=== PATIENT | female | born 1970 | race Caucasian/White ===

== ENCOUNTER 2017-04-07 | Emergency (ER) | payer MEDICAID, OTHER ==
[~2017-04-07] VITALS: Ht 162.6 cm; Wt 99.8 kg
[~2017-04-07] MED LIST: ATOR80TA PO; CIPR500T5 PO; CLON0.3T4 PO; COLC0.6T67 PO; COLE3.75 PO; DULO30CA2 PO; FERR-58 PO; FLUC200T8 PO; HYDR-3026 PO; HYDR-3204 PO; HYDR-4077 PO; HYDR1TAB PO; HYDR25PO MC; KETO30CR TP; LORA-545 PO; LOSA100T3 PO; MEDR10TA PO; OMEP20TA5 PO; PRAM2.7P2 SQ; SUMA100T PO
--- NOTE | 2017-04-07 01:00 | NUR ---
46 YO FEMALE BB SELF. PATIENT IS A/O X 3, C/O NOSE BLEED AND CHEST PAIN. PATIENT DESCRIBES PAIN PRESSURE LIKE, NON RADIATING. PATIENT AMBULATED TO ER BED, SKIN WARM AND DRY, RESP EVEN AND UNLABORED. PATIENT GOWNED,PLACED ON PARK WARDEN. AWAITING ORDERS FROM PROVIDER, WILL CONTINUE TO MONITOR
[2017-04-07] MEDS ORDERED: METOPROLOL TARTRATE INJ 5 MG/5 ML AMPUL IVP ONE (01:30)
[2017-04-07] MEDS ORDERED: METOPROLOL TARTRATE INJ 5 MG/5 ML AMPUL ONE (01:36)
--- NOTE | 2017-04-07 01:46 | NUR ---
MEDICATED PT QAS ORDERED
[2017-04-07 01:48] LABS: BASOPHILS # (AUTO) 0.1 /CMM (0.0-0.2); BASOPHILS % (AUTO) 0.6 % (0.0-2.0); EOSINOPHILS # (AUTO) 0.3 /CMM (0.0-0.7); HEMATOCRIT 35 % (33-45); HEMOGLOBIN 11.2 g/dL (11.5-14.8); LYMPHOCYTES # (AUTO) 2.2 /CMM (0.8-4.8); LYMPHOCYTES % (AUTO) 16.9 % (20.0-44.0); MEAN CORPUSCULAR HEMOGLOBIN 27 PG (26.0-33.0); MEAN CORPUSCULAR HGB CONC 32 g/dl (31.0-36.0); MEAN CORPUSCULAR VOLUME 84 fL (82-100); MONOCYTES # (AUTO) 0.9 /CMM (0.1-1.30); MONOCYTES % (AUTO) 6.9 % (2.0-12.0); NEUTROPHILS # (AUTO) 9.8 /CMM (1.8-8.9); NEUTROPHILS % (AUTO) 73.6 % (43.0-81.0); PLATELET COUNT (AUTO) 415 /CMM (150-450); RDW COEFFICIENT OF VARIATION 15.1 (11.5-15.0); RED BLOOD CELL COUNT(AUTO) 4.13 MIL/uL (4.0-5.2); WHITE BLOOD COUNT (AUTO) 13.3 K/uL (4.3-11.0)
[2017-04-07 02:02] LABS: CALCIUM, SERUM 8.9 mg/dL (8.5-10.1); INR 0.91 (0.87-1.13); POTASSIUM 3.8 mmol/L (3.5-5.1)
--- NOTE | 2017-04-07 02:04 | NUR ---
patient is resting in er bed, no distress noted, patient is on cardiac care unit nurse. will continue to monitor
[2017-04-07 02:06] LABS: TROPONIN I 0.218 ng/mL (0.00-0.056)
[2017-04-07] MEDS ORDERED: hydrALAZINE HCL IV 20 MG VIAL ONE ×2 (02:22→02:48)
[2017-04-07] MEDS ORDERED: hydrALAZINE HCL IV 20 MG VIAL IV ONE ×2 (02:30→03:00)
[2017-04-07] MEDS ORDERED: ENOXAPARIN SODIUM 80 MG/0.8 ML DISP.SYRIN SQ ONE (02:30)
[2017-04-07] MEDS ORDERED: ENOXAPARIN SODIUM 40 MG/0.4 ML DISP.SYRIN SQ ONE (02:48)
[2017-04-07] MEDS ORDERED: LABE100T PO (02:49)
[2017-04-07] MEDS ORDERED: ISOS60TA4 PO (02:49)
[2017-04-07] MEDS ORDERED: NITR0.4T48 SL (02:49)
[2017-04-07] MEDS ORDERED: ASPI-1169 PO (02:49)
[2017-04-07] MEDS ORDERED: INSU100C10 SQ (02:49)
[2017-04-07] MEDS ORDERED: FENO145T20 PO (02:49)
[2017-04-07] MEDS ORDERED: MONT10TA22 PO (02:49)
[2017-04-07] MEDS ORDERED: CYAN25008 SL (02:49)
[2017-04-07] MEDS ORDERED: CHOL20004 PO (02:49)
[2017-04-07] MEDS ORDERED: AMLO5TAB2 PO (02:49)
[2017-04-07] MEDS ORDERED: LOSA1TAB42 PO (02:49)
[2017-04-07] MEDS ORDERED: METO-358 PO (02:49)
[2017-04-07] MEDS ORDERED: PRAS10TA5 PO (02:49)
[2017-04-07] MEDS ORDERED: SPIR25TA4 PO (02:49)
[2017-04-07] MEDS ORDERED: INSU200I4 SQ (02:49)
[2017-04-07] MEDS ORDERED: ESOM40CA PO (02:49)
[2017-04-07] MEDS ORDERED: BISA-79 PO (02:49)
[2017-04-07] MEDS ORDERED: GLIM4TAB2 PO (02:49)
[2017-04-07 03:42] VITALS: BP 139/50
--- NOTE | 2017-04-07 03:45 | NUR ---
patient BP has gone down, VITAL SIGNS UPDATED. MD Wiggins notified
[2017-04-07] MEDS ORDERED: NITROGLYCERIN PACKET 1 GM PACKET TD ONE (04:30)
--- NOTE | 2017-04-07 04:42 | NUR ---
Patient does not wish to proceed with medical care recommended by Dr. Wiggins. Patient given information related to possible complications, up to and including , which could occur as a result of leaving the hospital at this time. Patient verbalizes understanding of risks involved due to leaving against medical advice. Patient refused to sign AMA form.
--- NOTE | 2017-04-07 04:48 | NUR ---
CALLED DR. WESTFALL AND INFORMED HIM PT DECIDED TO LEAVE HOSPITAL
== END 2017-04-07 04:51 | disposition left against medical advice (07) ==
LOC: ER 00:03
DX: I21.4 Non-ST elevation (NSTEMI) myocardial infarction (principal); I10 Essential (primary) hypertension; E11.9 Type 2 diabetes mellitus without complications; E66.9 Obesity, unspecified; E78.00 Pure hypercholesterolemia, unspecified; I25.2 Old myocardial infarction; Z88.0 Allergy status to penicillin; Z79.82 Long term (current) use of aspirin; Z79.4 Long term (current) use of insulin
CPT/HCPCS: 36415; 71045; 80048; 84484; 85025; 85730; 87081; 93005; 96372; 96374; 96375; 99285; A4606; J0360 ×2; J1650; J3490; Z7610

== ENCOUNTER 2018-01-10 17:18 | Emergency (ER) | payer MEDICAID ==
[~2018-01-10] VITALS: Ht 162.6 cm; Wt 104.3 kg
[~2018-01-10 17:18] MED LIST changes: +AMLO5TAB7 PO; +ASPI-1169 PO; -ATOR80TA PO; +BISA-79 PO; +CHOL20004 PO; -CIPR500T5 PO; -CLON0.3T4 PO; -COLE3.75 PO; +CYAN25008 SL; -DULO30CA2 PO; +ESOM40CA PO; +FENO145T35 PO; -FERR-58 PO; +FERR325T27 PO; -FLUC200T8 PO; +GLIM4TAB2 PO; -HYDR-3026 PO; -HYDR-3204 PO; -HYDR1TAB PO; -HYDR25PO MC; +INSU100C10 SQ; +INSU200I4 SQ; +ISOS60TA4 PO; -KETO30CR TP; +LABE100T5 PO; -LORA-545 PO; -LOSA100T3 PO; +LOSA1TAB42 PO; -MEDR10TA PO; +METO-358 PO; +MONT10TA22 PO; +NITR0.4T48 SL; -OMEP20TA5 PO; -PRAM2.7P2 SQ; +PRAS10TA5 PO; +SPIR25TA6 PO; -SUMA100T PO
--- NOTE | 2018-01-10 17:30 | NUR ---
BIB C/O LEFT LEG PAIN AND BLEEDING FROM PREVIOUS SURGERY 11/07 SHARP PAIN. RECENT HEART SURGERY 12/30/[address] [facility]. , ATTACHED TO MONITOR , VSS AFEBRILE , WILL CONTINUE TO MONITOR
[2018-01-10] MEDS ORDERED: HYDROCODONE/APAP 5/325MG 1 EACH TABLET ONE (17:53)
[2018-01-10] MEDS ORDERED: HYDROCODONE/APAP 5/325MG 1 EACH TABLET PO ONE (18:00)
--- NOTE | 2018-01-10 18:17 | NUR ---
Patient discharged to home in stable condition. Written and verbal after care instructions given. Patient verbalizes understanding of instruction.
[2018-01-10 18:19] VITALS: BP 142/65
== END 2018-01-10 18:20 | disposition home or self-care (01) ==
LOC: ER 17:21
DX: S80.12XD Contusion of left lower leg, subsequent encounter (principal); I10 Essential (primary) hypertension; E11.9 Type 2 diabetes mellitus without complications; I25.2 Old myocardial infarction; E78.00 Pure hypercholesterolemia, unspecified; Z95.1 Presence of aortocoronary bypass graft; Z98.890 Other specified postprocedural states; Z88.0 Allergy status to penicillin; Z79.82 Long term (current) use of aspirin; Z79.4 Long term (current) use of insulin; X58.XXXD Exposure to other specified factors, subsequent encounter
CPT/HCPCS: A4606; A6402; Z7610

== ENCOUNTER 2018-07-09 00:49 | Inpatient (IN) | payer MEDICAID ==
[~2018-07-09] VITALS: Ht 162.6 cm; Wt 106.1 kg
[~2018-07-09 00:49] MED LIST changes: -AMLO5TAB7 PO; +AMLO5TAB9 PO
--- NOTE | 2018-07-09 00:57 | NUR ---
PT BIBSELF COMPLAINING OF L FLANK PAIN, WITH CHEST PAIN. PT AXO4. PT ANXIOUS, RESPIRATIONS EVEN AND UNLABORED. PT PUT ON THE LOAN COORDINATOR AND PULSE OX.
--- NOTE | 2018-07-09 00:58 | NUR ---
PT HYPERTENSIVE ON THE MONITOR. ER AWARE.
[2018-07-09] MEDS ORDERED: NITROGLYCERIN 0.4 MG/TAB BOTTLE ONE (01:00)
[2018-07-09] MEDS ORDERED: NITROGLYCERIN 0.4 MG/TAB BOTTLE SL ONE (01:00)
[2018-07-09] MEDS ORDERED: ASPIRIN 325 MG TABLET ONE (01:00)
[2018-07-09] MEDS ORDERED: ASPIRIN 325 MG TABLET PO ONE (01:00)
--- NOTE | 2018-07-09 01:00 | NUR ---
EKG AT BEDSIDE.
--- NOTE | 2018-07-09 01:15 | NUR ---
PT SIGNED WAIVER.
[2018-07-09] MEDS ORDERED: ALBUTEROL FS 2.5 MG/0.5 ML VIAL.NEB ONE (01:20)
--- NOTE | 2018-07-09 01:21 | NUR ---
RT AT BEDSIDE FOR BREATHING TREATMENT.
[2018-07-09 01:30] LABS: BASOPHILS # (AUTO) 0.1 /CMM (0.0-0.2); BASOPHILS % (AUTO) 0.8 % (0.0-2.0); EOSINOPHILS % (AUTO) 4.4 % (0.0-6.0); HEMATOCRIT 33 % (33-45); LYMPHOCYTES % (AUTO) 19.4 % (20.0-44.0); MEAN CORPUSCULAR HGB CONC 33 g/dl (31.0-36.0); MEAN CORPUSCULAR VOLUME 91 fL (82-100); MONOCYTES # (AUTO) 0.7 /CMM (0.1-1.30); MONOCYTES % (AUTO) 6.9 % (2.0-12.0); NEUTROPHILS % (AUTO) 68.5 % (43.0-81.0); PLATELET COUNT (AUTO) 471 /CMM (150-450); RED BLOOD CELL COUNT(AUTO) 3.65 MIL/uL (4.0-5.2); WHITE BLOOD COUNT (AUTO) 10.3 K/uL (4.3-11.0)
[2018-07-09] MEDS ORDERED: MORPHINE SULFATE INJ 2 MG/ML DISP.SYRIN IV ONE (01:30)
[2018-07-09] MEDS ORDERED: ALBUTEROL FS 2.5 MG/0.5 ML VIAL.NEB NEB ONE (01:30)
[2018-07-09] MEDS ORDERED: ONDANSETRON HCL/PF 4 MG/2 ML VIAL IV ONE (01:30)
[2018-07-09] MEDS ORDERED: ONDANSETRON HCL/PF 4 MG/2 ML VIAL ONE (01:43)
[2018-07-09] MEDS ORDERED: MORPHINE SULFATE INJ 4 MG/ML DISP.SYRIN ONE (01:43)
[2018-07-09 01:57] LABS: CALCIUM, SERUM 8.7 mg/dL (8.5-10.1); POTASSIUM 4.3 mmol/L (3.5-5.1)
--- NOTE | 2018-07-09 01:57 | NUR ---
CALLED FOR TELE BED
--- NOTE | 2018-07-09 02:10 | NUR ---
PT TAKEN TO CT.
--- NOTE | 2018-07-09 02:18 | NUR ---
PT RETURNED FROM CT.
--- NOTE | 2018-07-09 02:36 | NUR ---
PT RESTING IN BED, AL NOTED. PT STATES SHE FEELS, "A LITTLE BIT BETTER"
--- NOTE | 2018-07-09 02:37 | NUR ---
WILL CONTINUE TO MONITOR.
--- NOTE | 2018-07-09 03:15 | NUR ---
PT RESTING IN BED, COMFORTABLY. NAD, NOTED WILL CONTINUE TO MONITOR.
[2018-07-09] MEDS ORDERED: ESCI20TA PO (03:35)
[2018-07-09] MEDS ORDERED: CLOP75TA15 PO (03:35)
[2018-07-09] MEDS ORDERED: DOCU250C88 PO (03:35)
[2018-07-09] MEDS ORDERED: GABA-532 PO (03:35)
[2018-07-09] MEDS ORDERED: PANT40TA4 PO (03:35)
[2018-07-09] MEDS ORDERED: INSU100V36 SQ (03:35)
[2018-07-09] MEDS ORDERED: ROSU40TA PO (03:35)
[2018-07-09] MEDS ORDERED: NEBI20TA2 PO (03:35)
[2018-07-09] MEDS ORDERED: LORA1TAB PO (03:35)
[2018-07-09] MEDS ORDERED: LINA5TAB PO (03:35)
--- NOTE | 2018-07-09 03:55 | NUR ---
PT HYPERTENSIVE ON THE MONITOR. ER MD AWARE. VERBAL ORDER OF 10MG HYDRALAZINE IVP. WILL CARRY OUT ORDERS.
[2018-07-09] MEDS ORDERED: hydrALAZINE HCL IV 20 MG VIAL ONE ×2 (04:05→04:35)
[2018-07-09] MEDS ORDERED: hydrALAZINE HCL IV 20 MG VIAL IV ONE ×2 (05:00)
--- NOTE | 2018-07-09 05:55 | NUR ---
REPORT GIVEN TO DAVID WILSON FOR FELICIA.
--- NOTE | 2018-07-09 06:28 | NUR ---
PT HYPERTENSIVE ON THE MONITOR. ER MD AWARE. WILL CARRY OUT ORDERS.
[2018-07-09] MEDS ORDERED: CLONIDINE HCL 0.1 MG TABLET ONE (06:38)
[2018-07-09] MEDS ORDERED: CLONIDINE HCL 0.1 MG TABLET PO PRN (07:00)
--- NOTE | 2018-07-09 07:40 | NUR ---
MS RN RECEIVED A NEW ADMISSION, 48 YEAR OLD FEMALE, CAME IN W/ CC OF CHEST PAIN,HIGH B/P, NOT IN DISTRESS, AWAKE,ALERT,ORIENTED X4, WILL MONITOR PATIENT'S CONDITION,ALL NEEDS ATTENDED.
[2018-07-09 08:00] VITALS: BP 182/90
[2018-07-09] MEDS ORDERED: INSULIN LISPRO/ASPART 100 UNIT/ML CARTRIDGE SQ SCH (08:30)
[2018-07-09] MEDS ORDERED: CLOPIDOGREL BISULFATE 75 MG TABLET PO SCH (09:00)
[2018-07-09] MEDS ORDERED: AMOX/CLAVULANATE 875 MG TABLET PO SCH (09:00)
[2018-07-09] MEDS ORDERED: INSULIN REGULAR, HUMAN 100 UNIT/ML 3 ML VIAL SQ PRN (09:00)
[2018-07-09] MEDS ORDERED: DEXTROSE 50%-WATER 50 ML DISP.SYRIN IV PRN (09:00)
[2018-07-09] MEDS ORDERED: *INSULIN REGULAR(HUMULIN R)HUM 100 UNIT/ML VIAL SQ PRN (09:00)
--- NOTE | 2018-07-09 09:10 | NUR ---
MS RN WAS SEEN BY DR.SHAO Jones/ ORDERS MADE AND CARRIED OUT.
[2018-07-09] MEDS ORDERED: ACETAMINOPHEN 325 MG TABLET PO PRN (10:00)
[2018-07-09] MEDS: HYDROCODONE/APAP 5/325MG 1 EACH TABLET PO PRN ×2 (10:07→18:12)
[2018-07-09] MEDS: GABAPENTIN 100 MG CAPSULE PO SCH ×3 (10:13→18:12)
[2018-07-09] MEDS: PANTOPRAZOLE 40 MG TABLET.DR PO SCH (10:13)
[2018-07-09] MEDS: FERROUS SULFATE (325 MG) 325 MG/TAB TABLET PO SCH ×2 (10:13→18:12)
[2018-07-09] MEDS: MONTELUKAST SODIUM (10MG) 10 MG TABLET PO SCH (10:13)
[2018-07-09] MEDS: FENOFIBRATE NANOCRYS (145 MG) 145 MG TABLET PO SCH (10:14)
[2018-07-09] MEDS: LINAGLIPTIN 5 MG TABLET PO SCH (10:14)
[2018-07-09] MEDS: ASPIRIN 81 MG TAB.CHEW PO SCH (10:14)
[2018-07-09] MEDS: BISACODYL (5 MG) 5 MG TABLET.DR PO SCH ×2 (10:14→18:12)
[2018-07-09] MEDS: SPIRONOLACTONE 25 MG TABLET PO SCH (10:15)
[2018-07-09] MEDS: AMLODIPINE BESYLATE 10 MG TABLET PO SCH (10:15)
[2018-07-09] MEDS: GLIMEPIRIDE 4 MG TABLET PO SCH ×2 (10:16→18:12)
[2018-07-09] MEDS: hydrALAZINE HCL 50 MG TABLET PO SCH ×2 (10:16→18:13)
[2018-07-09] MEDS: BLOOD SUGAR DIAGNOSTIC 1 EACH STRIP VI SCH ×3 (12:00→22:21)
--- NOTE | 2018-07-09 12:30 | NUR ---
MS RN REFUSED BS AND LUNCH AT THIS TIME.
[2018-07-09] MEDS: IV 1/2NS 1000 ML 1,000 ML IV PRN (14:04)
[2018-07-09 16:00] VITALS: BP 126/69
--- NOTE | 2018-07-09 17:05 | NUR ---
Patient lives at home locally with spouse. She is ambulatory and independent with adl's. Patient and is requesting transfer to [facility] where she has a scheduled urology procedure to be done this Friday by Dr. Tylor Mcneill [phone]. Spoke with Camelia haven mckeon mgr at [facility] [phone], she will contact the transfer team for coordination. Addendum: 07/09/18 at 2042 by CHIKI CORDOVA RN Amended: Links added.
--- NOTE | 2018-07-09 18:10 | NUR ---
Spoke with Ravi SMITH at [facility], patient is not cleared for transfer per , patient will need stress test tomorrow and will decide if patient is cleared for the urology procedure. [facility] field case manager will coordinate transfer if cleared by Dr. Laboy and cardiology. and patient is aware and agreed with current plan of care. Addendum: 07/09/18 at 2049 by CHIKI CORDOVA RN Amended: Links added.
[2018-07-09] MEDS: COLCHICINE 0.6 MG TABLET PO SCH (18:13)
[2018-07-09] MEDS: AZITHROMYCIN 250 MG TABLET PO SCH (18:15)
--- NOTE | 2018-07-09 19:40 | NUR ---
RN OPENING NOTES RECEIVED REPORT FROM DAYSHIFT RN GAIL. FOUND Pt ASLEEP IN BED, EASILY AWAKENED. NO S/S OF ACUTE DISTRESS OR SOB NOTED. Pt IS A/OX4, VERBAL, ABLE TO MAKE NEEDS KNOWN. NO C/O PAIN AT THIS TIME. IV ACCESS ON RWRIST #22G, IVF 1/2 NS @100ML/HR. Pt IS SCHEDULED TO HAVE STRESS TEST TOMORROW IN AM; CONSENT SIGNED, PLACED IN CHART. SAFETY MEASURES IN PLACE. BED LOW, LOCKED, HOB ELEVATED, SIDE RAILS UP, CALL LIGHT AND BEDSIDE TABLE WITHIN REACH. WILL CONTINUE TO MONITOR Pt's CONDITION AND SAFETY THROUGHOUT THE NIGHT.
[2018-07-09 20:00] VITALS: BP 140/62
--- NOTE | 2018-07-09 20:00 | NUR ---
RN NOTES SPOKE WITH CM ON THE PHONE. SAID Pt WILL NOT BE TRANSFERRED TONIGHT, INSTEAD SHE WILL BE TRANSFERRED TO [facility] TOMORROW AFTER THE STRESS TEST IS DONE AND Pt IS MEDICALLY CLEARED TO BE TRANSFERRED.
[2018-07-09] MEDS ORDERED: ATORVASTATIN 10 MG TABLET PO SCH (22:00)
--- NOTE | 2018-07-09 22:30 | NUR ---
KATIE NOTES HS ACCUCHECK BG 140. Pt WILL BE NPO STARTING MN TONIGHT. DID NOT ADMINISTER INSULIN COVERAGE. Addendum: 07/09/18 at 2234 by MICHAEL WALKER RN SPOKE WITH TUNNEL ELASTIC OPERATOR CHAINSTITCH OK TO GIVE INSULIN TONIGHT. WILL ADMINISTER 2UN OF INSULIN PER SLIDING SCALE.
[2018-07-10] VITALS: BP 129/70
[2018-07-10] MEDS: IV 1/2NS 1000 ML 1,000 ML IV PRN (02:30)
[2018-07-10 04:57] VITALS: BP 125/68
[2018-07-10] MEDS: BLOOD SUGAR DIAGNOSTIC 1 EACH STRIP VI SCH ×2 (06:30→12:12)
--- NOTE | 2018-07-10 06:33 | NUR ---
RN NOTES AC ACCUCHECK BG 115. NO INSULIN COVERAGE NEEDED AT THIS TIME.
--- NOTE | 2018-07-10 06:39 | NUR ---
RN CLOSING NOTES NO SIGNIFICANT CHANGES IN Pt's CONDITION. Pt REMAINS STABLE AT THIS TIME. NO S/S OF ACUTE DISTRESS OR SOB NOTED DURING THE NIGHT. ALL NEEDS MET AND ATTENDED TO. Pt IS CURRENTLY RESTING IN BED WITH EVEN AND UNLABORED RESPIRATIONS. TELE READING SR 70s. SAFETY MEASURES IN PLACE. WILL ENDORSE TO DAYSHIFT RN FOR Pt's FELICIA. Pt HAS BEEN NPO SINCE MIDNIGHT TONIGHT. Addendum: 07/10/18 at 0641 by MICHAEL WALKER RN STRESS TEST TODAY
--- NOTE | 2018-07-10 07:30 | NUR ---
PEER EDUCATOR NOTES PATIENT RECEIVED RESTING INSIDE ROOM. AWAKE, ALERT AND ORIENTED X 3, VERBALLY RESPONSIVE AND RESPONDS TO VERBAL AND TACTILE STIMULI. NO ACUTE DISTRESS AT THIS TIME. NO CHANGES IN LOC NOTED AT THIS TIME. PATIENT CALM AND RELAXED. ON NPO STATUS. AWAITING FOR STRESS TEST. PATIENT AWARE AND VERBALIZED UNDERSTANDING. WILL CONTINUE TO MONITOR. BED LOCKED AND IN LOW POSITION. BILATERAL UPPER SIDE RAILS UP AND LOCKED. CALL LIGHT WITHIN EASY REACH
[2018-07-10 07:44] LABS: BASOPHILS # (AUTO) 0.1 /CMM (0.0-0.2); BASOPHILS % (AUTO) 0.7 % (0.0-2.0); EOSINOPHILS % (AUTO) 4.7 % (0.0-6.0); HEMATOCRIT 32 % (33-45); HEMOGLOBIN 10.7 g/dL (11.5-14.8); LYMPHOCYTES # (AUTO) 1.5 /CMM (0.8-4.8); LYMPHOCYTES % (AUTO) 17.5 % (20.0-44.0); MEAN CORPUSCULAR HGB CONC 34 g/dl (31.0-36.0); MEAN CORPUSCULAR VOLUME 89 fL (82-100); MONOCYTES # (AUTO) 0.8 /CMM (0.1-1.30); MONOCYTES % (AUTO) 8.7 % (2.0-12.0); NEUTROPHILS % (AUTO) 68.4 % (43.0-81.0); PLATELET COUNT (AUTO) 366 /CMM (150-450); RED BLOOD CELL COUNT(AUTO) 3.58 MIL/uL (4.0-5.2); WHITE BLOOD COUNT (AUTO) 8.8 K/uL (4.3-11.0)
[2018-07-10 08:00] VITALS: BP 149/67
[2018-07-10] MEDS ORDERED: REGADENOSON 0.4 MG/5 ML DISP.SYRIN IVP ONE (08:00)
[2018-07-10] MEDS ORDERED: AZIT250T PO (08:03)
[2018-07-10 09:35] LABS: CALCIUM, SERUM 8.9 mg/dL (8.5-10.1); CREATININE 1.8 mg/dL (0.6-1.3); POTASSIUM 5.2 mmol/L (3.5-5.1)
[2018-07-10] MEDS: FENOFIBRATE NANOCRYS (145 MG) 145 MG TABLET PO SCH (09:49)
[2018-07-10] MEDS: GABAPENTIN 100 MG CAPSULE PO SCH ×2 (09:49→13:20)
[2018-07-10] MEDS: HYDROCODONE/APAP 5/325MG 1 EACH TABLET PO PRN ×2 (09:49→14:28)
[2018-07-10] MEDS: GLIMEPIRIDE 4 MG TABLET PO SCH (09:49)
[2018-07-10] MEDS: ASPIRIN 81 MG TAB.CHEW PO SCH (09:49)
[2018-07-10] MEDS: SPIRONOLACTONE 25 MG TABLET PO SCH (09:49)
[2018-07-10 09:50] VITALS: BP 149/67
[2018-07-10] MEDS: MONTELUKAST SODIUM (10MG) 10 MG TABLET PO SCH (09:50)
[2018-07-10] MEDS: BISACODYL (5 MG) 5 MG TABLET.DR PO SCH (09:50)
[2018-07-10] MEDS: LINAGLIPTIN 5 MG TABLET PO SCH (09:50)
[2018-07-10] MEDS: hydrALAZINE HCL 50 MG TABLET PO SCH (09:50)
[2018-07-10] MEDS: FERROUS SULFATE (325 MG) 325 MG/TAB TABLET PO SCH (09:50)
[2018-07-10] MEDS: AMLODIPINE BESYLATE 10 MG TABLET PO SCH (09:50)
[2018-07-10] MEDS: PANTOPRAZOLE 40 MG TABLET.DR PO SCH (09:50)
[2018-07-10] MEDS: COLCHICINE 0.6 MG TABLET PO SCH (09:51)
[2018-07-10] MEDS: AZITHROMYCIN 250 MG TABLET PO SCH (13:20)
--- NOTE | 2018-07-10 14:00 | NUR ---
MS RN NOTES RECEIVED CALL FROM CASE MANAGEMENT. REPORTING THAT PATIENT WILL BE TRANSFERRED TO [facility] FOR CARDIAC CATHETERIZATION. SPOKE WITH DR. WESTFALL OVER THE PHONE STATED THAT HE IS AWARE. PATIENT AND BISI AT BEDSIDE MADE AWARE AND VERBALIZED UNDERSTANDING.
--- NOTE | 2018-07-10 14:10 | NUR ---
MS RN NOTES PATIENT AND BISI ON THE PHONE WITH DR. WESTFALL
--- NOTE | 2018-07-10 15:50 | NUR ---
MS RN NOTES PATIENT LEFT HOSPITAL AGAINST MEDICAL ADVICE. VERBALIZED SHE DOES NOT WANT TO WAIT FOR TRANSPORTATION TO BE ARRANGED. ALSO VERBALIZED THAT SHE AND THE WANT TO GO TO [facility] THE PATIENT HAD PRIOR HOSPITALIZATION THERE AND THAT THEY HAVE THE PATIENT'S RECORDS. RISKS AND BENEFITS EXPLAINED BUT TO NO AVAIL. PATIENT STATED THAT SHE WANTS TO LEAVE IMMEDIATELY. DR. WESTFALL MADE AWARE AND GAVE OK. PATIENT SIGNED AMA FORM. ALL BELONGINGS COMPLETE, NO REPORT OF MISSING INVENTORY. IV REMOVED WITH MINIMAL BLEEDING NOTED, PRESSURE DRESSING PLACED ON SITE. ID BAND REMOVED. PATIENT LEFT UNIT AMBULATORY, ACCOMPANIED BY NURSING STAFF. PATIENT LEFT AMBULATORY. NO CHANGES IN LOC NOTED. DENIES ANY PAIN OR DISCOMFORT. NO ACUTE DISTRESS. NO NEW SKIN BREAKDOWN NOTED. LEFT HOSPITAL PREMISES VIA PRIVATE CAR WITH BISI.
== END 2018-07-10 15:45 | disposition left against medical advice (07) | DRG 145 ==
LOC: ER 00:49 → TELE 06:19 → MED 08:23 → TELE 08:41 → MED 07-10 08:26
PROVIDERS: ADMIT Internal Medicine; ATTEND Internal Medicine
DX: J20.9 Acute bronchitis, unspecified (principal); E11.22 Type 2 diabetes mellitus with diabetic chronic kidney disease; N17.9 Acute kidney failure, unspecified; I25.110 Atherosclerotic heart disease of native coronary artery with unstable angina pectoris; N18.3 Chronic kidney disease, stage 3 (moderate); K80.10 Calculus of gallbladder with chronic cholecystitis without obstruction; Z68.41 Body mass index [BMI] 40.0-44.9, adult; I12.9 Hypertensive chronic kidney disease with stage 1 through stage 4 chronic kidney disease, or unspecified chronic kidney disease; Z95.1 Presence of aortocoronary bypass graft; E66.9 Obesity, unspecified; Z88.0 Allergy status to penicillin; E78.5 Hyperlipidemia, unspecified
CPT/HCPCS: 36415; 71045-TC; 76705-TC; 76770-TC; 80048-TC; 82962-TC; 83880; 84484-TC; 84702-TC; 85025-TC; 85730-TC; 87081-TC; 93307-TC; A9502; G0378; J0360; J1815; J2270; J2405; J2785; J3490

== ENCOUNTER 2018-07-20 17:14 | Emergency (ER) | payer MEDICAID ==
[~2018-07-20] VITALS: Ht 157.5 cm; Wt 102.1 kg
[~2018-07-20 17:14] MED LIST changes: -AMLO5TAB9 PO; +AZIT250T PO; -CHOL20004 PO; +CLOP75TA15 PO; -CYAN25008 SL; +DOCU250C88 PO; +ESCI20TA PO; -ESOM40CA PO; +GABA-532 PO; +INSU100V36 SQ; -ISOS60TA4 PO; -LABE100T5 PO; +LINA5TAB PO; +LORA1TAB PO; -METO-358 PO; +NEBI20TA2 PO; -NITR0.4T48 SL; +PANT40TA4 PO; -PRAS10TA5 PO; +ROSU40TA PO
--- NOTE | 2018-07-20 17:26 | NUR ---
PT BIBFAMILY FOR LT SIDE BACK PAIN S/P SX ON FRIDAY; PT AAOX4, PT AMBULATORY, NAD NOTED, VSS, PENDING MD HUANG
[2018-07-20] MEDS ORDERED: KETOROLAC TROMETHAMINE 15 MG/ML VIAL ONE (17:49)
[2018-07-20] MEDS ORDERED: MORPHINE SULFATE INJ 4 MG/ML DISP.SYRIN ONE (17:49)
[2018-07-20 17:51] LABS: BILIRUBIN,URINE Negative (NEGATIVE); BLOOD, URINE Negative Ery/uL (NEGATIVE); COLOR,URINE Yellow (YELLOW); KETONES,URINE Negative (NEGATIVE); LEUKOCYTE ESTERASE ,URINE Negative (NEGATIVE); NITRITE, URINE Negative (NEGATIVE); PH,URINE 5.5 (5.0-8.0); PROTEIN,URINE 30 mg/dl (NEGATIVE); UGLUCOSE 100 MG/DL mg/dL (NEGATIVE); UROBILINOGEN,URINE 0.2 EU/dL (0.2)
[2018-07-20 17:52] LABS: BASOPHILS # (AUTO) 0.1 /CMM (0.0-0.2); BASOPHILS % (AUTO) 0.7 % (0.0-2.0); EOSINOPHILS % (AUTO) 11.6 % (0.0-6.0); HEMATOCRIT 35 % (33-45); HEMOGLOBIN 11.4 g/dL (11.5-14.8); LYMPHOCYTES # (AUTO) 1.5 /CMM (0.8-4.8); LYMPHOCYTES % (AUTO) 12.1 % (20.0-44.0); MEAN CORPUSCULAR HGB CONC 33 g/dl (31.0-36.0); MEAN CORPUSCULAR VOLUME 91 fL (82-100); MONOCYTES # (AUTO) 0.8 /CMM (0.1-1.30); MONOCYTES % (AUTO) 6.8 % (2.0-12.0); NEUTROPHILS # (AUTO) 8.5 /CMM (1.8-8.9); NEUTROPHILS % (AUTO) 68.8 % (43.0-81.0); PLATELET COUNT (AUTO) 504 /CMM (150-450); RED BLOOD CELL COUNT(AUTO) 3.82 MIL/uL (4.0-5.2); WHITE BLOOD COUNT (AUTO) 12.4 K/uL (4.3-11.0)
[2018-07-20] MEDS ORDERED: ONDANSETRON HCL/PF 4 MG/2 ML VIAL ONE (17:57)
[2018-07-20 17:59] LABS: CALCIUM, SERUM 9.1 mg/dL (8.5-10.1); CREATININE 1.6 mg/dL (0.6-1.3); POTASSIUM 4.1 mmol/L (3.5-5.1)
[2018-07-20] MEDS ORDERED: KETOROLAC TROMETHAMINE INJ 30 MG/ML VIAL IV ONE (18:00)
[2018-07-20] MEDS ORDERED: MORPHINE SULFATE INJ 2 MG/ML DISP.SYRIN IV ONE (18:00)
[2018-07-20] MEDS ORDERED: ONDANSETRON HCL/PF 4 MG/2 ML VIAL IVP ONE (18:00)
[2018-07-20 18:02] LABS: APPEARANCE,URINE HAZY (CLEAR)
[2018-07-20 18:03] LABS: BACTERIA,URINE OCCASIONAL /HPF (None Seen); RBC,URINE 0-2 /HPF (0-2)
[2018-07-20 18:04] LABS: YEAST,URINE Few /HPF (None Seen)
[2018-07-20 18:05] LABS: ALBUMIN 3.6 g/dL (3.4-5.0); BILIRUBIN,DIRECT 0.1 mg/dL (0.0-0.2); BILIRUBIN,TOTAL 0.2 mg/dL (0.2-1.0); SQUAMOUS EPITHELIAL CELL,UR Moderate /HPF (None Seen); TOTAL PROTEIN, SERUM 7.9 g/dL (6.4-8.2)
[2018-07-20 19:30] VITALS: BP 188/100
--- NOTE | 2018-07-20 19:31 | NUR ---
Patient discharged to home in stable condition. Written and verbal after care instructions given. Patient verbalizes understanding of instruction. IV removed. Catheter intact and site benign. Pressure and 4x4 applied to site. No bleeding noted.
== END 2018-07-20 20:19 | disposition home or self-care (01) ==
LOC: ER 17:19
DX: N39.0 Urinary tract infection, site not specified (principal); I10 Essential (primary) hypertension; J45.909 Unspecified asthma, uncomplicated; E11.9 Type 2 diabetes mellitus without complications; I25.10 Atherosclerotic heart disease of native coronary artery without angina pectoris; Z90.710 Acquired absence of both cervix and uterus; Z95.1 Presence of aortocoronary bypass graft; Z98.890 Other specified postprocedural states; Z88.0 Allergy status to penicillin; Z95.5 Presence of coronary angioplasty implant and graft; Z79.4 Long term (current) use of insulin; Z79.82 Long term (current) use of aspirin
CPT/HCPCS: 36415; 71045; 74176; 80048; 80076; 81001; 83690; 84484; 84703; 85025; 93005; 96374; 96375; 99284; G0480; J1885; J2270; J2405; 81000-TC

== ENCOUNTER 2019-04-19 19:59 | Emergency (ER) | payer MEDICAID ==
[~2019-04-19] VITALS: Ht 160 cm; Wt 102.1 kg
[~2019-04-19 19:59] MED LIST changes: +FENO145T21 PO; -FENO145T35 PO; -GLIM4TAB2 PO; +GLIM4TAB37 PO
--- NOTE | 2019-04-19 20:34 | NUR ---
PT CAME INTO THE ED C/O R NOSTRIL NOSEBLEED X1MO, WORSE TODAY, +BLOOD THINNERS. PT CONNECTED TO THE MONITOR AND POX. MINIMAL BLEEDING NOTED.
--- NOTE | 2019-04-19 20:38 | NUR ---
DR ISRAEL AT BEDSIDE
[2019-04-19] MEDS ORDERED: METOPROLOL TARTRATE 50 MG TABLET ONE (20:46)
[2019-04-19] MEDS ORDERED: METOPROLOL TARTRATE 50 MG TABLET PO ONE (21:00)
--- NOTE | 2019-04-19 21:02 | NUR ---
Patient discharged to home per MD order. Written and verbal after care instructions given. Patient verbalizes understanding of instruction. MD aware of patient's blood pressure. Medication given Lopressor 50mg.
[2019-04-19 21:04] VITALS: BP 186/108
[2019-04-28] MEDS ORDERED: LEVO750T21 PO (10:39)
== END 2019-04-19 21:04 ==
LOC: ER 20:00
DX: R04.0 Epistaxis (principal); I10 Essential (primary) hypertension; J45.909 Unspecified asthma, uncomplicated; E11.9 Type 2 diabetes mellitus without complications; I25.10 Atherosclerotic heart disease of native coronary artery without angina pectoris; Z95.1 Presence of aortocoronary bypass graft; Z90.710 Acquired absence of both cervix and uterus; Z95.5 Presence of coronary angioplasty implant and graft; Z98.890 Other specified postprocedural states; Z88.0 Allergy status to penicillin; Z79.82 Long term (current) use of aspirin; Z79.4 Long term (current) use of insulin; Z79.899 Other long term (current) drug therapy

== ENCOUNTER 2019-04-20 15:37 | Emergency (ER) | payer MEDICAID ==
[~2019-04-20] VITALS: Ht 160 cm; Wt 102.1 kg
--- NOTE | 2019-04-20 16:00 | NUR ---
PATIENT CAMEIN TO THE ER C/O CAME BACK FOR REMOVAL OF NASAL PACKING INSERTED LAST NIGHT FOR EPISTAXIS BLOOD PRESSURE ELEVATED IN TRIAGE. ON ROOM AIR, BREATHING EVENLY AND UNLABORED. KEPT COMFORTABLE, WILL CONTINUE TO MONITOR ACCORDINGLY.
[2019-04-20] MEDS ORDERED: HYDROCODONE/APAP 10/325MG 1 EA TABLET PO ONE (17:30)
[2019-04-20] MEDS ORDERED: PHENYLEPHRINE 1% NASAL SPRAY 15 ML BOTTLE NS PRN (17:30)
[2019-04-20] MEDS ORDERED: ONDANSETRON 4 MG TAB.RAPDIS SL ONE (17:30)
[2019-04-20] MEDS ORDERED: HYDROCODONE/APAP 10/325MG 1 EA TABLET ONE (17:34)
[2019-04-20] MEDS ORDERED: ONDANSETRON 4 MG TAB.RAPDIS ONE (17:34)
[2019-04-20] MEDS ORDERED: PHENYLEPHRINE 0.5% NASAL SPRAY 15 ML BOTTLE NS ONE (17:45)
[2019-04-20 18:38] VITALS: BP 183/85
--- NOTE | 2019-04-20 18:39 | NUR ---
Patient discharged to home in stable condition. Written and verbal after care instructions given. Patient verbalizes understanding of instruction.
[2019-04-28] MEDS ORDERED: LEVO750T21 PO (10:39)
== END 2019-04-20 18:38 | disposition home or self-care (01) ==
LOC: ER 15:38
DX: R04.0 Epistaxis (principal); R51 Headache; R11.0 Nausea; I10 Essential (primary) hypertension; I25.10 Atherosclerotic heart disease of native coronary artery without angina pectoris; J45.909 Unspecified asthma, uncomplicated; E11.9 Type 2 diabetes mellitus without complications; E78.5 Hyperlipidemia, unspecified; D64.9 Anemia, unspecified; Z95.818 Presence of other cardiac implants and grafts; Z90.710 Acquired absence of both cervix and uterus; Z98.890 Other specified postprocedural states; Z88.0 Allergy status to penicillin; Z79.899 Other long term (current) drug therapy; Z79.4 Long term (current) use of insulin; Z79.82 Long term (current) use of aspirin
CPT/HCPCS: 99283; Q0162

== ENCOUNTER 2019-04-26 23:40 | Inpatient (IN) | payer MEDICAID ==
[~2019-04-26] VITALS: Ht 160 cm; Wt 119.3 kg
[2019-04-27] VITALS: BP 157/64
--- NOTE | 2019-04-27 00:10 | NUR ---
PT BIB RA WITH A C/O SOB. PT IS ALSO C/O LT SIDED SHARP CHEST PAIN. PT WAS TRIAGED AND WENT TO ER 2. PT WAS PLACED ON THE MONITOR AND CONTINUOUS PULSE OX. PT ARRIVED WITH A BREATHING TX IN PROCESS. APPROX 3 MINS LEFT ON THE BREATHING TX.
--- NOTE | 2019-04-27 00:15 | NUR ---
PT IS SATURATING AT 98% ON RA.
[2019-04-27] MEDS ORDERED: methylPREDNISolone SOD SUCC 125 MG/2ML VIAL IV ONE (00:30)
[2019-04-27] MEDS ORDERED: ALBUTEROL FS 2.5 MG/3 ML VIAL.NEB NEB ONE (00:30)
[2019-04-27] MEDS ORDERED: NITROGLYCERIN PACKET 1 GM PACKET TD ONE (00:30)
[2019-04-27] MEDS ORDERED: ASPIRIN 81 MG TAB.CHEW PO ONE (00:30)
[2019-04-27] MEDS ORDERED: diphenhydrAMINE HCL 50 MG/ML VIAL IV ONE (00:30)
[2019-04-27] MEDS ORDERED: IPRATROPIUM NEB FS 0.5 MG/2.5 ML AMPUL.NEB NEB ONE (00:30)
[2019-04-27] MEDS ORDERED: MORPHINE SULFATE INJ 2 MG/ML DISP.SYRIN IV ONE (00:30)
[2019-04-27] MEDS ORDERED: ONDANSETRON HCL/PF - ER 4 MG/2 ML VIAL IV ONE (00:30)
[2019-04-27] MEDS ORDERED: NITROGLYCERIN 0.4 MG/TAB BOTTLE SL ONE (00:30)
[2019-04-27] MEDS ORDERED: ONDANSETRON HCL/PF 4 MG/2 ML VIAL ONE (00:31)
[2019-04-27] MEDS ORDERED: diphenhydrAMINE HCL 50 MG/ML VIAL ONE (00:31)
[2019-04-27] MEDS ORDERED: MORPHINE SULFATE INJ 4 MG/ML DISP.SYRIN ONE (00:32)
[2019-04-27] MEDS ORDERED: NITROGLYCERIN PACKET 1 GM PACKET ONE (00:32)
[2019-04-27] MEDS ORDERED: ASPIRIN 81 MG TAB.CHEW ONE (00:32)
[2019-04-27] MEDS ORDERED: NITROGLYCERIN 0.4 MG/TAB BOTTLE ONE (00:32)
[2019-04-27] MEDS ORDERED: MORPHINE SULFATE INJ 2 MG/ML DISP.SYRIN ONE (00:32)
[2019-04-27] MEDS ORDERED: methylPREDNISolone SOD SUCC 125 MG/2ML VIAL ONE (00:33)
[2019-04-27] MEDS ORDERED: ALBUTEROL FS 2.5 MG/3 ML VIAL.NEB ONE (00:33)
[2019-04-27] MEDS ORDERED: IPRATROPIUM NEB FS 0.5 MG/2.5 ML AMPUL.NEB ONE (00:33)
--- NOTE | 2019-04-27 00:35 | NUR ---
BREATHING TX STARTED
[2019-04-27 00:49] LABS: BASOPHILS # (AUTO) 0.1 /CMM (0.0-0.2); BASOPHILS % (AUTO) 1.2 % (0.0-2.0); EOSINOPHILS % (AUTO) 2.2 % (0.0-6.0); HEMATOCRIT 31 % (33-45); HEMOGLOBIN 9.9 g/dL (11.5-14.8); MEAN CORPUSCULAR HGB CONC 32 g/dl (31.0-36.0); MEAN CORPUSCULAR VOLUME 91 fL (82-100); MONOCYTES # (AUTO) 0.9 /CMM (0.1-1.30); MONOCYTES % (AUTO) 7.3 % (2.0-12.0); NEUTROPHILS # (AUTO) 8.5 /CMM (1.8-8.9); NEUTROPHILS % (AUTO) 72.3 % (43.0-81.0); PLATELET COUNT (AUTO) 448 /CMM (150-450); RED BLOOD CELL COUNT(AUTO) 3.39 MIL/uL (4.0-5.2); WHITE BLOOD COUNT (AUTO) 11.7 K/uL (4.3-11.0)
--- NOTE | 2019-04-27 00:50 | NUR ---
BREATHING TX FINISHED.
[2019-04-27 00:59] LABS: CALCIUM, SERUM 8.9 mg/dL (8.5-10.1); CREATININE 2.1 mg/dL (0.6-1.3); POTASSIUM 3.9 mmol/L (3.5-5.1)
--- NOTE | 2019-04-27 01:00 | NUR ---
PT DOES NOT KNOW HER HOME MEDS.
[2019-04-27 01:06] LABS: D-DIMER 0.81 mg/L(FEU (0.17-0.50)
[2019-04-27 01:16] LABS: ALBUMIN 3.3 g/dL (3.4-5.0); BILIRUBIN,TOTAL 0.1 mg/dL (0.2-1.0); TOTAL PROTEIN, SERUM 7.4 g/dL (6.4-8.2)
--- NOTE | 2019-04-27 01:28 | NUR ---
PT'S O2 SAT IS 91% ON RA. PT WAS PLACED ON 2L O2 VIA NC. PT IS SATURATING AT 94%
--- NOTE | 2019-04-27 01:30 | NUR ---
PT APPEARS TO BE SLEEPING SOUNDLY WITH NO S/S OF PAIN OR DISTRESS.
--- NOTE | 2019-04-27 01:35 | NUR ---
PT'S O2 SAT DECREASED TO 88%. PT'S O2 WAS INCREASED TO 3.5L VIA NC AND IS NOW 99%.
--- NOTE | 2019-04-27 01:36 | NUR ---
SPOKED TO [facility] [facility], WILL CALL BACK FOR INFO.
[2019-04-27] MEDS ORDERED: ENOXAPARIN SODIUM 100 MG/ML DISP.SYRIN SQ ONE ×2 (01:48→02:00)
--- NOTE | 2019-04-27 01:56 | NUR ---
PAGED FOR PT ADMISSION.
[2019-04-27] MEDS ORDERED: POTASSIUM CHLORIDE 20 MEQ TAB.PRT.SR PO ONE ×2 (02:00→02:22)
[2019-04-27] MEDS ORDERED: FUROSEMIDE 40 MG/4 ML VIAL IV ONE (02:00)
[2019-04-27] MEDS ORDERED: FUROSEMIDE 40 MG/4 ML VIAL ONE (02:22)
--- NOTE | 2019-04-27 02:26 | NUR ---
PER MD, PT REC'D K-DUR 2O MEQ PO BECAUSE THE PT WAS REC'ING LASIX 40 MG IVP.
--- NOTE | 2019-04-27 02:32 | NUR ---
ORDERS REC'D FROM DR WESTFALL.
--- NOTE | 2019-04-27 02:52 | NUR ---
PT IS GOING TO [facility]
--- NOTE | 2019-04-27 03:00 | NUR ---
CALLED [facility] TO GIVE REPORT. RN TO CALL BACK.
--- NOTE | 2019-04-27 03:18 | NUR ---
REPORT GIVEN TO KATIE BROTHERS
[2019-04-27 04:00] VITALS: BP 145/85
[2019-04-27] MEDS ORDERED: HYDROCODONE/APAP 5/325MG 1 EACH TABLET PO PRN (05:00)
[2019-04-27] MEDS ORDERED: DEXTROSE 50%-WATER 50 ML DISP.SYRIN IV PRN (05:00)
[2019-04-27] MEDS ORDERED: *INSULIN REGULAR(HUMULIN R)HUM 100 UNIT/ML VIAL SQ PRN (05:00)
[2019-04-27] MEDS ORDERED: ACETAMINOPHEN 325 MG TABLET PO PRN (05:00)
[2019-04-27 07:27] LABS: BASOPHILS # (AUTO) 0.1 /CMM (0.0-0.2); BASOPHILS % (AUTO) 0.7 % (0.0-2.0); EOSINOPHILS % (AUTO) 0.1 % (0.0-6.0); HEMATOCRIT 31 % (33-45); LYMPHOCYTES # (AUTO) 0.7 /CMM (0.8-4.8); LYMPHOCYTES % (AUTO) 5.3 % (20.0-44.0); MEAN CORPUSCULAR HGB CONC 32 g/dl (31.0-36.0); MEAN CORPUSCULAR VOLUME 90 fL (82-100); MONOCYTES # (AUTO) 0.3 /CMM (0.1-1.30); MONOCYTES % (AUTO) 2.3 % (2.0-12.0); NEUTROPHILS # (AUTO) 12.7 /CMM (1.8-8.9); NEUTROPHILS % (AUTO) 91.6 % (43.0-81.0); PLATELET COUNT (AUTO) 429 /CMM (150-450); RED BLOOD CELL COUNT(AUTO) 3.48 MIL/uL (4.0-5.2); WHITE BLOOD COUNT (AUTO) 13.9 K/uL (4.3-11.0)
[2019-04-27] MEDS ORDERED: BLOOD SUGAR DIAGNOSTIC 1 EACH STRIP IN SCH (07:30)
[2019-04-27 07:35] LABS: CALCIUM, SERUM 8.6 mg/dL (8.5-10.1); CREATININE 2.2 mg/dL (0.6-1.3); POTASSIUM 4.6 mmol/L (3.5-5.1)
[2019-04-27 07:43] LABS: THYROID STIMULATING HORMONE 1.974 uIU/mL (0.358-3.74)
[2019-04-27 08:00] VITALS: BP 155/81
--- NOTE | 2019-04-27 08:00 | NUR ---
[facility] RN NOTE PATIENT IN BED SLEEPING BUT EASILY AROUSABLE, ON 6 L NC NO SOB AT THIS TIME, ON TELE MONITOR, HR 89 , LT HAND HL INTACT AND FLUSHED WELL , BED IN LOWEST AND LOCKED POSITION. PLAN OF CARE DISCUSSED WITH PATIENT, WILL CONT TO MONITOR
[2019-04-27] MEDS: PANTOPRAZOLE 40 MG TABLET.DR PO SCH (08:54)
[2019-04-27] MEDS: BLOOD SUGAR DIAGNOSTIC 1 EACH STRIP VI SCH ×4 (08:56→21:45)
[2019-04-27] MEDS ORDERED: SPIRONOLACTONE 25 MG TABLET PO SCH (09:00)
[2019-04-27] MEDS: INSULIN REGULAR, HUMAN 100 UNIT/ML 3 ML VIAL SQ PRN ×3 (09:00→17:46)
[2019-04-27] MEDS ORDERED: CARVEDILOL 6.25 MG TABLET PO SCH (09:00)
[2019-04-27] MEDS ORDERED: ENOXAPARIN SODIUM 30 MG/0.3 ML DISP.SYRIN SQ SCH (09:00)
[2019-04-27] MEDS ORDERED: FUROSEMIDE 40 MG/4 ML VIAL IV SCH (09:00)
[2019-04-27] MEDS: GLIMEPIRIDE 4 MG TABLET PO SCH ×2 (09:00→16:09)
[2019-04-27] MEDS: FUROSEMIDE 40 MG/4 ML VIAL IV SCH (09:01)
--- NOTE | 2019-04-27 09:08 | NUR ---
[facility] RN NOTE DR WESTFALL AT BEDSIDE AND AWARE OF CHEST XRAY RESULTS AND PATIENT CONDITION. WILL F/U
[2019-04-27] MEDS: CEFTRIAXONE 1 G in IV D5W 50 ML IV SCH (10:04)
[2019-04-27] MEDS: HEPARIN SODIUM, PORCINE 5000 UNITS/1 ML VIAL SQ SCH ×2 (10:25→20:15)
[2019-04-27] MEDS: FENOFIBRATE NANOCRYS (145 MG) 145 MG TABLET PO SCH (10:26)
[2019-04-27] MEDS: MONTELUKAST SODIUM (10MG) 10 MG TABLET PO SCH (10:26)
[2019-04-27] MEDS: COLCHICINE 0.6 MG TABLET PO SCH ×2 (10:26→16:09)
[2019-04-27] MEDS: AMLODIPINE BESYLATE 5 MG TABLET PO SCH (10:27)
[2019-04-27] MEDS: ASPIRIN 81 MG TAB.CHEW PO SCH (10:27)
[2019-04-27] MEDS: GABAPENTIN 100 MG CAPSULE PO SCH ×3 (10:28→16:09)
[2019-04-27] MEDS: CLOPIDOGREL BISULFATE 75 MG TABLET PO SCH (10:28)
[2019-04-27] MEDS: LINAGLIPTIN 5 MG TABLET PO SCH (10:28)
[2019-04-27] MEDS: FERROUS SULFATE (325 MG) 325 MG/TAB TABLET PO SCH ×2 (10:28→16:09)
[2019-04-27] MEDS: CARVEDILOL 6.25 MG TABLET PO SCH ×2 (10:29→20:18)
[2019-04-27] MEDS: AZITHROMYCIN 500 MG in IV D5W 250 ML IV SCH (11:13)
[2019-04-27 12:00] VITALS: BP 143/77
--- NOTE | 2019-04-27 12:00 | NUR ---
NEON PUMPER NOTE RESTING COMFORTABLY IN BED , ALL NEEDS ATTENDED ,ABLE TO GO TO BR .URINATED WELL KEEP CLEAN DRY , CALL LIGHT WITHIN REACH
[2019-04-27 16:00] VITALS: BP 159/71
--- NOTE | 2019-04-27 16:27 | NUR ---
CARE PROFESSIONALS NOTE PER DR MALOU DAWN TO GIVE PNA VACCINE UPON DISCHARGE WILL F\U
--- NOTE | 2019-04-27 18:25 | NUR ---
SPLASH LINE OPERATOR NOTE PT AWAKE AT THIS TIME ABLE TO EAT 100% OF DINNER, ON O2 NC 6 LITERS. NOT IN DISTRESS AT THIS TIME. SAFETY MEASURES OBSERVED. ABLE TO AMBULATE BY SELF. CALL LIGHT WITHIN REACH. WILL CONTINUE TO MONITOR.
--- NOTE | 2019-04-27 19:20 | NUR ---
RN OPENING NOTES: PATIENT IN BED, AWAKE, AND VERBALLY RESPONSIVE. NO SOB. ON O2 AT 6LPM VIA NC, TOLERATING WELL, O2 SAT 100%. NO C/O PAIN AT THIS TIME. SAFETY PRECAUTIONS IMPLEMENTED. BED LOCKED, ALARM ON, AND IN LOWEST POSITION. (L) HAND G20 INTACT, PATENT, AND FLUSHING WELL. CALL LIGHT PLACED WITHIN REACH. WILL CONT. TO MONITOR.
[2019-04-27 20:00] VITALS: BP 167/77
--- NOTE | 2019-04-27 20:00 | NUR ---
RN NOTE: PATIENT C/O NONRADIATING 5/[address] WESTFALL AND RECOMMENDED IF NITRO OR MORPHINE CAN BE GIVEN. PER MD, JUST GIVE NORCO. WILL CONT. TO MONITOR.
[2019-04-27] MEDS ORDERED: ATORVASTATIN 40 MG TABLET PO SCH (22:00)
[2019-04-27] MEDS ORDERED: INSULIN GLARGINE, 100 UNIT/ML CARTRIDGE SQ SCH (22:00)
[2019-04-28] VITALS: BP 157/54
[2019-04-28 04:00] VITALS: BP 160/74
[2019-04-28 06:18] LABS: BASOPHILS # (AUTO) 0.1 /CMM (0.0-0.2); BASOPHILS % (AUTO) 0.9 % (0.0-2.0); EOSINOPHILS % (AUTO) 2.9 % (0.0-6.0); HEMATOCRIT 31 % (33-45); HEMOGLOBIN 9.8 g/dL (11.5-14.8); LYMPHOCYTES # (AUTO) 1.8 /CMM (0.8-4.8); MEAN CORPUSCULAR HGB CONC 32 g/dl (31.0-36.0); MEAN CORPUSCULAR VOLUME 90 fL (82-100); MONOCYTES # (AUTO) 0.9 /CMM (0.1-1.30); MONOCYTES % (AUTO) 7.8 % (2.0-12.0); NEUTROPHILS # (AUTO) 8.2 /CMM (1.8-8.9); NEUTROPHILS % (AUTO) 72.4 % (43.0-81.0); PLATELET COUNT (AUTO) 455 /CMM (150-450); RED BLOOD CELL COUNT(AUTO) 3.37 MIL/uL (4.0-5.2); WHITE BLOOD COUNT (AUTO) 11.3 K/uL (4.3-11.0)
[2019-04-28 07:09] LABS: CALCIUM, SERUM 9.1 mg/dL (8.5-10.1); CREATININE 2.3 mg/dL (0.6-1.3); POTASSIUM 3.7 mmol/L (3.5-5.1)
--- NOTE | 2019-04-28 07:20 | NUR ---
RN CLOSING NOTES: PATIENT IN BED, AWAKE, AND VERBALLY RESPONSIVE. NO SOB. NO C/O CHEST PAIN AT THIS TIME. SAFETY PRECAUTIONS IMPLEMENTED. BED LOCKED, ALARM ON, AND IN LOWEST POSITION. (L) HAND G20 INTACT, PATENT, AND FLUSHING WELL. CALL LIGHT PLACED WITHIN REACH. ENDORSED TO AM SHIFT NURSE FOR CONTINUITY OF CARE.
[2019-04-28] MEDS: BLOOD SUGAR DIAGNOSTIC 1 EACH STRIP VI SCH ×2 (07:39→11:48)
--- NOTE | 2019-04-28 07:45 | NUR ---
RN OPENING NOTE PATIENT IN BED SLEEPING BUT EASILY AROUSABLE, ON 6 L NC NO SOB AT THIS TIME, NO COMPLAINT OF PAIN , LT HAND HL INTACT AND FLUSHED WELL , BED IN LOWEST AND LOCKED POSITION. PLAN OF CARE DISCUSSED WITH PATIENT, WILL CONT TO MONITOR
[2019-04-28 08:00] VITALS: BP_SYST 171; BP_SYST 175; BP_DIAS 70; BP_DIAS 75
[2019-04-28] MEDS: PANTOPRAZOLE 40 MG TABLET.DR PO SCH (08:43)
[2019-04-28] MEDS: CEFTRIAXONE 1 G in IV D5W 50 ML IV SCH (08:45)
[2019-04-28] MEDS: INSULIN REGULAR, HUMAN 100 UNIT/ML 3 ML VIAL SQ PRN ×2 (08:45→11:54)
[2019-04-28] MEDS: HEPARIN SODIUM, PORCINE 5000 UNITS/1 ML VIAL SQ SCH (08:46)
[2019-04-28] MEDS: FUROSEMIDE 40 MG/4 ML VIAL IV SCH (08:47)
[2019-04-28] MEDS: ASPIRIN 81 MG TAB.CHEW PO SCH (08:56)
[2019-04-28] MEDS: CARVEDILOL 6.25 MG TABLET PO SCH (08:56)
[2019-04-28] MEDS: CLOPIDOGREL BISULFATE 75 MG TABLET PO SCH (08:56)
[2019-04-28] MEDS: GLIMEPIRIDE 4 MG TABLET PO SCH (08:57)
[2019-04-28] MEDS: MONTELUKAST SODIUM (10MG) 10 MG TABLET PO SCH (08:57)
[2019-04-28] MEDS: GABAPENTIN 100 MG CAPSULE PO SCH ×2 (08:57→12:37)
[2019-04-28] MEDS: LINAGLIPTIN 5 MG TABLET PO SCH (08:57)
[2019-04-28] MEDS: FERROUS SULFATE (325 MG) 325 MG/TAB TABLET PO SCH (08:58)
[2019-04-28] MEDS: FENOFIBRATE NANOCRYS (145 MG) 145 MG TABLET PO SCH (08:58)
[2019-04-28] MEDS: COLCHICINE 0.6 MG TABLET PO SCH (08:58)
[2019-04-28] MEDS: AMLODIPINE BESYLATE 5 MG TABLET PO SCH (09:00)
[2019-04-28] MEDS ORDERED: AMLODIPINE BESYLATE 5 MG TABLET PO SCH ×2 (10:00→17:00)
[2019-04-28] MEDS: AZITHROMYCIN 500 MG in IV D5W 250 ML IV SCH (10:20)
--- NOTE | 2019-04-28 10:30 | NUR ---
MANUAL QA TESTER NOTES DR. WESTFALL ORDER TO TRIAL PT ON ROOM AIR, TURN OFF THE O2 AND MONITOR PT, PT TOLERATED ROOM AIR WITH O2SAT 98%
[2019-04-28] MEDS ORDERED: LEVO750T21 PO (10:39)
[2019-04-28] MEDS ORDERED: LEVOFLOXACIN (500MG) 500 MG TABLET PO ONE (11:30)
[2019-04-28] MEDS ORDERED: LOSARTAN/HCTZ 50-12.5MG/ 1 EA TABLET PO ONE (13:00)
--- NOTE | 2019-04-28 13:00 | NUR ---
PITTING MACHINE OPERATOR DISCHARGE NOTE MS RHOADES WAS DISCHARGE TO THE FACILITY BY DR. EWSTFALL, PT IS ON STABLE CONDITION DISCHARGE TEACHING VIA EXIT PLAN DONE, HOME MEDICATION INSTRUCTED, INSTRUCTED ALSO ABOUT THE [facility] HOME MEDS THAT THE MD PRESCRIBE AND PT VERBALIZED UNDERSTANDING, V/S CHECKED WNL NO SIGN AND SYMPTOMS OF SOB, IV CATHETER REMOVED NO BLEEDING NOTED, ALL BELONGINGS WAS GIVEN PT WALK TO THE ENTRANCE ACCOMPANIED BY PRIMARY NURSE IS WAITING
[2019-04-28] MEDS ORDERED: LOSARTAN POTASSIUM 50 MG TABLET PO ONE (13:30)
[2019-04-28] MEDS ORDERED: HYDROCHLOROTHIAZIDE 25 MG TABLET PO ONE (13:30)
[2019-04-28 13:32] VITALS: BP 178/76
[2019-04-28] MEDS ORDERED: INSULIN GLARGINE, 100 UNIT/ML CARTRIDGE SQ SCH (22:00)
[2019-04-29] MEDS ORDERED: HYDROCHLOROTHIAZIDE 25 MG TABLET PO SCH (09:00)
== END 2019-04-28 15:00 | disposition home or self-care (01) | DRG 139 ==
LOC: ER 23:43 → TELE1 04-27 03:00 → TELE-TD 04-27 05:47 → TELE1 04-27 13:22
PROVIDERS: ADMIT Internal Medicine; ATTEND Internal Medicine
DX: J15.9 Unspecified bacterial pneumonia (principal); E11.22 Type 2 diabetes mellitus with diabetic chronic kidney disease; I13.10 Hypertensive heart and chronic kidney disease without heart failure, with stage 1 through stage 4 chronic kidney disease, or unspecified chronic kidney disease; E78.5 Hyperlipidemia, unspecified; E66.9 Obesity, unspecified; D64.9 Anemia, unspecified; N18.3 Chronic kidney disease, stage 3 (moderate); I25.10 Atherosclerotic heart disease of native coronary artery without angina pectoris; J45.909 Unspecified asthma, uncomplicated; Z95.1 Presence of aortocoronary bypass graft; Z79.4 Long term (current) use of insulin; Z79.82 Long term (current) use of aspirin; R07.81 Pleurodynia
CPT/HCPCS: 36415; 71045-TC; 80048-TC; 80061-TC; 80076-TC; 82962-TC; 83880; 84443-TC; 84484-TC; 84703-TC; 85025-TC; 85378-TC; 85730-TC; 87040-TC; 87081-TC; 93307-TC; G0378; J0456; J0696; J1200; J1644; J1650; J1815; J1940; J2270; J2405; J2930; J7050; J7060

== ENCOUNTER 2019-12-23 22:39 | Inpatient (IN) | payer MEDICAID ==
[~2019-12-23] VITALS: Ht 160 cm; Wt 117.6 kg
[~2019-12-23 22:39] MED LIST changes: -AZIT250T PO; -BISA-79 PO; +DOCU250C21 PO; -DOCU250C88 PO; +LEVO750T21 PO; -PANT40TA4 PO; +PANT40TA49 PO
--- NOTE | 2019-12-23 22:46 | NUR ---
PATIENT CAME TO ER BIB RA TO BED 8 FROM HOME C/O SOB. PATIENT STATES THAT SHE WAS RECENTLY TESTED POSITIVE 5 DAYS AGO FOR THE CORONAVIRUS. PATIENT ARRIVED WITH 15L ON NON-REBREATHER. ON ROOM AIR, PATIENT IS 94-95% OXYGEN SATURATION. PATIENT IS AAOX4. BREATHING EVENLY AND UNLABORED ON ROOM AIR. CLEAR LUNG SOUNDS AUSCULTATED BILATERAL LOWER AND UPPER LOBES. CONNECTED TO THE CASH POSTING CLERK.
[2019-12-23] MEDS ORDERED: AZITHROMYCIN 500 MG VIAL ONE (22:48)
[2019-12-23] MEDS ORDERED: CEFTRIAXONE 1GM BAG (ER ONLY) 50 ML IV ONE (22:48)
--- NOTE | 2019-12-23 22:55 | NUR ---
EKG, BLOOD, BLOOD CULTURES, MRSA SWAB, COVID SWAB COLLECTED AND SENT TO THE LAB WITH VP RHEUMATOLOGY.
[2019-12-23] MEDS ORDERED: AZITHROMYCIN 500 MG in IV D5W 250 ML IV ONE (23:00)
[2019-12-23] MEDS ORDERED: CEFTRIAXONE 1GM BAG (ER ONLY) 1 GM/50 ML PIGGYBACK IV ONE (23:00)
--- NOTE | 2019-12-23 23:05 | NUR ---
PATIENT DOES NOT WISH TO WEAR MASK WHILE IN ISOLATED ROOM. NASAL CANNULA, NON-REBREATHER OFFERED, DOES NOT WANT TO USE OXYGEN. PATIENT IS ALERT AND ORIENTED x4. MD IS AWARE.
--- NOTE | 2019-12-23 23:15 | NUR ---
XRAY AT BEDSIDE
[2019-12-23] MEDS ORDERED: ACETAMINOPHEN ES 500 MG TABLET ONE (23:16)
[2019-12-23 23:19] LABS: BASOPHILS # (AUTO) 0.1 /CMM (0.0-0.2); BASOPHILS % (AUTO) 0.9 % (0.0-2.0); EOSINOPHILS % (AUTO) 0.1 % (0.0-6.0); HEMATOCRIT 32 % (33-45); HEMOGLOBIN 10.4 g/dL (11.5-14.8); LYMPHOCYTES # (AUTO) 0.4 /CMM (0.8-4.8); LYMPHOCYTES % (AUTO) 3.7 % (20.0-44.0); MEAN CORPUSCULAR HGB CONC 32 g/dl (31.0-36.0); MEAN CORPUSCULAR VOLUME 87 fL (82-100); MONOCYTES # (AUTO) 0.7 /CMM (0.1-1.30); NEUTROPHILS # (AUTO) 10.5 /CMM (1.8-8.9); NEUTROPHILS % (AUTO) 89.3 % (43.0-81.0); PLATELET COUNT (AUTO) 410 /CMM (150-450); WHITE BLOOD COUNT (AUTO) 11.8 K/uL (4.3-11.0)
[2019-12-23 23:27] LABS: CALCIUM, SERUM 9.3 mg/dL (8.5-10.1); CREATININE 3.2 mg/dL (0.6-1.3)
--- NOTE | 2019-12-23 23:29 | NUR ---
PATIENT IS UNABLE TO URINATE.
[2019-12-23] MEDS ORDERED: ACETAMINOPHEN 325 MG TABLET PO ONE (23:30)
[2019-12-23 23:40] LABS: ALBUMIN 4.1 g/dL (3.4-5.0); BILIRUBIN,DIRECT 0.2 mg/dL (0.0-0.2); BILIRUBIN,TOTAL 0.4 mg/dL (0.2-1.0); TOTAL PROTEIN, SERUM 9.2 g/dL (6.4-8.2)
[2019-12-23] MEDS ORDERED: KETOROLAC TROMETHAMINE INJ 30 MG/ML VIAL ONE (23:50)
--- NOTE | 2019-12-23 23:50 | NUR ---
PATIENT IS STILL UNABLE TO URINATE. BED REYNOSO AND URINARY CATHETER OFFERED. PATIENT REFUSED. MD IS NOTIFIED.
[2019-12-24] VITALS (7 sets, daily range): BP systolic 154–198; BP diastolic 74–101
[2019-12-24] MEDS ORDERED: KETOROLAC TROMETHAMINE INJ 30 MG/ML VIAL IV ONE
--- NOTE | 2019-12-24 00:13 | NUR ---
SPOKE WITH THERAPEUTIC MASSAGE TECHNICIAN RAHUL AND GAVE CLINICAL INFORMATION. WILL CALL BACK FOR MD TO
--- NOTE | 2019-12-24 00:27 | NUR ---
SPOKE WITH ROVING TECHNICIAN RAHUL, GAVE AUTH FOR PT TO STAY AT [facility]. AUTH #[id number]
--- NOTE | 2019-12-24 00:49 | NUR ---
DR. JARAMILLO SPEAKING WITH DR. WESTFALL REGARDING ADMISSION
--- NOTE | 2019-12-24 01:36 | NUR ---
BED 201
[2019-12-24] MEDS ORDERED: CIPR500T5 PO (01:57)
[2019-12-24] MEDS ORDERED: NIFE-34 PO (01:57)
[2019-12-24] MEDS ORDERED: GABA600T12 PO (01:57)
[2019-12-24] MEDS ORDERED: SUMA100T16 PO (01:57)
[2019-12-24] MEDS ORDERED: GLIM4TAB37 PO (01:57)
[2019-12-24] MEDS ORDERED: OMEG1CAP55 PO (01:57)
[2019-12-24] MEDS ORDERED: FERR325T23 PO (01:57)
[2019-12-24] MEDS ORDERED: CLOP75TA15 PO (01:57)
[2019-12-24] MEDS ORDERED: HYDR100T27 PO (01:57)
[2019-12-24] MEDS ORDERED: NEBI20TA2 PO (01:57)
[2019-12-24] MEDS ORDERED: CLON0.3T TD (01:57)
[2019-12-24] MEDS ORDERED: NITR0.4T48 SL (01:57)
[2019-12-24] MEDS ORDERED: FURO-144 PO (01:57)
[2019-12-24] MEDS ORDERED: MONT10TA22 PO (01:57)
--- NOTE | 2019-12-24 02:03 | NUR ---
REPORT GIVEN TO DILMA WILSON FOR FELICIA.
--- NOTE | 2019-12-24 02:11 | NUR ---
BROUGHT TO ASSIGNED ROOM FOR FELICIA.
[2019-12-24] MEDS ORDERED: ZOLPIDEM TARTRATE 5 MG TABLET PO PRN (02:30)
[2019-12-24] MEDS ORDERED: ACETAMINOPHEN 325 MG TABLET PO PRN (02:30)
--- NOTE | 2019-12-24 02:30 | NUR ---
ADMISSION NOTES: RECEIVED REPORT FROM CHRISTIANO WILSON. PT BROUGHT TO THE UNIT VIA GURNEY. PT ADMITTED FOR COVID POSITIVE, SOB X3DAYS, PRODUCTIVE COUGH X 3DAYS, ABDL PAIN X2DAYS, NO BM X 2DAYS, LOSS OF APPETITE WITH N/V. PT BEING ADMITTED FOR COVID 19, PNA, UNDER MED SURG ADMIT PER DR WESTFALL. PT A/O X4 KINYARWANDA SPEAKING. PT REFUSED OXYGEN, 97% ON RA. PT REFUSED MASK, OXYGEN, EDUCATION PROVIDED TO PT AT THIS TIME. PT IV ACCESS PATENT AND FLUSHING WELL, ON HL. SKIN ASSESSMENT PERFORMED NO SKIN ISSUE NOTED. [facility] ORIENTED PT TO UNIT POLICY AND HOURLY ROUNDING. USE OF CALL LIGHT SYSTEM. DISCUSSED PLAN OF CARE TO PT. AGREE AND UNDERSTAND. VS TAKEN AND RECORDED. SAFETY PRECAUTIONS FOR FALL INITIATED, CALL LIGHT IN REACH, WILL CONTINUE MONITORING PT.
[2019-12-24] MEDS ORDERED: ONDANSETRON HCL/PF 4 MG/2 ML VIAL IV PRN (03:00)
[2019-12-24] MEDS ORDERED: HYDROCODONE/APAP 5/325MG TABLET PO PRN (03:00)
[2019-12-24] MEDS ORDERED: BISACODYL (5 MG) 5 MG TABLET.DR PO ONE (03:00)
--- NOTE | 2019-12-24 03:10 | NUR ---
RN NOTES: CONTACTED DR WESTFALL [phone]. RELAYED PT C/O ABDL PAIN 01/07, ALSO RELAYED BP 182/74, INFORMED MD PT LAST BM WAS 2DAYS AGO, AND ABDL PAIN STARTED 2DAYS AGO, UNABLE TO EAT DUE TO LOSS OF APPETITE, NO IMAGING DONE IN ER. PER MD TELEPHONE ORDER RECEIVED TO DO THE FOLLOWING: CT ABDOMEN AND PELVIS WITHOUT CONTRAST, PROTONIX 40 MG TAB PO DAILY FIRST DOSE NOW, DULCOLAX 10 MG POP X 1 DOSE NOW, DILAUDID 1MG IVP Q3HRS PRN FOR SEVER PAIN 8-10, NORCO 5/325 MG TAB PO Q4HRS PRN FOR MODERATE PAIN 4-7/10, ZOFRAN 4MG IVP Q4HRS PRN FOR N/V, PROCARDIA 60 MG XL DAILY TO GIVE FIRST DOSE NOW. ALL ORDERS READ BACK VERIFIED AND CARRIED OUT.
[2019-12-24] MEDS ORDERED: ACETAMINOPHEN ES 500 MG TABLET PO PRN (03:30)
[2019-12-24] MEDS: NIFEdipine XL (30MG) 30 MG TAB PO SCH ×2 (03:34→09:30)
[2019-12-24] MEDS: PANTOPRAZOLE 40 MG TABLET.DR PO SCH (03:34)
--- NOTE | 2019-12-24 03:40 | NUR ---
RN NOTES/CT SCAN CONSENT: EXPLAINED TO PT REGARDING CT SCAN OF ABDOMEN AND PELVIS, ORDER ROUTINE BY MD TO EVALUATE ABDL PAIN, EXPLAINED ABOUT RISK AND BENEFITS, PT AGREE FOR PROCEDURE, CONSENT SECURED AND SIGNED BY PT HERSELF.
--- NOTE | 2019-12-24 03:41 | NUR ---
RN NOTES/PRN ZOFRAN, DILAUDID: PT REQUESTED TO RECEIVE ZOFRAN PRIOR TO TAKING PILLS/PO MEDICATION, PRN ZOFRAN 4MG IVP ADMINISTERED TO PT AT THIS TIME, HEPARIN SQ ADMINISTERED, PROTONIX, DULCOLAX AND NIFEDIPINE PO ADMINISTERED TO PT AFTER 15MINUTES. PRN DILAUDID 1MG IVP ADMINISTERED TO PT AT THIS TIME FOR C/O OF ABDOMINAL PAIN 01/07. WILL CONTINUE TO MONITOR AND REASSESS PT.
[2019-12-24] MEDS: HEPARIN SODIUM, PORCINE 5000 UNITS/1 ML VIAL SQ SCH ×3 (03:45→20:55)
[2019-12-24] MEDS: HYDROMORPHONE 1 MG/1 ML DISP.SYRIN IV PRN ×3 (03:46→20:54)
--- NOTE | 2019-12-24 03:59 | NUR ---
RN NOTES: PER MD, CT ABDOMEN PELVIS WO CONTRAST, PLACED PT ON NPO FOR NOW IN PREPARATION FOR CT SCAN. PT AGREE AND UNDERSTAND.
[2019-12-24] MEDS: INSULIN REGULAR, HUMAN 100 UNIT/ML 3 ML VIAL SQ PRN ×2 (06:55→11:50)
[2019-12-24] MEDS: BLOOD SUGAR DIAGNOSTIC 1 EACH STRIP IN SCH ×4 (06:55→21:05)
--- NOTE | 2019-12-24 06:56 | NUR ---
rn notes/accu check 216: pt's blood sugar result is 216, pt currently on npo for ct scan of abdomen pelvis today, doesnt know specific time, pt unable to eat, per pt she would rather wait until procedure is done and will have her breakfast,
--- NOTE | 2019-12-24 06:59 | NUR ---
rn notes/accu check 216: pt's blood sugar result is 216, pt currently on npo for ct scan of abdomen pelvis today, doesnt know specific time, pt unable to eat, per pt she would rather wait until procedure is done and will have her meal tray and be radha to eat before receiving any insulin. education provided to pt. pt a/o x4.
--- NOTE | 2019-12-24 07:03 | NUR ---
END OF SHIFT REPORT: PT REMAINS ON RA, RESPIRATIONS EVEN AND UNLABORED. IV ACCESS REMAINS PATENT ANS FLUSHING WELL, ON HL.NO S/S OF IV INFILTRATION NOTED. PRN DILAUDID ADMINISTERED FOR C/O ABDL PAIN. PT ON NPO, FOR CT ABDOMEN AND PELVIS WITHOUT CONTRAST, CONSENT SECURED, ATTACHED TO CHART. VS REMAINS STABLE, NEEDS ATTENDED. SAFETY PRECAUTIONS FOR FALL REMAINs ENGAGED, CALL LIGHT IN REACH, WILL ENDORSE TO DAY RN FOR CONTINUITY OF CARE.
[2019-12-24 07:23] LABS: BASOPHILS # (AUTO) 0.1 /CMM (0.0-0.2); BASOPHILS % (AUTO) 0.8 % (0.0-2.0); HEMATOCRIT 32 % (33-45); LYMPHOCYTES # (AUTO) 0.4 /CMM (0.8-4.8); LYMPHOCYTES % (AUTO) 4.8 % (20.0-44.0); MEAN CORPUSCULAR HGB CONC 32 g/dl (31.0-36.0); MEAN CORPUSCULAR VOLUME 90 fL (82-100); MONOCYTES # (AUTO) 0.6 /CMM (0.1-1.30); MONOCYTES % (AUTO) 6.8 % (2.0-12.0); NEUTROPHILS # (AUTO) 7.1 /CMM (1.8-8.9); NEUTROPHILS % (AUTO) 87.6 % (43.0-81.0); PLATELET COUNT (AUTO) 384 /CMM (150-450); RED BLOOD CELL COUNT(AUTO) 3.52 MIL/uL (4.0-5.2); WHITE BLOOD COUNT (AUTO) 8.1 K/uL (4.3-11.0)
--- NOTE | 2019-12-24 07:30 | NUR ---
RN NOTES RECEIVED PATIENT IN BED RESTING COMFORTABLY IN MODERATE HIGH BACK REST. ON RA, TOLERATING WELL, NO SIGNS OF DISTRESS NOTED AT THIS TIMES. IV ACCESS ON RIGHT AC #18, REMAINS PATENT AND INTACT, SAFETY MEASURES IN PLACE, BED IN LOWEST LOCKED POSITION WITH SIDE RAILS UP X2. CALL LIGHT IN REACH, WILL CONTINUE TO MONITOR.
[2019-12-24 07:46] LABS: ALBUMIN 3.7 g/dL (3.4-5.0); BILIRUBIN,TOTAL 0.3 mg/dL (0.2-1.0); CALCIUM, SERUM 8.7 mg/dL (8.5-10.1); CREATININE 3.6 mg/dL (0.6-1.3); POTASSIUM 4.4 mmol/L (3.5-5.1); TOTAL PROTEIN, SERUM 8.7 g/dL (6.4-8.2)
[2019-12-24 08:06] LABS: THYROID STIMULATING HORMONE 1.897 uIU/mL (0.358-3.74)
[2019-12-24 08:37] LABS: C-REACTIVE PROTEIN 8.5 mg/dL (0.0-0.9)
[2019-12-24] MEDS ORDERED: NIFEDIPINE 60 MG PO PRN (09:30)
[2019-12-24] MEDS ORDERED: FUROSEMIDE 40 MG TABLET PO PRN (09:30)
[2019-12-24] MEDS: DEXAMETHASONE SOD PHOSPHATE 10 MG/ML VIAL IV SCH (09:31)
--- NOTE | 2019-12-24 09:55 | NUR ---
PT TRANSFERRED BY WHEEL CHAIR OUT OF UNIT AT THIS TIME FOR CT ABD/PELVIS. WILL CONTINUE WITH PLAN OF CARE
--- NOTE | 2019-12-24 10:10 | NUR ---
PT TRANSFERRED BY WHEEL CHAIR TO ROOM AT THIS TIME FROM CT ABD/PELVIS. PT DESTINY, WELLNESS ASSISTANT PT REFUSED TO GO THROUGH WITH CT ABD/PELVIS. PER PT, SHE DOES NOT WANT TO DO CT ABD/PELVIS. PT STATES "I FEEL LIKE FAINTING WHEN I GO IN". PT EDUCATION PROVIDED. PT VERBALIZE UNDERSTANDING BUT STILL REFUSED. WILL FOLLOW UP WITH DOCTOR AND CONTINUE TO MONITOR
--- NOTE | 2019-12-24 10:10 | NUR ---
DR WESTFALL MADE AWARE OF PT'S REFUSAL TO CT ABD.PELVIS. NO NEW ORDERS AT THIS TIME. WILL CONTINUE TO MONITOR
[2019-12-24] MEDS ORDERED: ASPI-1169 PO (10:33)
[2019-12-24] MEDS ORDERED: COLC0.6C3 PO (10:33)
[2019-12-24] MEDS ORDERED: OMEG1CAP PO (10:33)
[2019-12-24] MEDS ORDERED: TRAZ-252 PO (10:33)
[2019-12-24] MEDS ORDERED: SERT25TA PO (10:33)
[2019-12-24] MEDS ORDERED: LOSA100T31 PO (10:33)
[2019-12-24] MEDS ORDERED: PANT40TA2 PO (10:33)
[2019-12-24] MEDS ORDERED: ATOR10TA PO (10:33)
[2019-12-24] MEDS ORDERED: CLONIDINE HCL 0.3 MG/24H PTWK 1 EA PATCH TD SCH (11:00)
[2019-12-24] MEDS: LEVOFLOXACIN (250MG) 250 MG TABLET PO SCH (11:46)
[2019-12-24] MEDS: METOPROLOL TARTRATE 50 MG TABLET PO SCH ×2 (11:46→20:56)
[2019-12-24] MEDS ORDERED: CEFTRIAXONE 1GM BAG (ER ONLY) 1 GM/50 ML PIGGYBACK IV ONE (13:00)
[2019-12-24] MEDS: GABAPENTIN 300 MG CAPSULE PO SCH ×2 (13:21→16:40)
[2019-12-24] MEDS: hydrALAZINE HCL 50 MG TABLET PO SCH ×2 (13:21→16:41)
--- NOTE | 2019-12-24 13:55 | NUR ---
PT C/O OF TIGHTNESS AND RADIATING LEFT ABD PAIN OF 10/10. VS WNL. PER PT REQUEST DILAUDID 1MG IV Q3HR PRN ADMINISTERED AT THIS TIME PER ORDER. WILL REASSESS AND CONTINUE TO MONITOR
[2019-12-24] MEDS: ACETAMINOPHEN 325 MG TABLET PO PRN ×2 (16:39→20:55)
[2019-12-24] MEDS: GLIMEPIRIDE 4 MG TABLET PO SCH (16:40)
--- NOTE | 2019-12-24 16:40 | NUR ---
PT NOTED WITH TEMP OF 100.0 AT THIS TIME. COOLING MEASURES IN PLACE, SHEETS TAKEN OFF, ROOM KEPT COOL, ICE PACK ON UNDER ARMPIT. DR WESTFALL MADE AWARE. RECEIVED ORDERS FROM DR WESTFALL FOR TYLENOL 650MG PO Q4HR PRN FOR FEVER. ORDERS CARRIED OUT AND ADMINISTERED AT THIS TIME. WILL CONTINUE TO MONITOR
[2019-12-24] MEDS: FERROUS SULFATE (325 MG) 325 MG/TAB TABLET PO SCH (16:41)
--- NOTE | 2019-12-24 19:10 | NUR ---
RN CLOSING NOTES PT RESTING IN BED AT THIS TIME. PT REMAINED STABLE THROUGHOUT SHIFT. ALL CARE, NEEDS, MEDICATIONS AND TREATMENT ADMINISTERED ANTICIPATED PER ORDER. SAFETY PRECAUTION IN PLACE AND MAINTAINED AT ALL TIMES. BED IN LOWEST LOCKED POSITION, HOB ELEVATED, RAILS UP X 2, CALL LIGHT WITHIN REACH. WILL ENDORSE TO PAID SEARCH MARKETING ANALYST NURSE
--- NOTE | 2019-12-24 20:21 | NUR ---
MS2 DURING INITIAL SHIFT ROUNDING, PATIENT WAS IN ROOM ON BED AWAKE, ALERT, ORIENTED, WAS ON THE PHONE TALKING TO SOMEBODY, NO C/O PAIN, NO DISTRESS NOTED, CALL LIGHT IN REACH. WILL MONITOR.
[2019-12-24] MEDS ORDERED: AZITHROMYCIN 500 MG in IV D5W 250 ML IV SCH (22:00)
[2019-12-25] MEDS: HYDROMORPHONE 1 MG/1 ML DISP.SYRIN IV PRN ×3 (00:36→21:40)
--- NOTE | 2019-12-25 00:36 | NUR ---
MS RN NOTE: Patient complains of abdominal pain. Patient describes pain as aching and rates pain 9 on a 0-10 numerical scale. Administered PRN Dilaudid per MD order. Will continue to monitor.
[2019-12-25] MEDS: ACETAMINOPHEN 325 MG TABLET PO PRN ×2 (05:09→20:53)
--- NOTE | 2019-12-25 05:19 | NUR ---
MS2/RN ECUX=221.0, TYLENOL 650 MG PO WAS GIVEN ORDERED, COOLING MEASURES STARTED. WILL CONTINUE TO MONITOR.
[2019-12-25] MEDS: DEXTROSE 50%-WATER 50 ML DISP.SYRIN IV PRN (06:39)
--- NOTE | 2019-12-25 06:43 | NUR ---
MS2/RN ACCU CHECK = 48, RECHECKED= 46, PER PATIENT SHE WAS DIZZY, D50 50 MLS IV WAS GIVEN ORDERED. WILL RECHECK IN 30 MINUTES.
--- NOTE | 2019-12-25 06:47 | NUR ---
MS2/RN TEMP = 100.1, CONTINUE WITH THE COOLING MEASURES.
[2019-12-25] MEDS: BLOOD SUGAR DIAGNOSTIC 1 EACH STRIP IN SCH ×4 (06:50→21:02)
--- NOTE | 2019-12-25 06:51 | NUR ---
MS2/RN PATIENT IS AWAKE, COMFORTABLE, NO DISTRESS NOTED, CALL LIGHT IN REACH, ALL NEEDS ATTENDED AT THIS TIME, WILL CONTINUE TO MONITOR.
--- NOTE | 2019-12-25 07:30 | NUR ---
RN NOTES RECEIVED PATIENT IN BED RESTING COMFORTABLY IN MODERATE HIGH BACK REST. A/O X4. RA, TOLERATING WELL. IV ACCESS ON RAC #18, PATENT AND INTACT. SAFETY PRECAUTION IN PLACE. BED IN LOWEST LOCKED POSITION, SIDE RAILS UP X 2, CALL LIGHT WITHIN REACH. WILL CONTINUE TO MONITOR.
[2019-12-25] MEDS: CLOPIDOGREL BISULFATE 75 MG TABLET PO SCH (08:27)
[2019-12-25] MEDS: MONTELUKAST SODIUM (10MG) 10 MG TABLET PO SCH (08:28)
[2019-12-25] MEDS: PANTOPRAZOLE 40 MG TABLET.DR PO SCH (08:28)
[2019-12-25] MEDS: FERROUS SULFATE (325 MG) 325 MG/TAB TABLET PO SCH ×2 (08:28→16:31)
[2019-12-25] MEDS: hydrALAZINE HCL 50 MG TABLET PO SCH ×3 (08:29→16:32)
[2019-12-25] MEDS: DEXAMETHASONE SOD PHOSPHATE 10 MG/ML VIAL IV SCH (08:30)
[2019-12-25] MEDS: NIFEdipine XL (30MG) 30 MG TAB PO SCH (08:30)
[2019-12-25] MEDS: METOPROLOL TARTRATE 50 MG TABLET PO SCH ×2 (08:30→20:44)
[2019-12-25] MEDS: GABAPENTIN 300 MG CAPSULE PO SCH ×3 (08:30→16:31)
[2019-12-25] MEDS: GLIMEPIRIDE 4 MG TABLET PO SCH (08:31)
[2019-12-25] MEDS: LEVOFLOXACIN (250MG) 250 MG TABLET PO SCH (08:32)
[2019-12-25] MEDS: HEPARIN SODIUM, PORCINE 5000 UNITS/1 ML VIAL SQ SCH ×2 (08:32→20:45)
[2019-12-25] MEDS ORDERED: NIFEdipine XL (30MG) 30 MG TAB PO SCH (09:00)
[2019-12-25] MEDS ORDERED: NIFEdipine XL (30MG) 30 MG TAB PO ONE (10:00)
[2019-12-25 11:55] LABS: C-REACTIVE PROTEIN 12.3 mg/dL (0.0-0.9)
--- NOTE | 2019-12-25 13:45 | NUR ---
RN NOTES INFORMED DR. WESTFALL REGARDING PATIENT CRITICAL RESULTS, PROCALCITONIN 12.70, ORDER ZITHROMAX 500 MG IV Q8H, ORDER MADE AND CARRIED OUT. WILL CONTINUE TO MONITOR.
--- NOTE | 2019-12-25 18:09 | NUR ---
RN NOTES PT REFUSED INSULIN DOSE FOR 17:30 BS OF 141, PATIENT HAD EPISODE OF HYPOGLYCEMIA IN AM, WILL CONTINUE TO MONITOR.
--- NOTE | 2019-12-25 18:49 | NUR ---
RN NOTES PATIENT IN BED RESTING COMFORTABLY IN MODERATE HIGH BACK REST. A/O X4. RA, TOLERATING WELL. IV ACCESS ON RAC #18, PATENT AND INTACT. SAFETY PRECAUTION IN PLACE. BED IN LOWEST LOCKED POSITION, SIDE RAILS UP X 2, CALL LIGHT WITHIN REACH. WILL ENDORSE TO POLISHER AND SANDER NURSE FOR FELICIA.
--- NOTE | 2019-12-25 19:23 | NUR ---
MS RN OPENING NOTES RECEIVED PATIENT RESTING IN BED COMFORTABLY; A/OX4; BREATHING EVEN AND UNLABORED; TOLERATING ROOM AIR WELL; PATIENT AMBULATORY WITH STEADY GAIT AND ABLE TO MAKE NEEDS KNOWN; R AC # 18 INTACT AND PATENT; ISOLATION PRECAUTIONS MAINTAINED; PER AM SHIFT, PATIENT HAD EPISODE OF HYPOGLYCEMIA, WILL CONT TO MONITOR; SAFETY PRECAUTIONS IMPLEMENTED; BED LOCKED IN LOW POSITION; SIDE RAILSX2; CALL LIGHT WITHIN REACH; WILL CONT PLAN OF CARE AND CONT TO MONITOR
[2019-12-25 20:00] VITALS: BP 165/82
[2019-12-25] MEDS ORDERED: AZITHROMYCIN 500 MG in IV D5W 250 ML IV SCH ×4 (21:00)
--- NOTE | 2019-12-25 21:00 | NUR ---
MS RN NOTES PATIENT TEMPERATURE 102, TYLENOL ADMINISTERED PER MD ORDER; WILL CONT TO MONITOR
[2019-12-25] MEDS: INSULIN REGULAR, HUMAN 100 UNIT/ML 3 ML VIAL SQ PRN (21:03)
--- NOTE | 2019-12-25 21:05 | NUR ---
MS RN NOTES PATIENT REFUSING INSULIN COVERAGE DUE TO HYPOGLYCEMIC EPISODE YESTERDAY/EARLIER TODAY. PER PATIENT, BLOOD SUGAR 40; PATIENT REFUSING INSULIN COVERAGE AT THIS TIME; PATIENT IS AWARE OF RISKS AND BENEFITS BUT REPORTED SHE DOES NOT WANT TO HAVE HYPOGLYCEMIC EPISODE AGAIN; PATIENT ALSO REQUESTING PAIN MEDICATION FOR ABDOMINAL PAIN, 11/07; PATIENT EDUCATED UNABLE TO ADMINISTER PAIN MEDICATION SINCE TYLENOL WAS JUST ADMINISTERED; PATIENT VERBALIZED UNDERSTANDING, WILL CONT TO MONITOR
--- NOTE | 2019-12-25 21:40 | NUR ---
MS RN NOTES PATIENT REQUESTING DILAUDID IV PUSH FOR PAIN MANAGEMENT; PATIENT A/OX4, BREATHING EVEN AND UNLABORED; PATIENT ABLE TO MAKE NEEDS KNOWN; PATIENT REPORTED SHE CANNOT WAIT MUCH LONG HER STOMACH PAIN IS INCREASING; DILAUDID IV PUSH GIVEN PER MD ORDER; WILL CONT TO MONITOR
--- NOTE | 2019-12-26 04:57 | NUR ---
MS RN NOTES PATIENT TEMPERATURE 97.8F, WILL CONT TO MONITOR
[2019-12-26] MEDS: BLOOD SUGAR DIAGNOSTIC 1 EACH STRIP IN SCH ×4 (06:34→21:47)
[2019-12-26] MEDS: INSULIN REGULAR, HUMAN 100 UNIT/ML 3 ML VIAL SQ PRN ×3 (06:34→21:45)
--- NOTE | 2019-12-26 06:45 | NUR ---
MS RN CLOSING NOTES PATIENT RESTING IN BED COMFORTABLY; A/OX4, BREATHING EVEN AND UNLABORED; TOLERATING ROOM AIR WELL; NO SOB NOTED; PATIENT DENIES PAIN; TEMPERATURE 97.8F; ISOLATION PRECAUTIONS IMPLEMENTED; R AC # 18 INTACT AND PATENT; FLUSHING WELL; PATIENT ABLE TO MAKE NEEDS KNOWN; ALL NEEDS RENDERED; SAFETY PRECAUTIONS IMPLEMENTED; WILL ENDORSE FELICIA TO ONCOMING SHIFT
[2019-12-26 08:00] VITALS: BP 143/66
[2019-12-26] MEDS: MONTELUKAST SODIUM (10MG) 10 MG TABLET PO SCH (09:00)
[2019-12-26] MEDS: GABAPENTIN 300 MG CAPSULE PO SCH ×3 (09:00→17:01)
[2019-12-26] MEDS: NIFEdipine XL (30MG) 30 MG TAB PO SCH (09:00)
[2019-12-26] MEDS: hydrALAZINE HCL 50 MG TABLET PO SCH ×3 (09:00→17:46)
[2019-12-26] MEDS: METOPROLOL TARTRATE 50 MG TABLET PO SCH ×2 (09:01→20:15)
[2019-12-26] MEDS: GLIMEPIRIDE 4 MG TABLET PO SCH (09:01)
[2019-12-26] MEDS: LEVOFLOXACIN (250MG) 250 MG TABLET PO SCH (09:01)
[2019-12-26] MEDS: DEXAMETHASONE SOD PHOSPHATE 10 MG/ML VIAL IV SCH (09:01)
[2019-12-26] MEDS: CLOPIDOGREL BISULFATE 75 MG TABLET PO SCH (09:01)
[2019-12-26] MEDS: PANTOPRAZOLE 40 MG TABLET.DR PO SCH (09:01)
[2019-12-26] MEDS: FERROUS SULFATE (325 MG) 325 MG/TAB TABLET PO SCH ×2 (09:01→17:01)
[2019-12-26] MEDS: HEPARIN SODIUM, PORCINE 5000 UNITS/1 ML VIAL SQ SCH ×2 (09:02→20:17)
--- NOTE | 2019-12-26 11:55 | NUR ---
Per dr. Laboy continue on home med . Cholchicine 0.6mg BID . Order placed.
[2019-12-26] MEDS: INSULIN GLARGINE, 100 UNIT/ML CARTRIDGE SQ SCH (11:57)
--- NOTE | 2019-12-26 12:01 | NUR ---
Convalescent plasma 1 unit ordered and order confirmed with blood bank staff
[2019-12-26 12:03] LABS: BASOPHILS % (AUTO) 0.5 % (0.0-2.0); HEMATOCRIT 33 % (33-45); HEMOGLOBIN 10.5 g/dL (11.5-14.8); LYMPHOCYTES # (AUTO) 0.5 /CMM (0.8-4.8); LYMPHOCYTES % (AUTO) 6.4 % (20.0-44.0); MEAN CORPUSCULAR HGB CONC 32 g/dl (31.0-36.0); MEAN CORPUSCULAR VOLUME 87 fL (82-100); MONOCYTES # (AUTO) 0.6 /CMM (0.1-1.30); MONOCYTES % (AUTO) 6.9 % (2.0-12.0); NEUTROPHILS # (AUTO) 7.2 /CMM (1.8-8.9); NEUTROPHILS % (AUTO) 86.2 % (43.0-81.0); PLATELET COUNT (AUTO) 400 /CMM (150-450); RED BLOOD CELL COUNT(AUTO) 3.81 MIL/uL (4.0-5.2); WHITE BLOOD COUNT (AUTO) 8.4 K/uL (4.3-11.0)
[2019-12-26 12:41] LABS: ALBUMIN 3.4 g/dL (3.4-5.0); BILIRUBIN,TOTAL 0.2 mg/dL (0.2-1.0); CALCIUM, SERUM 8.7 mg/dL (8.5-10.1); CREATININE 2.9 mg/dL (0.6-1.3); POTASSIUM 4.1 mmol/L (3.5-5.1); TOTAL PROTEIN, SERUM 8.4 g/dL (6.4-8.2)
[2019-12-26] MEDS: HYDROMORPHONE 1 MG/1 ML DISP.SYRIN IV PRN ×3 (13:20→23:27)
[2019-12-26 16:00] VITALS: BP 139/96
[2019-12-26] MEDS: COLCHICINE 0.6 MG TABLET PO SCH (17:00)
--- NOTE | 2019-12-26 19:09 | NUR ---
Convalescent plasma form needs to be sighed by approved doctor. Dr. Kemp was informed that he needs to sigh the form.
--- NOTE | 2019-12-26 19:11 | NUR ---
Patient is resting in room , remains on room air. No distress noted . All needs attended. Safety precautions observed and call light within reach. Will endorse to next shift for FELICIA
[2019-12-26 20:00] VITALS: BP 161/71
[2019-12-26] MEDS: ACETAMINOPHEN 325 MG TABLET PO PRN (20:00)
[2019-12-27] MEDS: HYDROMORPHONE 1 MG/1 ML DISP.SYRIN IV PRN (03:57)
[2019-12-27] MEDS: ACETAMINOPHEN 325 MG TABLET PO PRN ×2 (04:20→16:39)
--- NOTE | 2019-12-27 06:22 | NUR ---
MS RN CLOSING NOTES: PATIENT IS RESTING IN BED, AWAKE, A/O X4. NO S/S OF DISTRESS NOTED. CALL LIGHT WITHIN REACH. BED IN LOWEST AND LOCKED POSITION. AMBULATORY.
[2019-12-27] MEDS: DEXTROSE 50%-WATER 50 ML DISP.SYRIN IV PRN (06:41)
[2019-12-27] MEDS: BLOOD SUGAR DIAGNOSTIC 1 EACH STRIP IN SCH ×2 (07:30→12:11)
[2019-12-27 07:37] LABS: BASOPHILS % (AUTO) 0.4 % (0.0-2.0); EOSINOPHILS % (AUTO) 0.2 % (0.0-6.0); HEMATOCRIT 31 % (33-45); HEMOGLOBIN 10.1 g/dL (11.5-14.8); LYMPHOCYTES # (AUTO) 1.3 /CMM (0.8-4.8); LYMPHOCYTES % (AUTO) 17.8 % (20.0-44.0); MEAN CORPUSCULAR HGB CONC 33 g/dl (31.0-36.0); MEAN CORPUSCULAR VOLUME 87 fL (82-100); MONOCYTES # (AUTO) 0.6 /CMM (0.1-1.30); MONOCYTES % (AUTO) 7.7 % (2.0-12.0); NEUTROPHILS # (AUTO) 5.3 /CMM (1.8-8.9); NEUTROPHILS % (AUTO) 73.9 % (43.0-81.0); PLATELET COUNT (AUTO) 411 /CMM (150-450); RED BLOOD CELL COUNT(AUTO) 3.55 MIL/uL (4.0-5.2); WHITE BLOOD COUNT (AUTO) 7.2 K/uL (4.3-11.0)
[2019-12-27 07:45] LABS: CALCIUM, SERUM 8.6 mg/dL (8.5-10.1); CREATININE 2.7 mg/dL (0.6-1.3); POTASSIUM 4.1 mmol/L (3.5-5.1)
[2019-12-27 08:00] VITALS: BP 168/76
--- NOTE | 2019-12-27 08:00 | NUR ---
MS RN OPENING NOTES Received Patient resting in bed. A/O x 4. VS stable with no acute distress. Breathing even and unlabored on room air with no respiratory distress. Denies pain. No signs and symptoms of pain. 18g PIV on RAC clean, intact, patent and flushing well. Safety precautions in place. Bed locked and set to lowest position with side rails x 2 up. All needs rendered at this time. Call light within reach. Will continue to monitor.
[2019-12-27] MEDS ORDERED: Levofloxacin (250MG) PO (09:09)
[2019-12-27] MEDS: PANTOPRAZOLE 40 MG TABLET.DR PO SCH (09:28)
[2019-12-27] MEDS: FERROUS SULFATE (325 MG) 325 MG/TAB TABLET PO SCH ×2 (09:29→16:39)
[2019-12-27] MEDS: GLIMEPIRIDE 4 MG TABLET PO SCH (09:29)
[2019-12-27] MEDS: METOPROLOL TARTRATE 50 MG TABLET PO SCH (09:29)
[2019-12-27] MEDS: DEXAMETHASONE SOD PHOSPHATE 10 MG/ML VIAL IV SCH (09:29)
[2019-12-27] MEDS: COLCHICINE 0.6 MG TABLET PO SCH ×2 (09:29→16:39)
[2019-12-27] MEDS: hydrALAZINE HCL 50 MG TABLET PO SCH ×3 (09:29→16:39)
[2019-12-27] MEDS: CLOPIDOGREL BISULFATE 75 MG TABLET PO SCH (09:30)
[2019-12-27] MEDS: NIFEdipine XL (30MG) 30 MG TAB PO SCH (09:30)
[2019-12-27] MEDS: MONTELUKAST SODIUM (10MG) 10 MG TABLET PO SCH (09:30)
[2019-12-27] MEDS: GABAPENTIN 300 MG CAPSULE PO SCH ×3 (09:30→16:39)
[2019-12-27] MEDS: HEPARIN SODIUM, PORCINE 5000 UNITS/1 ML VIAL SQ SCH (09:34)
[2019-12-27] MEDS: INSULIN GLARGINE, 100 UNIT/ML CARTRIDGE SQ SCH (09:35)
[2019-12-27] MEDS: LEVOFLOXACIN (250MG) 250 MG TABLET PO SCH (09:41)
[2019-12-27 09:51] LABS: C-REACTIVE PROTEIN 7.9 mg/dL (0.0-0.9)
[2019-12-27 16:39] VITALS: BP 178/75
--- NOTE | 2019-12-27 17:30 | NUR ---
MS STATE APPELLATE CLERK NOTES Patient discharged for Home at this time. Patient in stable condition. VS stable with no acute distress. Breathing even and unlabored on room air with no respiratory distress. Denies pain. No signs and symptoms of pain. Skin intact. Medication reconciliation and discharge orders reviewed and explained to Patient. Patient verbalized understanding. All belongings with Patient. Patient will follow up with PCP within 1 week. Escorted Patient to the Lobby for safety. Patient picked up by the .
[2019-12-27] MEDS ORDERED: CLONIDINE HCL 0.1 MG TABLET PO SCH (18:00)
== END 2019-12-27 17:30 | disposition home or self-care (01) | DRG 720 ==
LOC: ER 22:44 → MEDSG2 12-24 01:42 → MERGE 12-24 01:42
PROVIDERS: ADMIT Internal Medicine; ATTEND Internal Medicine
DX: A41.89 Other specified sepsis (principal); U07.1 COVID-19; J12.89 Other viral pneumonia; Z87.01 Personal history of pneumonia (recurrent); D64.9 Anemia, unspecified; E78.00 Pure hypercholesterolemia, unspecified; Z88.0 Allergy status to penicillin; E78.5 Hyperlipidemia, unspecified; I25.10 Atherosclerotic heart disease of native coronary artery without angina pectoris; Z79.84 Long term (current) use of oral hypoglycemic drugs; Z79.899 Other long term (current) drug therapy; Z79.02 Long term (current) use of antithrombotics/antiplatelets; J15.9 Unspecified bacterial pneumonia; T36.8X5A Adverse effect of other systemic antibiotics, initial encounter; Y92.9 Unspecified place or not applicable; E11.22 Type 2 diabetes mellitus with diabetic chronic kidney disease; I12.9 Hypertensive chronic kidney disease with stage 1 through stage 4 chronic kidney disease, or unspecified chronic kidney disease; N18.4 Chronic kidney disease, stage 4 (severe); N17.9 Acute kidney failure, unspecified; Z95.1 Presence of aortocoronary bypass graft
CPT/HCPCS: 36415; 71045-TC; 80048-TC; 80053-TC; 80076-TC; 82728-TC; 82962-TC; 83605-TC; 83615-TC; 83880; 84443-TC; 84484-TC; 84702-TC; 85025-TC; 85378-TC; 85730-TC; 86140-TC; 86850-TC; 87040-TC; 87081-TC; G0378; J0456; J0696; J1100; J1170; J1644; J1815; J1885; J2405; J7060; U0003

== ENCOUNTER 2020-08-26 21:32 | Emergency (ER) | payer MEDICAID ==
[~2020-08-26] VITALS: Ht 162.6 cm; Wt 113.4 kg
[~2020-08-26 21:32] MED LIST changes: +ATOR10TA PO; +CLON0.3T TD; +COLC0.6C3 PO; +FERR325T23 PO; +FURO-144 PO; +GABA600T12 PO; +HYDR100T27 PO; +LOSA100T31 PO; +Levofloxacin (250MG) PO; +NIFE-34 PO; +NITR0.4T48 SL; +OMEG1CAP PO; +PANT40TA2 PO; +SERT25TA PO; +SUMA100T16 PO; +TRAZ-252 PO
[2020-08-26 21:35] VITALS: BP 181/79
[2020-08-26] MEDS ORDERED: LIDOCAINE HCL/MPF 1% 30 ML VIAL IJ ONE (22:23)
[2020-08-26] MEDS: LIDOCAINE 1% INJ 50 ML MDV IJ ONE (22:30)
[2020-08-26] MEDS ORDERED: CLIN300C12 PO (22:50)
== END 2020-08-26 23:17 | disposition home or self-care (01) ==
LOC: ER 21:38
DX: L02.211 Cutaneous abscess of abdominal wall (principal); I12.0 Hypertensive chronic kidney disease with stage 5 chronic kidney disease or end stage renal disease; E11.22 Type 2 diabetes mellitus with diabetic chronic kidney disease; N18.6 End stage renal disease; Z99.2 Dependence on renal dialysis; Z98.890 Other specified postprocedural states; Z88.0 Allergy status to penicillin; Z79.899 Other long term (current) drug therapy; Z79.82 Long term (current) use of aspirin; Z79.4 Long term (current) use of insulin
CPT/HCPCS: 10060; 99283; A6407; J3490

== ENCOUNTER 2020-09-16 18:28 | Emergency (ER) | payer MEDICAID ==
[~2020-09-16] VITALS: Ht 160 cm; Wt 122.5 kg
[~2020-09-16 18:28] MED LIST changes: +CLIN300C12 PO
[2020-09-16 18:43] VITALS: BP 143/64
--- NOTE | 2020-09-16 18:47 | NUR ---
CALLED VASCULAR SURGEON ELECTRONIC ORGAN MECHANIC FOR CONSULT
[2020-09-16] MEDS ORDERED: HYDROCODONE/APAP 5/325MG TABLET PO ONE (19:00)
[2020-09-16] MEDS ORDERED: HYDROCODONE/APAP 5/325MG TABLET ONE (19:06)
[2020-09-16] MEDS ORDERED: HYDR-4209 PO (19:11)
--- NOTE | 2020-09-16 19:15 | NUR ---
Patient discharged to home in stable condition. Written and verbal after care instructions given. Patient verbalizes understanding of instruction.
== END 2020-09-16 19:14 | disposition home or self-care (01) ==
LOC: ER 18:28
DX: G89.18 Other acute postprocedural pain (principal); L76.22 Postprocedural hemorrhage of skin and subcutaneous tissue following other procedure; I12.0 Hypertensive chronic kidney disease with stage 5 chronic kidney disease or end stage renal disease; E11.22 Type 2 diabetes mellitus with diabetic chronic kidney disease; N18.6 End stage renal disease; D63.1 Anemia in chronic kidney disease; Z99.2 Dependence on renal dialysis; Z98.890 Other specified postprocedural states; Z88.0 Allergy status to penicillin; Z79.899 Other long term (current) drug therapy; Z79.82 Long term (current) use of aspirin; Z79.84 Long term (current) use of oral hypoglycemic drugs

== ENCOUNTER 2020-10-02 15:42 | Emergency (ER) | payer MEDICAID ==
[~2020-10-02] VITALS: Ht 160 cm; Wt 122.5 kg
[~2020-10-02 15:42] MED LIST changes: +HYDR-4209 PO
--- NOTE | 2020-10-02 16:00 | NUR ---
The patient is bibson, c/o chest sharp pain since this morning, radiating to R leg 6/10 pain scale. The patient is alert and oriented x4. Respiration regular and unlabored. In room air and denies SOB. Attached to the monitor.
[2020-10-02] MEDS ORDERED: MORPHINE SULFATE INJ 2 MG/ML DISP.SYRIN IV ONE ×2 (16:30→17:00)
[2020-10-02] MEDS ORDERED: MORPHINE SULFATE INJ 4 MG/ML DISP.SYRIN ONE (16:30)
[2020-10-02 16:33] LABS: BASOPHILS # (AUTO) 0.1 K/uL (0.0-0.2); BASOPHILS % (AUTO) 1.3 % (0.0-2.0); EOSINOPHILS % (AUTO) 4.1 % (0.0-6.0); HEMATOCRIT 33 % (33-45); HEMOGLOBIN 10.7 g/dL (11.5-14.8); LYMPHOCYTES % (AUTO) 18.7 % (20.0-44.0); MEAN CORPUSCULAR HGB CONC 32 g/dl (31.0-36.0); MEAN CORPUSCULAR VOLUME 94 fL (82-100); MONOCYTES # (AUTO) 1.2 K/uL (0.1-1.30); MONOCYTES % (AUTO) 11.2 % (2.0-12.0); NEUTROPHILS # (AUTO) 6.9 K/uL (1.8-8.9); NEUTROPHILS % (AUTO) 64.7 % (43.0-81.0); PLATELET COUNT (AUTO) 371 K/uL (150-450); RED BLOOD CELL COUNT(AUTO) 3.52 MIL/uL (4.0-5.2); WHITE BLOOD COUNT (AUTO) 10.7 K/uL (4.3-11.0)
[2020-10-02 16:46] LABS: CALCIUM, SERUM 9.3 mg/dL (8.5-10.1); CARBON DIOXIDE 27 mmol/L (21-32); CHLORIDE 95 mmol/L (98-107); CREATININE 4.2 mg/dL (0.6-1.3); GLUCOSE 195 mg/dL (74-106); POTASSIUM 4.3 mmol/L (3.5-5.1); SODIUM SERUM 133 mmol/L (136-145); UREA NITROGEN, BLOOD 69 mg/dL (7-18)
[2020-10-02] MEDS ORDERED: MORPHINE SULFATE INJ 2 MG/ML DISP.SYRIN ONE (16:59)
[2020-10-02] MEDS ORDERED: OXYC-128 PO (17:45)
[2020-10-02 17:57] VITALS: BP 152/85
--- NOTE | 2020-10-02 17:57 | NUR ---
Patient discharged to home in stable condition. Written and verbal after care instructions given. Patient verbalizes understanding of instruction.
== END 2020-10-02 17:58 | disposition home or self-care (01) ==
LOC: ER 15:56
DX: M79.661 Pain in right lower leg (principal); R07.89 Other chest pain; R60.0 Localized edema; I12.0 Hypertensive chronic kidney disease with stage 5 chronic kidney disease or end stage renal disease; E11.22 Type 2 diabetes mellitus with diabetic chronic kidney disease; N18.6 End stage renal disease; D63.1 Anemia in chronic kidney disease; Z99.2 Dependence on renal dialysis; Z98.890 Other specified postprocedural states; Z88.0 Allergy status to penicillin; Z79.899 Other long term (current) drug therapy; Z79.82 Long term (current) use of aspirin; Z79.4 Long term (current) use of insulin
CPT/HCPCS: 36415; 71045; 80048; 83880; 84484; 85025; 85378; 93005 ×3; 93970; 96374; 99285; J2270 ×2

== ENCOUNTER 2020-11-19 19:57 | Emergency (ER) | payer MEDICARE, MEDICAID ==
[~2020-11-19] VITALS: Ht 170.2 cm; Wt 122.5 kg
[~2020-11-19 19:57] MED LIST changes: +OXYC-128 PO
--- NOTE | 2020-11-19 20:03 | NUR ---
Pt bibself c/o left upper arm pain from previous dialysis site. Pt aaox4 breathing evenly and unlabored. Pt attached to monitor and pox. Upon assessment, wound is dry and clean with some pain and redness. Pt given blanket and call light within reach
--- NOTE | 2020-11-19 20:23 | NUR ---
DR LEAVITT PAGED PER DR COVINGTON.
[2020-11-19] MEDS ORDERED: TDAP [DIPH/PERTUSSIS/TET] 0.5 ML VIAL IM ONE ×2 (20:28→20:30)
[2020-11-19 21:03] LABS: BILIRUBIN,TOTAL 0.3 mg/dL (0.2-1.0); CALCIUM, SERUM 9.1 mg/dL (8.5-10.1); CREATININE 4.1 mg/dL (0.6-1.3); POTASSIUM 3.4 mmol/L (3.5-5.1); TOTAL PROTEIN, SERUM 8.1 g/dL (6.4-8.2)
[2020-11-19] MEDS ORDERED: CEPHALEXIN MONOHYDRATE 500 MG CAPSULE PO ONE ×2 (21:30→21:33)
[2020-11-19] MEDS ORDERED: SULFAMETH/TRIMETH 800/160 MG 1 UDTAB TABLET PO ONE (21:30)
[2020-11-19 21:37] LABS: BASOPHILS # (AUTO) 0.2 K/uL (0.0-0.2); BASOPHILS % (AUTO) 1.1 % (0.0-2.0); EOSINOPHILS % (AUTO) 4.1 % (0.0-6.0); HEMATOCRIT 31 % (33-45); HEMOGLOBIN 10.4 g/dL (11.5-14.8); LYMPHOCYTES # (AUTO) 2.3 K/uL (0.8-4.8); LYMPHOCYTES % (AUTO) 16.6 % (20.0-44.0); MEAN CORPUSCULAR HGB CONC 34 g/dl (31.0-36.0); MEAN CORPUSCULAR VOLUME 94 fL (82-100); MONOCYTES # (AUTO) 1.2 K/uL (0.1-1.30); NEUTROPHILS # (AUTO) 9.4 K/uL (1.8-8.9); NEUTROPHILS % (AUTO) 69.2 % (43.0-81.0); PLATELET COUNT (AUTO) 384 K/uL (150-450); RED BLOOD CELL COUNT(AUTO) 3.32 MIL/uL (4.0-5.2); WHITE BLOOD COUNT (AUTO) 13.6 K/uL (4.3-11.0)
[2020-11-19] MEDS ORDERED: TRAM50TA2 PO (21:45)
[2020-11-19] MEDS ORDERED: CEPH500C2 PO (21:45)
--- NOTE | 2020-11-19 21:46 | NUR ---
Patient discharged to home in stable condition. Written and verbal after care instructions given. Patient verbalizes understanding of instruction. pt ambulatory with a steady gait
[2020-11-19 21:49] VITALS: BP 165/83
== END 2020-11-19 21:46 | disposition home or self-care (01) ==
LOC: ER 20:08
DX: L98.8 Other specified disorders of the skin and subcutaneous tissue (principal); M79.602 Pain in left arm; I12.0 Hypertensive chronic kidney disease with stage 5 chronic kidney disease or end stage renal disease; E11.22 Type 2 diabetes mellitus with diabetic chronic kidney disease; N18.6 End stage renal disease; D63.1 Anemia in chronic kidney disease; Z99.2 Dependence on renal dialysis; Z95.818 Presence of other cardiac implants and grafts; Z88.0 Allergy status to penicillin; Z79.899 Other long term (current) drug therapy; Z79.82 Long term (current) use of aspirin; Z79.4 Long term (current) use of insulin
CPT/HCPCS: 36415; 71045-TC; 80053-TC; 85025-TC; 90715

== ENCOUNTER 2021-09-22 02:15 | Emergency (ER) | payer MEDICARE, OTHER ==
[~2021-09-22] VITALS: Ht 160 cm; Wt 104.3 kg
[~2021-09-22 02:15] MED LIST changes: +CEPH500C2 PO; +TRAM50TA2 PO
[2021-09-22] MEDS ORDERED: HYDROCODONE/APAP 5/325MG TABLET ONE (02:45)
[2021-09-22 02:59] VITALS: BP 165/92
[2021-09-22] MEDS ORDERED: HYDROCODONE/APAP 5/325MG TABLET PO ONE (03:00)
--- NOTE | 2021-09-22 04:15 | NUR ---
Patient discharged to home in stable condition. Written and verbal after care instructions given. Patient verbalizes understanding of instruction.
== END 2021-09-22 04:16 | disposition home or self-care (01) ==
LOC: ER 02:18
DX: M54.6 Pain in thoracic spine (principal); E11.22 Type 2 diabetes mellitus with diabetic chronic kidney disease; I12.9 Hypertensive chronic kidney disease with stage 1 through stage 4 chronic kidney disease, or unspecified chronic kidney disease; N18.9 Chronic kidney disease, unspecified; Z88.0 Allergy status to penicillin; Z79.899 Other long term (current) drug therapy; Z99.2 Dependence on renal dialysis
CPT/HCPCS: 72074-TC

== ENCOUNTER 2021-10-10 16:35 | Inpatient (IN) | payer MEDICARE, OTHER ==
[~2021-10-10] VITALS: Ht 165.1 cm; Wt 110.7 kg
[~2021-10-10 16:35] MED LIST changes: +CLON0.3T PO; -CLON0.3T TD
--- NOTE | 2021-10-10 17:20 | NUR ---
CAME IN FOR CHEST PAIN SINCE 12 NN, VOMITING LAST NIGHT. TO ER BED 7, HOOKED TO MONITOR, NSR NOTED. CHANGED TO HOSP GOWN, WARM BLANKET PROVIDED. PATIENT AAO x 4. BREATHING EVEN AND UNLABORED. AWAITING MD HUANG
--- NOTE | 2021-10-10 17:22 | NUR ---
DR MITCHELL AT BEDSIDE
[2021-10-10] MEDS ORDERED: ASPIRIN 325 MG TABLET PO ONE (18:00)
[2021-10-10] MEDS ORDERED: ONDANSETRON HCL/PF - ER 4 MG/2 ML VIAL IV ONE (18:00)
[2021-10-10] MEDS ORDERED: NITROGLYCERIN 0.4 MG/TAB BOTTLE SL ONE (18:00)
[2021-10-10] MEDS ORDERED: NITROGLYCERIN 0.4 MG/TAB BOTTLE ONE (18:36)
[2021-10-10] MEDS ORDERED: ASPIRIN 325 MG TABLET ONE (18:36)
[2021-10-10] MEDS ORDERED: ONDANSETRON HCL/PF 4 MG/2 ML VIAL ONE (18:36)
--- NOTE | 2021-10-10 18:57 | NUR ---
SUBMITTED MOVE SHEET
--- NOTE | 2021-10-10 20:12 | NUR ---
COVID ANTIGEN SWAB COLLECTED AND SENT TO LAB
--- NOTE | 2021-10-10 20:35 | NUR ---
EPIC PANEL PAGED
--- NOTE | 2021-10-10 22:16 | NUR ---
EXHIBIT ELECTRICIAN AT PT'S BEDSIDE
[2021-10-10] MEDS ORDERED: ZOLPIDEM TARTRATE 5 MG TABLET PO PRN (22:30)
[2021-10-10] MEDS ORDERED: MAGNESIUM HYDROXIDE 30 ML UDC PO PRN (22:30)
--- NOTE | 2021-10-10 22:37 | NUR ---
PT AMBULATED TO BATHROOM, STEADY GAIT NOTED.
[2021-10-10 22:40] LABS: BASOPHILS % (AUTO) 0.3 % (0.0-2.0); EOSINOPHILS % (AUTO) 0.1 % (0.0-6.0); HEMATOCRIT 35 % (33-45); HEMOGLOBIN 11.5 g/dL (11.5-14.8); LYMPHOCYTES # (AUTO) 0.9 K/uL (0.8-4.8); LYMPHOCYTES % (AUTO) 6.7 % (20.0-44.0); MEAN CORPUSCULAR HGB CONC 33 g/dl (31.0-36.0); MEAN CORPUSCULAR VOLUME 91 fL (82-100); MONOCYTES # (AUTO) 0.4 K/uL (0.1-1.30); MONOCYTES % (AUTO) 2.9 % (2.0-12.0); PLATELET COUNT (AUTO) 476 K/uL (150-450); RED BLOOD CELL COUNT(AUTO) 3.88 MIL/uL (4.0-5.2); WHITE BLOOD COUNT (AUTO) 13.3 K/uL (4.3-11.0)
[2021-10-10 22:51] LABS: CALCIUM, SERUM 9.2 mg/dL (8.5-10.1); CREATININE 3.4 mg/dL (0.6-1.3)
--- NOTE | 2021-10-10 23:07 | NUR ---
ROOM 321-1
--- NOTE | 2021-10-10 23:52 | NUR ---
GLUCOSE 360
[2021-10-11 00:10] LABS: POTASSIUM 3.8 mmol/L (3.5-5.1)
--- NOTE | 2021-10-11 00:52 | NUR ---
REPORT GIVEN TO KASSY WILSON FOR FELICIA
[2021-10-11 01:30] VITALS: BP 170/71
--- NOTE | 2021-10-11 01:31 | NUR ---
PT TRANSFERRED TO 321 VIA ACLS
--- NOTE | 2021-10-11 01:35 | NUR ---
ADMISSION 51 y/o Female, ambulatory. Alert Oriented x4. Skin intact, no pressure injury. [place] to room, unit, staff. Patient nauseous and episodes of vomiting upon arriving to unit from ER. Left wrist IV peripheral line infiltrated, removed. Patient is hard stick, awaiting MIDLINE insertion.
[2021-10-11 04:00] VITALS: BP 150/72
[2021-10-11] MEDS: ONDANSETRON HCL/PF 4 MG/2 ML VIAL IVP PRN ×3 (04:10→16:13)
[2021-10-11 05:00] VITALS: BP 150/72
[2021-10-11] MEDS ORDERED: *INSULIN REGULAR(HUMULIN R)HUM 100 UNIT/ML VIAL SQ PRN (05:00)
[2021-10-11] MEDS ORDERED: DEXTROSE 50%-WATER 50 ML DISP.SYRIN IV PRN (05:00)
--- NOTE | 2021-10-11 06:12 | NUR ---
END OF SHIFT REPORT Patient is Alert Oriented x4. Sinus rhythm/ Sinus Lavon in the Tele monitor HR 59. On room air, tolerated well. N/V improved with Zofran IV. Blood glucose with insulin SS parameters. Awaiting midline insertion, Urine to collect for test, Cardio consult, med recon for complete review, will endorse to oncoming RN.
[2021-10-11] MEDS: BLOOD SUGAR DIAGNOSTIC 1 EACH STRIP VI SCH ×4 (06:46→22:00)
[2021-10-11] MEDS: INSULIN REGULAR, HUMAN 100 UNIT/ML 3 ML VIAL SQ PRN (06:47)
--- NOTE | 2021-10-11 06:47 | NUR ---
ACCU CHECK FSBG 285mg/dl. Given 9 units insulin regular, co-signed by KATIE Hopkins.
--- NOTE | 2021-10-11 07:20 | NUR ---
MS RN CLOSING NOTE PATIENT IN BED; AWAKE, ALERT AND ORIENTED X4; APPEARS REFUSED TO BE DISTURED . PT. ON ROOM AIR, WITH EQUAL AND UNLABORED BREATHING, WITH NO SIGNS OF RESPIRATORY DISTRESS NOTED, SATURATING AT 97-96%. PT. WITH IV ACCESS ON LEFT FORE ARM ON SALINE LOCK, PATENT AND INTACT. WITH RIGHT UPPER ARM AV FISTULA THAT IS FUNCTIONING WITH BRUIT AND THRILL, AND LEFT UPPER ARM AV FISTULA THAT IS NON FUNCTIONAL. SAFETY MEASURES IN PLACE WITH CALL LIGHT WITHIN EASY REACH, SIDE RAILS UP X2, BED IN LOWEST LOCKED POSITION. WILL CONTINUE TO MONITOR PATIENT.
[2021-10-11 08:00] VITALS: BP 178/71
[2021-10-11] MEDS ORDERED: ALBU18HF2 IH (08:45)
[2021-10-11] MEDS ORDERED: TRAM50TA2 PO (08:45)
[2021-10-11] MEDS ORDERED: BISO5TAB20 PO (08:45)
[2021-10-11] MEDS ORDERED: METO5TAB7 PO (08:45)
[2021-10-11] MEDS ORDERED: GEMF600T90 PO (08:45)
[2021-10-11] MEDS ORDERED: ESCI20TA PO (08:45)
[2021-10-11] MEDS ORDERED: BISA-79 PO (08:45)
[2021-10-11] MEDS ORDERED: FURO80TA85 PO (08:45)
[2021-10-11] MEDS ORDERED: ERGO500040 PO (08:45)
[2021-10-11] MEDS ORDERED: AMLO-213 PO (08:45)
[2021-10-11] MEDS ORDERED: CALC667C6 PO (08:45)
[2021-10-11] MEDS: BISOPROLOL FUMARATE 5 MG TABLET PO SCH (09:00)
[2021-10-11] MEDS: GEMFIBROZIL 600 MG TABLET PO SCH ×2 (09:00→17:00)
[2021-10-11] MEDS: AMLODIPINE BESYLATE 10 MG TABLET PO SCH (09:00)
[2021-10-11] MEDS: BISACODYL (5 MG) 5 MG TABLET.DR PO SCH ×2 (09:00→17:00)
[2021-10-11] MEDS ORDERED: Medication Not On Formulary EA (Omega-3 Fatty Acids/Fish Oil (Fish Oil 1,000 Mg Capsule) PO SCH (09:00)
[2021-10-11] MEDS: ASPIRIN 81 MG TAB.CHEW PO SCH (09:00)
[2021-10-11] MEDS: GLIMEPIRIDE 4 MG TABLET PO SCH ×2 (09:00→17:00)
[2021-10-11] MEDS ORDERED: TRAMADOL HCL 50 MG TABLET PO PRN (09:00)
[2021-10-11] MEDS: COLCHICINE 0.6 MG TABLET PO SCH ×2 (09:00→17:00)
[2021-10-11] MEDS: MONTELUKAST SODIUM (10MG) 10 MG TABLET PO SCH (09:00)
[2021-10-11] MEDS: DOCUSATE SODIUM 250 MG CAPSULE PO SCH ×2 (09:00→17:00)
[2021-10-11] MEDS ORDERED: FUROSEMIDE 80 MG TABLET PO SCH (09:00)
[2021-10-11] MEDS ORDERED: ASPIRIN 81 MG TAB.CHEW PO SCH (09:00)
[2021-10-11] MEDS: ISOSORBIDE DINITRATE (20MG) 20 MG TABLET PO SCH ×2 (09:00→17:00)
[2021-10-11] MEDS ORDERED: NITROGLYCERIN 0.4 MG/TAB BOTTLE SL PRN (09:00)
[2021-10-11] MEDS: PANTOPRAZOLE 40 MG TABLET.DR PO SCH (09:01)
[2021-10-11] MEDS: FERROUS SULFATE (325 MG) 325 MG/TAB TABLET PO SCH ×2 (09:01→17:00)
[2021-10-11] MEDS: SERTRALINE HCL 25 MG TABLET PO SCH (09:02)
[2021-10-11] MEDS: NIFEdipine XL (30MG) 30 MG TAB PO SCH (09:02)
[2021-10-11] MEDS: hydrALAZINE HCL 50 MG TABLET PO SCH ×2 (09:02→17:00)
[2021-10-11] MEDS: CLOPIDOGREL BISULFATE 75 MG TABLET PO SCH (09:03)
[2021-10-11 09:46] LABS: BASOPHILS % (AUTO) 0.3 % (0.0-2.0); EOSINOPHILS % (AUTO) 0.4 % (0.0-6.0); HEMATOCRIT 36 % (33-45); HEMOGLOBIN 11.3 g/dL (11.5-14.8); LYMPHOCYTES # (AUTO) 1.1 K/uL (0.8-4.8); LYMPHOCYTES % (AUTO) 9.3 % (20.0-44.0); MEAN CORPUSCULAR HGB CONC 32 g/dl (31.0-36.0); MEAN CORPUSCULAR VOLUME 92 fL (82-100); MONOCYTES # (AUTO) 0.6 K/uL (0.1-1.30); MONOCYTES % (AUTO) 5.4 % (2.0-12.0); NEUTROPHILS # (AUTO) 10.2 K/uL (1.8-8.9); NEUTROPHILS % (AUTO) 84.6 % (43.0-81.0); PLATELET COUNT (AUTO) 477 K/uL (150-450); RED BLOOD CELL COUNT(AUTO) 3.85 MIL/uL (4.0-5.2); WHITE BLOOD COUNT (AUTO) 12.1 K/uL (4.3-11.0)
[2021-10-11] MEDS: FUROSEMIDE 40 MG TABLET PO SCH ×2 (09:54→17:00)
[2021-10-11] MEDS ORDERED: ALBUTEROL FS 2.5 MG/0.5 ML VIAL.NEB NEB PRN (10:00)
--- NOTE | 2021-10-11 10:00 | NUR ---
TLE RN NOTE REFUSED CT SCAN ORDERED. DR. SINA RINALDI.
[2021-10-11 10:07] LABS: CALCIUM, SERUM 9.4 mg/dL (8.5-10.1); CREATININE 3.1 mg/dL (0.6-1.3); MAGNESIUM 2.9 mg/dL (1.8-2.4); PHOSPHORUS 5.7 mg/dL (2.5-4.9); POTASSIUM 3.6 mmol/L (3.5-5.1)
[2021-10-11 10:40] LABS: ALBUMIN 3.8 g/dL (3.4-5.0); BILIRUBIN,DIRECT 0.1 mg/dL (0.0-0.2); TOTAL PROTEIN, SERUM 8.5 g/dL (6.4-8.2)
[2021-10-11 11:14] LABS: BILIRUBIN,TOTAL 0.3 mg/dL (0.2-1.0)
--- NOTE | 2021-10-11 11:55 | NUR ---
OFFICE AIDE NOTE PATIENT UNABLE TOLERATE ORAL MEDICATIONS. DR. ANDINO NOTIFIED IF ORAL MEDS CAN BE CHANGED TO IV. AWAITING MD TO MAKE ORDERS. ZOFRAN GIVEN ORDERED.
[2021-10-11 12:03] VITALS: BP 182/76
[2021-10-11] MEDS ORDERED: hydrALAZINE HCL IV 20 MG VIAL IV PRN (13:30)
--- NOTE | 2021-10-11 15:00 | NUR ---
CERAMIC COATER MACHINE NOTE REFUSED ORAL MEDICATIONS. HEALTH TEACHING DONE. LAB RESULTS RELAYED TO DR. ANDINO AND DR. PEACE. AWAITING ORDERS FROM DR. ANDINO. WILL CONTINUE TO MONITOR PATIENT.
--- NOTE | 2021-10-11 15:58 | NUR ---
OUTSIDE LABORER NOTE PATIENT REFUSED VS CHECK AT THIS TIME. IN STABLE CONDITION. WILL CONTINUE TO MONITOR PATIENT.
[2021-10-11] MEDS: METOLAZONE 2.5 MG TABLET PO SCH (17:00)
--- NOTE | 2021-10-11 17:08 | NUR ---
AIR DRIER NOTE PATIENT REFUSED ORAL MEDICATIONS. WITH PRESENCE OF AND SON AT BEDSIDE. EXPLAINED IMPORTANCE/ BENEFITS OF MEDICATIONS BUT STILL REFUSED TO TAKE MEDICATION. PATIENT ABLE TO TOLERATE 2 SERVINGS OF APPLE SAUCE. NO NAUSEA AND VOMITING AT THIS TIME. THIS NURSE REQUESTED DR. ANDINO IF HE CAN CHANGE MEDICATIONS FROM ORAL TO IV, AWAITING ORDERS. PATIENT IN STABLE CONDITION. PROVIDED WITH CALM AND QUIET ENVIRONMENT.
--- NOTE | 2021-10-11 19:00 | NUR ---
MS RN CLOSING NOTE PATIENT IN BED; INTERMITENTLY SLEEPING, ALERT AND ORIENTED X3-4; PT. ON ROOM AIR, WITH EQUAL AND UNLABORED BREATHING, WITH NO SIGNS OF RESPIRATORY DISTRESS NOTED, SATURATING AT 97-96%. PT. WITH IV ACCESS ON LEFT FORE ARM ON SALINE LOCK, PATENT AND INTACT. WITH RIGHT UPPER ARM AV FISTULA THAT IS FUNCTIONING WITH BRUIT AND THRILL, AND LEFT UPPER ARM AV FISTULA THAT IS NON FUNCTIONAL. PATIENT REFUSED ORAL MEDICATIONS AND SOME DIAGNOSTIC PROCEDURES LIKE THE CT SCAN, AND ECHO CARDIOGRAM. MD AWARE. SAFETY MEASURES IN PLACE WITH CALL LIGHT WITHIN EASY REACH, SIDE RAILS UP X2, BED IN LOWEST LOCKED POSITION. ENDORSED TO NEXT SHIFT FOR CONTINUITY OF CARE.
--- NOTE | 2021-10-11 19:28 | NUR ---
PT REFUSED AN ECHOCARDIOGRAM. KATIE STARR WAS INFORMED.
--- NOTE | 2021-10-11 19:43 | NUR ---
RN OPENING NOTE PATIENT IS AWAKE IN BED. A/OX3. NO S/S OF DISTRESS, BREATHING W/O DIFFICULTY ON ROOM AIR. LFA #24 SL INTACT AND PATENT. TELE MONITOR REVEALS SR 86. SAFETY MEASURES IN PLACE: BED LOCKED AND AT LOWEST POSITION, RAILS UP X2, CALL SMITH WITHIN REACH. WILL CONTINUE TO MONITOR PATIENT.
[2021-10-11 20:00] VITALS: BP 170/85
[2021-10-11] MEDS: GABAPENTIN 100 MG CAPSULE PO SCH (22:00)
[2021-10-11] MEDS: TRAZODONE 50 MG TABLET PO SCH (22:00)
[2021-10-11] MEDS: LORAZEPAM 1 MG TABLET PO SCH (22:00)
[2021-10-11] MEDS: ATORVASTATIN 10 MG TABLET PO SCH ×2 (22:00)
[2021-10-12] VITALS: BP 143/90
[2021-10-12 04:00] VITALS: BP 159/80
[2021-10-12] MEDS: BLOOD SUGAR DIAGNOSTIC 1 EACH STRIP VI SCH ×4 (06:36→21:30)
--- NOTE | 2021-10-12 07:00 | NUR ---
RN CLOSING NOTE PATIENT ASLEEP IN BED. NO S/S OF DISTRESS; BREATHING WITHOUT DIFFICULTY ON ROOM AIR. SHANAE MIDLINE #18 SL; LFA #24 SL - INTACT AND PATENT. TELE MONITOR REVEALS SR 71 W/ BORDERLINE 1ST DEGREE BLOCK. SAFETY MEASURES IN PLACE: BED LOCKED AND AT LOWEST POSITION, RAILS UP X2, CALL SMITH WITHIN REACH. WILL ENDORSE TO NEXT SHIFT FOR FELICIA.
--- NOTE | 2021-10-12 07:10 | NUR ---
HEAD START ASSISTANT TEACHER OPENING NOTES RECEIVED PATIENT SLEEPING IN BED, NO S/S OF PAIN OR DISCOMFORT NOTED. A/O x3. ON ROOM AIR, NO S/S OF SOB OR RESPIRATORY DISTRESS. ON TELE MONITORING SINUS RHYTHM WITH BORDERLINE 1ST DEGREE HR 71 AT THIS TIME. NO S/S OF CARDIAC DISTRESS. PATIENT IS CONTINENT AND USES BED REYNOSO. ON BEDREST, CCHO DIET. SHANAE AV FISTULA, DRESSING INTACT AND NO S/S OF BLEEDING NOTED. MU MIDLINE #18SL AND L FA #24 SL, BOTH INTACT AND PATENT AT THIS TIME. NO S/S OF BLEEDING OR INFILTRATION. SKIN IS INTACT. SAFETY MEASURES IN PLACE: BED LOCKED AN AT LOWEST POSITION, RAILS UP x2, CALL LIGHT WITHIN REACH. WILL CONTINUE TO MONITOR.
[2021-10-12] MEDS: PANTOPRAZOLE 40 MG TABLET.DR PO SCH (07:30)
[2021-10-12 07:35] LABS: BILIRUBIN,URINE NEGATIVE (NEGATIVE); COLOR,URINE YELLOW (YELLOW); LEUKOCYTE ESTERASE ,URINE MODERATE (NEGATIVE); NITRITE, URINE NEGATIVE (NEGATIVE); PROTEIN,URINE NEGATIVE (NEGATIVE); UGLUCOSE >=1000 mg/dL (NEGATIVE); UROBILINOGEN,URINE 0.2 EU/dL (0.2)
[2021-10-12 08:00] VITALS: BP 177/85
--- NOTE | 2021-10-12 08:15 | NUR ---
RN NOTES PATIENT SEEN BY DR. NEIL DR. D/C TELE MONITORING NO S/S OR C/O OF CARDIAC DISTRESS OR CHEST PAIN. WILL CONTINUE TO MONITOR.
[2021-10-12] MEDS: hydrALAZINE HCL 50 MG TABLET PO SCH ×2 (08:25→17:00)
[2021-10-12] MEDS: LOSARTAN POTASSIUM 50 MG TABLET PO SCH (08:26)
[2021-10-12] MEDS: ISOSORBIDE DINITRATE (20MG) 20 MG TABLET PO SCH ×2 (08:26→17:00)
[2021-10-12] MEDS: AMLODIPINE BESYLATE 10 MG TABLET PO SCH (08:27)
[2021-10-12] MEDS ORDERED: CLONIDINE HCL 0.3 MG/24H PTWK 1 EA PATCH TD SCH (08:30)
[2021-10-12] MEDS: DOCUSATE SODIUM 250 MG CAPSULE PO SCH ×2 (08:53→17:00)
[2021-10-12] MEDS: ASPIRIN 81 MG TAB.CHEW PO SCH (08:53)
[2021-10-12] MEDS: GLIMEPIRIDE 4 MG TABLET PO SCH ×2 (08:53→17:00)
[2021-10-12] MEDS: FERROUS SULFATE (325 MG) 325 MG/TAB TABLET PO SCH ×2 (08:54→17:00)
[2021-10-12] MEDS: GEMFIBROZIL 600 MG TABLET PO SCH ×2 (08:54→17:10)
[2021-10-12] MEDS: BISACODYL (5 MG) 5 MG TABLET.DR PO SCH ×2 (08:54→17:00)
[2021-10-12] MEDS: CLOPIDOGREL BISULFATE 75 MG TABLET PO SCH (08:54)
[2021-10-12] MEDS: NIFEdipine XL (30MG) 30 MG TAB PO SCH (08:54)
[2021-10-12] MEDS: COLCHICINE 0.6 MG TABLET PO SCH ×2 (08:54→17:00)
[2021-10-12] MEDS: ESCITALOPRAM OXALATE (10 MG) 10 MG TABLET PO SCH (08:54)
[2021-10-12] MEDS: FUROSEMIDE 40 MG TABLET PO SCH ×2 (08:54→17:00)
[2021-10-12] MEDS: MONTELUKAST SODIUM (10MG) 10 MG TABLET PO SCH (08:55)
[2021-10-12] MEDS: METOLAZONE 2.5 MG TABLET PO SCH ×2 (08:55→17:00)
[2021-10-12] MEDS: SERTRALINE HCL 25 MG TABLET PO SCH (08:55)
[2021-10-12] MEDS: BISOPROLOL FUMARATE 5 MG TABLET PO SCH (08:55)
--- NOTE | 2021-10-12 08:56 | NUR ---
RN NOTES PATIENT ONLY TOOK HYDRALAZINE, COZAAR, ISORDIL AND NORVASC TABLETS BEFORE REFUSING THE REST OF HER SCHEDULED 0900 MEDICATION. RISK AND BENEFITS EXPLAINED. WILL CONTINUE TO MONITOR.
[2021-10-12 11:55] LABS: BASOPHILS % (AUTO) 0.3 % (0.0-2.0); EOSINOPHILS % (AUTO) 0.4 % (0.0-6.0); HEMATOCRIT 33 % (33-45); HEMOGLOBIN 10.9 g/dL (11.5-14.8); LYMPHOCYTES # (AUTO) 1.1 K/uL (0.8-4.8); LYMPHOCYTES % (AUTO) 7.5 % (20.0-44.0); MEAN CORPUSCULAR HGB CONC 33 g/dl (31.0-36.0); MEAN CORPUSCULAR VOLUME 91 fL (82-100); MONOCYTES # (AUTO) 1.1 K/uL (0.1-1.30); MONOCYTES % (AUTO) 7.7 % (2.0-12.0); NEUTROPHILS # (AUTO) 12.3 K/uL (1.8-8.9); NEUTROPHILS % (AUTO) 84.1 % (43.0-81.0); PLATELET COUNT (AUTO) 515 K/uL (150-450); RED BLOOD CELL COUNT(AUTO) 3.66 MIL/uL (4.0-5.2); WHITE BLOOD COUNT (AUTO) 14.6 K/uL (4.3-11.0)
--- NOTE | 2021-10-12 11:59 | NUR ---
RN NOTES PATIENT REFUSED ACCUCHECK, WILL CONTINUE TO MONITOR.
[2021-10-12 12:52] LABS: BILIRUBIN,TOTAL 0.1 mg/dL (0.2-1.0); CALCIUM, SERUM 9.3 mg/dL (8.5-10.1); CREATININE 2.8 mg/dL (0.6-1.3); POTASSIUM 3.4 mmol/L (3.5-5.1); TOTAL PROTEIN, SERUM 8.8 g/dL (6.4-8.2)
[2021-10-12 13:10] LABS: BACTERIA,URINE Many /HPF (None Seen); SQUAMOUS EPITHELIAL CELL,UR Few /HPF (None Seen)
--- NOTE | 2021-10-12 16:30 | NUR ---
RN NOTES RECEIVED CALL FROM LAB, TROPONIN LEVEL HIGH 52. DR. TREJO NOTIFIED, ACKNOWLEDGED AND NO NEW ORDERS AT THIS TIME.
[2021-10-12] MEDS: INSULIN REGULAR, HUMAN 100 UNIT/ML 3 ML VIAL SQ PRN (17:10)
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
--- NOTE | 2021-10-12 17:45 | NUR ---
RN NOTES PATIENT BS 497 AFTER RECHECK, 15 UNITS OF INSULIN ADMINISTERED PER SLIDING SCALE. DR. DECKER NOTIFIED, NO NEW ORDERS AT THIS TIME WILL CONTINUE TO MONITOR.
--- NOTE | 2021-10-12 18:40 | NUR ---
MS RN CLOSING NOTES RECEIVED PATIENT SLEEPING IN BED, NO S/S OF PAIN OR DISCOMFORT NOTED. A/O x3. STABLE ROOM AIR, NO S/S OF SOB OR RESPIRATORY DISTRESS. NO S/S OF CARDIAC DISTRESS OR C/O OF CHEST PAIN. PATIENT IS CONTINENT AND USES BED REYNOSO. ON BEDREST, CCHO DIET. SHANAE AV FISTULA, DRESSING INTACT AND NO S/S OF BLEEDING NOTED. MU MIDLINE #18SL AND L FA #24 SL, BOTH INTACT AND PATENT AT THIS TIME. NO S/S OF BLEEDING OR INFILTRATION. SKIN IS INTACT. SAFETY MEASURES MAINTAINED: BED LOCKED AN AT LOWEST POSITION, RAILS UP x2, CALL LIGHT WITHIN REACH. WILL ENDORSE TO NEXT SHIFT ANY FELICIA.
--- NOTE | 2021-10-12 19:37 | NUR ---
MS RN OPENING NOTES PATIENT RECEIVED RESTING IN BED COMFORTABLY; A/OX3, ABLE TO MAKE NEEDS KNOWN; PER AM SHIFT, PATIENT HAS BEEN NON-COMPLIANT WITH MEDICATIONS, ACCU-CHECKS AND TREATMENT PLAN; ALSO REFUSING HEMODIALYSIS WELL; CHARGE NURSES AND MDS ARE AWARE OF PATIENT'S NON-COMPLIANCE THROUGHOUT HOSPITALIZATION; SHANAE FISTULA PRESENT, MU MIDLINE #18 S/L; L FA #24 S/F INTACT AND PATENT, FLUSHING WELL; NO S/S OF REDNESS OR INFILTRATION NOTED ON IV SITES; SAFETY PRECAUTIONS IMPLEMENTED; BED LOCKED IN LOW POSITION; SIDE RAILSX2; CALL LIGHT WITHIN REACH; WILL CONT PLAN OF CARE
[2021-10-12 20:00] VITALS: BP 152/78
--- NOTE | 2021-10-12 20:37 | NUR ---
pt refusing dialysis treatment, explained the importance of HD procedure and the consequences of refusing treatment, verbalized understanding, primary nurse at bedside. Dr hCeema made aware.
--- NOTE | 2021-10-12 20:49 | NUR ---
MS RN NOTES SPOKE WITH HEMODIALYSIS NURSE, RAGHAVENDRA, KATIE; PER RAGHAVENDRA, SINCE PATIENT HAS BEEN REFUSING HD, RESCHEDULE IN AM; DR. PEACE ALSO AWARE OF PATIENT'S REFUSAL; CHARGE NURSE MADE AWARE; PATIENT HAS ALSO BEEN REFUSING MEDICATION THROUGHOUT HOSPITALIZATION; PATIENT DOES NOT WANT TO TAKE HER SCHEDULED MEDS OR UNDERGO HEMODIALYSIS;
--- NOTE | 2021-10-12 21:00 | NUR ---
MS RN NOTES PATIENT REFUSED ALL SCHEDULED 2100 AND 2200 MEDICATION, CHARGE AWARE;
[2021-10-12] MEDS: ATORVASTATIN 10 MG TABLET PO SCH ×2 (21:30)
[2021-10-12] MEDS: TRAZODONE 50 MG TABLET PO SCH (21:30)
[2021-10-12] MEDS: LORAZEPAM 1 MG TABLET PO SCH (21:30)
[2021-10-12] MEDS: GABAPENTIN 100 MG CAPSULE PO SCH (21:30)
--- NOTE | 2021-10-12 21:49 | NUR ---
MS RN NOTES PATIENT WANTS TO BE TRANSFERRED TO A DIFFERENT HOSPITAL, STATING THAT WE ARE NOT TREATING HER HER; PATIENT HAS BEEN REFUSING ALL TREATMENT AND MEDICATIONS THROUGHOUT HOSPITALIZATION, SEVERAL TIMES; PER AM SHIFT, PATIENT ALSO REFUSED DIALYSIS; PATIENT HAS BEEN TELLING HER OTHERWISE; SPOKE WITH PATIENT'S , HE IS UPSET SAYING THAT WE DO NOT KNOW WHAT WE ARE DOING. ASKING WHY SHE IS NOT HAVING DIALYSIS IT IS VERY IMPORTANT; WAS INFORMED PATIENT HAS BEEN REFUSING TREATMENT, ACCUSING STAFF OF LYING AND HUNG UP THE PHONE; CHARGE NURSE MADE AWARE;
--- NOTE | 2021-10-12 22:02 | NUR ---
MS RN NOTES PATIENT STILL ACCUSING STAFF OF LYING; PATIENT ALSO CALLED HER PRIMARY DOCTOR, MENTIONED TO HIS OFFICE TO NOT HANG UP BECAUSE THE NURSE WOULD LIKE TO SPEAK WITH HIM; PATIENT WANTED ME TO STAY IN THE ROOM SO SHE CAN ASK HER DOCTOR TO BE TRANSFERRED TO HIS HOSPITAL; NURSE NEVER REQUESTED TO SPEAK WITH HER PRIMARY DOCTOR; WENT INTO PATIENT ROOM WITH UNIVERSITY RELATIONS RECRUITER WITNESS, PATIENT STILL DENYING SHE REFUSED TREATMENT SINCE STAYING HERE; PATIENT ALSO REPORTED SHE WAS NEVER SEEN BY A DOCTOR SINCE SHE WAS ADMITTED; CHARGE NURSE MADE AWARE; PER CHARGE AND ICE CREAM MACHINE OPERATOR, PATIENT HAS BEEN REFUSING TREATMENT AND HAS BEEN TELLING HER FAMILY, CALLING HER FAMILY TO CALL FOR HELP. PATIENT'S FAMILY IS GETTING UPSET, PATIENT WOULD LIKE TO SPEAK TO NURSING NYLON WINDER; AWAITING ARRIVAL OF NURSING SUP TO UNIT TO SPEAK WITH PATIENT
[2021-10-12] MEDS: ACETAMINOPHEN 325 MG TABLET PO PRN (22:33)
--- NOTE | 2021-10-12 22:39 | NUR ---
MS RN NOTES PATIENT COMPLAINT OF HEADACHE, REQUESTING TYLENOL; TYLENOL ADMINISTERED, WITNESSED BY KATIE KELLY
[2021-10-12] MEDS ORDERED: CEFTRIAXONE 1 G in IV D5W 50 ML IV SCH (23:00)
--- NOTE | 2021-10-12 23:55 | NUR ---
MS RN NOTES CANDLE MOLDER HAND MD ORDERED IV ROCEPHIN ABX, PATIENT INFORMED MD ORDERED MEDICATION; PATIENT WAS ASKED IF IT IS OK TO ADMINISTER MEDICATION PER MD ORDER; PATIENT AGREED FOR IVABX TO BE INFUSED; WITNESSED BY KATIE KELLY; CHARGE NURSE AWARE
[2021-10-13] MEDS ORDERED: CEFTRIAXONE 1 G VIAL ONE (00:01)
--- NOTE | 2021-10-13 06:17 | NUR ---
MS RN NOTES PATIENT AGREED FOR ACCU-CHEK IN AM: BLOOD SUGAR 327MG/DL; PER STUDIO COORDINATOR, PATIENT ALSO AGREED FOR BLOOD TO BE DRAWN; PATIENT AWARE OF HEMODIALYSIS TO BE DONE IN AM; SPOKE WITH HEMODIALYSIS NURSE, KATIE MABRY REGARDING HD; PER NURSE, WILL ATTEMPT TO DO HD TODAY WITH PATIENT IF PATIENT COMPLIES; IF PATIENT CONTINUES TO REFUSE, DR. PEACE IS ALREADY AWARE; CHARGE ALSO AWARE; WILL CONT TO ASSESS AND MONITOR
[2021-10-13 06:24] LABS: BASOPHILS # (AUTO) 0.1 K/uL (0.0-0.2); BASOPHILS % (AUTO) 0.6 % (0.0-2.0); EOSINOPHILS % (AUTO) 0.8 % (0.0-6.0); HEMATOCRIT 36 % (33-45); HEMOGLOBIN 11.9 g/dL (11.5-14.8); LYMPHOCYTES # (AUTO) 1.4 K/uL (0.8-4.8); MEAN CORPUSCULAR HGB CONC 33 g/dl (31.0-36.0); MEAN CORPUSCULAR VOLUME 91 fL (82-100); MONOCYTES # (AUTO) 1.2 K/uL (0.1-1.30); MONOCYTES % (AUTO) 11.5 % (2.0-12.0); NEUTROPHILS # (AUTO) 7.6 K/uL (1.8-8.9); NEUTROPHILS % (AUTO) 73.1 % (43.0-81.0); PLATELET COUNT (AUTO) 503 K/uL (150-450); RED BLOOD CELL COUNT(AUTO) 3.98 MIL/uL (4.0-5.2); WHITE BLOOD COUNT (AUTO) 10.3 K/uL (4.3-11.0)
[2021-10-13] MEDS: BLOOD SUGAR DIAGNOSTIC 1 EACH STRIP VI SCH ×2 (06:37→12:15)
[2021-10-13] MEDS: INSULIN REGULAR, HUMAN 100 UNIT/ML 3 ML VIAL SQ PRN ×2 (06:40→12:24)
--- NOTE | 2021-10-13 06:46 | NUR ---
MS RN CLOSING NOTES PATIENT RESTING IN BED COMFORTABLY; A/OX3, ABLE TO MAKE NEEDS KNOWN; PATIENT STILL NON-COMPLIANT, ONLY AGREES TO SOME MEDICATIONS AND SOME ACCU-CHECKS; CHARGE NURSES AND MDS ARE AWARE OF PATIENT'S NON-COMPLIANCE THROUGHOUT HOSPITALIZATION; SHANAE FISTULA PRESENT, MU MIDLINE #18 S/L; L FA #24 S/F INTACT AND PATENT, FLUSHING WELL; NO S/S OF REDNESS OR INFILTRATION NOTED ON IV SITES; PATIENT AGREED TO HAVE HEMODIALYSIS THIS AM, WILL INFORM DAY SHIFT; ALL NEEDS RENDERED; SAFETY PRECAUTIONS IMPLEMENTED; BED LOCKED IN LOW POSITION; SIDE RAILSX2; CALL LIGHT WITHIN REACH; WILL ENDORSE FELICIA TO ONCOMING SHIFT
--- NOTE | 2021-10-13 07:30 | NUR ---
MS RN OPENING NOTES PATIENT RECEIVED RESTING IN BED COMFORTABLY; A/OX3, ABLE TO MAKE NEEDS KNOWN; SHANAE FISTULA PRESENT, MU MIDLINE #18 S/L; L FA #24 S/F INTACT AND PATENT, FLUSHING WELL; NO S/S OF REDNESS OR INFILTRATION NOTED ON IV SITES; SAFETY PRECAUTIONS IMPLEMENTED; BED LOCKED IN LOW POSITION; SIDE RAILSX2; CALL LIGHT WITHIN REACH; WILL CONT PLAN OF CARE
[2021-10-13 08:00] VITALS: BP 177/73
[2021-10-13] MEDS: LOSARTAN POTASSIUM 50 MG TABLET PO SCH (08:26)
[2021-10-13] MEDS: hydrALAZINE HCL 50 MG TABLET PO SCH ×2 (08:26→17:00)
[2021-10-13] MEDS: AMLODIPINE BESYLATE 10 MG TABLET PO SCH (08:27)
[2021-10-13] MEDS: FERROUS SULFATE (325 MG) 325 MG/TAB TABLET PO SCH ×2 (09:00→17:00)
[2021-10-13] MEDS: MONTELUKAST SODIUM (10MG) 10 MG TABLET PO SCH (09:00)
[2021-10-13] MEDS: ASPIRIN 81 MG TAB.CHEW PO SCH (10:47)
[2021-10-13] MEDS: GEMFIBROZIL 600 MG TABLET PO SCH ×2 (10:48→17:00)
[2021-10-13] MEDS: ISOSORBIDE DINITRATE (20MG) 20 MG TABLET PO SCH ×2 (10:48→17:00)
[2021-10-13] MEDS: GLIMEPIRIDE 4 MG TABLET PO SCH ×2 (10:48→17:00)
[2021-10-13] MEDS: NIFEdipine XL (30MG) 30 MG TAB PO SCH (10:49)
[2021-10-13] MEDS: METOLAZONE 2.5 MG TABLET PO SCH ×2 (10:49→17:00)
--- NOTE | 2021-10-13 11:00 | NUR ---
MS RN NOTES: PT S/P HEMODIALYSIS, 2 L OF FLUID COLLECTED. PT IS COMFORTABLE IN BED, ASLEEP, NO S/S OF ACUTE DISTRESS AT THE MOMENT, DENIES PAIN AT THE MOMENT, WILL CONT TO MONITOR.
[2021-10-13] MEDS: FUROSEMIDE 40 MG TABLET PO SCH ×2 (11:09→17:00)
[2021-10-13] MEDS: DOCUSATE SODIUM 250 MG CAPSULE PO SCH ×2 (11:10→17:00)
[2021-10-13] MEDS: ESCITALOPRAM OXALATE (10 MG) 10 MG TABLET PO SCH (11:10)
[2021-10-13] MEDS: CLOPIDOGREL BISULFATE 75 MG TABLET PO SCH (11:10)
[2021-10-13] MEDS: COLCHICINE 0.6 MG TABLET PO SCH ×2 (11:10→17:00)
[2021-10-13] MEDS: PANTOPRAZOLE 40 MG TABLET.DR PO SCH (11:10)
[2021-10-13] MEDS: SERTRALINE HCL 25 MG TABLET PO SCH (11:11)
[2021-10-13] MEDS: BISACODYL (5 MG) 5 MG TABLET.DR PO SCH ×2 (11:11→17:00)
[2021-10-13] MEDS: BISOPROLOL FUMARATE 5 MG TABLET PO SCH (11:23)
[2021-10-13 16:00] VITALS: BP 122/60
[2021-10-13 17:00] VITALS: BP 123/68
[2021-10-13] MEDS: ACETAMINOPHEN 325 MG TABLET PO PRN (17:12)
--- NOTE | 2021-10-13 17:15 | NUR ---
MS YARDAGE CONTROL CLERK NOTES: PT WAS SU[facility] BUT REFUSED. PT STATES " I WANT TO GO HOME". RN MADE AIR PUMPER AWARE. PT IS DC'D TO HOME, PICKED UP BY PARTNER RAY AND SON DINESH. IV ACCESS AND MIDLINE REMOVED. DISCHARGE DOCUMENTS PRINTED AND SIGNED, BELONGINGS AND HOME MEDS RECONCILED AND SIGNED. PT TEACHING DONE AT BEDSIDE, PT VERBALIZED UNDERSTANDING. PT IS STABLE UPON DISCHARGE, ESCORTED BY SON AND STAFF VIA WHEELCHAIR TO LOBBY.
[2021-10-13] MEDS ORDERED: CEFTRIAXONE 2 G in IV D5W 100 ML IV SCH (21:00)
== END 2021-10-13 17:29 | disposition home or self-care (01) | DRG 302 ==
LOC: ER 16:39 → TELE 10-11 00:52 → MED 10-12 09:49
PROVIDERS: ADMIT Nurse Practitioner Acute Care
PROC: 5A1D70Z Performance of Urinary Filtration, Intermittent, Less than 6 Hours Per Day (ICD-10-PCS; principal; 2021-10-11)
PROC: 05HC33Z Insertion of Infusion Device into Left Basilic Vein, Percutaneous Approach (ICD-10-PCS; 2021-10-12)
DX: I25.10 Atherosclerotic heart disease of native coronary artery without angina pectoris (principal); G92.9 Unspecified toxic encephalopathy; N18.6 End stage renal disease; D68.59 Other primary thrombophilia; I13.2 Hypertensive heart and chronic kidney disease with heart failure and with stage 5 chronic kidney disease, or end stage renal disease; E87.1 Hypo-osmolality and hyponatremia; E11.22 Type 2 diabetes mellitus with diabetic chronic kidney disease; Z20.822 Contact with and (suspected) exposure to COVID-19; Z95.1 Presence of aortocoronary bypass graft; Z99.2 Dependence on renal dialysis; Z98.890 Other specified postprocedural states; Z79.899 Other long term (current) drug therapy; Z88.0 Allergy status to penicillin; Z79.82 Long term (current) use of aspirin; Z79.02 Long term (current) use of antithrombotics/antiplatelets; Z79.4 Long term (current) use of insulin; Z79.84 Long term (current) use of oral hypoglycemic drugs; M89.8X9 Other specified disorders of bone, unspecified site; E66.01 Morbid (severe) obesity due to excess calories; D72.829 Elevated white blood cell count, unspecified; Z87.442 Personal history of urinary calculi; Z87.891 Personal history of nicotine dependence; I50.9 Heart failure, unspecified; E78.5 Hyperlipidemia, unspecified; Z82.49 Family history of ischemic heart disease and other diseases of the circulatory system; Z86.73 Personal history of transient ischemic attack (TIA), and cerebral infarction without residual deficits
CPT/HCPCS: 36415; 71045-TC; 80048-TC; 80053-TC; 80061-TC; 80076-TC; 81001; 82962-TC; 83735-TC; 83880; 84100-TC; 84484-TC; 84703-TC; 85025-TC; 86706; 87040-TC; 87081-TC; 87086-TC; 87186-TC; 87340; 90935-TC; C9803; G0378; J0360; J0696; J1815; J2405; J7030; J7050; J7060

== ENCOUNTER 2021-10-28 11:53 | Inpatient (IN) | payer MEDICARE, OTHER ==
[~2021-10-28] VITALS: Ht 170.2 cm; Wt 108.0 kg
[~2021-10-28 11:53] MED LIST changes: +ALBU18HF2 IH; +AMLO-213 PO; +BISA-79 PO; +BISO5TAB20 PO; +CALC667C6 PO; -CEPH500C2 PO; -CLIN300C12 PO; -COLC0.6C3 PO; +ERGO500040 PO; -FENO145T21 PO; -FERR325T27 PO; -FURO-144 PO; +FURO80TA85 PO; -GABA600T12 PO; +GEMF600T90 PO; -HYDR-4209 PO; -HYDR100T27 PO; -INSU100C10 SQ; -INSU100V36 SQ; -INSU200I4 SQ; -LEVO750T21 PO; -LINA5TAB PO; -LOSA1TAB42 PO; -Levofloxacin (250MG) PO; +METO5TAB7 PO; -NEBI20TA2 PO; -OXYC-128 PO; -PANT40TA49 PO; -ROSU40TA PO; -SPIR25TA6 PO; -SUMA100T16 PO
--- NOTE | 2021-10-28 12:00 | NUR ---
HOLLIS88 FROM HOME FOR ELEVATED BP (225/90); PT C/O HEADACHE, N/V, AND BLURRED VISION SINCE LAST NIGHT. ALSO C/O LEFT LEG NUMBNESS. PT VERBALLT RESPONSIVE. TO ER BED 9. ATTACHED TO MONITOR.
[2021-10-28] MEDS ORDERED: LABETALOL HCL IV 100MG VIAL ONE (12:06)
--- NOTE | 2021-10-28 12:10 | NUR ---
MOVE SHEET SUBMITTED.
--- NOTE | 2021-10-28 12:19 | NUR ---
COVID SWAB DONE AND SENT TO LAB
--- NOTE | 2021-10-28 12:29 | NUR ---
MIDLINE INSERTION PER DR DOBSON. THE ORDER IS READ BACK, VERIFIED. NOTED AND CARRIED OUT.
[2021-10-28] MEDS ORDERED: LABETALOL 20 MG/4 ML VIAL IV ONE ×2 (12:30→14:00)
--- NOTE | 2021-10-28 12:30 | NUR ---
PT REFUSED CT AND XRAY; WILL TRY AGAIN LATER PER SCIENTIFIC LABORATORY SUPERVISOR.
--- NOTE | 2021-10-28 12:48 | NUR ---
MIDLINE NURSE ETA 1400
--- NOTE | 2021-10-28 12:55 | NUR ---
LAB CALLED STEVE DOBSON NOTIFIED.
--- NOTE | 2021-10-28 13:11 | NUR ---
LABORATORY ASSISTANT/MED RECON UNABLE TO UPDATE HOME MEDICATION INFORMATION AT THIS TIME. PER PATIENT REQUESTED, CALLED AND SPOKE WITH SON. PER SON WILL PROVIDE INFORMATION LATER DUE TO NOT AT HOME AT THIS TIME.
[2021-10-28 13:16] LABS: CALCIUM, SERUM 9.8 mg/dL (8.5-10.1); CARBON DIOXIDE 23 mmol/L (21-32); CHLORIDE 97 mmol/L (98-107); CREATININE 2.6 mg/dL (0.6-1.3); GLUCOSE 252 mg/dL (74-106); POTASSIUM 3.5 mmol/L (3.5-5.1); SODIUM SERUM 134 mmol/L (136-145); UREA NITROGEN, BLOOD 54 mg/dL (7-18)
[2021-10-28 13:21] LABS: ALANINE AMINOTRANSFERASE 27 U/L (12-78); ALKALINE PHOSPHATASE 108 U/L (46-116); ASPARTATE AMINOTRANSFERASE 45 U/L (15-37); BILIRUBIN,DIRECT 0.1 mg/dL (0.0-0.2); BILIRUBIN,TOTAL 0.3 mg/dL (0.2-1.0); TOTAL PROTEIN, SERUM 8.1 g/dL (6.4-8.2)
--- NOTE | 2021-10-28 13:49 | NUR ---
[facility] CALLED MASTER PLANNER PAGED.
--- NOTE | 2021-10-28 13:51 | NUR ---
THE PATIENT REFUSED CT SCAN DESPITE EXPLAINING RISKS AND BENEFITS MULTIPLE TIMES. DR DOBSON MADE AWARE.
--- NOTE | 2021-10-28 13:51 | NUR ---
MIDLINE NURSE AT BEDSIDE
[2021-10-28] MEDS ORDERED: ASPIRIN 325 MG TABLET PO ONE (14:00)
[2021-10-28] MEDS ORDERED: ASPIRIN 325 MG TABLET ONE (14:05)
[2021-10-28 14:09] LABS: ALBUMIN 3.3 g/dL (3.4-5.0)
--- NOTE | 2021-10-28 14:09 | NUR ---
DR GAMINO AT BEDSIDE
--- NOTE | 2021-10-28 14:24 | NUR ---
BLOOD DRAWN AND SENT TO LAB
[2021-10-28 14:38] LABS: BASOPHILS # (AUTO) 0.1 K/uL (0.0-0.2); BASOPHILS % (AUTO) 0.5 % (0.0-2.0); EOSINOPHILS % (AUTO) 0.3 % (0.0-6.0); HEMATOCRIT 33 % (33-45); HEMOGLOBIN 10.9 g/dL (11.5-14.8); LYMPHOCYTES # (AUTO) 0.8 K/uL (0.8-4.8); LYMPHOCYTES % (AUTO) 5.3 % (20.0-44.0); MEAN CORPUSCULAR HGB CONC 33 g/dl (31.0-36.0); MEAN CORPUSCULAR VOLUME 91 fL (82-100); MONOCYTES # (AUTO) 0.9 K/uL (0.1-1.30); MONOCYTES % (AUTO) 5.9 % (2.0-12.0); NEUTROPHILS # (AUTO) 14.2 K/uL (1.8-8.9); PLATELET COUNT (AUTO) 432 K/uL (150-450); RED BLOOD CELL COUNT(AUTO) 3.66 MIL/uL (4.0-5.2); WHITE BLOOD COUNT (AUTO) 16.1 K/uL (4.3-11.0)
[2021-10-28] MEDS ORDERED: Z GUARD REMEDY 4 OZ OINT TP PRN (15:00)
[2021-10-28] MEDS ORDERED: DEXTROSE 50%-WATER 50 ML DISP.SYRIN IV PRN (15:00)
[2021-10-28] MEDS ORDERED: LABETALOL 20 MG/4 ML VIAL IV PRN (15:00)
[2021-10-28] MEDS ORDERED: MAG HYDROX/AL HYDROX/SIMETH 30 ML UDC PO PRN (15:00)
[2021-10-28] MEDS ORDERED: MAGNESIUM HYDROXIDE 30 ML UDC PO PRN (15:00)
[2021-10-28] MEDS ORDERED: hydrALAZINE HCL IV 20 MG VIAL IV PRN (15:00)
[2021-10-28] MEDS ORDERED: ACETAMINOPHEN 325 MG TABLET PO PRN (15:00)
[2021-10-28] MEDS ORDERED: LORAZEPAM INJ 2 MG/ML VIAL ONE (17:10)
[2021-10-28] MEDS: BLOOD SUGAR DIAGNOSTIC 1 EACH STRIP VI SCH ×2 (17:42→21:26)
[2021-10-28] MEDS ORDERED: MORPHINE SULFATE INJ 2 MG/ML DISP.SYRIN ONE (18:06)
[2021-10-28] MEDS: MORPHINE SULFATE INJ 2 MG/ML DISP.SYRIN IV PRN ×2 (18:07→23:44)
--- NOTE | 2021-10-28 18:34 | NUR ---
YAMILEX MONTIEL, AT BEDSIDE W/ PT.
[2021-10-28] MEDS ORDERED: HYDR-4077 PO (18:51)
[2021-10-28] MEDS ORDERED: NITR0.4T48 SL (18:51)
[2021-10-28] MEDS ORDERED: CALC667C6 PO (18:51)
[2021-10-28] MEDS ORDERED: BISO5TAB20 PO (18:51)
[2021-10-28] MEDS ORDERED: ALBU18HF2 IH (18:51)
[2021-10-28] MEDS ORDERED: OMEG1CAP PO (18:51)
[2021-10-28] MEDS ORDERED: AMLO-213 PO (18:51)
[2021-10-28] MEDS ORDERED: BISA-79 PO (18:51)
[2021-10-28] MEDS ORDERED: FERR325T23 PO (18:51)
[2021-10-28] MEDS ORDERED: HYDR-3642 PO (18:51)
[2021-10-28] MEDS ORDERED: CLON0.3T PO (18:51)
[2021-10-28] MEDS ORDERED: DOCU250C21 PO (18:51)
[2021-10-28] MEDS ORDERED: TRAM50TA2 PO (18:51)
[2021-10-28] MEDS ORDERED: PANT40TA2 PO (18:51)
[2021-10-28] MEDS ORDERED: ESCI20TA PO (18:51)
[2021-10-28] MEDS ORDERED: TRAZ-252 PO (18:51)
[2021-10-28] MEDS ORDERED: COLC0.6T67 PO (18:51)
[2021-10-28] MEDS ORDERED: METO5TAB7 PO (18:51)
[2021-10-28] MEDS ORDERED: GABA-532 PO (18:51)
[2021-10-28] MEDS ORDERED: LOSA100T31 PO (18:51)
[2021-10-28] MEDS ORDERED: FURO80TA85 PO (18:51)
[2021-10-28] MEDS ORDERED: LORA1TAB PO (18:51)
[2021-10-28] MEDS ORDERED: GEMF600T90 PO (18:51)
[2021-10-28] MEDS ORDERED: MONT10TA22 PO (18:51)
[2021-10-28] MEDS ORDERED: GLIM4TAB37 PO (18:51)
[2021-10-28] MEDS ORDERED: ATOR10TA PO (18:51)
[2021-10-28] MEDS ORDERED: CLOP75TA15 PO (18:51)
[2021-10-28 20:00] VITALS: BP 165/80
--- NOTE | 2021-10-28 20:06 | NUR ---
REPORT GIVEN TO KATIE RUIZ
--- NOTE | 2021-10-28 20:10 | NUR ---
RN NOTE RECEIVED REPORT FROM ROUTER TENDERKATIE JUNG.
--- NOTE | 2021-10-28 20:26 | NUR ---
PATIENT TRANSFERRED UNDER ACLS
--- NOTE | 2021-10-28 20:31 | NUR ---
RN INITIAL NOTE PT ARRIVED TO UNIT VIA GURNEY. PT WITH ADMITTING DIAGNOSIS OF OF ESRD AND HTN. MEDICAL HISTORY OF HF, HTN, ESRD, AND DM. PT AWAKE, A&O X4, CALM, COOPERATIVE. ON RA WITH CURRENT O2SAT OF 98%; NO SIGNS OF RESP DISTRESS, NO SOB OR COUGH NOTED, NON-LABORED AND EQUAL BREATHING. PT ATTACHED TO EXTERNAL MONITOR, SR WITH CURRENT HR OF 79. SKIN NOTED TO BE INTACT, NO OPEN WOUNDS. IV ACCESS ON LFA 18G AND LEFT WRIST 20G, INTACT AND PATENT, FLUSHES EASILY WITH NO RESISTANCE. PT NOTED TO HAVE CONNIE FISTULA, BRUIT AUSCULTATED AND THRILL PALPATED. BED IN LOWEST POSITION, CALL LIGHT WITHIN REACH, SIDE RAILS UP X3. WILL INITIATE PLAN OF CARE.
[2021-10-28 20:33] VITALS: BP 165/80
[2021-10-28] MEDS: HEPARIN SODIUM, PORCINE 5000 UNITS/1 ML VIAL SQ SCH (20:54)
[2021-10-28] MEDS: ONDANSETRON HCL/PF 4 MG/2 ML VIAL IVP PRN (20:56)
[2021-10-28] MEDS: ATORVASTATIN 40 MG TABLET PO SCH (21:16)
[2021-10-28] MEDS: *INSULIN REGULAR(HUMULIN R)HUM 100 UNIT/ML VIAL SQ PRN (21:43)
[2021-10-28] MEDS ORDERED: LOSARTAN POTASSIUM 50 MG TABLET PO SCH (22:00)
--- NOTE | 2021-10-28 23:44 | NUR ---
RN NOTE PT'S BP 182/78 HR 82; PT ADMINISTERED HYDRALAZINE 10 MG. PT ALSO COMPLAINS OF 10/10 ABDOMINAL PAIN; PT ADMINISTERED MORPHINE 2 MG.
[2021-10-29] VITALS: BP 182/78
[2021-10-29 00:22] VITALS: BP 182/78
--- NOTE | 2021-10-29 02:46 | NUR ---
RT FOUND PT ON ROOM AIR. NO RESP DISTRESS. PLACED BACK ON 2L NC. SPO2 99%. PT APPEARS COMFORTABLE ON CURRENT O2 SETTINGS. Addendum: 10/29/21 at 0248 by Liborio Mullins RT Amended: Links added.
[2021-10-29] MEDS ORDERED: LORAZEPAM INJ 2 MG/ML VIAL IV PRN (03:00)
[2021-10-29 03:48] VITALS: BP 154/75
[2021-10-29 04:00] VITALS: BP 154/75
[2021-10-29] MEDS: MORPHINE SULFATE INJ 2 MG/ML DISP.SYRIN IV PRN ×2 (04:54→09:48)
--- NOTE | 2021-10-29 04:55 | NUR ---
RN NOTE PT COMPLAINS OF 8/10 ABDOMINAL PAIN. PT ADMINISTERED MORPHINE 2 MG. WILL MONITOR FOR EFFECTIVENESS.
--- NOTE | 2021-10-29 06:03 | NUR ---
BODY SPECIALIST CLOSING NOTE PT REMAINS IN BED, A&O X4, CALM, COOPERATIVE, SLEPT INTERMITTENTLY THROUGHOUT THE NIGHT. REMAINS ON RA WITH O2SAT RANGING FROM 96-98% THROUGHOUT THE NIGHT; PT SHOWS NO S/S OF RESP DISTRESS, NO SOB OR COUGH, NON-LABORED AND EQUAL BREATHING. ATTACHED TO EXTERNAL MONITOR, SR WITH HR RANGING FROM 79-87 THROUGHOUT THE NIGHT. CORTEZ INTACT AND PATENT WITH NO SIGNS OF LEAKING, DRAINING CLEAR AND YELLOW URINE. CONNIE FISTULA INTACT AND PATENT. IV ACCESS ON LEFT WRIST 20G AND LFA 18G INTACT AND PATENT, FLUSHES EASILY WITH NO RESISTANCE; NO MEDS/FLUIDS RUNNING AT THE MOMENT. BED IN LOWEST POSITION, CALL LIGHT WITHIN REACH, SIDE RAILS UP X3. WILL ENDORSE TO DAYSHIFT NURSE TO CONTINUE CARE.
[2021-10-29 06:42] LABS: BASOPHILS # (AUTO) 0.1 K/uL (0.0-0.2); BASOPHILS % (AUTO) 0.8 % (0.0-2.0); EOSINOPHILS % (AUTO) 2.2 % (0.0-6.0); HEMATOCRIT 33 % (33-45); HEMOGLOBIN 10.9 g/dL (11.5-14.8); LYMPHOCYTES # (AUTO) 1.5 K/uL (0.8-4.8); LYMPHOCYTES % (AUTO) 11.3 % (20.0-44.0); MEAN CORPUSCULAR HGB CONC 33 g/dl (31.0-36.0); MEAN CORPUSCULAR VOLUME 91 fL (82-100); MONOCYTES # (AUTO) 1.6 K/uL (0.1-1.30); MONOCYTES % (AUTO) 12.4 % (2.0-12.0); NEUTROPHILS # (AUTO) 9.5 K/uL (1.8-8.9); NEUTROPHILS % (AUTO) 73.3 % (43.0-81.0); PLATELET COUNT (AUTO) 455 K/uL (150-450); RED BLOOD CELL COUNT(AUTO) 3.63 MIL/uL (4.0-5.2); WHITE BLOOD COUNT (AUTO) 12.9 K/uL (4.3-11.0)
[2021-10-29] MEDS: BLOOD SUGAR DIAGNOSTIC 1 EACH STRIP VI SCH ×4 (07:16→22:14)
[2021-10-29] MEDS: *INSULIN REGULAR(HUMULIN R)HUM 100 UNIT/ML VIAL SQ PRN ×3 (07:28→22:34)
[2021-10-29 07:38] LABS: BILIRUBIN,TOTAL 0.2 mg/dL (0.2-1.0); CALCIUM, SERUM 9.2 mg/dL (8.5-10.1); CREATININE 2.3 mg/dL (0.6-1.3); MAGNESIUM 2.4 mg/dL (1.8-2.4); PHOSPHORUS 3.2 mg/dL (2.5-4.9); POTASSIUM 3.7 mmol/L (3.5-5.1); TOTAL PROTEIN, SERUM 7.7 g/dL (6.4-8.2)
--- NOTE | 2021-10-29 07:48 | NUR ---
PRINT OPERATOR OPENING NOTE RECEIVED PATIENT IN BED, AWAKE A&O X4, CALM, ABLE TO MAKE NEEDS KNOWN, ON RA WITH NO NO S/S OF RESP DISTRESS, NO SOB OR COUGH, NON-LABORED AND EQUAL BREATHING. ATTACHED TO EXTERNAL MONITOR, SR WITH HR OF AROUND 80-90'S, CORTEZ INTACT AND PATENT WITH NO SIGNS OF LEAKING, DRAINING CLEAR AND YELLOW URINE. CONNIE FISTULA INTACT WITH POSITIVE PALPABLE BRUIT. IV ACCESS ON LEFT WRIST 22G AND LFA 18G INTACT AND PATENT, FLUSHES EASILY WITH NO RESISTANCE; NO MEDS/FLUIDS RUNNING AT THE MOMENT. BED IN LOWEST POSITION, CALL LIGHT AND TRAY TABLE WITHIN REACH, SIDE RAILS UP X3. WILL CONTINUE TO MONITOR FOR MY SHIFT
[2021-10-29] MEDS: HEPARIN SODIUM, PORCINE 5000 UNITS/1 ML VIAL SQ SCH ×2 (08:07→22:09)
[2021-10-29] MEDS: ASPIRIN EC 81 MG TABLET.DR PO SCH (08:08)
[2021-10-29] MEDS: ONDANSETRON HCL/PF 4 MG/2 ML VIAL IVP PRN ×2 (08:22→22:21)
--- NOTE | 2021-10-29 08:52 | NUR ---
RN NOTES PATIENT HAD 1 EMESIS ABOUT 10 ML, PATIENT IS NAUSEOUS WELL, GIVEN ZOFRAN 4 MG PRN .WILL CONTINUE TO MONITOR
[2021-10-29] MEDS ORDERED: FUROSEMIDE 80 MG TABLET PO SCH (09:00)
[2021-10-29] MEDS ORDERED: TRAMADOL HCL 50 MG TABLET PO PRN (09:00)
[2021-10-29] MEDS ORDERED: AMLODIPINE BESYLATE 5 MG TABLET PO SCH (09:00)
[2021-10-29] MEDS ORDERED: hydrALAZINE HCL 50 MG TABLET PO SCH (09:00)
[2021-10-29] MEDS ORDERED: NITROGLYCERIN 0.4 MG/TAB BOTTLE SL PRN (09:00)
[2021-10-29] MEDS ORDERED: Medication Not On Formulary EA (Omega-3 Fatty Acids/Fish Oil (Fish Oil 1,000 Mg Capsule) PO SCH (09:00)
--- NOTE | 2021-10-29 09:26 | NUR ---
PATIENT IS AWAKE AND FOUND WITHOUT O2. O PLACED BACK ON AND APPEAR W/O DISTRESS. Addendum: 10/29/21 at 0927 by CHIP JOHANSEN RT Amended: Links added.
[2021-10-29] MEDS ORDERED: ALBUTEROL FS 2.5 MG/3 ML VIAL.NEB NEB PRN (09:30)
[2021-10-29] MEDS: NIFEdipine XL (30MG) 30 MG TAB PO SCH (09:43)
[2021-10-29] MEDS: CLOPIDOGREL BISULFATE 75 MG TABLET PO SCH (09:44)
[2021-10-29] MEDS: ESCITALOPRAM OXALATE (10 MG) 10 MG TABLET PO SCH (09:44)
[2021-10-29] MEDS: FERROUS SULFATE (325 MG) 325 MG/TAB TABLET PO SCH ×2 (09:44→16:23)
[2021-10-29] MEDS: GEMFIBROZIL 600 MG TABLET PO SCH ×2 (09:45→16:23)
[2021-10-29] MEDS: DOCUSATE SODIUM 250 MG CAPSULE PO SCH ×2 (09:46→16:31)
[2021-10-29] MEDS: MINOXIDIL (2.5MG) 2.5 MG TABLET PO SCH (09:46)
--- NOTE | 2021-10-29 09:56 | NUR ---
RN NOTES PATIENT COMPLAINING OF 10/10 PAIN IN THE ABDOMEN, GIVEN PRN MORPHINE 2ML. WILL CONTINUE TO REASSESS PATIENT
[2021-10-29] MEDS: COLCHICINE 0.6 MG TABLET PO SCH (10:24)
[2021-10-29] MEDS: BISOPROLOL FUMARATE 5 MG TABLET PO SCH (10:24)
[2021-10-29] MEDS: INSULIN REGULAR, HUMAN 100 UNIT/ML 3 ML VIAL SQ PRN ×2 (11:46→17:38)
[2021-10-29] MEDS: CALCIUM ACETATE 667 MG CAP/TAB PO SCH ×2 (12:08→17:43)
[2021-10-29 16:15] VITALS: BP 132/72
[2021-10-29] MEDS: FUROSEMIDE 40 MG TABLET PO SCH (16:23)
[2021-10-29] MEDS: METOLAZONE 2.5 MG TABLET PO SCH (16:31)
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
--- NOTE | 2021-10-29 19:30 | NUR ---
ASSISTANT COOK NOTES RECEIVED ON BED SLEEPING,AROUSABLE TO VERBAL STIMULI,BREATHING EASY,NO SOB,SALINE LOCK LFA,LEFT HAND INTACT AND PATENT.WITH SHANAE AV FISTULA FOR HD ACCESS,GOOD BRUIT NOTED,AWAITING FOR HD TREATMENT TODAY.WITH CORTEZ CATH IN PLACE DRAINING GOOD OUTPUT.DENIES DISCOMFORTS AT THE MOMENT.CALL LIGHT IN REACH,NEEDS ANTICIPATED.
[2021-10-29 20:00] VITALS: BP 128/66
[2021-10-29] MEDS ORDERED: ATORVASTATIN 10 MG TABLET PO SCH (22:00)
--- NOTE | 2021-10-29 22:00 | NUR ---
MS RN NOTES REPORTED BY HD NURSE,HD TREATMENT COMPLETED FOR 2 HOURS,TAKEN OUT 800ML,PATIENT TOLERATED THE PROCEDURE WELL.
[2021-10-29] MEDS: MONTELUKAST SODIUM (10MG) 10 MG TABLET PO SCH (22:05)
[2021-10-29] MEDS: TRAZODONE 50 MG TABLET PO SCH (22:05)
[2021-10-29] MEDS: ATORVASTATIN 40 MG TABLET PO SCH (22:06)
[2021-10-29] MEDS: GABAPENTIN 100 MG CAPSULE PO SCH (22:06)
--- NOTE | 2021-10-29 22:15 | NUR ---
YARN EXAMINER SKEINS NOTES ACCU-CHECK BLOOD SUGAR CHECK 198,COVERED WITH HUMULIN R 3 UNITS PER SLIDING SCALE.
[2021-10-30] VITALS: BP 128/61
[2021-10-30 04:00] VITALS: BP 112/66
--- NOTE | 2021-10-30 05:30 | NUR ---
CHEMICAL PROJECT ENGINEER NOTES ACCU-CHECK BLOOD SUGAR CHECK 162,COVERED WITH HUMULIN R 3 UNITS PER SLIDING SCALE.
[2021-10-30] MEDS: BLOOD SUGAR DIAGNOSTIC 1 EACH STRIP VI SCH ×4 (05:34→22:10)
[2021-10-30] MEDS: INSULIN REGULAR, HUMAN 100 UNIT/ML 3 ML VIAL SQ PRN (05:37)
[2021-10-30 06:34] LABS: BASOPHILS # (AUTO) 0.1 K/uL (0.0-0.2); HEMATOCRIT 34 % (33-45); HEMOGLOBIN 11.2 g/dL (11.5-14.8); LYMPHOCYTES # (AUTO) 1.3 K/uL (0.8-4.8); LYMPHOCYTES % (AUTO) 14.7 % (20.0-44.0); MEAN CORPUSCULAR HGB CONC 33 g/dl (31.0-36.0); MEAN CORPUSCULAR VOLUME 91 fL (82-100); MONOCYTES # (AUTO) 1.1 K/uL (0.1-1.30); MONOCYTES % (AUTO) 12.7 % (2.0-12.0); NEUTROPHILS % (AUTO) 66.6 % (43.0-81.0); PLATELET COUNT (AUTO) 459 K/uL (150-450); RED BLOOD CELL COUNT(AUTO) 3.72 MIL/uL (4.0-5.2)
[2021-10-30] MEDS: ONDANSETRON HCL/PF 4 MG/2 ML VIAL IVP PRN (06:50)
[2021-10-30 07:00] LABS: CALCIUM, SERUM 9.7 mg/dL (8.5-10.1); CREATININE 2.4 mg/dL (0.6-1.3); MAGNESIUM 2.4 mg/dL (1.8-2.4); PHOSPHORUS 4.2 mg/dL (2.5-4.9); POTASSIUM 3.9 mmol/L (3.5-5.1)
--- NOTE | 2021-10-30 07:07 | NUR ---
CUSTOMER SERVICE SALES CONSULTANT NOTES SLEEP WELL AT NIGHT,NAUSEA IMPROVED.CALL LIGHT IN REACH,NEEDS ATTENDED.
--- NOTE | 2021-10-30 07:28 | NUR ---
STEWARD RACETRACK OPENING NOTES RECEIVED PT IN BED ASLEEP, EASILY AROUSED. A/O X4, ABLE TO MAKE NEEDS KNOWN. ON RA, TOLERATING WELL. NO SOB NOTED AT THIS TIME. NOT IN ANY SIGN OF RESPIRATORY DISTRESS. ON TELE MULTIGRAPHER WITH CURRENT READING OF SINUS RHYTHM, HR 70. NO C/O CARDIAC DISTRESS VOICED AT THIS TIME. IV SITE IN L HAND G #22 AND LFA G #18 INTACT AND PATENT. SHANAE AV FISTULA INTACT. SAFETY MEASURES IN PLACE: BED IN LOWEST AND LOCKED POSITION, SIDE RAILS UP X2, CALL LIGHT WITHIN REACH. WILL CONTINUE TO MONITOR PT.
[2021-10-30 08:00] VITALS: BP 143/69
[2021-10-30] MEDS: PANTOPRAZOLE 40 MG TABLET.DR PO SCH (08:09)
[2021-10-30] MEDS: CALCIUM ACETATE 667 MG CAP/TAB PO SCH ×3 (08:09→17:05)
[2021-10-30] MEDS: DOCUSATE SODIUM 250 MG CAPSULE PO SCH ×2 (09:08→17:04)
[2021-10-30] MEDS: FERROUS SULFATE (325 MG) 325 MG/TAB TABLET PO SCH ×2 (09:09→17:05)
[2021-10-30] MEDS: COLCHICINE 0.6 MG TABLET PO SCH (09:09)
[2021-10-30] MEDS: GEMFIBROZIL 600 MG TABLET PO SCH ×2 (09:09→17:04)
[2021-10-30] MEDS: MINOXIDIL (2.5MG) 2.5 MG TABLET PO SCH (09:10)
[2021-10-30] MEDS: ESCITALOPRAM OXALATE (10 MG) 10 MG TABLET PO SCH (09:10)
[2021-10-30] MEDS: ASPIRIN EC 81 MG TABLET.DR PO SCH (09:10)
[2021-10-30] MEDS: NIFEdipine XL (30MG) 30 MG TAB PO SCH (09:10)
[2021-10-30] MEDS: CLOPIDOGREL BISULFATE 75 MG TABLET PO SCH (09:10)
[2021-10-30] MEDS: BISOPROLOL FUMARATE 5 MG TABLET PO SCH (09:16)
[2021-10-30] MEDS: METOLAZONE 2.5 MG TABLET PO SCH ×2 (09:16→17:06)
[2021-10-30] MEDS: HEPARIN SODIUM, PORCINE 5000 UNITS/1 ML VIAL SQ SCH ×2 (09:19→21:26)
[2021-10-30] MEDS: FUROSEMIDE 40 MG TABLET PO SCH ×2 (09:22→17:04)
[2021-10-30] MEDS: *INSULIN REGULAR(HUMULIN R)HUM 100 UNIT/ML VIAL SQ PRN ×3 (11:54→22:14)
[2021-10-30] MEDS: MECLIZINE HCL 25 MG TABLET PO PRN (12:21)
--- NOTE | 2021-10-30 12:25 | NUR ---
RN NOTE PT C/O DIZZINESS. MECLIZINE 25MG PO GIVEN ORDERED PRN. WILL MONITOR AND REASSESS PT.
[2021-10-30 16:07] VITALS: BP 102/51
--- NOTE | 2021-10-30 18:55 | NUR ---
SOUND EQUIPMENT MECHANIC CLOSING NOTES PT IN BED ASLEEP, EASILY AROUSED. A/O X4, ABLE TO MAKE NEEDS KNOWN. ON RA, TOLERATING WELL. NO SOB NOTED AT THIS TIME. NOT IN ANY SIGN OF RESPIRATORY DISTRESS. ON TELE TECHNICAL WRITER AND EDITOR WITH CURRENT READING OF SINUS RHYTHM WITH SINUS KRISTINA, HR 58. NO C/O CARDIAC DISTRESS VOICED AT THIS TIME. IV SITE IN L HAND G #22 AND LFA G #18 INTACT AND PATENT. SHANAE AV FISTULA INTACT. ALL NEEDS ATTENDED. KEPT CLEAN AND COMFORTABLE. SAFETY MEASURES IN PLACE: BED IN LOWEST AND LOCKED POSITION, SIDE RAILS UP X2, CALL LIGHT WITHIN REACH. WILL ENDORSE TO BUSINESS CONTINUITY SPECIALIST NURSE FOR FELICIA.
--- NOTE | 2021-10-30 19:52 | NUR ---
BARBACK OPENING NOTE RECEIVED PATIENT WITH EYES CLOSED, EASY TO AROUSE. NO S/S OF APPARENT DISTRESS IN ROOM AIR. DENIES PAIN AT THIS TIME. TELE MONITOR READING SR WITH 77 BPM AT THIS TIME. NO FLUIDS RUNNING AT THIS TIME. RE-ORIENTED AND ENCOURAGED WITH THE USE OF CALL LIGHT. CORTEZ DRAINING DARK YELLOW URINE. SAFETY IN PLACE. WILL CONTINUE WITH PATIENT'S PLAN OF CARE.
[2021-10-30 21:20] VITALS: BP 123/57
[2021-10-30] MEDS: GABAPENTIN 100 MG CAPSULE PO SCH (21:31)
[2021-10-30] MEDS: ATORVASTATIN 40 MG TABLET PO SCH (21:31)
[2021-10-30] MEDS: MONTELUKAST SODIUM (10MG) 10 MG TABLET PO SCH (21:31)
[2021-10-30] MEDS: TRAZODONE 50 MG TABLET PO SCH (21:32)
[2021-10-30] MEDS ORDERED: INSULIN REGULAR, HUMAN 100 UNIT/ML 10 ML VIAL SQ ONE (23:00)
--- NOTE | 2021-10-30 23:03 | NUR ---
COMPRESSOR STATIONS SUPERINTENDENT NOTE BLOOD SUGAR 418, 30 MINUTES AFTER 10 UNITS REGULAR INSULIN. MESSAGED DOCTOR TRENT PATIENT FLOW COORDINATOR. DOCTOR ORDERED 20 UNITS OF REGULAR INSULIN AND TO RE-CHECK BS AT 6 AM. WILL CARRY OUT ORDER. PATIENT IS NON-COMPLIANT WITH DIET, PATIENT TEACHING WAS DONE. PATIENT ACKNOWLEDGED.
[2021-10-30] MEDS: MORPHINE SULFATE INJ 2 MG/ML DISP.SYRIN IV PRN (23:20)
[2021-10-31 00:49] VITALS: BP 135/66
--- NOTE | 2021-10-31 05:17 | NUR ---
MS RN NOTE ADAMANTLY REFUSED TO BE CHANGED, PER PATIENT NO BM TODAY. I ASKED THE REASON WHY SHE DOESN'T WANT TO BE CHANGES, AND EVEN OFFERED PAIN MEDICATION BEFORE HAND IF IT'S BECAUSE OF PAIN. PER PATIENT "NO NOT THAT, IT'S BECAUSE I CANNOT MOVE". I TOLD PATIENT THAT IS WHY THE HEAD COOK, ALBINO AND I ARE HERE TO HELP HER, PER PATIENT "NOT RIGHT NOW THANK YOU". PATIENT GIVEN CLEAN GOWN FOR NOW WHICH SHE STILL TAKES OFF, PREFER TO BE COVERED WITH SHEETS AND OFF THE GOWN.
[2021-10-31] MEDS: BLOOD SUGAR DIAGNOSTIC 1 EACH STRIP VI SCH ×4 (06:38→21:49)
[2021-10-31] MEDS: INSULIN REGULAR, HUMAN 100 UNIT/ML 3 ML VIAL SQ PRN ×2 (06:40→18:00)
[2021-10-31 06:44] LABS: BASOPHILS # (AUTO) 0.1 K/uL (0.0-0.2); BASOPHILS % (AUTO) 1.3 % (0.0-2.0); EOSINOPHILS % (AUTO) 6.4 % (0.0-6.0); HEMATOCRIT 33 % (33-45); HEMOGLOBIN 10.6 g/dL (11.5-14.8); LYMPHOCYTES # (AUTO) 1.7 K/uL (0.8-4.8); LYMPHOCYTES % (AUTO) 19.3 % (20.0-44.0); MEAN CORPUSCULAR HGB CONC 33 g/dl (31.0-36.0); MEAN CORPUSCULAR VOLUME 91 fL (82-100); MONOCYTES # (AUTO) 1.4 K/uL (0.1-1.30); MONOCYTES % (AUTO) 15.7 % (2.0-12.0); NEUTROPHILS % (AUTO) 57.3 % (43.0-81.0); PLATELET COUNT (AUTO) 468 K/uL (150-450); RED BLOOD CELL COUNT(AUTO) 3.58 MIL/uL (4.0-5.2); WHITE BLOOD COUNT (AUTO) 8.7 K/uL (4.3-11.0)
--- NOTE | 2021-10-31 06:47 | NUR ---
MS RN CLOSING NOTE PATIENT D/C'S IN TELE. IN BED, A/OX4. NO S/S OF APPARENT DISTRESS IN ROOM AIR. DENIES PAIN NOR DISCOMFORT AT THIS TIME. CORTEZ DRAINING CLEAR DARK YELLOW URINE WITH 850 ML OUTPUT. NO FLUIDS RUNNING AT THIS TIME. R.UA AV FISTULA WITH THRILL AND BRUIT FELT. NEEDS ATTENDED. ALL SCHEDULED MEDICATIONS ADMINISTERED. SAFETY KEPT IN THE WHOLE SHIFT. WILL ENDORSE TO MORNING SHIFT RN FOR CONTINUITY OF CARE.
[2021-10-31 07:29] LABS: CALCIUM, SERUM 9.5 mg/dL (8.5-10.1); MAGNESIUM 2.2 mg/dL (1.8-2.4); PHOSPHORUS 3.4 mg/dL (2.5-4.9); POTASSIUM 3.5 mmol/L (3.5-5.1)
[2021-10-31 08:00] VITALS: BP 110/52
--- NOTE | 2021-10-31 08:15 | NUR ---
MS RN OPENING NOTE: TOOK OVER CARE OF PT.'S CARE AT 0800. RECEIVED PT IN BED AWAKE. A/O X4, ABLE TO MAKE NEEDS KNOWN. ON RA, TOLERATING WELL. NO SOB NOTED AT THIS TIME. NO C/O OF PAIN/DISCOMFORT AT THIS TIME. IV SITE IN L HAND G #22 AND L FOREARM #18G INTACT AND PATENT. BOTH IV SITES SALINE LOCKED. NO S/S OF INFILTRATION. PT. HAS SHANAE AV FISTULA FOR HD. SAFETY MEASURES IN PLACE: BED IN LOWEST AND LOCKED POSITION, SIDE RAILS UP X2, CALL LIGHT WITHIN REACH. WILL CONTINUE TO MONITOR PT. FOR ANY CHANGES
[2021-10-31] MEDS: MINOXIDIL (2.5MG) 2.5 MG TABLET PO SCH (09:00)
[2021-10-31] MEDS: BISOPROLOL FUMARATE 5 MG TABLET PO SCH (09:00)
[2021-10-31] MEDS: NIFEdipine XL (30MG) 30 MG TAB PO SCH (09:00)
[2021-10-31 09:25] LABS: BASOPHILS % (MANUAL) 1 % (0.0-2.0); EOSINOPHILS % (MANUAL) 5 % (0-4); LYMPHOCYTES % (MANUAL) 22 % (16-48); MONOCYTES % (MANUAL) 12 % (0-11.0); NEUTROPHILS % (MANUAL) 60 (42-76)
[2021-10-31] MEDS: ESCITALOPRAM OXALATE (10 MG) 10 MG TABLET PO SCH (09:50)
[2021-10-31] MEDS: DOCUSATE SODIUM 250 MG CAPSULE PO SCH ×2 (09:50→17:36)
[2021-10-31] MEDS: CALCIUM ACETATE 667 MG CAP/TAB PO SCH ×3 (09:50→17:37)
[2021-10-31] MEDS: METOLAZONE 2.5 MG TABLET PO SCH ×2 (09:50→17:37)
[2021-10-31] MEDS: COLCHICINE 0.6 MG TABLET PO SCH (09:51)
[2021-10-31] MEDS: CLOPIDOGREL BISULFATE 75 MG TABLET PO SCH (09:51)
[2021-10-31] MEDS: GEMFIBROZIL 600 MG TABLET PO SCH ×2 (09:51→17:36)
[2021-10-31] MEDS: FERROUS SULFATE (325 MG) 325 MG/TAB TABLET PO SCH ×2 (09:51→17:37)
[2021-10-31] MEDS: PANTOPRAZOLE 40 MG TABLET.DR PO SCH (09:51)
[2021-10-31] MEDS: FUROSEMIDE 40 MG TABLET PO SCH ×2 (09:51→17:36)
[2021-10-31] MEDS: ASPIRIN EC 81 MG TABLET.DR PO SCH (09:52)
[2021-10-31] MEDS: HEPARIN SODIUM, PORCINE 5000 UNITS/1 ML VIAL SQ SCH ×2 (09:53→21:29)
[2021-10-31 11:55] VITALS: BP 133/78
[2021-10-31] MEDS: *INSULIN REGULAR(HUMULIN R)HUM 100 UNIT/ML VIAL SQ PRN ×2 (12:24→21:44)
[2021-10-31] MEDS: ONDANSETRON HCL/PF 4 MG/2 ML VIAL IVP PRN (13:21)
[2021-10-31 16:00] VITALS: BP 140/70
--- NOTE | 2021-10-31 17:55 | NUR ---
MS RN NOTE: PT.'S BG IS 428 MG/DL. RECHECKED AND GOT 409 MG/DL. PT. WAS HAVING SUBWAY SANDWICH EARLIER AND JUICE BROUGHT BY FAMILY 2 HOURS AGO. I EDUCATED HER ON IMPORTANCE OF DIET COMPLIANCE AND RISKS AND BENEFITS OF NOT FOLLOWING. PT. REFUSED AT FIRST BUT EVENTUALLY AGREED TO THROW AWAY THE SODA AND SANDWICH THAT'S LEFT. WILL ADMINISTER 15 UNITS OF REGULAR INSULIN PER SLIDING SCALE. DR. VINSON NOTIFIED. WILL CONTINUE TO MONITOR PT. FOR CHANGES AND WILL REINFORCE DIET COMPLIANCE.
--- NOTE | 2021-10-31 19:10 | NUR ---
MS RN CLOSING NOTE: PT REMAINS IN BED, RESTING. A/O X4, ABLE TO MAKE NEEDS KNOWN. ON RA, TOLERATING WELL. BREATHING EVEN AND UNLABORED. NO C/O OF PAIN/DISCOMFORT AT THIS TIME. IV SITE IN L HAND G #22 AND L FOREARM #18G INTACT AND PATENT. BOTH IV SITES SALINE LOCKED. NO S/S OF INFILTRATION. PT. HAS HSANAE AV FISTULA FOR HD. REINFORCED EDUCATION TO PT. AND FAMILY MEMBERS REGARDING DIETARY COMPLIANCE TO HELP MANAGE BLOOD SUGAR. SAFETY MEASURES IN MAINTAINED: BED IN LOWEST AND LOCKED POSITION, SIDE RAILS UP X2, CALL LIGHT WITHIN REACH. WILL ENDORSE CONTINUITY OF CARE TO WHIP SAWYER RN.
--- NOTE | 2021-10-31 19:52 | NUR ---
CERTIFIED MEDICAL ASSISTANT OPENING NOTE RECEIVED PATIENT WITH EYES CLOSED, EASY TO AROUSE.AOX4.DALJIT WELL IN ROOM AIR.NO SOB/DISTRESS NOTED. DENIES PAIN AT THIS TIME.IV ACCESS ON L HAND 22G AND LFA 18G SL/SHANAE AVF PATENT AND INTACT.CORTEZ DRAINING YELLOW URINE. SAFETY IN PLACE. CALL LIGHT WITHIN REACH.WILL CONTINUE TO MONITOR.
[2021-10-31 20:00] VITALS: BP 153/78
[2021-10-31] MEDS: GABAPENTIN 100 MG CAPSULE PO SCH (21:28)
[2021-10-31] MEDS: TRAZODONE 50 MG TABLET PO SCH (21:28)
[2021-10-31] MEDS: ATORVASTATIN 40 MG TABLET PO SCH (21:28)
[2021-10-31] MEDS: MONTELUKAST SODIUM (10MG) 10 MG TABLET PO SCH (21:28)
[2021-11-01] MEDS: *INSULIN REGULAR(HUMULIN R)HUM 100 UNIT/ML VIAL SQ PRN (06:06)
--- NOTE | 2021-11-01 06:44 | NUR ---
MS RN CLOSING NOTE; PATIENT IN BED SLEEPING BUT EASY TO AROUSED.ROOM AIR DALJIT WELL NO SIGN SOB/DISTRESS NOTED.SHANAE AV FISTULA WITH THRILL AND BRUIT PRESENT.IV ACCESS LFH 18G AND LHAND 22G.PATENT AND INTACT.F/C INTACT DRANING CHAPINCITO URINE WITH NO ODOR NOTED.ALL NEEDS ATTENDED.DUE MEDS GIVEN ORDERED.SAFETY MEASURED IN PLACE.CALL LIGHT WITHIN REACH.WILL ENDORSE TO NEXT SHIFT.
[2021-11-01] MEDS: BLOOD SUGAR DIAGNOSTIC 1 EACH STRIP VI SCH ×3 (06:57→16:53)
[2021-11-01 07:20] LABS: BASOPHILS # (AUTO) 0.1 K/uL (0.0-0.2); BASOPHILS % (AUTO) 1.3 % (0.0-2.0); HEMATOCRIT 35 % (33-45); HEMOGLOBIN 11.1 g/dL (11.5-14.8); LYMPHOCYTES # (AUTO) 1.5 K/uL (0.8-4.8); MEAN CORPUSCULAR HGB CONC 32 g/dl (31.0-36.0); MEAN CORPUSCULAR VOLUME 92 fL (82-100); MONOCYTES % (AUTO) 11.2 % (2.0-12.0); NEUTROPHILS # (AUTO) 6.1 K/uL (1.8-8.9); NEUTROPHILS % (AUTO) 66.5 % (43.0-81.0); PLATELET COUNT (AUTO) 494 K/uL (150-450); RED BLOOD CELL COUNT(AUTO) 3.77 MIL/uL (4.0-5.2); WHITE BLOOD COUNT (AUTO) 9.1 K/uL (4.3-11.0)
--- NOTE | 2021-11-01 07:28 | NUR ---
MS RN OPENING NOTES RECEIVED PT IN BED ASLEEP, EASILY AROUSED. A/O X4, ABLE TO MAKE NEEDS KNOWN. ON RA, TOLERATING WELL. NO SOB NOTED AT THIS TIME. NOT IN ANY SIGN OF RESPIRATORY DISTRESS. IV SITE IN L HAND G #22 AND LFA G #18 INTACT AND PATENT. SHANAE AV FISTULA INTACT. CORTEZ CATH IN PLACE AND DRAINING WELL. SAFETY MEASURES IN PLACE: BED IN LOWEST AND LOCKED POSITION, SIDE RAILS UP X2, CALL LIGHT WITHIN REACH. WILL CONTINUE TO MONITOR PT.
[2021-11-01 07:29] VITALS: BP 153/78
[2021-11-01 07:47] LABS: CALCIUM, SERUM 9.7 mg/dL (8.5-10.1); CREATININE 2.9 mg/dL (0.6-1.3); MAGNESIUM 2.1 mg/dL (1.8-2.4); PHOSPHORUS 4.1 mg/dL (2.5-4.9); POTASSIUM 3.1 mmol/L (3.5-5.1)
[2021-11-01 08:00] VITALS: BP 137/75
--- NOTE | 2021-11-01 08:15 | NUR ---
RN NOTE RECEIVED A CALL FROM [facility] REPORTING CRITICAL LAB VALUE OF GLUCOSE 363. CALLED DR. VINSON AND MADE AWARE OF PT'S CRITICAL LAB VALUE WITH NO NEW ORDERS AT THIS TIME.
[2021-11-01] MEDS: PANTOPRAZOLE 40 MG TABLET.DR PO SCH (08:23)
[2021-11-01] MEDS: CALCIUM ACETATE 667 MG CAP/TAB PO SCH ×3 (08:23→17:16)
[2021-11-01] MEDS: CLOPIDOGREL BISULFATE 75 MG TABLET PO SCH (08:29)
[2021-11-01] MEDS: MINOXIDIL (2.5MG) 2.5 MG TABLET PO SCH (08:30)
[2021-11-01] MEDS: GEMFIBROZIL 600 MG TABLET PO SCH ×2 (08:30→17:16)
[2021-11-01] MEDS: ASPIRIN EC 81 MG TABLET.DR PO SCH (08:30)
[2021-11-01] MEDS: ESCITALOPRAM OXALATE (10 MG) 10 MG TABLET PO SCH (08:30)
[2021-11-01] MEDS: COLCHICINE 0.6 MG TABLET PO SCH (08:30)
[2021-11-01] MEDS: FUROSEMIDE 40 MG TABLET PO SCH ×2 (08:30→17:17)
[2021-11-01] MEDS: DOCUSATE SODIUM 250 MG CAPSULE PO SCH ×2 (08:30→17:16)
[2021-11-01] MEDS: FERROUS SULFATE (325 MG) 325 MG/TAB TABLET PO SCH ×2 (08:30→17:17)
[2021-11-01] MEDS: NIFEdipine XL (30MG) 30 MG TAB PO SCH (08:31)
[2021-11-01] MEDS: METOLAZONE 2.5 MG TABLET PO SCH ×2 (08:32→17:20)
[2021-11-01] MEDS: BISOPROLOL FUMARATE 5 MG TABLET PO SCH (08:32)
[2021-11-01] MEDS: HEPARIN SODIUM, PORCINE 5000 UNITS/1 ML VIAL SQ SCH (08:34)
[2021-11-01] MEDS: INSULIN REGULAR, HUMAN 100 UNIT/ML 3 ML VIAL SQ PRN ×2 (12:40→16:54)
[2021-11-01] MEDS ORDERED: ACETAMINOPHEN 325 MG TABLET PO PRN (14:00)
--- NOTE | 2021-11-01 14:50 | NUR ---
RN NOTE RECEIVED AN ORDER FROM DR. VINSON TO GIVE POTASSIUM CHLORIDE 20 MEQ PO ONCE DUE TO LOW POTASSIUM LEVEL OF 3.1.
[2021-11-01] MEDS ORDERED: POTASSIUM CHLORIDE 20 MEQ TAB.PRT.SR PO ONE (15:00)
[2021-11-01] MEDS: MECLIZINE HCL 25 MG TABLET PO PRN (15:05)
--- NOTE | 2021-11-01 15:13 | NUR ---
RN NOTE PT C/O DIZZINESS. MECLIZINE 25MG PO GIVEN ORDERED PRN. WILL MONITOR AND REASSESS PT.
--- NOTE | 2021-11-01 16:00 | NUR ---
RN NOTE HD STARTED BY DIALYSIS NURSE VIA SHANAE AV FISTULA. V/S BP 131/69, P 80, TEMP 98.0, R 18, SPO2 96%. WILL CONTINUE TO MONITOR PT.
[2021-11-01] MEDS ORDERED: NIFE-35 PO (17:26)
[2021-11-01] MEDS ORDERED: MINO2.5T PO (17:26)
[2021-11-01] MEDS ORDERED: ATOR40TA PO (17:26)
[2021-11-01] MEDS ORDERED: MECL-159 PO (17:26)
[2021-11-01] MEDS ORDERED: Aspirin Ec PO (17:26)
[2021-11-01] MEDS ORDERED: Insulin Glargine,Hum SQ (17:36)
[2021-11-01] MEDS: MORPHINE SULFATE INJ 2 MG/ML DISP.SYRIN IV PRN (17:43)
--- NOTE | 2021-11-01 17:45 | NUR ---
RN NOTE PT C/O LOWER ABDOMINAL PAIN WITH PAIN SCALE LEVEL OF 10/10. MORPHINE 2MG IVP ADMINISTERED ORDERED PRN Q4HRS. WILL CONTINUE TO MONITOR AND REASSESS PT.
--- NOTE | 2021-11-01 18:10 | NUR ---
RN NOTE HD COMPLETED BY DIALYSIS NURSE VIA SHANAE AV FISTULA WITH 1.5L OUT. NO ACTIVE BLEEDING NOTED. V/S BP 148/73, P 83, TEMP 98.2, R 18, SPO2 97%.
--- NOTE | 2021-11-01 19:06 | NUR ---
MS RN CLOSING NOTE PT IN BED ASLEEP, EASILY AROUSED. A/O X4, ABLE TO MAKE NEEDS KNOWN. ON RA, TOLERATING WELL. NO SOB NOTED AT THIS TIME. NOT IN ANY SIGN OF RESPIRATORY DISTRESS. IV SITE IN L HAND G #22 AND LFA G #18 INTACT AND PATENT. SHANAE AV FISTULA INTACT. CORTEZ CATH IN PLACE AND DRAINING WELL. PT WILL BE DISCHARGE TO [facility]. AWAITING FOR TRANSPORTATION CONTESTANT COORDINATOR AT 1999. ALL BELONGINGS ACCOUNTED FOR. DISCHARGED INSTRUCTIONS AND HEALTH TEACHINGS GIVEN TO PT AND PT VERBALIZED UNDERSTANDING. PT REFUSED TO SIGN ALL DISCHARGED PAPERS AND BELONGINGS. PT REFUSED BODY ASSESSMENTS AND PHOTOGRAPHS OF ANY SKIN ISSUES. REPORT GIVEN TO RUPESH VENTURA OF [facility]. ALL NEEDS ATTENDED. KEPT CLEAN AND COMFORTABLE. SAFETY MEASURES IN PLACE: BED IN LOWEST AND LOCKED POSITION, SIDE RAILS UP X2, CALL LIGHT WITHIN REACH. WILL ENDORSE TO ASSOCIATE PROFESSOR OF CRIMINAL JUSTICE NURSE IN REGARDS TO DISCHARGE AND FELICIA.
--- NOTE | 2021-11-01 19:20 | NUR ---
MS RN OPENING NOTES RECEIVED PATIENT RESTING IN BED; AWAKE, ALERT AND ORIENTED X4. BREATHING EVEN AND NONLABORED. ON ROOM AIR, TOLERATING WELL. NOT IN ANY FORM OF RESPIRATORY DISTRESS. DENIES ANY PAIN OR DISCOMFORT OF THIS TIME. WITH IV ACCESS ON LEFT HAND G#22 AND LEFT FOREARM G#18; BOTH ARE PATENT, INTACT AND SALINE LOCKED. WITH CORTEZ CATHETER IN PLACE ATTACHED TO UROBAG DRAINING TO A CLEAR YELLOW URINE. ABLE TO MAKE NEEDS KNOWN. SAFETY MEASURES IMPLEMENTED: CALL LIGHT AND TABLE WITHIN EASY REACH, SIDE RAILS UP X2, BED IN LOWEST LOCKED POSITION. WILL CONTINUE TO MONITOR
[2021-11-01 20:00] VITALS: BP 134/73
--- NOTE | 2021-11-01 20:51 | NUR ---
MS ZINC ETCHER NOTE DISCHARGED PATIENT IN STABLE CONDITION WITH STABLE VITAL SIGNS TAKEN FOLLOWS: BP-134/73 MM HG, VT-82 BPM, RR-18, TEMP-98.7, O2 SATURATION OF 97.%. NO SOB NOTED. NO COMPLAINTS OF PAIN. DISCHARGE INSTRUCTIONS DONE AND GIVEN TO PATIENT. IV LINES REMOVED AND COVERED WITH DRY DRESSING. NO BLEEDING NOTED. CORTEZ CATHETER IN PLACE. ALL THE BELONGINGS ACCOUNTED FOR. PATIENT WAS PICKED UP BY [facility] IN STABLE CONDITION. CHARGE NURSE AND MD AWARE OF THE DISCHARGE.
[2021-11-01] MEDS ORDERED: INSULIN GLARGINE, 100 UNIT/ML CARTRIDGE SQ SCH (22:00)
== END 2021-11-01 21:00 | DRG 77 ==
LOC: ER 11:59 → TRANSITION 14:05 → TELE 19:57 → MED 10-31 04:48
PROVIDERS: ADMIT Internal Medicine; ATTEND Student in an Organized Health Care Education/Training Program
PROC: 5A1D70Z Performance of Urinary Filtration, Intermittent, Less than 6 Hours Per Day (ICD-10-PCS; principal; 2021-10-29)
DX: I67.4 Hypertensive encephalopathy (principal); I21.4 Non-ST elevation (NSTEMI) myocardial infarction; N18.6 End stage renal disease; I16.1 Hypertensive emergency; I12.0 Hypertensive chronic kidney disease with stage 5 chronic kidney disease or end stage renal disease; Z86.73 Personal history of transient ischemic attack (TIA), and cerebral infarction without residual deficits; E11.22 Type 2 diabetes mellitus with diabetic chronic kidney disease; Z20.822 Contact with and (suspected) exposure to COVID-19; Z99.2 Dependence on renal dialysis; Z88.0 Allergy status to penicillin; Z91.19 Patient's noncompliance with other medical treatment and regimen; Z87.891 Personal history of nicotine dependence; Z91.14 Patient's other noncompliance with medication regimen; E11.65 Type 2 diabetes mellitus with hyperglycemia; E78.5 Hyperlipidemia, unspecified; I16.0 Hypertensive urgency; M89.8X9 Other specified disorders of bone, unspecified site; Z95.1 Presence of aortocoronary bypass graft; I25.10 Atherosclerotic heart disease of native coronary artery without angina pectoris; D63.8 Anemia in other chronic diseases classified elsewhere; E87.6 Hypokalemia; Z82.49 Family history of ischemic heart disease and other diseases of the circulatory system
CPT/HCPCS: 36415; 80048-TC; 80053-TC; 80076-TC; 82962-TC; 83735-TC; 84100-TC; 84484-TC; 84703-TC; 85025-TC; 85730-TC; 87081-TC; 90935-TC; 93307-TC; 94799-TC; 97112-TC; 97530-TC; C9803; G0378; J0360; J1644; J1815; J2060; J2270; J2405; J3490; J8597

== ENCOUNTER 2023-03-27 23:01 | Emergency (ER) | payer MEDICARE, OTHER ==
[~2023-03-27] VITALS: Ht 170.2 cm; Wt 65.8 kg
[~2023-03-27 23:01] MED LIST changes: -ASPI-1169 PO; -ATOR10TA PO; +ATOR40TA PO; +Aspirin Ec PO; -ERGO500040 PO; +Insulin Glargine,Hum SQ; -LORA1TAB PO; -LOSA100T31 PO; +MECL-159 PO; +MINO2.5T PO; -NIFE-34 PO; +NIFE-35 PO; -SERT25TA PO
[2023-03-27 23:33] VITALS: TEMP 98.2
[2023-03-27] MEDS ORDERED: MORPHINE SULFATE INJ 2 MG/ML DISP.SYRIN ONE (23:36)
[2023-03-27] MEDS: MORPHINE SULFATE INJ 2 MG/ML DISP.SYRIN IM ONE (23:37)
[2023-03-28] MEDS ORDERED: MORP15TA PO (00:30)
[2023-03-28 01:07] VITALS: BP 129/77; O2SAT 98
== END 2023-03-28 01:08 | disposition home or self-care (01) ==
LOC: ER 23:16
DX: G57.12 Meralgia paresthetica, left lower limb (principal); I12.9 Hypertensive chronic kidney disease with stage 1 through stage 4 chronic kidney disease, or unspecified chronic kidney disease; E11.22 Type 2 diabetes mellitus with diabetic chronic kidney disease; N18.9 Chronic kidney disease, unspecified; Z79.4 Long term (current) use of insulin; Z99.2 Dependence on renal dialysis
CPT/HCPCS: 99285; 93971; 96372; J2270

== ENCOUNTER 2023-05-27 17:22 | Emergency (ER) | payer MEDICARE, OTHER ==
[~2023-05-27] VITALS: Ht 165.1 cm; Wt 127.0 kg
[~2023-05-27 17:22] MED LIST changes: +MORP15TA PO
[2023-05-27 17:59] VITALS: TEMP 98.2
[2023-05-27 19:23] LABS: BASOPHILS # (AUTO) 0.1 K/uL (0.0-0.2); BASOPHILS % (AUTO) 0.8 % (0.0-2.0); EOSINOPHILS # (AUTO) 0.5 K/uL (0.0-0.7); EOSINOPHILS % (AUTO) 4.5 % (0.0-6.0); HEMATOCRIT 25 % (33-45); HEMOGLOBIN 7.9 g/dL (11.5-14.8); LYMPHOCYTES # (AUTO) 0.8 K/uL (0.8-4.8); LYMPHOCYTES % (AUTO) 6.6 % (20.0-44.0); MEAN CORPUSCULAR HEMOGLOBIN 30 PG (26.0-33.0); MEAN CORPUSCULAR HGB CONC 32 g/dl (31.0-36.0); MEAN CORPUSCULAR VOLUME 94 fL (82-100); MONOCYTES # (AUTO) 0.6 K/uL (0.1-1.30); NEUTROPHILS # (AUTO) 9.8 K/uL (1.8-8.9); NEUTROPHILS % (AUTO) 83.1 % (43.0-81.0); PLATELET COUNT (AUTO) 307 K/uL (150-450); RED CELL DISTRIBUTION WIDTH 18.5 % (11.5-15.0); WHITE BLOOD COUNT (AUTO) 11.8 K/uL (4.3-11.0)
[2023-05-27 20:22] LABS: CALCIUM, SERUM 8.8 mg/dL (8.5-10.1); POTASSIUM 5.6 mmol/L (3.5-5.1)
[2023-05-27] MEDS ORDERED: MORPHINE SULFATE INJ 2 MG/ML DISP.SYRIN IM ONE (20:30)
[2023-05-27] MEDS ORDERED: MORPHINE SULFATE IR 15 MG TABLET PO ONE (20:30)
[2023-05-27] MEDS ORDERED: SULFAMETH/TRIMETH 800/160 MG 1 UDTAB TABLET ONE (20:33)
[2023-05-27] MEDS ORDERED: MORPHINE SULFATE IR 15 MG TABLET ONE (20:33)
[2023-05-27] MEDS: MORPHINE SULFATE IR 15 MG TABLET PO ONE (20:42)
[2023-05-27] MEDS: SULFAMETH/TRIMETH 800/160 MG 1 UDTAB TABLET PO ONE (20:42)
[2023-05-27] MEDS ORDERED: SULF1TAB48 PO (20:51)
[2023-05-27 21:00] VITALS: BP 145/75; O2SAT 97
== END 2023-05-27 21:00 | disposition home or self-care (01) ==
LOC: ER 17:22
DX: L03.115 Cellulitis of right lower limb (principal); I12.9 Hypertensive chronic kidney disease with stage 1 through stage 4 chronic kidney disease, or unspecified chronic kidney disease; N18.9 Chronic kidney disease, unspecified; D64.9 Anemia, unspecified; Z79.82 Long term (current) use of aspirin; Z79.899 Other long term (current) drug therapy; Z98.890 Other specified postprocedural states; Z88.0 Allergy status to penicillin
CPT/HCPCS: 36415; 73590-TC; 80048-TC; 85025-TC; 93971-TC

== ENCOUNTER 2023-07-05 19:08 | Inpatient (IN) | payer MEDICARE, OTHER ==
[~2023-07-05] VITALS: Ht 162.6 cm; Wt 88.5 kg
[~2023-07-05 19:08] MED LIST changes: +SULF1TAB48 PO
[2023-07-05] MEDS: LEVOFLOXACIN 750 MG /D5W 150ML 150 ML IV ONE (20:00)
[2023-07-05] MEDS ORDERED: VANCOMYCIN 1 GM /D5W 250 ML PB IV ONE (20:30)
[2023-07-05] MEDS ORDERED: LEVOFLOXACIN 750 MG /D5W 150ML 150 ML IV ONE (20:31)
[2023-07-05] MEDS: VANCOMYCIN 1 GM in IV D5W 250 ML IV ONE (20:45)
[2023-07-05 20:47] LABS: BASOPHILS # (AUTO) 0.1 K/uL (0.0-0.2); BASOPHILS % (AUTO) 0.7 % (0.0-2.0); EOSINOPHILS # (AUTO) 0.7 K/uL (0.0-0.7); EOSINOPHILS % (AUTO) 5.9 % (0.0-6.0); HEMATOCRIT 24 % (33-45); HEMOGLOBIN 7.5 g/dL (11.5-14.8); LYMPHOCYTES # (AUTO) 1.1 K/uL (0.8-4.8); MEAN CORPUSCULAR HEMOGLOBIN 30 PG (26.0-33.0); MEAN CORPUSCULAR HGB CONC 31 g/dl (31.0-36.0); MEAN CORPUSCULAR VOLUME 97 fL (82-100); MONOCYTES # (AUTO) 0.9 K/uL (0.1-1.30); MONOCYTES % (AUTO) 7.2 % (2.0-12.0); NEUTROPHILS # (AUTO) 9.3 K/uL (1.8-8.9); NEUTROPHILS % (AUTO) 77.2 % (43.0-81.0); PLATELET COUNT (AUTO) 375 K/uL (150-450); RED BLOOD CELL COUNT(AUTO) 2.48 MIL/uL (4.0-5.2); RED CELL DISTRIBUTION WIDTH 17.5 % (11.5-15.0); WHITE BLOOD COUNT (AUTO) 12.1 K/uL (4.3-11.0)
[2023-07-05 21:04] LABS: INR 1.03 (0.91-1.10); PARTIAL THROMBOPLASTIN TIME 29.3 SEC (24.3-34.3); PROTHROMBIN TIME 10.9 SECS (9.2-11.1)
[2023-07-05 21:06] LABS: ALBUMIN 3.3 g/dL (3.4-5.0); BILIRUBIN,DIRECT 0.1 mg/dL (0.0-0.2); BILIRUBIN,TOTAL 0.3 mg/dL (0.2-1.0); CALCIUM, SERUM 9.1 mg/dL (8.5-10.1); CREATININE 5.8 mg/dL (0.6-1.3); POTASSIUM 4.3 mmol/L (3.5-5.1); TOTAL PROTEIN, SERUM 7.8 g/dL (6.4-8.2)
[2023-07-05 21:10] LABS: LACTIC ACID 0.6 mmol/L (0.4-2.0)
[2023-07-05 21:14] LABS: PLATELET ESTIMATE ADEQUATE
[2023-07-05] MEDS ORDERED: MAG HYDROX/AL HYDROX/SIMETH 30 ML UDC PO PRN (23:30)
[2023-07-05] MEDS ORDERED: LEVOFLOXACIN 500 MG /D5W 100ML 500 MG in PREMIX 1 EA IV SCH (23:30)
[2023-07-05] MEDS ORDERED: Z GUARD REMEDY 4 OZ OINT TP PRN (23:30)
[2023-07-05] MEDS ORDERED: ONDANSETRON HCL/PF 4 MG/2 ML VIAL IVP PRN (23:30)
[2023-07-05] MEDS ORDERED: MAGNESIUM HYDROXIDE 30 ML UDC PO PRN (23:30)
[2023-07-05] MEDS ORDERED: ZOLPIDEM TARTRATE 5 MG TABLET PO PRN (23:30)
[2023-07-05 23:35] VITALS: BP 179/85; TEMP 98.3; O2SAT 100
[2023-07-06] MEDS: HYDROCODONE/APAP 10/325MG TABLET PO PRN (00:10)
[2023-07-06] MEDS: ACETAMINOPHEN 325 MG TABLET PO PRN (00:35)
[2023-07-06] MEDS ORDERED: ALBUTEROL SULFATE 8 GM HFA.AER.AD IH PRN (01:00)
[2023-07-06] MEDS ORDERED: NITROGLYCERIN 0.4 MG/TAB BOTTLE SL PRN (01:00)
[2023-07-06] MEDS ORDERED: TRAMADOL HCL 50 MG TABLET PO PRN (01:00)
[2023-07-06] MEDS ORDERED: MORPHINE SULFATE IR 15 MG TABLET PO PRN (01:00)
[2023-07-06] MEDS ORDERED: MECLIZINE HCL 25 MG TABLET PO PRN (01:00)
[2023-07-06] MEDS: MORPHINE SULFATE INJ 2 MG/ML DISP.SYRIN IV PRN (02:29)
[2023-07-06 04:24] VITALS: O2SAT 99
[2023-07-06] MEDS: ALBUTEROL FS 2.5 MG/3 ML VIAL.NEB NEB SCH (04:24)
[2023-07-06 04:35] VITALS: O2SAT 100
[2023-07-06] MEDS ORDERED: VANCOMYCIN POST DIALYSIS 500MG IV PRN (06:30)
[2023-07-06 08:00] VITALS: BP 198/89; TEMP 98.2; O2SAT 100
[2023-07-06] MEDS: PANTOPRAZOLE 40 MG TABLET.DR PO SCH (08:43)
[2023-07-06] MEDS: CALCIUM ACETATE 667 MG CAP/TAB PO SCH (08:43)
[2023-07-06] MEDS: hydrALAZINE HCL 50 MG TABLET PO SCH (08:44)
[2023-07-06] MEDS: FUROSEMIDE 40 MG TABLET PO SCH (08:45)
[2023-07-06] MEDS: ASPIRIN EC 81 MG TABLET.DR PO SCH (08:46)
[2023-07-06] MEDS: DOCUSATE SODIUM 250 MG CAPSULE PO SCH (08:46)
[2023-07-06] MEDS: FERROUS SULFATE (325 MG) 325 MG/TAB TABLET PO SCH (08:47)
[2023-07-06] MEDS: BISACODYL (5 MG) 5 MG TABLET.DR PO SCH (08:47)
[2023-07-06] MEDS: ESCITALOPRAM OXALATE (10 MG) 10 MG TABLET PO SCH (08:48)
[2023-07-06] MEDS: MINOXIDIL (2.5MG) 2.5 MG TABLET PO SCH (08:49)
[2023-07-06] MEDS: MONTELUKAST SODIUM (10MG) 10 MG TABLET PO SCH (08:50)
[2023-07-06] MEDS: GEMFIBROZIL 600 MG TABLET PO SCH (08:50)
[2023-07-06] MEDS: NIFEdipine XL (30MG) 30 MG TAB PO SCH (08:50)
[2023-07-06] MEDS: BISOPROLOL FUMARATE 5 MG TABLET PO SCH (08:51)
[2023-07-06] MEDS: METOLAZONE 2.5 MG TABLET PO SCH (08:52)
[2023-07-06] MEDS: CLOPIDOGREL BISULFATE 75 MG TABLET PO SCH (08:53)
[2023-07-06] MEDS: GLIMEPIRIDE 4 MG TABLET PO SCH (08:54)
[2023-07-06] MEDS: CLONIDINE HCL 0.1 MG TABLET PO SCH (08:56)
[2023-07-06] MEDS: HEPARIN SODIUM, PORCINE 5000 UNITS/1 ML VIAL SQ SCH (09:00)
[2023-07-06] MEDS ORDERED: FUROSEMIDE 80 MG TABLET PO SCH (09:00)
[2023-07-06] MEDS ORDERED: AMLODIPINE BESYLATE 10 MG TABLET PO SCH (09:00)
[2023-07-06] MEDS ORDERED: Medication Not On Formulary EA (Omega-3 Fatty Acids/Fish Oil (Fish Oil 1,000 Mg Capsule) PO SCH (09:00)
[2023-07-06] MEDS ORDERED: BISA5TAB10 PO (11:31)
[2023-07-06] MEDS ORDERED: REPA1TAB7 PO (11:31)
[2023-07-06] MEDS ORDERED: LORA-259 PO (11:31)
[2023-07-06] MEDS ORDERED: ASPI-1420 PO (11:31)
[2023-07-06] MEDS ORDERED: SUMA50TA PO (11:31)
[2023-07-06] MEDS ORDERED: GABA300C PO (11:31)
[2023-07-06] MEDS ORDERED: ERGO500040 PO (11:31)
[2023-07-06] MEDS ORDERED: ALLO300T2 PO (11:31)
[2023-07-06] MEDS ORDERED: NIFE-34 PO (11:31)
[2023-07-06] MEDS ORDERED: ONDA8TAB13 PO (11:31)
[2023-07-06] MEDS ORDERED: SERT25TA PO (11:31)
[2023-07-06] MEDS ORDERED: INSU500I SQ (11:31)
[2023-07-06] MEDS ORDERED: CLON0.1T PO (11:31)
[2023-07-06] MEDS ORDERED: INSU300I3 SQ (11:31)
[2023-07-06] MEDS ORDERED: CLON0.3P TD (11:31)
[2023-07-06] MEDS ORDERED: FLUT1BLS IH (11:31)
[2023-07-06 12:00] VITALS: O2SAT 99
[2023-07-06] MEDS ORDERED: BLOOD SUGAR DIAGNOSTIC 1 EACH STRIP IN SCH (12:00)
[2023-07-06 16:00] VITALS: BP 164/75; TEMP 98.2; O2SAT 100
[2023-07-06] MEDS: COLCHICINE 0.6 MG TABLET PO SCH (17:00)
[2023-07-06] MEDS: VANCOMYCIN 1 GM in IV D5W 250ml IV ONE (18:54)
[2023-07-06 20:00] VITALS: BP 135/70; TEMP 97.9; O2SAT 98
[2023-07-06] MEDS ORDERED: DEXTROSE 50%-WATER 50 ML DISP.SYRIN IV PRN (21:00)
[2023-07-06] MEDS: ATORVASTATIN 40 MG TABLET PO SCH (21:35)
[2023-07-06] MEDS: GABAPENTIN 100 MG CAPSULE PO SCH (21:36)
[2023-07-06] MEDS: BLOOD SUGAR DIAGNOSTIC 1 EACH STRIP VI SCH (21:41)
[2023-07-06] MEDS: INSULIN GLARGINE, 100 UNIT/ML CARTRIDGE SQ SCH (21:42)
[2023-07-06] MEDS: *INSULIN REGULAR(HUMULIN R)HUM 100 UNIT/ML VIAL SQ PRN (21:42)
[2023-07-06] MEDS ORDERED: TRAZODONE 50 MG TABLET PO SCH (22:00)
[2023-07-07 04:30] VITALS: O2SAT 99
[2023-07-07] MEDS: INSULIN REGULAR, HUMAN 100 UNIT/ML 3 ML VIAL SQ PRN (06:35)
[2023-07-07 08:00] VITALS: BP 134/78; TEMP 98.8; O2SAT 100
[2023-07-07 09:10] VITALS: O2SAT 100
[2023-07-07] MEDS: LIDOCAINE 1% INJ 50 ML MDV IJ ONE (12:07)
[2023-07-07 16:00] VITALS: BP 129/64; TEMP 98.4; O2SAT 98
[2023-07-07 16:10] LABS: BILIRUBIN,TOTAL 0.3 mg/dL (0.2-1.0); CALCIUM, SERUM 8.9 mg/dL (8.5-10.1); CREATININE 6.2 mg/dL (0.6-1.3); MAGNESIUM 2.2 mg/dL (1.8-2.4); PHOSPHORUS 7.1 mg/dL (2.5-4.9); POTASSIUM 4.7 mmol/L (3.5-5.1); TOTAL PROTEIN, SERUM 7.2 g/dL (6.4-8.2)
[2023-07-07 16:56] LABS: BASOPHILS # (AUTO) 0.1 K/uL (0.0-0.2); BASOPHILS % (AUTO) 0.7 % (0.0-2.0); EOSINOPHILS # (AUTO) 0.5 K/uL (0.0-0.7); EOSINOPHILS % (AUTO) 4.5 % (0.0-6.0); HEMATOCRIT 23 % (33-45); HEMOGLOBIN 7.3 g/dL (11.5-14.8); LYMPHOCYTES # (AUTO) 0.9 K/uL (0.8-4.8); LYMPHOCYTES % (AUTO) 8.9 % (20.0-44.0); MEAN CORPUSCULAR HEMOGLOBIN 31 PG (26.0-33.0); MEAN CORPUSCULAR HGB CONC 32 g/dl (31.0-36.0); MEAN CORPUSCULAR VOLUME 95 fL (82-100); MONOCYTES # (AUTO) 0.8 K/uL (0.1-1.30); MONOCYTES % (AUTO) 7.7 % (2.0-12.0); NEUTROPHILS % (AUTO) 78.2 % (43.0-81.0); PLATELET COUNT (AUTO) 351 K/uL (150-450); RED BLOOD CELL COUNT(AUTO) 2.38 MIL/uL (4.0-5.2); WHITE BLOOD COUNT (AUTO) 10.2 K/uL (4.3-11.0)
[2023-07-07 20:00] VITALS: BP 108/57; TEMP 98.2; O2SAT 99
[2023-07-07 20:33] VITALS: O2SAT 100
[2023-07-07 21:22] LABS: ANISOCYTOSIS 1+; BAND % (MANUAL) 1 % (0.0-5.0); EOSINOPHILS % (MANUAL) 2 % (0-4); LYMPHOCYTES % (MANUAL) 9 % (16-48); MONOCYTES % (MANUAL) 4 % (0-11.0); NEUTROPHILS % (MANUAL) 84 (42-76); OVALOCYTES 1+; PLATELET ESTIMATE ADEQUATE; STOMATOCYTES 1+
[2023-07-07] MEDS: LEVOFLOXACIN 250 MG /D5W 50 ML 250 MG in PREMIX 1 EA IV SCH (21:50)
[2023-07-08] VITALS (7 sets, daily range): BP systolic 124–156; BP diastolic 72–100; TEMP 97.6–98.6; O2SAT 98–99
[2023-07-08 11:10] LABS: HEPATITIS B SURFACE AB Reactive (.)
[2023-07-08] MEDS: ALBUTEROL FS 2.5 MG/3 ML VIAL.NEB NEB PRN (12:28)
[2023-07-08] MEDS ORDERED: LEVO500T90 PO (12:34)
[2023-07-09 04:38] VITALS: O2SAT 98
== END 2023-07-09 08:20 | disposition home health service (06) | DRG 623 ==
LOC: ER 19:08 → MED 23:18
PROVIDERS: ADMIT Student in an Organized Health Care Education/Training Program; ATTEND Nurse Practitioner Acute Care
PROC: 5A1D70Z Performance of Urinary Filtration, Intermittent, Less than 6 Hours Per Day (ICD-10-PCS; 2023-07-06)
PROC: 0JBN0ZZ Excision of Right Lower Leg Subcutaneous Tissue and Fascia, Open Approach (ICD-10-PCS; principal; 2023-07-07)
DX: E11.622 Type 2 diabetes mellitus with other skin ulcer (principal); E44.1 Mild protein-calorie malnutrition; I12.0 Hypertensive chronic kidney disease with stage 5 chronic kidney disease or end stage renal disease; L97.818 Non-pressure chronic ulcer of other part of right lower leg with other specified severity; L03.115 Cellulitis of right lower limb; N18.6 End stage renal disease; D64.9 Anemia, unspecified; E11.22 Type 2 diabetes mellitus with diabetic chronic kidney disease; Z99.2 Dependence on renal dialysis; E78.5 Hyperlipidemia, unspecified; I25.10 Atherosclerotic heart disease of native coronary artery without angina pectoris; Z79.84 Long term (current) use of oral hypoglycemic drugs; Z86.73 Personal history of transient ischemic attack (TIA), and cerebral infarction without residual deficits; Z87.891 Personal history of nicotine dependence; Z95.1 Presence of aortocoronary bypass graft; Z68.33 Body mass index [BMI] 33.0-33.9, adult; E11.51 Type 2 diabetes mellitus with diabetic peripheral angiopathy without gangrene; I70.238 Atherosclerosis of native arteries of right leg with ulceration of other part of lower leg; M81.0 Age-related osteoporosis without current pathological fracture; Z79.4 Long term (current) use of insulin
CPT/HCPCS: 36415; 71045-TC; 80048-TC; 80053-TC; 80076-TC; 80202-TC; 82962-TC; 83605-TC; 83735-TC; 83970; 84100-TC; 85025-TC; 85730-TC; 86706; 87040-TC; 87340; 90935-TC; 94760-TC; 94799-TC; A4216; A4223; G0378; J1644; J1815; J1956; J2270; J3370; J3490; J7030; J7050; J7060

== ENCOUNTER 2023-08-14 12:06 | Emergency (ER) | payer MEDICARE, OTHER ==
[~2023-08-14] VITALS: Ht 162.6 cm; Wt 113.4 kg
[~2023-08-14 12:06] MED LIST changes: +ALLO300T2 PO; -AMLO-213 PO; +ASPI-1420 PO; -ATOR40TA PO; -Aspirin Ec PO; -BISA-79 PO; +BISA5TAB10 PO; +CLON0.1T PO; +CLON0.3P TD; -CLON0.3T PO; -CLOP75TA15 PO; +ERGO500040 PO; -ESCI20TA PO; +FLUT1BLS IH; -GABA-532 PO; +GABA300C PO; -GEMF600T90 PO; +INSU300I3 SQ; +INSU500I SQ; -Insulin Glargine,Hum SQ; +LEVO500T90 PO; +LORA-259 PO; -MECL-159 PO; -METO5TAB7 PO; -MINO2.5T PO; -MORP15TA PO; +NIFE-34 PO; -NIFE-35 PO; -NITR0.4T48 SL; +ONDA8TAB13 PO; +REPA1TAB7 PO; +SERT25TA PO; -SULF1TAB48 PO; +SUMA50TA PO; -TRAM50TA2 PO; -TRAZ-252 PO
[2023-08-14 13:25] LABS: BASOPHILS # (AUTO) 0.1 K/uL (0.0-0.2); BASOPHILS % (AUTO) 0.7 % (0.0-2.0); EOSINOPHILS # (AUTO) 0.4 K/uL (0.0-0.7); EOSINOPHILS % (AUTO) 3.8 % (0.0-6.0); HEMATOCRIT 26 % (33-45); HEMOGLOBIN 8.2 g/dL (11.5-14.8); LYMPHOCYTES # (AUTO) 0.9 K/uL (0.8-4.8); LYMPHOCYTES % (AUTO) 8.9 % (20.0-44.0); MEAN CORPUSCULAR HEMOGLOBIN 30 PG (26.0-33.0); MEAN CORPUSCULAR HGB CONC 31 g/dl (31.0-36.0); MEAN CORPUSCULAR VOLUME 97 fL (82-100); MONOCYTES # (AUTO) 0.6 K/uL (0.1-1.30); MONOCYTES % (AUTO) 5.3 % (2.0-12.0); NEUTROPHILS # (AUTO) 8.6 K/uL (1.8-8.9); NEUTROPHILS % (AUTO) 81.3 % (43.0-81.0); PLATELET COUNT (AUTO) 367 K/uL (150-450); RED BLOOD CELL COUNT(AUTO) 2.74 MIL/uL (4.0-5.2); RED CELL DISTRIBUTION WIDTH 17.6 % (11.5-15.0); WHITE BLOOD COUNT (AUTO) 10.6 K/uL (4.3-11.0)
[2023-08-14 13:35] LABS: CALCIUM, SERUM 9.1 mg/dL (8.5-10.1); CREATININE 5.5 mg/dL (0.6-1.3); POTASSIUM 3.9 mmol/L (3.5-5.1)
[2023-08-14 13:42] LABS: ALBUMIN 3.6 g/dL (3.4-5.0); BILIRUBIN,TOTAL 0.4 mg/dL (0.2-1.0); TOTAL PROTEIN, SERUM 8.4 g/dL (6.4-8.2)
[2023-08-14 14:42] VITALS: BP 151/82; TEMP 97.8; O2SAT 98
== END 2023-08-14 14:43 | disposition home or self-care (01) ==
LOC: ER 12:16
DX: I82.401 Acute embolism and thrombosis of unspecified deep veins of right lower extremity (principal); M79.89 Other specified soft tissue disorders; I12.9 Hypertensive chronic kidney disease with stage 1 through stage 4 chronic kidney disease, or unspecified chronic kidney disease; E11.22 Type 2 diabetes mellitus with diabetic chronic kidney disease; N18.9 Chronic kidney disease, unspecified; Z88.0 Allergy status to penicillin; Z79.4 Long term (current) use of insulin; Z79.899 Other long term (current) drug therapy
CPT/HCPCS: 36415; 73590-TC; 80053-TC; 83605-TC; 85025-TC; 93971-TC

== ENCOUNTER 2023-11-20 20:10 | Inpatient (IN) | payer MEDICARE, OTHER ==
[~2023-11-20] VITALS: Ht 162.6 cm; Wt 121.1 kg
[2023-11-20] VITALS: BP 184/87; TEMP 97.2; O2SAT 97
--- NOTE | 2023-11-20 20:25 | NUR ---
BIBR 89 C/O CHEST PAIN, R LEG PAIN POST INJURY AND SURG. 6MOS. AGO, PLACED TO BED AND HOOKED INTO A MONITOR
--- NOTE | 2023-11-20 20:28 | NUR ---
MD Wiggins at pt's bedside
[2023-11-20] MEDS: ONDANSETRON HCL/PF 4 MG/2 ML VIAL IVP ONE (20:30)
[2023-11-20] MEDS: MORPHINE SULFATE INJ 2 MG/ML DISP.SYRIN IV ONE (20:30)
--- NOTE | 2023-11-20 20:41 | NUR ---
emt at pt's bedside for ekg
--- NOTE | 2023-11-20 20:51 | NUR ---
blood drawn sent to lab
--- NOTE | 2023-11-20 20:53 | NUR ---
nuclear reactor technician at bedside
[2023-11-20] MEDS ORDERED: VANCOMYCIN 1 GM /D5W 250 ML PB IV ONE (20:55)
[2023-11-20] MEDS ORDERED: MORPHINE SULFATE INJ 4 MG/ML DISP.SYRIN ONE (20:55)
[2023-11-20] MEDS ORDERED: ONDANSETRON HCL/PF 4 MG/2 ML VIAL ONE (20:55)
[2023-11-20 20:56] LABS: BASOPHILS # (AUTO) 0.1 K/uL (0.0-0.2); BASOPHILS % (AUTO) 0.9 % (0.0-2.0); EOSINOPHILS # (AUTO) 0.3 K/uL (0.0-0.7); EOSINOPHILS % (AUTO) 2.3 % (0.0-6.0); HEMATOCRIT 26 % (33-45); HEMOGLOBIN 7.9 g/dL (11.5-14.8); LYMPHOCYTES # (AUTO) 0.5 K/uL (0.8-4.8); LYMPHOCYTES % (AUTO) 3.9 % (20.0-44.0); MEAN CORPUSCULAR HEMOGLOBIN 29 PG (26.0-33.0); MEAN CORPUSCULAR HGB CONC 31 g/dl (31.0-36.0); MEAN CORPUSCULAR VOLUME 95 fL (82-100); MONOCYTES # (AUTO) 0.8 K/uL (0.1-1.30); MONOCYTES % (AUTO) 6.1 % (2.0-12.0); NEUTROPHILS # (AUTO) 12.1 K/uL (1.8-8.9); NEUTROPHILS % (AUTO) 86.8 % (43.0-81.0); PLATELET COUNT (AUTO) 375 K/uL (150-450); RED BLOOD CELL COUNT(AUTO) 2.73 MIL/uL (4.0-5.2); RED CELL DISTRIBUTION WIDTH 20.9 % (11.5-15.0)
[2023-11-20] MEDS: VANCOMYCIN 1 GM in IV D5W 250 ML IV ONE (21:00)
[2023-11-20 21:07] LABS: CALCIUM, SERUM 9.3 mg/dL (8.5-10.1); CARBON DIOXIDE 28 mmol/L (21-32); CHLORIDE 93 mmol/L (98-107); GLUCOSE 168 mg/dL (74-106); POTASSIUM 5.2 mmol/L (3.5-5.1); SODIUM SERUM 129 mmol/L (136-145); UREA NITROGEN, BLOOD 47 mg/dL (7-18)
--- NOTE | 2023-11-20 21:10 | NUR ---
INSERTED IV CANNULA G22 L WRIST
[2023-11-20 21:11] LABS: PARTIAL THROMBOPLASTIN TIME 25.4 SEC (24.3-34.3); PROTHROMBIN TIME 10.3 SECS (9.2-11.1)
[2023-11-20 21:13] LABS: ALANINE AMINOTRANSFERASE 83 U/L (12-78); ALBUMIN 3.4 g/dL (3.4-5.0); ALKALINE PHOSPHATASE 202 U/L (46-116); ASPARTATE AMINOTRANSFERASE 76 U/L (15-37); BILIRUBIN,DIRECT 0.1 mg/dL (0.0-0.2); BILIRUBIN,TOTAL 0.4 mg/dL (0.2-1.0); TOTAL PROTEIN, SERUM 7.9 g/dL (6.4-8.2)
[2023-11-20 21:15] LABS: LACTIC ACID 1.1 mmol/L (0.4-2.0)
--- NOTE | 2023-11-20 21:20 | NUR ---
RIGHT FOOR WOUND CULTURE SWAB DONE SENT [facility]
[2023-11-20] MEDS ORDERED: SODIUM POLYSTYRENE SULFONATE 15 G/60 ML BOTTLE ONE (21:24)
[2023-11-20] MEDS: SODIUM POLYSTYRENE SULFONATE 15 G/60 ML BOTTLE PO ONE (21:29)
--- NOTE | 2023-11-20 21:41 | NUR ---
[facility] PAGED - AWAITING CALL BACK FROM ISAEL HAMILTON
--- NOTE | 2023-11-20 22:00 | NUR ---
URINE SPECIMEN COLLECTED SENT TO LAB
--- NOTE | 2023-11-20 22:03 | NUR ---
MOVE SHEET SUBMITTED TO THE FRONT
[2023-11-20 22:16] LABS: APPEARANCE,URINE SLIGHTLY CLOUDY (CLEAR); BILIRUBIN,URINE NEGATIVE (NEGATIVE); BLOOD, URINE NEGATIVE Ery/uL (NEGATIVE); COLOR,URINE DARK YELLOW (YELLOW); KETONES,URINE NEGATIVE (NEGATIVE); LEUKOCYTE ESTERASE ,URINE NEGATIVE (NEGATIVE); NITRITE, URINE NEGATIVE (NEGATIVE); PH,URINE 5.5 (5.0-8.0); PROTEIN,URINE 1+ mg/dl (NEGATIVE); UGLUCOSE NEGATIVE (NEGATIVE); UROBILINOGEN,URINE 0.2 EU/dL (0.2)
[2023-11-20 22:31] LABS: ADD URINE CULTURE NO; BACTERIA,URINE 1+ /HPF (None Seen); RBC,URINE 0-2 /HPF (0-2); YEAST,URINE Rare /HPF (None Seen)
--- NOTE | 2023-11-20 22:44 | NUR ---
GOT BED 108
--- NOTE | 2023-11-20 23:26 | NUR ---
PATIENT WILL BE GOING TO 313-2 INSTEAD OF 108
--- NOTE | 2023-11-20 23:26 | NUR ---
REPORT GIVEN TO EFRAIN AT [facility] FOR CONTINUED CARE
[2023-11-20] MEDS ORDERED: ZOLPIDEM TARTRATE 5 MG TABLET PO PRN (23:30)
[2023-11-20] MEDS ORDERED: ONDANSETRON HCL/PF 4 MG/2 ML VIAL IVP PRN (23:30)
[2023-11-20] MEDS ORDERED: MAG HYDROX/AL HYDROX/SIMETH 30 ML UDC PO PRN (23:30)
[2023-11-20] MEDS ORDERED: MAGNESIUM HYDROXIDE 30 ML UDC PO PRN (23:30)
[2023-11-20] MEDS ORDERED: MORPHINE SULFATE INJ 2 MG/ML DISP.SYRIN IV PRN (23:30)
--- NOTE | 2023-11-20 23:51 | NUR ---
PT TRANSFERRED TO [facility] VIA ACLS PROTOCOL
--- NOTE | 2023-11-20 23:55 | NUR ---
PATIENT TRANSPORTED TO [facility] VIA ACLS PROTOCOL
[2023-11-21] VITALS (13 sets, daily range): BP systolic 149–184; BP diastolic 78–92; TEMP 98.1–98.3; O2SAT 91–99
--- NOTE | 2023-11-21 00:10 | NUR ---
TOOLING SUPERVISORPREVENTIVE MAINTENANCE ENGINEER NOTE PATIENT ARRIVED IN THE UNIT, FROM ER VIA GURNEY, PATIENT ON OXYGEN 4L, V IA NASAL CANNULA, ON SENIOR CLINICAL DATA MANAGER READING SR, 77 WITH COMPLAINTS OF PAIN, NEEDS ATTENDED TO PATIENT, WAS ABLE TO ANSWER QUESTIONS, A/OX4 BUT WISHES TO REST AND AVOID TALKING FOR NOW, SAFETY MEASURES MAINTAINED PATIENT ORIENTED TO ROOM, BED SET TO LOW AND LOCKED BED ALARM ON SIDE RAILS UPX3 PLACED CALL LIGHT AND BEDSIDE TABLE WITHIN EASY REACH WILL CONTINUE WITH PLAN OF CARE
--- NOTE | 2023-11-21 00:15 | NUR ---
RN NOTE PATIENT WITH MEDICATION MILK OF MAGNESIA MAALOX AND MORPHINE ORDERED, PHARMACY NOTE: NOT RECOMMENDED FOR CrCl <30, INFORMED HOSPITALIST CHEMA MONSON WITH NEW ORRDERS, TO D/C SAID MEDICATION, AND A NEW ORDER OF DILAUDID 0.5MG Q4 PRN IV, ORDERS ENTER, AND CARRIED OUT WILL CONTINUE TO MONITOR PATIENT
[2023-11-21] MEDS: INSULIN REGULAR, HUMAN 100 UNIT/ML 3 ML VIAL SQ SCH (00:30)
--- NOTE | 2023-11-21 00:31 | NUR ---
RN NOTE PATIENT REFUSED BLOOD SUGAR CHECK PATIENT REFUSED INSULIN, VERBALIZED ITS THE LEAST OF MY CONCERNS RIGHT NOW, EDUCATED PATIENT, EXPLAINED RISK AND BENEFITS VERBALIZED UNDERSTANDING BUT STILL FIRMLY REFUSED, WILL CONTINUE TO MONITOR PATIENT
[2023-11-21] MEDS: HYDROMORPHONE 1 MG/1 ML DISP.SYRIN IV PRN (01:14)
--- NOTE | 2023-11-21 01:14 | NUR ---
RN NOTES WITNESSED WASTE OF 0.5 MG FROM TOTAL 1 MG OF DILAUDID BY RN NURSE EFRAIN .
--- NOTE | 2023-11-21 01:14 | NUR ---
RN NOTE WASTED MEDICATION DILAUDID STOCK DOSE :1MG/1ML DILAUDID WASTED DOSE:0.5MG ORDERED DOSE:0.5MG WITNESSED BY KATIE JOHN
[2023-11-21] MEDS ORDERED: DEXTROSE 50%-WATER 50 ML DISP.SYRIN IV PRN (04:30)
--- NOTE | 2023-11-21 05:58 | NUR ---
RN NOTE CHECKED PATIENT VITAL SIGNS NOTED HIGH BLOOD PRESSURE 172//86 INFORMED HOSPITALIST MONSON WITH NEW ORDERS OF CLONIDINE 0.1MG PO Q6HRS FOR SBP ABOVE 170, ORDERS ENTERED AND CARRIED OUT
[2023-11-21] MEDS: CLONIDINE HCL 0.1 MG TABLET PO PRN (06:08)
[2023-11-21] MEDS: BLOOD SUGAR DIAGNOSTIC 1 EACH STRIP IN SCH (06:46)
--- NOTE | 2023-11-21 07:15 | NUR ---
HOTBED OPERATOR CLOSING NOTE PATIENT IN BED SLEEPING A/OX3 ABLE TO MAKE NEEDS KNOWN, ON OXYGEN 4L, VIA NASAL CANNULA, NO SIGNS OF SOB AND DISTRESS AT THIS TIME, WITH AN IV ACCESS ON THE LEFT WRIST #22G PATENT AND INTACT ON SL, PATIENT WITH COMPLAINTS OF PAIN PRN PAIN MEDICATION GIVEN,WITH RIGHT LOWER LEG WOUND NOTED, PATIENT VERBALIZED SHE DOES NOT WANT TO COVER IT AT THIS TIME ALL DUE MEDS GIVEN, KEPT PATIENT CLEAN AND DRY, SAFETY MEASURES MAINTINED BED SET TO LOW AND LOCKED BED ALARM ON SIDE RAILS UPX3 PLACED CALL LIGHT BEDSIDE TABLE WITHIN EASY REACH WILL ENDORSE TO INCOMING NURSE FOR CONTINUITY OF CARE
--- NOTE | 2023-11-21 07:20 | NUR ---
CERTIFIED MEDICAL TECHNICIAN NOTE RECEIVED PATIENT IN BED ASLEEP. PATIENT EASILY WOKEN UP BY CALL OR LIGHT TOUCH. SHE IS ALERT AND ORIENTED X 4, ABLE TO MAKE NEEDS KNOWN. PATIENT ON OXYGEN AT 4 LPM VIA NASAL CANULA WITH NO SIGNS OF DISTRESS. NOTED EDEMA ON BLE. PATIENT REFUSED TO HAVE WOUND ON THE RLE BE DRESSED AT THIS TIME. WITH AC FISTULA ON THE RIGHT ARM FOR HD. WITH IV ACCESS ONT HE LEFT WRIST G 22 ON SALINE LOCK, PATENT AND INTACT. SAFETY MEASURES ENSURED WITH BED ON LOW LOCKED POSITION, CALL LIGHT WITHIN REACH, SIDERAILS RAISED, ALARM ON AND LASHAWN LIGHT WITHIN REACH AT ALL TIMES. ENCOURAGED TO DO DEEP BREATHING EXERCISES. CONTINUING PLAN OF CARE.
[2023-11-21] MEDS: ALBUTEROL FS 2.5 MG/3 ML VIAL.NEB NEB SCH (07:52)
[2023-11-21] MEDS: PANTOPRAZOLE 40 MG TABLET.DR PO SCH (08:55)
--- NOTE | 2023-11-21 09:10 | NUR ---
TELE NOTE NOTED ELEVATED BP. TRIED TO CHECK BP MANUALLY, BUT PATIENT REFUSED TO HAVE BP CHECKED. SHE SAID SHE WANTS TO SLEEP. PATIENT ALSO REFUSING TO HAVE BLOOD DRAWN AT THIS TIME.
--- NOTE | 2023-11-21 09:30 | NUR ---
CONTINUOUS STILL OPERATOR NOTE PATIENT MEDS READY FOR RECONCILIATION. MD NOTIFIED.
--- NOTE | 2023-11-21 11:04 | NUR ---
WOUND CARE CONSULT: PT PRESENTS WITH CHRONIC WOUNDS WITH SURROUNDING ERYTHEMA TO RT LATERAL ANKLE, PRESENT ON ADMISSION. DR KIMBALL CALLED FOR DPM CONSULT. DISCUSSED SKIN PROTECTION WITH NURSING STAFF. MD IN AGREEMENT WITH PLAN OF CARE.
--- NOTE | 2023-11-21 11:29 | NUR ---
GENERAL ADMINISTRATOR NOTE PATIENT SEEN BY PURCHASING DIRECTOR PIOTR AND PATIENT COMPLAINED OF PAIN ON BLE RIGHT MORE THAN LEFT. DILAUDID GIVEN ORDERED FOR PAIN 11/07. PROVIDED WITH CALM AND QUIET ENVIRONMENT.
--- NOTE | 2023-11-21 11:30 | NUR ---
RN NOTE WITNESSED RO RN WASTED HALF DOSE OF DILAUDID.
--- NOTE | 2023-11-21 11:30 | NUR ---
FREEZER LABORATORY TECHNICIAN NOTE HALF DOSE OF DILAUDID WASTED WITH KATIE VILLAVICENCIO WITNESS.
[2023-11-21] MEDS ORDERED: BLOOD SUGAR DIAGNOSTIC 1 EACH STRIP IN SCH (12:00)
--- NOTE | 2023-11-21 15:37 | NUR ---
PURCHASING ADMINISTRATIVE ASSISTANT NOTE FOLLOW UP MADE ON MED RECON WITH .
--- NOTE | 2023-11-21 16:10 | NUR ---
CARLIN WILSON NOTE SEEN BY ACCOUNTING CONSULTANT DR. PARRISH, WITH ORDER FOR HD. CONSENT SECURED AND ATTACHED TO CHART.
--- NOTE | 2023-11-21 16:55 | NUR ---
OUTER DIAMETER GRINDER NOTE PATIENT WITH ELEVATED BP. CLONIDINE GIVEN. PROVIDED WITH CALM AND QUIET ENVIRONMENT
--- NOTE | 2023-11-21 17:40 | NUR ---
DIE BARBER NOTE FOLLOW UP MADE WITH RADIOLOGIST ON XRAY ORDERS.
[2023-11-21] MEDS ORDERED: CEFEPIME 1 GM in IV D5W 50 ML IV SCH (18:00)
--- NOTE | 2023-11-21 18:05 | NUR ---
COMMUNITY LIVING COACH NOTE PATIENT STARTED ON HD ORDERED. WAS SEEN BY DR. APPIAH, WITH ORDER TO START IV ANTIBIOTIC. AFTER HD. PATIENT ALSO FOR VANCOMYCIN IV POST HD.
--- NOTE | 2023-11-21 19:15 | NUR ---
CLEANING LABORER NOTE PATIENT IN STABLE CONDITION. WITH ONGOING HD ORDERED, TOLERATING WEE. STILL FOR MED MD MARÍA AWARE. NEEDS ATTENDED. ON TELE MONITOR READING SR AT 78BPM. TO START ON IV ANTIBIOTICS, DENIES REYNOSO AT THIS TIME. ENDORSED TO NEXT SHIFT FOR CONTINUITY OF CARE.
--- NOTE | 2023-11-21 19:45 | NUR ---
DIALYSIS TREATMENT Patient in bed, awake, Alert Oriented x3. On Oxygen support 4L NC, denies sob. SBP high on 180's, patient denies dizziness, no c/o headache. Started on Dialysis treatment, will call lab for blood draw as patient refused am lab test. Will cont to monitor.
[2023-11-21 20:21] LABS: BASOPHILS # (AUTO) 0.2 K/uL (0.0-0.2); BASOPHILS % (AUTO) 1.2 % (0.0-2.0); EOSINOPHILS # (AUTO) 0.2 K/uL (0.0-0.7); EOSINOPHILS % (AUTO) 1.7 % (0.0-6.0); HEMATOCRIT 24 % (33-45); HEMOGLOBIN 7.2 g/dL (11.5-14.8); LYMPHOCYTES # (AUTO) 0.4 K/uL (0.8-4.8); LYMPHOCYTES % (AUTO) 2.8 % (20.0-44.0); MEAN CORPUSCULAR HEMOGLOBIN 28 PG (26.0-33.0); MEAN CORPUSCULAR HGB CONC 31 g/dl (31.0-36.0); MEAN CORPUSCULAR VOLUME 92 fL (82-100); MONOCYTES # (AUTO) 0.7 K/uL (0.1-1.30); MONOCYTES % (AUTO) 5.4 % (2.0-12.0); NEUTROPHILS # (AUTO) 12.4 K/uL (1.8-8.9); NEUTROPHILS % (AUTO) 88.9 % (43.0-81.0); PLATELET COUNT (AUTO) 343 K/uL (150-450); RED BLOOD CELL COUNT(AUTO) 2.56 MIL/uL (4.0-5.2); RED CELL DISTRIBUTION WIDTH 21.2 % (11.5-15.0)
[2023-11-21 20:36] LABS: ALBUMIN 2.9 g/dL (3.4-5.0); BILIRUBIN,DIRECT 0.1 mg/dL (0.0-0.2); BILIRUBIN,TOTAL 0.5 mg/dL (0.2-1.0); CALCIUM, SERUM 9.3 mg/dL (8.5-10.1); CREATININE 4.9 mg/dL (0.6-1.3); MAGNESIUM 2.3 mg/dL (1.8-2.4); PHOSPHORUS 7.4 mg/dL (2.5-4.9); POTASSIUM 4.2 mmol/L (3.5-5.1); TOTAL PROTEIN, SERUM 7.6 g/dL (6.4-8.2)
[2023-11-21 20:46] LABS: C-REACTIVE PROTEIN 4.98 mg/dL (0.0-0.30); THYROID STIMULATING HORMONE 2.57 uIU/mL (0.358-3.74)
--- NOTE | 2023-11-21 20:53 | NUR ---
VANCOMYCIN LEVEL Resulted 12. Dialysis treatment in progress, informed Jenelle/Pharmacy with Vancomycin random level 12. Per Jenelle to give dose 500mg tonight.
--- NOTE | 2023-11-21 21:12 | NUR ---
SBP HIGH Patient denies headache, no c/o dizziness. SBP still high 170's-200's, dialysis nurse stated treatment is in process and is being wash out, per Dialysis nurse will reassess if needed BP medication one hour before treatment is finished. Will cont to monitor patient.
[2023-11-21] MEDS: INSULIN REGULAR, HUMAN 100 UNIT/ML 3 ML VIAL SQ PRN (21:58)
--- NOTE | 2023-11-21 22:02 | NUR ---
ACCU CHECK Blood glucose 96mg/dl. Hold insulin dose per level ordered.
--- NOTE | 2023-11-21 22:45 | NUR ---
DIALYSIS TREATMENT DONE 3L Fluid output per RN Philip/Dialysis nurse. BP 225/109 HR 91 patient asymptomatic, notified APPLICATIONS ADMINISTRATOR Humberto. Will cont to monitor post dialysis treatment, BP to lower reading.
[2023-11-21] MEDS: CEFEPIME 1 GM in IV D5W 50 ML IV SCH (23:00)
[2023-11-21] MEDS: VANCOMYCIN POST DIALYSIS 500MG IV PRN (23:58)
[2023-11-22] VITALS (9 sets, daily range): BP systolic 125–219; BP diastolic 72–105; TEMP 97.3–98.4; O2SAT 95–100
--- NOTE | 2023-11-22 00:23 | NUR ---
NARCOTIC WASTE WITNESSED WASTING OF 0.5MG OUT OF 1MG DILAUDID BY KASSY WILSON FROM [facility].
--- NOTE | 2023-11-22 00:23 | NUR ---
NARCOTIC WASTE/LEG PAIN Patient in bed, c/o right lower leg pain 8/10 described as sharp and throbbing, limited leg movement d/t pain. [facility], wasted 0.5mg witnessed by KATIE Guevara. Given PRN IV Dilaudid, will reassess pain level.
--- NOTE | 2023-11-22 00:30 | NUR ---
ELEVATED BP Still with elevated BP 185/82 pulse85 Patient with right leg pain 11/07. Denies headache, no c/o dizziness. PRN PO Clonidine given, will cont to monitor.
--- NOTE | 2023-11-22 06:59 | NUR ---
ACCU CHECK Blood glucose 71mg/dl. Hold insulin dose per level ordered.
--- NOTE | 2023-11-22 07:44 | NUR ---
STAMPING MACHINE OPERATOR OPENING NOTE RECEIVED PATIENT AWAKE IN BED, A/O X4, ABLE TO MAKE NEEDS KNOWN, ON 5L O2, VIA NASAL CANNULA, NO SIGNS OF SOB, NO DISTRESS NOTED AT THIS TIME. PATIENT HAS IV ACCESS ON THE LEFT HAND #22G, INTACT, PATENT AND ON SL. SAFETY MEASURES IN PLACE: BED ON LOW AND LOCKED POSITION, BED ALARM ON, SIDE RAILS UP X2, CALL LIGHT AND BEDSIDE TABLE WITHIN EASY REACH. PLAN OF CARE ONGOING.
--- NOTE | 2023-11-22 07:45 | NUR ---
END OF SHIFT SUMMARY REPORT Patient in bed, Alert Oriented x 4. Oxygen sat low 90's on 5L NC, dyspnea on exertion, patient denies chest pain. BP slowly improved after PO Clonidine. Afebrile during the night. Restless at times, uncooperative with scheduled lab draw, wanted on her own time. Declined despite education. Cont on abx. Wound care done. Pending US BLE, ECHO, Right ankle XR. Care endorsed to KATIE Milner.
[2023-11-22] MEDS: DAKINS FULL STRENGTH (0.5%) 480 ML BOTTLE TOP SCH (08:57)
--- NOTE | 2023-11-22 11:17 | NUR ---
RN NOTE PATIENT COMPLAINED OF LOWER LEG PAIN RATED 9/10. DILAUDID PULLED OUT FROM OMNICELL, WASTED 0.5MG, WITNESSED BY RN LANIE. GAVE PRN DILAUDID 0.5MG, WILL RE-ASSESS PAIN LEVEL.
--- NOTE | 2023-11-22 19:06 | NUR ---
CAD CAM PROGRAMMER CLOSING NOTE PATIENT IS AWAKE IN BED WITH FAMILY AT BEDSIDE, A/O X4, ABLE TO MAKE NEEDS KNOWN, ON 5L O2, VIA NASAL CANNULA, NO SIGNS OF SOB, NO DISTRESS NOTED AT THIS TIME. PATIENT HAS IV ACCESS ON THE LEFT HAND #22G, INTACT, PATENT AND ON SL. PATIENT CONTINUES ON TELE MONITOR. DUE MEDS GIVEN. CARE RENDERED. NEEDS ATTENDED. SAFETY MEASURES MAINTAINED: BED ON LOW AND LOCKED POSITION, BED ALARM ON, SIDE RAILS UP X2, CALL LIGHT AND BEDSIDE TABLE WITHIN EASY REACH. ENDORSED TO UNIVERSITY PRESIDENT NURSE FOR CONTINUITY OF CARE.
--- NOTE | 2023-11-22 19:15 | NUR ---
PROGRAM CLERK NOTES RECEIVED ON BED,ON HIGH FOWLERS POSITION,FAMILY MEMBERS AT BEDSIDE.A/O X4,BREATHING EVEN AND UNLABORED,O2 IN USED AT 2L/NC TO KEEP O2 SAT ABOVE 90%.ANURIC,ON DIALYSIS,HAD ONE YESTERDAY PULLED OUT 3 LITERS.WITH SHANAE AVF FOR HD ACCESS,LEFT HAND SALINE LOCK FOR MEDS.RIGHT LOWER LEG WITH DRESSING INTACT AND DRY.DENIES DISCOMFORTS AT THE MOMENT,CALL LIGHT IN REACH,NEEDS ANTICIPATED.
--- NOTE | 2023-11-22 19:56 | NUR ---
rn notes: stock dose dilaudid iv 1mg/ml, desired dose dilaudid iv 0.5mg (0.5ml) given, wasted dilaudid 0.5mg (1/2 ml ) as witness with rn kerryie
--- NOTE | 2023-11-22 19:56 | NUR ---
NAILHEAD SETTER NOTES SR-82 ON TELE MONITOR. C/O PAIN ON THE RIGHT LOWER LEG,8/10 ON PAIN SCALE.BP 164/98 DUE TO PAIN.MEDICATED WITH DILAUDID 0.5MG IV FOR SEVERE PAIN,0.5 MG WASTED WITNESSED BY ANOTHER RN BENIGNO.
[2023-11-23] VITALS (7 sets, daily range): BP systolic 173–213; BP diastolic 79–103; TEMP 97.5–98.8; O2SAT 95–99
--- NOTE | 2023-11-23 00:36 | NUR ---
LAMP REPLACER NOTES BP-203/88, CATAPRES 0.1MG PO GIVEN ORDERED FOR SBP > 170.WILL CONTINUE TO MONITOR.
--- NOTE | 2023-11-23 01:35 | NUR ---
AIRPLANE GASTANK LINER ASSEMBLER NOTES BP RECHECK ONE HOUR AFTER GIVEN CATAPRES 0.1MG PO WAS 209/93,PATIENT IN SO MUCH PAIN ON RIGHT LOWER LEG,9/10 ON PAIN SCALE. WILL MEDICATE FOR PAIN.
--- NOTE | 2023-11-23 01:48 | NUR ---
ESTATE MANAGER NOTES MEDICATED WITH DILAUDID 0.5MG IV ORDERED,OTHER HALF 0.5MG WASTED AND DUMPED ON RX DESTROYER WITNESSED BY KATIE PELAEZ. Addendum: 11/23/23 at 0508 by VAISHNAVI PALACIO RN rn notes: stock dose Dilaudid 1mg iv, desired dose: dilaudid 0.5m/2 ml iv q4h prn for pain, given, wasted: 0.5mg (1/2 ml) Dilaudid witness for katie de dios.
--- NOTE | 2023-11-23 02:13 | NUR ---
DEBATE DIRECTOR NOTES HOSPITALIST CHEMA MADE AWARE OF HIGH BLOOD PRESSURE, WITH NEW ORDERS NOTED AND CARRIED OUT.
[2023-11-23] MEDS: hydrALAZINE HCL IV 20 MG VIAL IV PRN (02:42)
--- NOTE | 2023-11-23 02:42 | NUR ---
MARISA WILSON NOTES BP 203/88,PULSE-85,HYDRALAZINE MG/0,25ML GIVEN IVP ORDERED FOR SBP ABOVE 160.WILL CONTINUE TO MONITOR Addendum: 11/23/23 at 0252 by ARLETTE MEDINA RN HYDRALAZINE 5MG/0.25ML
--- NOTE | 2023-11-23 04:50 | NUR ---
ANIMAL NURSERY WORKER NOTES BLOOD PRESSURE STILL HIGH AT 208/100,DENIES HEADACHE,SLEEPING,EASILY AROUSE TO VERBAL STIMULI.HOSPITALIST CHEMA MADE AWARE, AWAITING FOR ORDERS.
[2023-11-23] MEDS: LABETALOL HCL IV 100MG VIAL IV PRN (06:29)
--- NOTE | 2023-11-23 06:40 | NUR ---
RN NOTE LABETALOL 20MG IVP GIVEN SLOWLY ORDERED DUE TO CONSISTENT HIGH BP. WILL CONTINUE TO MONITOR
--- NOTE | 2023-11-23 07:00 | NUR ---
COIL SPRING ASSEMBLER NOTES HEART RATE NOW SR-79,BP-156/95,SITTING ON EDGE OF BED THIS TIME,PAIN TOLERABLE,IN NO ACUTE DISTRESS.ENDORSED TO KATIE WAY FOR FELICIA.
--- NOTE | 2023-11-23 07:30 | NUR ---
RN OPENING NOTE PATIENT AWAKE IN BED, RESTING. A/OX4, ABLE TO MAKE NEEDS KNOWN. ON 2L OF O2 VIA NC. BREATHING EVEN AND NON LABORED. WITH EXTERNAL SAUSAGE MEAT TRIMMER WITH CURRENT READING OF SR HR 70'S. PATIENT WITH IV ON LEFT HAND G22, PATENT INTACT AND FLUSHING WELL. IV SALINE LOCKED. FALL AND SAFETY MEASURES IN PLACE. BED ALARM ON. BED IN LOW AND LOCKED POSITION. CALL LIGHT AND SIDE TABLE WITHIN EASY REACH. SIDE RAILS UP X3. WILL CONTINUE TO MONITOR. Addendum: 11/23/23 at 1107 by SEAMUS HUDSON RN ADDENDUM - PATIENT IS CURRENTLY ON 6L OF O2 VIA NC, NOT 2L PREVIOUSLY MENTIONED.
--- NOTE | 2023-11-23 08:23 | NUR ---
RN NOTE PATIENT BP IS 178/79, CATAPRES PO PRN GIVEN PER EMAR. WILL CONTINUE TO MONITOR.
--- NOTE | 2023-11-23 09:01 | NUR ---
RN NARCOTIC WASTE Patient awake in bed, c/o right lower leg pain 8/10 described as sharp and throbbing, limited leg movement d/t pain. asked for pain medication. Dilaudid 1mg taken from [facility], 0.5 given and wasted 0.5mg witnessed by KATIE Guerrier. will reassess pain level. plan of care ongoing.
--- NOTE | 2023-11-23 10:00 | NUR ---
RN NOTE INSPITE OF CATAPRES AND DILAUDID GIVEN, PATIENT BP NOW 189/103. DR. DECKER AND DR PARRISH INFORMED.
--- NOTE | 2023-11-23 10:56 | NUR ---
RN NARCOTIC WASTE Witnessed Renae RN take Dilaudid 1mg from [facility], 0.5 given and witnessed wasted 0.5mg to medication disposal jug.
[2023-11-23] MEDS ORDERED: SUMATRIPTAN SUCCINATE 25 MG TABLET PO PRN (12:00)
[2023-11-23] MEDS ORDERED: METOPROLOL TARTRATE 50 MG TABLET PO SCH (12:00)
[2023-11-23] MEDS ORDERED: BISACODYL (5 MG) 5 MG TABLET.DR PO PRN (12:00)
--- NOTE | 2023-11-23 12:00 | NUR ---
RN NOTE PATIENT BP NOW 193/90, DR. OLIVERA HAS NEW ORDERS FOR BLOOD PRESSURE, CARRIED OUT AND GIVEN TO PATIENT. DR. PARRISH ORDERED HEMODIALYSIS SESSION FOR TODAY.
[2023-11-23] MEDS ORDERED: LORAZEPAM 1 MG TABLET PO PRN ×2 (12:30→22:00)
--- NOTE | 2023-11-23 12:45 | NUR ---
RN NOTES LEFT ARM ULTRASOUND PERFORMED TO IDENTIFY ADEQUATE VEIN FOR MIDLINE INSERTION. LEFT ARM PREPPED USING STERILE TECHNIQUE. POWERGLIDE 18G/10CM WAS INSERTED AT LEFT CEPHALIC VEIN WITH EASE, GOOD NON PULSATILE BLOOD RETURN AND SECURED WITH INTERLOCK DEVICE. DRESSED USING NORMAL STERILE FASHION. EACH PORT WAS ASPIRATED WITH VENOUS BLOOD AND EACH PORT WAS FLUSHED WITH 10ML OF NORMAL SALINE. PROCEDURE WELL TOLERATED BY THE PT. SUPERVISED BY DR.EM BARRETT PhD. ENDORSED TO BEDSIDE KATIE WAY
[2023-11-23] MEDS ORDERED: ALBUTEROL FS 2.5 MG/0.5 ML VIAL.NEB IH PRN (13:00)
[2023-11-23] MEDS ORDERED: REPAGLINIDE 0.5 MG TABLET PO SCH (13:00)
--- NOTE | 2023-11-23 13:14 | NUR ---
RN NARCOTIC WASTE Witnessed Diane RN take Dilaudid 1mg from [facility], 0.5 given. Witnessed waste of 0.5mg to medication disposal jug.
[2023-11-23] MEDS: CALCIUM ACETATE 667 MG CAP/TAB PO SCH (13:17)
[2023-11-23] MEDS: ALLOPURINOL 100 MG TABLET PO SCH (13:18)
[2023-11-23 13:19] LABS: BASOPHILS # (AUTO) 0.1 K/uL (0.0-0.2); BASOPHILS % (AUTO) 1.1 % (0.0-2.0); EOSINOPHILS # (AUTO) 0.2 K/uL (0.0-0.7); EOSINOPHILS % (AUTO) 1.5 % (0.0-6.0); HEMATOCRIT 23 % (33-45); HEMOGLOBIN 7.2 g/dL (11.5-14.8); LYMPHOCYTES # (AUTO) 0.4 K/uL (0.8-4.8); LYMPHOCYTES % (AUTO) 3.2 % (20.0-44.0); MEAN CORPUSCULAR HEMOGLOBIN 29 PG (26.0-33.0); MEAN CORPUSCULAR HGB CONC 32 g/dl (31.0-36.0); MEAN CORPUSCULAR VOLUME 91 fL (82-100); MONOCYTES # (AUTO) 0.7 K/uL (0.1-1.30); MONOCYTES % (AUTO) 6.4 % (2.0-12.0); NEUTROPHILS # (AUTO) 9.9 K/uL (1.8-8.9); NEUTROPHILS % (AUTO) 87.8 % (43.0-81.0); PLATELET COUNT (AUTO) 320 K/uL (150-450); RED CELL DISTRIBUTION WIDTH 20.5 % (11.5-15.0); WHITE BLOOD COUNT (AUTO) 11.3 K/uL (4.3-11.0)
[2023-11-23] MEDS: SERTRALINE HCL 25 MG TABLET PO SCH (13:19)
[2023-11-23] MEDS: CLONIDINE HCL 0.1 MG TABLET PO SCH (13:19)
[2023-11-23] MEDS: hydrALAZINE HCL 50 MG TABLET PO SCH (13:20)
[2023-11-23 13:32] LABS: BILIRUBIN,TOTAL 0.6 mg/dL (0.2-1.0); CREATININE 4.8 mg/dL (0.6-1.3); MAGNESIUM 2.4 mg/dL (1.8-2.4); PHOSPHORUS 7.5 mg/dL (2.5-4.9); POTASSIUM 4.4 mmol/L (3.5-5.1); TOTAL PROTEIN, SERUM 7.8 g/dL (6.4-8.2)
--- NOTE | 2023-11-23 18:16 | NUR ---
RN NARCOTIC WASTE Witnessed Renae RN take Dilaudid 1mg from [facility], 0.5 given and witnessed wasted 0.5mg to medication disposal jug.
--- NOTE | 2023-11-23 18:30 | NUR ---
RN CLOSING NOTE PATIENT AWAKE IN BED, RESTING. A/OX4, ABLE TO MAKE NEEDS KNOWN. ON 6L OF O2 VIA NC. BREATHING EVEN AND NON LABORED. WITH EXTERNAL ESCROW OFFICER WITH CURRENT READING OF SR HR 70'S. PATIENT WITH LEFT UPPER ARM MIDLINE, PATENT INTACT AND FLUSHING WELL. IV SALINE LOCKED. FALL AND SAFETY MEASURES IN PLACE. BED ALARM ON. BED IN LOW AND LOCKED POSITION. CALL LIGHT AND SIDE TABLE WITHIN EASY REACH. SIDE RAILS UP X3. JUST FINISHED HEMODIALYISIS, 1682ML TAKEN OUT. SCHEDULED MEDICATIONS ADMINISTERED. WOUND CARE IMPLEMENTED. PATIENT TURNED AND REPOSITIONED PER PROTOCOL. ALL NEEDS ATTENDED AND ANTICIPATED. WILL ENDORSE TO REAL ESTATE SERVICES ADMINISTRATOR RN.
[2023-11-23] MEDS: COLCHICINE 0.6 MG TABLET PO SCH (18:31)
[2023-11-23] MEDS: DOCUSATE SODIUM 250 MG CAPSULE PO SCH (18:31)
[2023-11-23] MEDS: FUROSEMIDE 40 MG TABLET PO SCH (18:32)
[2023-11-23] MEDS: FERROUS SULFATE (325 MG) 325 MG/TAB TABLET PO SCH (18:32)
[2023-11-23] MEDS: MONTELUKAST SODIUM (10MG) 10 MG TABLET PO SCH (18:32)
[2023-11-23] MEDS: GLIMEPIRIDE 4 MG TABLET PO SCH (18:32)
--- NOTE | 2023-11-23 18:33 | NUR ---
RN NOTE PATIENT SCHEDULED MEDICATIONS FOR 1700 GIVEN LATE PATIENT WAS UNDERGOING HEMODIALYSIS.
--- NOTE | 2023-11-23 19:15 | NUR ---
MANAGER HEALTH OPENING NOTE RECEIVED PATIENT AWAKE IN BED, RESTING. A&O X 4, ABLE TO MAKE NEEDS KNOWN. ON 6L OF O2 VIA NC. BREATHING EVEN AND NON LABORED. WITH EXTERNAL CENTRAL STORES ATTENDANT WITH CURRENT READING OF SR WITH HEART RATE 80. PATIENT WITH IV ON LEFT HAND G22, PATENT INTACT AND FLUSHING WELL. IV SALINE LOCKED. RIGHT LOWER LEG DRESSING, C/D/I. GENERALIZED EDEMA NOTED. ON DIAPER. ABLE TO AMBULATE WITH STEADY GAIT AND STAND BY ASSIST. FALL AND SAFETY MEASURES ARE IN PLACE: BED ON LOW LOCKED POSITION, SIDERAILS RAISED, ALARM ON AND CALL LIGHT WITHIN EASY REACH AT ALL TIMES. PLAN OF CARE OF ONGOING.
[2023-11-23] MEDS: DOXYCYCLINE HYCLATE (100 MG) 100 MG TABLET PO SCH (20:59)
[2023-11-23] MEDS: INSULIN GLARGINE, 100 UNIT/ML CARTRIDGE SQ SCH (20:59)
--- NOTE | 2023-11-23 21:45 | NUR ---
RN NOTES PT REFUSED ACCU CHECK, INSULIN COVERAGE AND PO DUE MEDS. WANTED TO SLEEP WITH NO INTERRUPTIONS. EDUCATION GIVEN, EXPLAINED RISK AND BENEFITS VERBALIZED UNDERSTANDING BUT STILL REFUSED. PLAN OF CARE ONGOING.
[2023-11-23] MEDS: GABAPENTIN 300 MG CAPSULE PO SCH (22:00)
--- NOTE | 2023-11-23 23:22 | NUR ---
RN NARCOTIC WASTE WITNESSED BY KATIE DENNISON TOOK DILAUDID 1MG FROM OMNICELL 0.5MG GIVEN AND WITNESSED WASTED 0.5MG TO MEDICATION DISPOSAL JUG.
--- NOTE | 2023-11-23 23:25 | NUR ---
NARCOTIC WASTE NOTE WITNESSED KATIE MONTOYA REMOVE DILAUDID 1 MG IV FROM OMNICELL AND WASTE 0.5 MG IN RX DESTROYER
[2023-11-24] VITALS (7 sets, daily range): BP systolic 148–194; BP diastolic 72–104; TEMP 97.4–98.6; O2SAT 95–99
[2023-11-24 06:32] LABS: BASOPHILS # (AUTO) 0.1 K/uL (0.0-0.2); BASOPHILS % (AUTO) 0.6 % (0.0-2.0); EOSINOPHILS # (AUTO) 0.2 K/uL (0.0-0.7); EOSINOPHILS % (AUTO) 2.5 % (0.0-6.0); HEMATOCRIT 23 % (33-45); LYMPHOCYTES # (AUTO) 0.4 K/uL (0.8-4.8); LYMPHOCYTES % (AUTO) 4.3 % (20.0-44.0); MEAN CORPUSCULAR HEMOGLOBIN 28 PG (26.0-33.0); MEAN CORPUSCULAR HGB CONC 31 g/dl (31.0-36.0); MEAN CORPUSCULAR VOLUME 91 fL (82-100); MONOCYTES # (AUTO) 0.9 K/uL (0.1-1.30); NEUTROPHILS # (AUTO) 8.1 K/uL (1.8-8.9); NEUTROPHILS % (AUTO) 83.6 % (43.0-81.0); PLATELET COUNT (AUTO) 324 K/uL (150-450); RED BLOOD CELL COUNT(AUTO) 2.46 MIL/uL (4.0-5.2); RED CELL DISTRIBUTION WIDTH 20.2 % (11.5-15.0); WHITE BLOOD COUNT (AUTO) 9.7 K/uL (4.3-11.0)
--- NOTE | 2023-11-24 06:45 | NUR ---
RN NOTES PT REFUSED INSULIN COVERAGE. EDUCATION GIVEN, EXPLAINED RISK AND BENEFITS VERBALIZED UNDERSTANDING BUT STILL REFUSED. PLAN OF CARE ONGOING.
[2023-11-24] MEDS: ACETAMINOPHEN 325 MG TABLET PO PRN (06:49)
[2023-11-24 06:51] LABS: BILIRUBIN,TOTAL 0.5 mg/dL (0.2-1.0); CALCIUM, SERUM 10.1 mg/dL (8.5-10.1); CREATININE 3.7 mg/dL (0.6-1.3); MAGNESIUM 2.3 mg/dL (1.8-2.4); PHOSPHORUS 5.6 mg/dL (2.5-4.9); POTASSIUM 3.9 mmol/L (3.5-5.1); TOTAL PROTEIN, SERUM 7.3 g/dL (6.4-8.2)
--- NOTE | 2023-11-24 07:43 | NUR ---
TREE FELLER OPERATOR OPENING NOTE PATIENT AWAKE IN BED, RESTING. A&O X 4, ABLE TO MAKE NEEDS KNOWN. ON 6L OF O2 VIA NC. BREATHING EVEN AND NON LABORED. WITH EXTERNAL LABOR LAW PROFESSOR WITH CURRENT READING OF SR WITH HEART RATE 80. PATIENT WITH IV ON LEFT HAND G22, PATENT INTACT AND FLUSHING WELL. IV SALINE LOCKED. LOWER LEG WOUND DRESSING CHANGED. GENERALIZED EDEMA NOTED. ON DIAPER. ABLE TO AMBULATE WITH STEADY GAIT AND STAND BY ASSIST. ALL NEEDS ATTENDED AND ANTICIPATED. FALL AND SAFETY MEASURES ARE IN PLACE: BED ON LOW LOCKED POSITION, SIDERAILS RAISED, ALARM ON AND CALL LIGHT WITHIN EASY REACH AT ALL TIMES. ENDORSED TO DAY SHIFT NURSE FOR FELICIA. Addendum: 11/24/23 at 0759 by LINDSAY CHAN RN TREE FELLER OPERATOR CLOSING NOTES
[2023-11-24] MEDS: PANTOPRAZOLE 40 MG TABLET.DR PO SCH (07:44)
--- NOTE | 2023-11-24 07:45 | NUR ---
OUTSIDE MACHINIST SUPERVISOR OPENING NOTE RECEIVED PATIENT AWAKE IN BED, RESTING. A&O X 4, ABLE TO MAKE NEEDS KNOWN. ON 6L OF O2 VIA NC. BREATHING IS SLIGHTLY UNEVEN AND LABORED. WITH EXTERNAL FIRE PROTECTION EQUIPMENT TECHNICIAN WITH CURRENT READING OF SR WITH HEART RATE 85. PATIENT WITH IV ON LEFT HAND G22, PATENT INTACT AND FLUSHING WELL. IV SALINE LOCKED. WITH R AC HEMODIALYSIS LINE; C/D/I. LOWER LEG WOUND C/D/I WITH NO PURULENT DISCHARGE. GENERALIZED EDEMA NOTED. ON DIAPER. ABLE TO AMBULATE WITH STEADY GAIT AND STAND BY ASSIST. FALL AND SAFETY MEASURES ARE IN PLACE: BED ON LOW LOCKED POSITION, SIDE RAILS RAISED, ALARM ON AND CALL LIGHT WITHIN EASY REACH AT ALL TIMES. POC CONTINUED TODAY. Addendum: 11/24/23 at 1445 by LANIE SAUL RN ADDENDUM: IV IS 18G NOT 22.
--- NOTE | 2023-11-24 08:00 | NUR ---
RN NOTES RECEIVED A CALL FROM [facility] REPORTING FOR CRITICAL LAB RESULT; HGB IS 6.9 AND HCT IS 22.5. DR ANDINO AND CHARGE NURSE ARE INFORMED IMMEDIATELY. WILL MONITOR PT CLOSELY.
[2023-11-24 08:05] LABS: HEMOGLOBIN 6.9 g/dL (11.5-14.8)
[2023-11-24 08:07] LABS: ANISOCYTOSIS 2+; BASOPHILS % (MANUAL) 0 % (0.0-2.0); EOSINOPHILS % (MANUAL) 4 % (0-4); LYMPHOCYTES % (MANUAL) 6 % (16-48); MONOCYTES % (MANUAL) 6 % (0-11.0); NEUTROPHILS % (MANUAL) 84 (42-76); PLATELET ESTIMATE ADEQUATE
--- NOTE | 2023-11-24 08:48 | NUR ---
RN NOTES PATIENT COMPLAINED OF 10/10 BILATERAL LEG PAIN. PT HAS PRN DILAUDID 0.5 MGS FOR SEVERE PAIN Q4H. PATIENTS LEG REPOSITIONED WITH 2 PILLOWS. MEDS GIVEN AND KATIE SCHAEFER WITNESS THE WASTE. WILL MONITOR CLOSELY.
--- NOTE | 2023-11-24 08:48 | NUR ---
RN NARCOTIC WASTE WITNESSED BY KATIE SCHAEFER TOOK DILAUDID 1MG FROM OMNICELL 0.5MG GIVEN AND WITNESSED WASTED 0.5MG TO MEDICATION DISPOSAL JUG.
[2023-11-24] MEDS ORDERED: ATENOLOL 25 MG TABLET PO SCH (09:00)
--- NOTE | 2023-11-24 09:00 | NUR ---
RN NOTES PTS HGB IS LOW6.9. COLCHICINE 0.6 MGS PUT ON HOLD. SIDE EFFECT MAY DECREASE HGB LEVELS MORE.
--- NOTE | 2023-11-24 09:00 | NUR ---
RN NOTES PT REFUSED INSULIN COVERAGE. EDUCATION GIVEN, EXPLAINED RISK AND BENEFITS VERBALIZED UNDERSTANDING BUT STILL REFUSED. PLAN OF CARE ONGOING. Addendum: 11/24/23 at 0927 by LANIE SAUL RN ADDENDUM: INSULIN LANTHUS 50 UNITS. NOT INSULIN COVERAGE. AND CN INFORMED.
[2023-11-24] MEDS: FLUTICASONE/VILANTEROL 1 EACH BLST.W.DEV IH SCH (09:03)
[2023-11-24] MEDS: ASPIRIN EC 81 MG TABLET.DR PO SCH (09:05)
[2023-11-24] MEDS: NIFEDIPINE XL 60 MG TAB.ER.24 PO SCH (09:05)
--- NOTE | 2023-11-24 13:11 | NUR ---
FORMING MACHINE UPKEEP MECHANIC NOTE PATIENT COMPLAINED OF PAIN 10/10. DILAUDID GIVEN ORDERED FOR PAIN 10/10. 0.5MG WASTED WITH NURSE CATHY WITNESS.
--- NOTE | 2023-11-24 15:40 | NUR ---
RN NOTES PATIENT PRBC AND DIALYSIS WAS DONE TOGETHER PER PATIETNS REQUEST. PRBC DONE WITH 2 RN IDENTIFIER WITH KATIE BARRY. PATIENT WAS DIALYSIS TOGETHER. TWO [facility] DIALYSYS TECH AT [facility]. PRE VITALS DONE; BP: 199/104, RR 18, PULSE 78, TEMP AT 98.4. WILL MONITOR CLOSELY.
--- NOTE | 2023-11-24 16:43 | NUR ---
RN NOTES TRANSFUSION OF PRBC DONE THRU HD WITH TWO HD TECH AT BEDSIDE. PATIENT TOLERATED WELL VITALS ARE WITHIN NORMAL LIMITS; BP 194/90, RR 18, NM 74, TEMP IS 98.6, PULSE OX IS 97%.
--- NOTE | 2023-11-24 17:49 | NUR ---
RN NOTES PATIENT COMPLAINED OF 10/10 LEG PAIN. PT HAS PRN DILAUDID 0.5 MGS FOR SEVERE PAIN Q4H. PATIENTS LEG REPOSITIONED WITH 2 PILLOWS. MEDS GIVEN AND RN ASHA WITNESS THE WASTE. WILL MONITOR CLOSELY.
--- NOTE | 2023-11-24 17:50 | NUR ---
RN NOTES WITNESSED KATIE CALVO WASTED DILAUDID 0.5MG/0.5ML IV.
--- NOTE | 2023-11-24 19:20 | NUR ---
BOOKS SALESPERSON CLOSING NOTE PATIENT AWAKE IN BED, RESTING. A&O X 4, ABLE TO MAKE NEEDS KNOWN. ON 6L OF O2 VIA NC. BREATHING EVEN AND NON LABORED. WITH EXTERNAL PASTE MIXING SUPERVISOR WITH CURRENT READING OF SR WITH HEART RATE 86. PATIENT WITH IV ON LEFT UA ML G18, PATENT INTACT AND FLUSHING WELL. IV SALINE LOCKED. WITH R UPPER AV HEMODIALYSIS LINE; C/D/I. HD DONE TOPDAY WITH 2,00 L OUTPUT. PRBC TRANSFUSED TODAY. TOLERATED WELL. LOWER LEG WOUND DRESSING CHANGED. GENERALIZED EDEMA NOTED. ON DIAPER. ABLE TO AMBULATE WITH STEADY GAIT AND STAND BY ASSIST. ALL NEEDS ATTENDED AND ANTICIPATED. FALL AND SAFETY MEASURES ARE IN PLACE: BED ON LOW LOCKED POSITION, SIDERAILS RAISED, ALARM ON AND CALL LIGHT WITHIN EASY REACH AT ALL TIMES. ENDORSED TO PM RN FOR FELICIA.
--- NOTE | 2023-11-24 19:28 | NUR ---
GROUND SERVICES INSTRUCTOR OPENING NOTE RECEIVED PATIENT IN BED, AWAKE, A/O X 4, VERBALLY RESPONSIVE AND ABLE TO MAKE NEEDS KNOWN. ON O2 VIA NASAL CANNULA AT 6LPM. TOLERATING WELL, BREATHING EVEN AND NON LABORED. WITH EXTERNAL CABLE TESTER WITH CURRENT READING OF SR [id number]. PATIENT WITH IV ACCESS ON MU ML G18SL, PATENT INTACT AND FLUSHING WELL. WITH HD ACCESS SHANAE AVF C/D/I, NO S/SX OF BLEEDING NOTED. GENERALIZED EDEMA NOTED. KEPT PATIENT CLEAN,DRY AND COMFORTABLE, FALL AND SAFETY MEASURES MAINTAINED: BED ON LOWEST AND LOCKED POSITION, SIDERAILS UP X2, BED ALARM ON, HOB SLIGHTLY ELEVATED, CALL LIGHT WITHIN EASY REACH .PLAN OF CARE ONGOING.
[2023-11-24 19:52] LABS: HEMOGLOBIN 8.2 g/dL (11.5-14.8)
--- NOTE | 2023-11-24 22:28 | NUR ---
RN NOTES PATIENT C/O LEG 10/10 PAIN SCALE. PT REQUESTED PRN PAINT MEDS, PRN DILAUDID 0.5 MEDS GIVEN ORDERED AND 0.5 WASTED WITNESSED BY BRYANNA WILSON. VITAL SIGN STABLE; BP;145/80, CA;83, RR; 19 TEMP; 97.7, O2 SAT; 99%. CONTINUE TO MONITOR. Addendum: 11/24/23 at 2316 by MILENA WILKS RN WRONG ENTRY
--- NOTE | 2023-11-24 22:28 | NUR ---
RN NOTES I WITNESSED RN CHECEL WASTING 0.5MG DILAUDID OUT OF 1MG.
--- NOTE | 2023-11-24 22:38 | NUR ---
RN NOTES PATIENT C/O LEG 10/10 PAIN SCALE. PT REQUESTED PRN PAINT MEDS, PRN DILAUDID 0.5 MEDS GIVEN ORDERED AND 0.5 WASTED WITNESSED BY BRYANNA WILSON. VITAL SIGN STABLE; BP;145/80, TN;83, RR; 19 TEMP; 97.7, O2 SAT; 99%. CONTINUE TO MONITOR.
[2023-11-25] VITALS (7 sets, daily range): BP systolic 153–190; BP diastolic 77–93; TEMP 97.4–98.4; O2SAT 96–100
--- NOTE | 2023-11-25 | NUR ---
RN NOTES PATIENT REFUSED VITAL SIGN TAKEN, DESPITE EXPLAINED AND EDUCATION DONE ABOUT THE BENEFITS. CONTINUE MONITORING
--- NOTE | 2023-11-25 03:35 | NUR ---
NARCOTIC WASTE WITNESSED WASTING 0.5 MG OUT OF 1 MG DILAUDID. WASTING DONE BY KATIE ABBOTT.
--- NOTE | 2023-11-25 03:36 | NUR ---
RN NOTES PATIENT C/O LEG 10/10 PAIN SCALE. PT REQUESTED PRN PAINT MEDS, PRN DILAUDID 0.5 MEDS GIVEN ORDERED AND 0.5 WASTED WITNESSED BY CINTHYA WILSON. CONTINUE TO MONITORING. Addendum: 11/25/23 at 0400 by MILENA WILKS RN VITAL SIGN STABLE;BP 171/79, AL; 79, TEMP; 98.2, RR; 20, O2SAT; 98%
--- NOTE | 2023-11-25 07:07 | NUR ---
FIELD SUPPORT REP CLOSING NOTE PATIENT IN BED, AWAKE, A/O X 4, VERBALLY RESPONSIVE AND ABLE TO MAKE NEEDS KNOWN. ON O2 VIA NASAL CANNULA AT 6LPM. TOLERATING WELL, BREATHING EVEN AND NON LABORED. WITH EXTERNAL DATABASE MODELER WITH CURRENT READING OF SR WITH PVC'S HR 80BPM. PATIENT WITH IV ACCESS ON MU ML G18SL, PATENT INTACT AND FLUSHING WELL. WITH HD ACCESS SHANAE AVF C/D/I, NO S/SX OF BLEEDING NOTED. GENERALIZED EDEMA NOTED. KEPT PATIENT CLEAN,DRY AND COMFORTABLE, ALL DUE MEDS GIVEN ORDERED AND NURSING CARE/NEEDS ATTENDED WELL. FALL AND SAFETY MEASURES MAINTAINED: BED ON LOWEST AND LOCKED POSITION, SIDERAILS UP X2, BED ALARM ON, HOB SLIGHTLY ELEVATED, CALL LIGHT WITHIN EASY REACH .WILL ENDORSED TO AM NURSE FOR CONTINUITY OF CARE.
[2023-11-25 07:10] LABS: BASOPHILS # (AUTO) 0.1 K/uL (0.0-0.2); BASOPHILS % (AUTO) 0.9 % (0.0-2.0); EOSINOPHILS # (AUTO) 0.5 K/uL (0.0-0.7); EOSINOPHILS % (AUTO) 4.7 % (0.0-6.0); HEMATOCRIT 26 % (33-45); HEMOGLOBIN 8.2 g/dL (11.5-14.8); LYMPHOCYTES # (AUTO) 0.4 K/uL (0.8-4.8); LYMPHOCYTES % (AUTO) 4.3 % (20.0-44.0); MEAN CORPUSCULAR HEMOGLOBIN 29 PG (26.0-33.0); MEAN CORPUSCULAR HGB CONC 32 g/dl (31.0-36.0); MEAN CORPUSCULAR VOLUME 91 fL (82-100); MONOCYTES # (AUTO) 0.9 K/uL (0.1-1.30); MONOCYTES % (AUTO) 9.2 % (2.0-12.0); NEUTROPHILS % (AUTO) 80.9 % (43.0-81.0); PLATELET COUNT (AUTO) 354 K/uL (150-450); RED BLOOD CELL COUNT(AUTO) 2.84 MIL/uL (4.0-5.2); RED CELL DISTRIBUTION WIDTH 19.3 % (11.5-15.0); WHITE BLOOD COUNT (AUTO) 9.9 K/uL (4.3-11.0)
--- NOTE | 2023-11-25 07:31 | NUR ---
RN OPENING NOTE Received pt in bed, awake. A/O x 4, able to make needs known, no c/o pain/discomfort at this time. On O2 via nc at 6lpm, tolerating well. IV access in RFA #20g, sl. On tele monitor with current reading of SR-80 with pvc's. Safety measures maintained. Will continue with plan of care.
--- NOTE | 2023-11-25 07:57 | NUR ---
RN NOTE Pt verbalized generalized pain with scale 10/10, Dilaudid 0.5mg/0.5ml given and wasted, witnessed by Jimmy RN, will continue to monitor.
[2023-11-25 08:15] LABS: ALBUMIN 3.1 g/dL (3.4-5.0); BILIRUBIN,TOTAL 0.6 mg/dL (0.2-1.0); CALCIUM, SERUM 10.3 mg/dL (8.5-10.1); CREATININE 3.6 mg/dL (0.6-1.3); MAGNESIUM 2.4 mg/dL (1.8-2.4); PHOSPHORUS 5.3 mg/dL (2.5-4.9); POTASSIUM 4.3 mmol/L (3.5-5.1); TOTAL PROTEIN, SERUM 7.7 g/dL (6.4-8.2)
--- NOTE | 2023-11-25 12:07 | NUR ---
RN NOTE Pt verbalized generalized pain with scale 10/10, Dilaudid 0.5mg/0.5ml given and wasted, witnessed by Diane WILSON, will continue to monitor.
--- NOTE | 2023-11-25 18:47 | NUR ---
RN CLOSING NOTE Pt resting in bed. A/O x 4, no c/o pain/discomfort at this time. On O2 via nc at 3lpm, tolerating well. IV access in RFA #20g, sl. On tele monitor with current reading of SR-81. Needs attended. Safety measures maintained. Will endorse jose to mold shifter.
--- NOTE | 2023-11-25 20:45 | NUR ---
SUSPECT ARTIST OPENING NOTES: RECEIVED PATIENT AT 20:45H, LYING ON BED, AWAKE, AND VERBALLY RESPONSIVE, A/OX4. RESPIRATION EVEN AND NON-LABORED. NO SOB NOTED AT THIS TIME. ON O2 SUPPORT AT 3LPM VIA NASAL CANNULA, TOLERATING WELL. WITH GENERALIZED BODY PAIN 9/10. WITH IV ACCESS ON LEFT UPPER ARM MIDLINE G#18, SALINE LOCKED, PATENT, INTACT. WITH DIAPER ON. SKIN WARM TO TOUCH, WITH RIGHT LOWER LEG ULCERATION. ON RENAL DIET. ON TELEMETRY MONITORING WITH RECENT READING OF SINUS RHYTHM WITH PVC'S RANGING AT 80S BPM. FALL AND SAFETY MEASURES IN PLACE. BED ALARM ON. BED IN LOW AND LOCKED POSITION. CALL LIGHT AND TABLE WITHIN REACH. SIDE RAILS UP X3. PLAN OF CARE ONGOING.
--- NOTE | 2023-11-25 20:46 | NUR ---
NARCOTIC WASTE WITNESSED WASTING OF 0.5 MG OUT OF 1 MG DILAUDID. WASTE DONE BY BILLIE REYES RN.
--- NOTE | 2023-11-25 20:50 | NUR ---
ELECTRONIC SALES AND SERVICE TECHNICIAN NOTES: RECEIVED PATIENT AT 20:46H AND COMPLAINED OF GENERALIZED BODY PAIN 9/10, SCREAMING, AND AGITATED. VITALS CHECKED AND DOCUMENTED. DILAUDID 0.5MG IV WAS PULLED OUT FROM OMNICELL AT 20:46H AND CINTHYA LAYNE RN WITNESSED WASTING OF 0.5MG DILAUDID OUT OF 1MG IV. DILAUDID 0.5MG IV Q4H PRN WAS GIVEN AT 20:50H. WILL REASSESS PATIENT AFTER 30MINS.
[2023-11-26] VITALS (14 sets, daily range): BP systolic 133–176; BP diastolic 68–102; TEMP 98.1–98.6; O2SAT 94–98
--- NOTE | 2023-11-26 00:36 | NUR ---
WEB CONTENT EDITOR NOTES: PATIENT COMPLAINED OF GENERALIZED BODY PAIN 06/07. VITALS CHECKED AND DOCUMENTED. TYLENOL 650MG PO Q6H PRN WAS GIVEN AT THIS TIME. WILL REASSESS AFTER 1 HOUR.
--- NOTE | 2023-11-26 01:04 | NUR ---
RN notes I witnessed wasting of 0.5 mg dilaudid IV out of 1 mg with Maryanne WILSON.
--- NOTE | 2023-11-26 01:06 | NUR ---
ASSOCIATE DIRECTOR FINANCIAL AID NOTES: PATIENT COMPLAINED OF GENERALIZED BODY PAIN /. VITALS CHECKED AND DOCUMENTED. DILAUDID 0.5MG IV WAS PULLED OUT FROM OMNICELL AT 01:04AM AND MS. CHRISTIAN RN WITNESSED WASTING OF 0.5MG DILAUDID OUT OF 1MG IV. DILAUDID 0.5MG IV Q4H PRN WAS GIVEN AT AT 1:06AM. WILL REASSESS PATIENT AFTER 30MINS. Addendum: 11/26/23 at 0116 by BILLIE REYES RN PAIN SCORE 8-9/10 STATED BY THE PATIENT
--- NOTE | 2023-11-26 01:22 | NUR ---
SALES DEVELOPMENT REPRESENTATIVE NOTES: RECHECKED PATIENT'S BLOOD PRESSURE MANUALLY AFTER PAIN MEDICATIONS. LATEST: 150/70MMHG.
--- NOTE | 2023-11-26 04:32 | NUR ---
FINANCIAL PLANNING ADVISER NOTES: CLONIDINE HCL 0.1MG PO Q6H PRN WAS GIVEN FOR HIGH BLOOD PRESSURE AT THIS TIME: 171/102MMHG. WILL REASSESS AFTER 1 HOUR.
--- NOTE | 2023-11-26 05:07 | NUR ---
RN NOTES WITNESSED WASTING OF 0.5MG DILAUDID IV OUT OF 1MG. WASTING DONE BY BILLIE REYES RN
--- NOTE | 2023-11-26 05:07 | NUR ---
ROTO ROOTER OPERATOR NOTES: PATIENT COMPLAINED OF RIGHT LOWER LEG PAIN 9/10. VITALS CHECKED AND DOCUMENTED. DILAUDID 0.5MG IV WAS PULLED OUT FROM OMNICELL AT 05:05AM AND MR. JAMAL RN WITNESSED WASTING OF 0.5MG DILAUDID OUT OF 1MG IV. DILAUDID 0.5MG IV Q4H PRN WAS GIVEN AT AT 5:07AM. WILL REASSESS PATIENT AFTER 30MINS.
--- NOTE | 2023-11-26 06:00 | NUR ---
RUBBER STAMP MAKER NOTES: BP RECHECKED: LATEST: 155/80MMHG.
--- NOTE | 2023-11-26 07:06 | NUR ---
RN NOTES: BLOOD DRAWN FROM THE MIDLINE FOR AM LABS. CHARGE NURSE AWARE.
--- NOTE | 2023-11-26 07:06 | NUR ---
RELAY CHECKER CLOSING NOTES: PATIENT LYING ON BED, AWAKE, AND VERBALLY RESPONSIVE, A/OX4. RESPIRATION EVEN AND NON-LABORED. NO SOB NOTED AT THIS TIME. ON O2 SUPPORT AT 3LPM VIA NASAL CANNULA, TOLERATING WELL. WITH GENERALIZED BODY PAIN 9/10. WITH IV ACCESS ON LEFT UPPER ARM MIDLINE G#18, SALINE LOCKED, PATENT, INTACT. WITH DIAPER ON. SKIN WARM TO TOUCH, WITH RIGHT LOWER LEG ULCERATION, NO WORSENING OF CURRENT SKIN CONDITION NOTED AT THIS TIME. ON RENAL DIET. ON TELEMETRY MONITORING WITH RECENT READING OF SINUS RHYTHM RANGING AT 80S BPM. CHECKED BLOOD SUGAR LEVELS AND FOLLOWED INSULIN SLIDING SCALE ORDERED. PAIN AND BP CONTROLLED WITH IV MEDICATION. DUE MEDS GIVEN. KEPT CLEAN AND COMFORTABLE. ENCOURAGED VERBALIZATION OF NEEDS AND ATTENDED PROMPTLY.FALL AND SAFETY MEASURES IN PLACE. BED ALARM ON. BED IN LOW AND LOCKED POSITION. CALL LIGHT AND TABLE WITHIN REACH. SIDE RAILS UP X3. WILL ENDORSE TO THE NEXT NURSE ON DUTY FOR CONTINUITY OF CARE.
--- NOTE | 2023-11-26 07:07 | NUR ---
CHOCOLATE FINISHER OPERATOR OPENING NOTES RECEIVED PATIENT IN BED, ASLEEP BUT EASY TO AWAKEN. A/O X4. ABLE TO MAKE NEEDS KNOWN. NO SIGNS OF ACUTE DISTRESS NOTED. ON O2 INHALATION VIA NASAL CANNULA AT 3LPM, TOLERATING WELL. NO SOB, BREATHING EVEN AND UNLABORED.ON TELEMETRY MONITORING WITH CURRENT READING OF SINUS RHYTHM WITH HEART RATE OF 77BPM. WITH LEFT UPPER ARM MIDLINE #18G-SALINE LOCKED; INTACT, PATENT AND FLUSHES WELL. SAFETY MEASURES IN PLACE. BED IN LOW AND LOCKED POSITION. CALL LIGHT AND TABLE WITHIN REACH. SIDE RAILS UP X2. HOB ELEVATED. WILL CONTINUE WITH PLAN OF CARE.
[2023-11-26 07:36] LABS: BASOPHILS # (AUTO) 0.1 K/uL (0.0-0.2); BASOPHILS % (AUTO) 1.3 % (0.0-2.0); EOSINOPHILS # (AUTO) 0.6 K/uL (0.0-0.7); EOSINOPHILS % (AUTO) 6.3 % (0.0-6.0); HEMATOCRIT 26 % (33-45); HEMOGLOBIN 7.8 g/dL (11.5-14.8); LYMPHOCYTES # (AUTO) 0.5 K/uL (0.8-4.8); LYMPHOCYTES % (AUTO) 4.9 % (20.0-44.0); MEAN CORPUSCULAR HEMOGLOBIN 28 PG (26.0-33.0); MEAN CORPUSCULAR HGB CONC 31 g/dl (31.0-36.0); MEAN CORPUSCULAR VOLUME 93 fL (82-100); MONOCYTES # (AUTO) 0.8 K/uL (0.1-1.30); MONOCYTES % (AUTO) 8.8 % (2.0-12.0); NEUTROPHILS # (AUTO) 7.3 K/uL (1.8-8.9); NEUTROPHILS % (AUTO) 78.7 % (43.0-81.0); PLATELET COUNT (AUTO) 347 K/uL (150-450); RED BLOOD CELL COUNT(AUTO) 2.77 MIL/uL (4.0-5.2); RED CELL DISTRIBUTION WIDTH 19.4 % (11.5-15.0); WHITE BLOOD COUNT (AUTO) 9.3 K/uL (4.3-11.0)
--- NOTE | 2023-11-26 07:46 | NUR ---
PATIENT FOUND ON 3L O2 VIA N.C. PATIENT REFUSED TREATMENT. NO DISTRESS NOTED. Addendum: 11/26/23 at 0749 by CHIP JOHANSEN RT Amended: Links added.
[2023-11-26 07:49] LABS: BILIRUBIN,TOTAL 0.4 mg/dL (0.2-1.0); CALCIUM, SERUM 9.6 mg/dL (8.5-10.1); CREATININE 4.3 mg/dL (0.6-1.3); POTASSIUM 4.5 mmol/L (3.5-5.1); TOTAL PROTEIN, SERUM 7.2 g/dL (6.4-8.2)
[2023-11-26] MEDS: Z GUARD REMEDY 4 OZ OINT TP PRN (08:21)
--- NOTE | 2023-11-26 09:38 | NUR ---
RN NOTES PATIENT REFUSED SCHEDULED INSULIN LANTUS(PATIENT SAID THAT HER BLOOD SUGAR IS ONLY 115 AND SHE DOESN'T NEED IT) AND BREO ELLIPTA INHALER(PATIENT STATED THAT THIS MEDICATION MAKE HER THROW UP). EXPLAINED RISKS OF NOT TAKING THIS MEDICATIONS BUT PATIENT STILL REFUSING. WILL CONTINUE WITH PLAN OF CARE.
--- NOTE | 2023-11-26 09:40 | NUR ---
RN NOTES WITNESSED KATIE NAVAS WASTAGE OF 0.5MG(0.5ML) OUT OF 1MG(1ML) DILAUDID IN RX DESTROYER.
--- NOTE | 2023-11-26 09:40 | NUR ---
RN NOTES PATIENT COMPLAINED OF PAIN IN HER RIGHT LOWER LEG. DILAUDID 0.5MG90.5ml) GIVEN PRN MEDICATION FOR PAIN. KATIE MCCRAY WITNESSED WASTAGE OF 0.5MG(0.5ML) OUT OF 1MG(1ML) OF DILAUDID IN RX DESTROYER.
--- NOTE | 2023-11-26 13:36 | NUR ---
RN NOTES PATIENT COMPLAINED OF PAIN IN HER RIGHT LOWER LEG. DILAUDID 0.5MG(0.5ml) GIVEN PRN MEDICATION FOR PAIN. RN CHRISTINA WITNESSED WASTAGE OF 0.5MG(0.5ML) OUT OF 1MG(1ML) OF DILAUDID IN RX DESTROYER.
--- NOTE | 2023-11-26 13:37 | NUR ---
RN NOTE I WITNESSED WASTING OF DILAUDID 0.5MG(0.5ML) OUT OF 1MG(1ML) BY KATIE JUAREZ.
--- NOTE | 2023-11-26 15:04 | NUR ---
PATIENT REFUSED. Addendum: 11/26/23 at 1504 by CHIP JOHANSEN RT Amended: Links added.
--- NOTE | 2023-11-26 17:15 | NUR ---
RN NOTES PATIENT STARTED HEMODIALYSIS WITH HD NURSE ROSALVA 1700H. HELD SCHEDULED 1700H AND 1800H MEDICATIONS DUE TO HEMODIALYSIS. NO SIGNS OF ACUTE DISTRESS NOTED. WILL CONTINUE WITH PLAN OF CARE.
--- NOTE | 2023-11-26 17:40 | NUR ---
RN NOTES PATIENT COMPLAINED OF PAIN IN HER RIGHT LOWER LEG AND PATIENT ASKED FOR PAIN MEDICATION PRIOR TO WOUND DRESSING CHANGE. DILAUDID 0.5MG(0.5ml) GIVEN PRN MEDICATION FOR PAIN. KATIE VASQUEZ WITNESSED WASTAGE OF 0.5MG(0.5ML) OUT OF 1MG(1ML) OF DILAUDID IN RX DESTROYER.
--- NOTE | 2023-11-26 19:15 | NUR ---
SENIOR ORACLE DEVELOPER CLOSING NOTES PATIENT IN BED, ASLEEP BUT EASY TO AWAKEN. A/O X4. WAS ABLE TO MAKE NEEDS KNOWN. NO SIGNS OF ACUTE DISTRESS NOTED. ON O2 INHALATION VIA NASAL CANNULA AT 3LPM, TOLERATING WELL. NO SOB, BREATHING EVEN AND UNLABORED.ON TELEMETRY MONITORING WITH CURRENT READING OF SINUS RHYTHM WITH HEART RATE OF 77BPM. WITH LEFT UPPER ARM MIDLINE #18G-SALINE LOCKED; INTACT, PATENT AND FLUSHES WELL. HEMODIALYSIS ENDED AT 1900H WITH OUTPUT OF 2000CC-PATIENT TOLERATED WELL. PATIENT ASKED FOR TYLENOL DUE TO HER PAIN IN HER RIGHT LEG. DUE MEDS GIVEN. NURSING CARE AND WOUND CARE RENDERED. SAFETY MEASURES IMPLEMENTED. BED IN LOW AND LOCKED POSITION. CALL LIGHT AND TABLE WITHIN REACH. SIDE RAILS UP X2. HOB ELEVATED. ENDORSED TO ELECTRONICS TEACHER NURSE FOR CONTINUITY OF CARE.
--- NOTE | 2023-11-26 19:45 | NUR ---
TRANSMITTER OPERATOR NOTES RECEIVED LAYING ON BED,A/O C4,S/P HEMODIALYSIS TODAY,2 LITERS OUT.NO SOB NOTED,RIGHT LOWER LEG WOUND WITH DRESSING INTACT AND DRY.WITH LEFT UPPER ARM MIDLINE FOR MEDS.WITH RIGHT AV SHUNT FOR HD ACCESS.PAIN TOLERABLE AT THE MOMENT.WILL CONTINUE TO MONITOR STATUS.
--- NOTE | 2023-11-26 20:13 | NUR ---
Patient refused nebulizer treatment. States it makes her nauseous. Patient is on 3L nasal cannula, SpO2 94% and tolerating. Notified RN.
--- NOTE | 2023-11-26 21:16 | NUR ---
REGISTERED NURSE CARDIOVASCULAR ICU NOTES PULLED OUT DILAUDID 1MG, 0.5MG/0.5ml ADMINISTERED ORDERED,0.5ML WASTED DUMPED ON RX DESTROYER WITNESSED BY RN RUTHY.
--- NOTE | 2023-11-26 21:16 | NUR ---
COMMUNICATIONS LEAD NOTES PAIN MANAGEMENT C/O PAIN ON THE RIGHT LOWER LEG 8/10 ON PAIN SCALE,MEDICATED WITH DILAUDID 0.5MG IV ORDERED.VITAL SIGNS STABLE.
--- NOTE | 2023-11-26 21:30 | NUR ---
SENIOR ADULTS DIRECTOR NOTES ACCU-CHECK BLOOD SUGAR CHECK 180MG/DL,REFUSED 50UNITS OF LANTUS,GIVEN 3 UNITS OF HUMULIN R SQ ON LEFT LOWER ABDOMEN PER SLIDING SCALE AND PER PATIENT REQUEST.
[2023-11-27] VITALS (8 sets, daily range): BP systolic 138–193; BP diastolic 76–97; TEMP 97.7–98.4; O2SAT 96–100
--- NOTE | 2023-11-27 00:37 | NUR ---
HORSE RACING MANAGER NOTES BP-193/83,MEDICATED WITH CLONIDINE 0.1MGPO ORDERED FOR SBP ABOVE 170.WILL CONTINUE TO MONITOR.
--- NOTE | 2023-11-27 05:30 | NUR ---
CAB WORKER NOTES ACCU-CHECK BLOOD SUGAR CHECK 138MG/DL,COVERED WITH HUMULIN R 2 UNITS PER SLIDING SCALE.
--- NOTE | 2023-11-27 06:56 | NUR ---
DIRECT MARKETING MANAGER NOTES SR-86 ON TELE MONITOR.SLEEP WELL AT NIGHT NO SOB NOTED,REMAINS EDEMATOUS,REFUSE BLOOD DRAW THIS MORNING.OFFICE MACHINES WIRER WILL COME BACK LATER IN THE DAY.IN NO ACUTE DISTRESS.
--- NOTE | 2023-11-27 07:12 | NUR ---
ENVIRONMENTAL ENGINEERING PROFESSOR OPENING NOTES RECEIVED PATIENT IN BED, AWAKE. A/O X4. ABLE TO MAKE NEEDS KNOWN. NO SIGNS OF ACUTE DISTRESS NOTED. ON O2 INHALATION VIA NASAL CANNULA AT 3LPM, TOLERATING WELL. NO SOB, BREATHING EVEN AND UNLABORED.ON TELEMETRY MONITORING WITH CURRENT READING OF SINUS RHYTHM WITH PVC'S HEART RATE OF 87BPM. WITH LEFT UPPER ARM MIDLINE #18G-SALINE LOCKED; INTACT, PATENT AND FLUSHES WELL. WITH RIGHT AV FISTULA-C/D WITH (+) BRUIT). SAFETY MEASURES IN PLACE. BED IN LOW AND LOCKED POSITION. CALL LIGHT AND TABLE WITHIN REACH. SIDE RAILS UP X2. HOB ELEVATED. WILL CONTINUE WITH PLAN OF CARE.
[2023-11-27 11:33] LABS: BASOPHILS # (AUTO) 0.1 K/uL (0.0-0.2); BASOPHILS % (AUTO) 0.9 % (0.0-2.0); EOSINOPHILS # (AUTO) 0.4 K/uL (0.0-0.7); HEMATOCRIT 25 % (33-45); LYMPHOCYTES # (AUTO) 0.4 K/uL (0.8-4.8); LYMPHOCYTES % (AUTO) 3.8 % (20.0-44.0); MEAN CORPUSCULAR HEMOGLOBIN 29 PG (26.0-33.0); MEAN CORPUSCULAR HGB CONC 32 g/dl (31.0-36.0); MEAN CORPUSCULAR VOLUME 91 fL (82-100); MONOCYTES # (AUTO) 0.7 K/uL (0.1-1.30); MONOCYTES % (AUTO) 6.9 % (2.0-12.0); NEUTROPHILS # (AUTO) 8.4 K/uL (1.8-8.9); NEUTROPHILS % (AUTO) 84.4 % (43.0-81.0); PLATELET COUNT (AUTO) 353 K/uL (150-450); RED BLOOD CELL COUNT(AUTO) 2.79 MIL/uL (4.0-5.2); RED CELL DISTRIBUTION WIDTH 19.4 % (11.5-15.0); WHITE BLOOD COUNT (AUTO) 9.9 K/uL (4.3-11.0)
--- NOTE | 2023-11-27 11:55 | NUR ---
RN NOTES PATIENT COMPLAINED OF PAIN IN HER RIGHT LOWER LEG. DILAUDID 0.5MG90.5ml) GIVEN PRN MEDICATION FOR PAIN. KATIE WILSON WITNESSED WASTAGE OF 0.5MG(0.5ML) OUT OF 1MG(1ML) OF DILAUDID IN RX DESTROYER.
--- NOTE | 2023-11-27 11:56 | NUR ---
RN NOTES WITNESSED RN ELOISE WASTED DILAUDID 0.5MG/0.5ML IV OUT OF 1MG/ML.
--- NOTE | 2023-11-27 13:30 | NUR ---
RN NOTES TELEBOX REMOVED PRIOR TO DISCHARGE. RETURNED TO ELEVATOR ATTENDANT FERNAN.
--- NOTE | 2023-11-27 13:35 | NUR ---
CARDIOVASCULAR SPECIALIST NOTES PATIENT WAS SEEN AND ORDERED FOR DISCHARGE BY DR. RENETTA NEWMAN. PATIENT WILL BE DISCHARGE TO HOME. PATIENT IS A/O X4, ON O2 INHALATION AT 3LPM. PATIENT HAS A PORTABLE O2 MACHINE WHICH HER SON DINESH BROUGHT IN. PATIENT SIGNED THE DISCHARGE FORMS-BELONGINGS WERE ACCOUNTED FOR, FORM SIGNED BY PATIENT AND FILED TO CHART. MIDLINE ACCESS AND NAME WRISTBAND REMOVED. WOUND DRESSING CHANGE PRIOR TO DISCHARGE. INSTRUCTED PATIENT TO CONTINUE TAKING HER HOME MEDICATIONS AND FOLLOW THE HEMODIALYSIS SCHEDULE. YAMILEX MONTIEL PICKED UP THE PATIENT IN STABLE CONDITION. PATIENT LEFT THE UNIT VIA WHEELCHAIR WITH SAND CASTER APPRENTICE PLACIDOSEF IN STABLE CONDITION. CHARGE NURSE AND MD MADE AWARE OF THE DISCHARGE.
[2023-11-27 16:15] LABS: ALBUMIN 3.2 g/dL (3.4-5.0); BILIRUBIN,TOTAL 0.4 mg/dL (0.2-1.0); CALCIUM, SERUM 9.7 mg/dL (8.5-10.1); CREATININE 4.4 mg/dL (0.6-1.3); POTASSIUM 4.9 mmol/L (3.5-5.1); TOTAL PROTEIN, SERUM 7.5 g/dL (6.4-8.2)
== END 2023-11-27 15:52 | disposition home health service (06) | DRG 871 ==
LOC: ER 20:17 → TELE1 22:53 → TELE 23:19
PROVIDERS: ADMIT Nurse Practitioner Family; ATTEND Internal Medicine
PROC: 5A1D70Z Performance of Urinary Filtration, Intermittent, Less than 6 Hours Per Day (ICD-10-PCS; principal; 2023-11-21)
PROC: 30233N1 Transfusion of Nonautologous Red Blood Cells into Peripheral Vein, Percutaneous Approach (ICD-10-PCS; 2023-11-24)
DX: A41.9 Sepsis, unspecified organism (principal); J15.9 Unspecified bacterial pneumonia; N18.6 End stage renal disease; L03.115 Cellulitis of right lower limb; I13.2 Hypertensive heart and chronic kidney disease with heart failure and with stage 5 chronic kidney disease, or end stage renal disease; E87.1 Hypo-osmolality and hyponatremia; Z68.42 Body mass index [BMI] 45.0-49.9, adult; J44.0 Chronic obstructive pulmonary disease with (acute) lower respiratory infection; J96.10 Chronic respiratory failure, unspecified whether with hypoxia or hypercapnia; I87.311 Chronic venous hypertension (idiopathic) with ulcer of right lower extremity; L97.818 Non-pressure chronic ulcer of other part of right lower leg with other specified severity; L88 Pyoderma gangrenosum; Z99.2 Dependence on renal dialysis; E87.5 Hyperkalemia; Z86.73 Personal history of transient ischemic attack (TIA), and cerebral infarction without residual deficits; E66.01 Morbid (severe) obesity due to excess calories; E11.22 Type 2 diabetes mellitus with diabetic chronic kidney disease; I50.9 Heart failure, unspecified; Z88.0 Allergy status to penicillin; Z79.4 Long term (current) use of insulin; Z79.51 Long term (current) use of inhaled steroids; Z79.82 Long term (current) use of aspirin; E78.5 Hyperlipidemia, unspecified; I89.0 Lymphedema, not elsewhere classified; I25.10 Atherosclerotic heart disease of native coronary artery without angina pectoris; I87.2 Venous insufficiency (chronic) (peripheral); M10.9 Gout, unspecified; M89.8X9 Other specified disorders of bone, unspecified site; Z79.84 Long term (current) use of oral hypoglycemic drugs; Z87.891 Personal history of nicotine dependence; Z95.1 Presence of aortocoronary bypass graft; Z99.81 Dependence on supplemental oxygen; Z53.20 Procedure and treatment not carried out because of patient's decision for unspecified reasons; R74.01 Elevation of levels of liver transaminase levels; Z79.52 Long term (current) use of systemic steroids; R60.1 Generalized edema; B96.5 Pseudomonas (aeruginosa) (mallei) (pseudomallei) as the cause of diseases classified elsewhere; D64.9 Anemia, unspecified
CPT/HCPCS: 11043; 36415; 71045-TC; 73610-TC; 73630-TC; 80048-TC; 80053-TC; 80076-TC; 80202-TC; 81001; 82962-TC; 83605-TC; 83735-TC; 84100-TC; 84443-TC; 84484-TC; 85025-TC; 85027-TC; 85730-TC; 86140-TC; 86850-TC; 87040-TC; 87081-TC; 87086-TC; 90935-TC; 93307-TC; 93970-TC; 94760-TC; 94761-TC; 94762-TC; 94799-TC; A4223; A6207; A6253; A6403; G0378; J0360; J0692; J1170; J1815; J2270; J2405; J3370; J3490; J7030; J7050; J7060; P9016

== ENCOUNTER 2023-12-04 10:39 | Outpatient (CLI) | payer MEDICARE, OTHER ==
[~2023-12-04 10:39] MED LIST changes: -LEVO500T90 PO; +LIDOCAINE 2% 20 ML MDV ONE
== END 2023-12-04 23:59 | disposition home health service (06) ==
LOC: WOU 10:39
PROVIDERS: ATTEND Student in an Organized Health Care Education/Training Program
DX: I70.232 Atherosclerosis of native arteries of right leg with ulceration of calf (principal); L97.213 Non-pressure chronic ulcer of right calf with necrosis of muscle; L88 Pyoderma gangrenosum; L08.9 Local infection of the skin and subcutaneous tissue, unspecified; R60.0 Localized edema; E11.22 Type 2 diabetes mellitus with diabetic chronic kidney disease; I12.0 Hypertensive chronic kidney disease with stage 5 chronic kidney disease or end stage renal disease; E11.51 Type 2 diabetes mellitus with diabetic peripheral angiopathy without gangrene; N18.6 End stage renal disease; Z99.2 Dependence on renal dialysis; Z79.4 Long term (current) use of insulin
CPT/HCPCS: 11043; J3490

== ENCOUNTER 2023-12-11 18:05 | Emergency (ER) | payer MEDICARE, OTHER ==
[~2023-12-11] VITALS: Ht 162.6 cm; Wt 122.5 kg
[~2023-12-11 18:05] MED LIST changes: -LIDOCAINE 2% 20 ML MDV ONE
[2023-12-11 18:29] VITALS: TEMP 97.9
[2023-12-11 21:05] VITALS: BP 158/107; O2SAT 94
== END 2023-12-11 21:25 | disposition home or self-care (01) ==
LOC: ER 18:10
DX: G89.29 Other chronic pain (principal); M54.59 Other low back pain; I12.9 Hypertensive chronic kidney disease with stage 1 through stage 4 chronic kidney disease, or unspecified chronic kidney disease; E11.22 Type 2 diabetes mellitus with diabetic chronic kidney disease; N18.9 Chronic kidney disease, unspecified; Z86.73 Personal history of transient ischemic attack (TIA), and cerebral infarction without residual deficits; Z87.09 Personal history of other diseases of the respiratory system; Z99.2 Dependence on renal dialysis; Z88.0 Allergy status to penicillin

== ENCOUNTER 2024-05-20 15:34 | Inpatient (IN) | payer MEDICARE, OTHER ==
[~2024-05-20] VITALS: Ht 162.6 cm; Wt 132.0 kg
[2024-05-20 16:28] LABS: ABG BASE EXCESS 2.7 mmol/L (-2.0-3.0); ABG OXYGEN SATURATION 95.8 % (94.0-98.0); ABG PCO2 38.2 mmHg (32.0-45.0); ABG PH 7.462 (7.350-7.450); ABG TOTAL HEMOGLOBIN 7.8 G/dL (12.0-16.0); COHb 1.1 % (0.5-1.5); MetHb 0.3 % (0.0-1.5); O2Hb 94.5 % (94.0-97.0); SITE, ABG LEFT RADIAL
[2024-05-20] MEDS ORDERED: DULA1.5P SQ (16:38)
[2024-05-20] MEDS ORDERED: ZINC220C6 PO (16:39)
[2024-05-20] MEDS ORDERED: MORP15TA PO (16:39)
[2024-05-20] MEDS ORDERED: VIT1TABL46 PO (16:39)
[2024-05-20] MEDS ORDERED: BISA10SU11 RC (16:39)
[2024-05-20] MEDS ORDERED: GLIM1TAB18 PO (16:39)
[2024-05-20] MEDS ORDERED: NA P133E RC (16:39)
[2024-05-20] MEDS ORDERED: METO5TAB7 PO (16:39)
[2024-05-20] MEDS ORDERED: ACET-868 PO (16:39)
[2024-05-20] MEDS ORDERED: ESOM40CA52 PO (16:39)
[2024-05-20] MEDS ORDERED: ASCO-352 PO (16:39)
[2024-05-20] MEDS ORDERED: ICOS1CAP PO (16:39)
[2024-05-20] MEDS ORDERED: HYDR-3980 PO (16:39)
[2024-05-20] MEDS ORDERED: UBRO100T PO (16:39)
[2024-05-20] MEDS ORDERED: MAGN400O6 PO (16:39)
[2024-05-20] MEDS ORDERED: LABE100T5 PO (16:39)
[2024-05-20] MEDS ORDERED: ACET325T53 PO (16:39)
[2024-05-20] MEDS ORDERED: NITR0.4T48 SL (16:39)
[2024-05-20] MEDS ORDERED: SEVE800T7 PO (16:39)
[2024-05-20 16:50] LABS: BASOPHILS # (AUTO) 0.1 K/uL (0.0-0.2); BASOPHILS % (AUTO) 1.1 % (0.0-2.0); EOSINOPHILS # (AUTO) 0.1 K/uL (0.0-0.7); EOSINOPHILS % (AUTO) 0.9 % (0.0-6.0); HEMATOCRIT 23 % (33-45); HEMOGLOBIN 7.1 g/dL (11.5-14.8); LYMPHOCYTES # (AUTO) 0.5 K/uL (0.8-4.8); LYMPHOCYTES % (AUTO) 4.4 % (20.0-44.0); MEAN CORPUSCULAR HEMOGLOBIN 30 PG (26.0-33.0); MEAN CORPUSCULAR HGB CONC 31 g/dl (31.0-36.0); MEAN CORPUSCULAR VOLUME 95 fL (82-100); MONOCYTES # (AUTO) 1.2 K/uL (0.1-1.30); MONOCYTES % (AUTO) 10.9 % (2.0-12.0); NEUTROPHILS # (AUTO) 9.3 K/uL (1.8-8.9); NEUTROPHILS % (AUTO) 82.7 % (43.0-81.0); PLATELET COUNT (AUTO) 416 K/uL (150-450); RED BLOOD CELL COUNT(AUTO) 2.41 MIL/uL (4.0-5.2); WHITE BLOOD COUNT (AUTO) 11.3 K/uL (4.3-11.0)
[2024-05-20 16:59] LABS: ALANINE AMINOTRANSFERASE 30 U/L (12-78); ALBUMIN 2.3 g/dL (3.4-5.0); ALKALINE PHOSPHATASE 425 U/L (46-116); ASPARTATE AMINOTRANSFERASE 34 U/L (15-37); BILIRUBIN,DIRECT 0.3 mg/dL (0.0-0.2); BILIRUBIN,TOTAL 0.6 mg/dL (0.2-1.0); CARBON DIOXIDE 29 mmol/L (21-32); CHLORIDE 92 mmol/L (98-107); CREATININE 3.9 mg/dL (0.6-1.3); GLUCOSE 213 mg/dL (74-106); LACTIC ACID 0.9 mmol/L (0.4-2.0); SODIUM SERUM 128 mmol/L (136-145); TOTAL PROTEIN, SERUM 6.5 g/dL (6.4-8.2); UREA NITROGEN, BLOOD 34 mg/dL (7-18)
[2024-05-20] MEDS ORDERED: ONDANSETRON HCL/PF 4 MG/2 ML VIAL ONE (17:31)
[2024-05-20] MEDS ORDERED: MORPHINE SULFATE INJ 4 MG/ML DISP.SYRIN ONE (17:31)
[2024-05-20] MEDS: ONDANSETRON HCL/PF 4 MG/2 ML VIAL IV ONE (17:41)
[2024-05-20] MEDS: MORPHINE SULFATE INJ 2 MG/ML DISP.SYRIN IV ONE (17:41)
[2024-05-20 20:00] VITALS: BP_SYST 133; BP_SYST 139; BP_DIAS 53; TEMP 97.7; O2SAT 97
[2024-05-20] MEDS ORDERED: ONDANSETRON HCL/PF 4 MG/2 ML VIAL IVP PRN (20:00)
[2024-05-20] MEDS ORDERED: NA PHOS,M-B/NA PHOS,DI-BA 1 EA ENEMA RC PRN (20:00)
[2024-05-20] MEDS ORDERED: MAG HYDROX/AL HYDROX/SIMETH 30 ML UDC PO PRN (20:00)
[2024-05-20] MEDS ORDERED: DEXTROSE 50%-WATER 50 ML DISP.SYRIN IV PRN (20:00)
[2024-05-20] MEDS ORDERED: ACETAMINOPHEN 325 MG TABLET PO PRN ×2 (20:00)
[2024-05-20] MEDS ORDERED: MORPHINE SULFATE IR 15 MG TABLET PO PRN (20:00)
[2024-05-20] MEDS ORDERED: NITROGLYCERIN 0.4 MG/TAB BOTTLE SL PRN (20:00)
[2024-05-20] MEDS: INSULIN GLARGINE, 100 UNIT/ML CARTRIDGE SQ SCH (21:00)
[2024-05-20] MEDS: MORPHINE SULFATE INJ 4 MG/ML DISP.SYRIN IV PRN (21:59)
[2024-05-20] MEDS: GABAPENTIN 300 MG CAPSULE PO SCH (22:44)
[2024-05-20] MEDS: MONTELUKAST SODIUM (10MG) 10 MG TABLET PO SCH (22:44)
[2024-05-20] MEDS: BLOOD SUGAR DIAGNOSTIC 1 EACH STRIP VI SCH (22:50)
[2024-05-20] MEDS: INSULIN REGULAR, HUMAN 100 UNIT/ML 3 ML VIAL SQ PRN (22:50)
[2024-05-20] MEDS ORDERED: HEPARIN SODIUM, PORCINE 5000 UNITS/1 ML VIAL SQ SCH (23:30)
[2024-05-20] MEDS: diphenhydrAMINE HCL 25 MG CAPSULE PO ONE (23:46)
[2024-05-21] VITALS (8 sets, daily range): BP systolic 106–157; BP diastolic 46–88; TEMP 97.9–98.6; O2SAT 97–100
[2024-05-21] MEDS: HYDROCODONE/APAP 10/325MG TABLET PO PRN (07:58)
[2024-05-21] MEDS: SERTRALINE HCL 25 MG TABLET PO SCH (08:33)
[2024-05-21] MEDS: METOLAZONE 2.5 MG TABLET PO SCH (08:33)
[2024-05-21] MEDS: SEVELAMER CARBONATE 800 MG TABLET PO SCH (08:33)
[2024-05-21] MEDS: FUROSEMIDE 40 MG/4 ML VIAL IV SCH (08:33)
[2024-05-21] MEDS: hydrALAZINE HCL 50 MG TABLET PO SCH (08:41)
[2024-05-21] MEDS: CLONIDINE HCL 0.1 MG TABLET PO SCH (08:41)
[2024-05-21] MEDS: NIFEdipine XL (30MG) 30 MG TAB PO SCH (08:43)
[2024-05-21] MEDS: LABETALOL HCL (100MG) 100 MG TABLET PO SCH (08:43)
[2024-05-21 10:48] LABS: BASOPHILS # (AUTO) 0.1 K/uL (0.0-0.2); BASOPHILS % (AUTO) 0.8 % (0.0-2.0); EOSINOPHILS # (AUTO) 0.3 K/uL (0.0-0.7); EOSINOPHILS % (AUTO) 3.1 % (0.0-6.0); HEMATOCRIT 22 % (33-45); LYMPHOCYTES # (AUTO) 0.5 K/uL (0.8-4.8); MEAN CORPUSCULAR HEMOGLOBIN 30 PG (26.0-33.0); MEAN CORPUSCULAR HGB CONC 32 g/dl (31.0-36.0); MEAN CORPUSCULAR VOLUME 95 fL (82-100); MONOCYTES # (AUTO) 1.3 K/uL (0.1-1.30); MONOCYTES % (AUTO) 12.5 % (2.0-12.0); NEUTROPHILS # (AUTO) 8.2 K/uL (1.8-8.9); NEUTROPHILS % (AUTO) 78.6 % (43.0-81.0); PLATELET COUNT (AUTO) 440 K/uL (150-450); RED BLOOD CELL COUNT(AUTO) 2.32 MIL/uL (4.0-5.2); RED CELL DISTRIBUTION WIDTH 18.7 % (11.5-15.0); WHITE BLOOD COUNT (AUTO) 10.4 K/uL (4.3-11.0)
[2024-05-21 10:52] LABS: CALCIUM, SERUM 9.1 mg/dL (8.5-10.1); CREATININE 4.4 mg/dL (0.6-1.3); MAGNESIUM 1.9 mg/dL (1.8-2.4); PHOSPHORUS 5.2 mg/dL (2.5-4.9); POTASSIUM 5.1 mmol/L (3.5-5.1)
[2024-05-21] MEDS: THERAHONEY GEL 1.5 OZ TUBE TP SCH (11:02)
[2024-05-21] MEDS: Z GUARD REMEDY 4 OZ OINT TP PRN (11:02)
[2024-05-21] MEDS: LIDOCAINE 5% OINT 35.44 GM TUBE TP SCH (13:41)
[2024-05-22] VITALS: BP 162/91; TEMP 98.1; O2SAT 98
[2024-05-22 04:00] VITALS: BP 161/89; TEMP 97.5; O2SAT 99
[2024-05-22] MEDS: NYSTATIN/TRIAMCIN CREAM 15 GM TUBE TP SCH (09:01)
[2024-05-22] MEDS: ASPIRIN 81 MG TAB.CHEW PO SCH (10:20)
[2024-05-22 20:00] VITALS: BP 129/66; TEMP 98.6; O2SAT 97
[2024-05-22] MEDS: *INSULIN REGULAR(HUMULIN R)HUM 100 UNIT/ML VIAL SQ PRN (21:18)
[2024-05-23] VITALS: BP_SYST 126; BP_SYST 129; BP_DIAS 82; TEMP 97.9; O2SAT 100
[2024-05-23 04:00] VITALS: BP 113/80; TEMP 97.7; O2SAT 94
[2024-05-23 08:00] VITALS: BP 126/70; TEMP 97.5; O2SAT 99
[2024-05-23 12:00] VITALS: BP 118/66; TEMP 97.9; O2SAT 98
[2024-05-23 12:09] LABS: BASOPHILS # (AUTO) 0.1 K/uL (0.0-0.2); BASOPHILS % (AUTO) 0.8 % (0.0-2.0); EOSINOPHILS # (AUTO) 0.3 K/uL (0.0-0.7); EOSINOPHILS % (AUTO) 3.1 % (0.0-6.0); HEMATOCRIT 24 % (33-45); HEMOGLOBIN 7.1 g/dL (11.5-14.8); LYMPHOCYTES # (AUTO) 0.6 K/uL (0.8-4.8); LYMPHOCYTES % (AUTO) 6.6 % (20.0-44.0); MEAN CORPUSCULAR HEMOGLOBIN 31 PG (26.0-33.0); MEAN CORPUSCULAR HGB CONC 30 g/dl (31.0-36.0); MEAN CORPUSCULAR VOLUME 104 fL (82-100); MONOCYTES # (AUTO) 1.2 K/uL (0.1-1.30); MONOCYTES % (AUTO) 12.2 % (2.0-12.0); NEUTROPHILS # (AUTO) 7.4 K/uL (1.8-8.9); NEUTROPHILS % (AUTO) 77.3 % (43.0-81.0); PLATELET COUNT (AUTO) 468 K/uL (150-450); RED BLOOD CELL COUNT(AUTO) 2.33 MIL/uL (4.0-5.2); RED CELL DISTRIBUTION WIDTH 19.3 % (11.5-15.0); WHITE BLOOD COUNT (AUTO) 9.6 K/uL (4.3-11.0)
[2024-05-23 12:15] LABS: CREATININE 5.1 mg/dL (0.6-1.3); POTASSIUM 5.1 mmol/L (3.5-5.1)
[2024-05-23] MEDS: DAKINS HALF STRENGTH (0.25%) 480 ML BOTTLE TOP SCH (15:30)
[2024-05-23 16:00] VITALS: BP 123/66; TEMP 98; O2SAT 95
[2024-05-23] MEDS: MAGNESIUM HYDROXIDE 30 ML UDC PO PRN (17:41)
[2024-05-23 21:30] VITALS: BP 128/90; TEMP 99.3; O2SAT 95
[2024-05-24] VITALS (9 sets, daily range): BP systolic 113–147; BP diastolic 56–67; TEMP 97.6–98.6; O2SAT 95–100
[2024-05-24] MEDS: diphenhydrAMINE HCL 25 MG CAPSULE PO PRN (01:03)
[2024-05-24] MEDS: BUPIVACAINE 0.25% 75 MG/30 ML VIAL IJ ONE (09:00)
[2024-05-24] MEDS ORDERED: MERO1VIA23 IV (15:58)
[2024-05-25] VITALS: BP 117/61; TEMP 98.1; O2SAT 100
[2024-05-25 04:00] VITALS: BP 135/62; TEMP 98.1; O2SAT 99
[2024-05-25 08:00] VITALS: BP 128/45; TEMP 97.7; O2SAT 98
[2024-05-25 16:00] VITALS: BP 124/73; TEMP 98.6; O2SAT 94
[2024-05-25 21:50] VITALS: BP 122/97; TEMP 98.2; O2SAT 99
[2024-05-26] VITALS (7 sets, daily range): BP systolic 126–170; BP diastolic 57–90; TEMP 97.8–98.6; O2SAT 97–99
[2024-05-26] MEDS: MEROPENEM 1 G in IV NS 0.9% 100 ML IV ONE (07:54)
[2024-05-26] MEDS ORDERED: HYDR-3980 PO (18:19)
== END 2024-05-26 18:33 | disposition home health service (06) | DRG 264 ==
LOC: ER 15:43 → TELE 18:23 → MED 05-26 18:33
PROVIDERS: ADMIT Internal Medicine; ATTEND Internal Medicine
PROC: 5A1D70Z Performance of Urinary Filtration, Intermittent, Less than 6 Hours Per Day (ICD-10-PCS; 2024-05-21)
PROC: 0JBP0ZZ Excision of Left Lower Leg Subcutaneous Tissue and Fascia, Open Approach (ICD-10-PCS; principal; 2024-05-24)
PROC: 0JBN0ZZ Excision of Right Lower Leg Subcutaneous Tissue and Fascia, Open Approach (ICD-10-PCS; 2024-05-24)
DX: I13.2 Hypertensive heart and chronic kidney disease with heart failure and with stage 5 chronic kidney disease, or end stage renal disease (principal); J96.01 Acute respiratory failure with hypoxia; I50.23 Acute on chronic systolic (congestive) heart failure; N18.6 End stage renal disease; L97.923 Non-pressure chronic ulcer of unspecified part of left lower leg with necrosis of muscle; L97.913 Non-pressure chronic ulcer of unspecified part of right lower leg with necrosis of muscle; L03.115 Cellulitis of right lower limb; L03.116 Cellulitis of left lower limb; I87.313 Chronic venous hypertension (idiopathic) with ulcer of bilateral lower extremity; E87.1 Hypo-osmolality and hyponatremia; Z68.41 Body mass index [BMI] 40.0-44.9, adult; E44.0 Moderate protein-calorie malnutrition; Z99.2 Dependence on renal dialysis; Z20.822 Contact with and (suspected) exposure to COVID-19; E11.22 Type 2 diabetes mellitus with diabetic chronic kidney disease; E88.09 Other disorders of plasma-protein metabolism, not elsewhere classified; I25.10 Atherosclerotic heart disease of native coronary artery without angina pectoris; Z86.718 Personal history of other venous thrombosis and embolism; Z98.890 Other specified postprocedural states; Z88.0 Allergy status to penicillin; Z95.1 Presence of aortocoronary bypass graft; Z79.84 Long term (current) use of oral hypoglycemic drugs; Z79.4 Long term (current) use of insulin; Z79.899 Other long term (current) drug therapy; Z87.891 Personal history of nicotine dependence; Z86.73 Personal history of transient ischemic attack (TIA), and cerebral infarction without residual deficits; Z82.49 Family history of ischemic heart disease and other diseases of the circulatory system; M89.8X9 Other specified disorders of bone, unspecified site; E78.5 Hyperlipidemia, unspecified; L89.890 Pressure ulcer of other site, unstageable; L89.210 Pressure ulcer of right hip, unstageable; E66.01 Morbid (severe) obesity due to excess calories; E86.1 Hypovolemia; D63.8 Anemia in other chronic diseases classified elsewhere; L98.9 Disorder of the skin and subcutaneous tissue, unspecified; S70.222A Blister (nonthermal), left hip, initial encounter; S30.820A Blister (nonthermal) of lower back and pelvis, initial encounter; X58.XXXA Exposure to other specified factors, initial encounter; Y92.9 Unspecified place or not applicable; T24.012A Burn of unspecified degree of left thigh, initial encounter; T31.0 Burns involving less than 10% of body surface; X08.8XXA Exposure to other specified smoke, fire and flames, initial encounter; R53.1 Weakness
CPT/HCPCS: 36415; 36600; 71045-TC; 80048-TC; 80076-TC; 82803-TC; 82962-TC; 83605-TC; 83735-TC; 83880; 84100-TC; 84484-TC; 85025-TC; 85378-TC; 87040-TC; 90935-TC; 93970-TC; 94799-TC; 97110-TC; 97116-TC; 97530-TC; A4223; A6253; A6403; G0378; J1815; J1940; J2185; J2270; J2405; J3490; J7030; Q0163

== ENCOUNTER 2024-06-03 00:46 | Inpatient (IN) | payer MEDICARE, OTHER ==
[~2024-06-03] VITALS: Ht 162.6 cm; Wt 132.0 kg
[~2024-06-03 00:46] MED LIST changes: +ACET-868 PO; +ACET325T53 PO; -ALBU18HF2 IH; -ALLO300T2 PO; +ASCO-352 PO; -ASPI-1420 PO; +BISA10SU11 RC; -BISA5TAB10 PO; -BISO5TAB20 PO; -CALC667C6 PO; -DOCU250C21 PO; +DULA1.5P SQ; +ESOM40CA52 PO; -FLUT1BLS IH; +GLIM1TAB18 PO; -GLIM4TAB37 PO; +HYDR-3980 PO; +ICOS1CAP PO; +LABE100T5 PO; -LORA-259 PO; +MAGN400O6 PO; +MERO1VIA23 IV; +METO5TAB7 PO; +MORP15TA PO; +NA P133E RC; +NITR0.4T48 SL; -OMEG1CAP PO; -PANT40TA2 PO; -REPA1TAB7 PO; +SEVE800T7 PO; +UBRO100T PO; +VIT1TABL46 PO; +ZINC220C6 PO
[2024-06-03] MEDS ORDERED: FUROSEMIDE 40 MG/4 ML VIAL ONE (01:11)
[2024-06-03] MEDS ORDERED: ASPIRIN EC 325 MG TABLET.DR PO ONE (01:11)
[2024-06-03] MEDS ORDERED: MORPHINE SULFATE INJ 2 MG/ML DISP.SYRIN ONE (01:11)
[2024-06-03] MEDS: FUROSEMIDE 40 MG/4 ML VIAL IV ONE (01:12)
[2024-06-03] MEDS: MORPHINE SULFATE INJ 2 MG/ML DISP.SYRIN IV ONE ×2 (01:12→02:51)
[2024-06-03] MEDS: ASPIRIN 325 MG TABLET PO ONE (01:12)
[2024-06-03 01:29] LABS: BASOPHILS # (AUTO) 0.1 K/uL (0.0-0.2); BASOPHILS % (AUTO) 0.3 % (0.0-2.0); EOSINOPHILS % (AUTO) 5.9 % (0.0-6.0); HEMATOCRIT 29 % (33-45); HEMOGLOBIN 8.9 g/dL (11.5-14.8); LYMPHOCYTES # (AUTO) 0.7 K/uL (0.8-4.8); LYMPHOCYTES % (AUTO) 4.4 % (20.0-44.0); MEAN CORPUSCULAR HEMOGLOBIN 29 PG (26.0-33.0); MEAN CORPUSCULAR HGB CONC 31 g/dl (31.0-36.0); MEAN CORPUSCULAR VOLUME 96 fL (82-100); MONOCYTES # (AUTO) 1.4 K/uL (0.1-1.30); MONOCYTES % (AUTO) 8.5 % (2.0-12.0); NEUTROPHILS % (AUTO) 80.9 % (43.0-81.0); PLATELET COUNT (AUTO) 651 K/uL (150-450); RED BLOOD CELL COUNT(AUTO) 3.02 MIL/uL (4.0-5.2); RED CELL DISTRIBUTION WIDTH 18.8 % (11.5-15.0); WHITE BLOOD COUNT (AUTO) 16.1 K/uL (4.3-11.0)
[2024-06-03 01:57] LABS: CALCIUM, SERUM 8.8 mg/dL (8.5-10.1); CARBON DIOXIDE 28 mmol/L (21-32); CHLORIDE 96 mmol/L (98-107); CREATININE 4.9 mg/dL (0.6-1.3); GLUCOSE 171 mg/dL (74-106); POTASSIUM 3.5 mmol/L (3.5-5.1); SODIUM SERUM 133 mmol/L (136-145); UREA NITROGEN, BLOOD 34 mg/dL (7-18)
[2024-06-03 02:11] LABS: ALANINE AMINOTRANSFERASE 10 U/L (12-78); ALBUMIN 2.5 g/dL (3.4-5.0); ALKALINE PHOSPHATASE 285 U/L (46-116); ASPARTATE AMINOTRANSFERASE 16 U/L (15-37); BILIRUBIN,DIRECT 0.2 mg/dL (0.0-0.2); BILIRUBIN,TOTAL 0.4 mg/dL (0.2-1.0); NT-PRO BNP 21291 pg/mL (0-125)
[2024-06-03] MEDS ORDERED: ONDANSETRON HCL/PF 4 MG/2 ML VIAL IVP PRN (02:30)
[2024-06-03] MEDS ORDERED: NITROGLYCERIN 0.4 MG/TAB BOTTLE SL PRN ×2 (02:30→10:00)
[2024-06-03] MEDS ORDERED: MAG HYDROX/AL HYDROX/SIMETH 30 ML UDC PO PRN (02:30)
[2024-06-03] MEDS ORDERED: MAGNESIUM HYDROXIDE 30 ML UDC PO PRN (02:30)
[2024-06-03] MEDS ORDERED: MORPHINE SULFATE INJ 4 MG/ML DISP.SYRIN IV PRN (02:30)
[2024-06-03] MEDS ORDERED: hydrALAZINE HCL IV 20 MG VIAL ONE (03:12)
[2024-06-03] MEDS: hydrALAZINE HCL IV 20 MG VIAL IV ONE (03:14)
[2024-06-03] MEDS: BLOOD SUGAR DIAGNOSTIC 1 EACH STRIP IN SCH (07:30)
[2024-06-03 08:44] LABS: MAGNESIUM 2.1 mg/dL (1.8-2.4); PHOSPHORUS 3.9 mg/dL (2.5-4.9)
[2024-06-03] MEDS: FUROSEMIDE 40 MG/4 ML VIAL IV SCH (09:39)
[2024-06-03] MEDS: HEPARIN SODIUM, PORCINE 5000 UNITS/1 ML VIAL SQ SCH (09:40)
[2024-06-03 10:00] VITALS: BP 160/88; TEMP 98.2; O2SAT 100
[2024-06-03] MEDS: MORPHINE SULFATE INJ 2 MG/ML DISP.SYRIN IM PRN (11:01)
[2024-06-03] MEDS: CLONIDINE HCL 0.1 MG TABLET PO SCH (11:01)
[2024-06-03] MEDS ORDERED: CLONIDINE HCL 0.3 MG/24H PTWK 1 EA PATCH TD SCH (12:00)
[2024-06-03] MEDS: ACETAMINOPHEN 325 MG TABLET PO PRN (12:32)
[2024-06-03] MEDS: SEVELAMER CARBONATE 800 MG TABLET PO SCH (12:51)
[2024-06-03] MEDS: hydrALAZINE HCL 50 MG TABLET PO SCH (12:51)
[2024-06-03 14:00] VITALS: BP 148/85; TEMP 97.7; O2SAT 100
[2024-06-03] MEDS ORDERED: Medication Not On Formulary EA (Icosapent Ethyl (Vascepa) 1 GM) PO SCH (17:00)
[2024-06-03] MEDS: NIFEDIPINE XL 60 MG TAB.ER.24 PO SCH (17:10)
[2024-06-03] MEDS: GLIMEPIRIDE 1 MG TABLET PO SCH (17:11)
[2024-06-03] MEDS: LABETALOL HCL (100MG) 100 MG TABLET PO SCH (17:11)
[2024-06-03] MEDS: FERROUS SULFATE (325 MG) 325 MG/TAB TABLET PO SCH (17:11)
[2024-06-03] MEDS: COLCHICINE 0.6 MG TABLET PO SCH (17:11)
[2024-06-03 18:00] VITALS: BP 180/85; TEMP 97.9; O2SAT 100
[2024-06-03] MEDS: MORPHINE SULFATE INJ 2 MG/ML DISP.SYRIN IV PRN (18:16)
[2024-06-03] MEDS: IPRATROPIUM NEB FS 0.5 MG/2.5 ML AMPUL.NEB NEB SCH (19:46)
[2024-06-03] MEDS: ALBUTEROL HALF STRENGTH 1.25 MG/3 ML VIAL.NEB NEB SCH (19:46)
[2024-06-03 19:47] VITALS: O2SAT 100
[2024-06-03 20:02] VITALS: O2SAT 100
[2024-06-03] MEDS: INSULIN GLARGINE, 100 UNIT/ML CARTRIDGE SQ SCH (21:55)
[2024-06-03] MEDS: GABAPENTIN 300 MG CAPSULE PO SCH (21:56)
[2024-06-03] MEDS: MONTELUKAST SODIUM (10MG) 10 MG TABLET PO SCH (21:57)
[2024-06-03 22:00] VITALS: BP 151/75; TEMP 98.2; O2SAT 99
[2024-06-03] MEDS ORDERED: GELATIN SPONGE,ABSORBABLE 1 EA SPONGE TP ONE (23:27)
[2024-06-04] VITALS (13 sets, daily range): BP systolic 121–154; BP diastolic 55–83; TEMP 97.7–98.2; O2SAT 95–100
[2024-06-04] MEDS: HYDROCODONE/APAP 10/325MG TABLET PO PRN (00:34)
[2024-06-04] MEDS: SERTRALINE HCL 25 MG TABLET PO SCH (08:18)
[2024-06-04] MEDS: SUMATRIPTAN SUCCINATE 25 MG TABLET PO SCH (08:19)
[2024-06-04] MEDS: DEXTROSE 50%-WATER 50 ML DISP.SYRIN IV PRN (17:00)
[2024-06-04 18:15] LABS: BASOPHILS # (AUTO) 0.2 K/uL (0.0-0.2); BASOPHILS % (AUTO) 1.3 % (0.0-2.0); EOSINOPHILS # (AUTO) 0.8 K/uL (0.0-0.7); EOSINOPHILS % (AUTO) 5.4 % (0.0-6.0); HEMATOCRIT 28 % (33-45); HEMOGLOBIN 8.7 g/dL (11.5-14.8); LYMPHOCYTES # (AUTO) 0.9 K/uL (0.8-4.8); MEAN CORPUSCULAR HEMOGLOBIN 30 PG (26.0-33.0); MEAN CORPUSCULAR HGB CONC 31 g/dl (31.0-36.0); MEAN CORPUSCULAR VOLUME 97 fL (82-100); MONOCYTES # (AUTO) 1.4 K/uL (0.1-1.30); MONOCYTES % (AUTO) 9.5 % (2.0-12.0); NEUTROPHILS # (AUTO) 11.3 K/uL (1.8-8.9); NEUTROPHILS % (AUTO) 77.8 % (43.0-81.0); PLATELET COUNT (AUTO) 578 K/uL (150-450); RED BLOOD CELL COUNT(AUTO) 2.89 MIL/uL (4.0-5.2); RED CELL DISTRIBUTION WIDTH 19.1 % (11.5-15.0); WHITE BLOOD COUNT (AUTO) 14.5 K/uL (4.3-11.0)
[2024-06-04 18:28] LABS: CALCIUM, SERUM 8.7 mg/dL (8.5-10.1); CREATININE 2.2 mg/dL (0.6-1.3); POTASSIUM 4.2 mmol/L (3.5-5.1)
[2024-06-04 18:34] LABS: INR 1.07 (0.91-1.10); PROTHROMBIN TIME 11.3 SECS (9.2-11.1)
[2024-06-04 18:36] LABS: PHOSPHORUS 1.8 mg/dL (2.5-4.9)
[2024-06-04] MEDS: INSULIN REGULAR, HUMAN 100 UNIT/ML 3 ML VIAL SQ PRN (21:39)
[2024-06-04] MEDS: LORATADINE 10 MG TABLET PO SCH (22:39)
[2024-06-05] VITALS (10 sets, daily range): BP systolic 126–166; BP diastolic 56–91; TEMP 97.5–98.4; O2SAT 99–100
[2024-06-05] MEDS: LIDOCAINE 5% OINT 35.44 GM TUBE TP SCH (09:02)
[2024-06-05 12:21] LABS: BASOPHILS # (AUTO) 0.2 K/uL (0.0-0.2); BASOPHILS % (AUTO) 1.3 % (0.0-2.0); EOSINOPHILS # (AUTO) 0.9 K/uL (0.0-0.7); EOSINOPHILS % (AUTO) 6.8 % (0.0-6.0); HEMATOCRIT 28 % (33-45); HEMOGLOBIN 8.5 g/dL (11.5-14.8); LYMPHOCYTES % (AUTO) 6.8 % (20.0-44.0); MEAN CORPUSCULAR HEMOGLOBIN 30 PG (26.0-33.0); MEAN CORPUSCULAR HGB CONC 31 g/dl (31.0-36.0); MEAN CORPUSCULAR VOLUME 97 fL (82-100); MONOCYTES # (AUTO) 1.7 K/uL (0.1-1.30); MONOCYTES % (AUTO) 12.2 % (2.0-12.0); NEUTROPHILS # (AUTO) 10.1 K/uL (1.8-8.9); NEUTROPHILS % (AUTO) 72.9 % (43.0-81.0); PLATELET COUNT (AUTO) 522 K/uL (150-450); RED BLOOD CELL COUNT(AUTO) 2.87 MIL/uL (4.0-5.2); RED CELL DISTRIBUTION WIDTH 19.2 % (11.5-15.0); WHITE BLOOD COUNT (AUTO) 13.9 K/uL (4.3-11.0)
[2024-06-05 12:40] LABS: CALCIUM, SERUM 9.1 mg/dL (8.5-10.1); CREATININE 3.9 mg/dL (0.6-1.3); MAGNESIUM 2.2 mg/dL (1.8-2.4); PHOSPHORUS 3.6 mg/dL (2.5-4.9); POTASSIUM 5.2 mmol/L (3.5-5.1)
[2024-06-05] MEDS: PROSOURCE / PROSTAT (PYXIS) 30 ML UDC PO SCH (13:03)
[2024-06-06] VITALS (9 sets, daily range): BP systolic 140–160; BP diastolic 64–80; TEMP 96.8–98.4; O2SAT 98–100
[2024-06-06 22:08] LABS: BASOPHILS # (AUTO) 0.1 K/uL (0.0-0.2); BASOPHILS % (AUTO) 1.4 % (0.0-2.0); EOSINOPHILS # (AUTO) 0.8 K/uL (0.0-0.7); EOSINOPHILS % (AUTO) 7.9 % (0.0-6.0); HEMATOCRIT 26 % (33-45); HEMOGLOBIN 8.4 g/dL (11.5-14.8); LYMPHOCYTES # (AUTO) 0.8 K/uL (0.8-4.8); LYMPHOCYTES % (AUTO) 7.9 % (20.0-44.0); MEAN CORPUSCULAR HEMOGLOBIN 31 PG (26.0-33.0); MEAN CORPUSCULAR HGB CONC 32 g/dl (31.0-36.0); MEAN CORPUSCULAR VOLUME 96 fL (82-100); MONOCYTES # (AUTO) 1.2 K/uL (0.1-1.30); NEUTROPHILS # (AUTO) 7.3 K/uL (1.8-8.9); NEUTROPHILS % (AUTO) 70.8 % (43.0-81.0); PLATELET COUNT (AUTO) 520 K/uL (150-450); RED BLOOD CELL COUNT(AUTO) 2.73 MIL/uL (4.0-5.2); RED CELL DISTRIBUTION WIDTH 19.6 % (11.5-15.0); WHITE BLOOD COUNT (AUTO) 10.3 K/uL (4.3-11.0)
[2024-06-06 22:16] LABS: CALCIUM, SERUM 8.8 mg/dL (8.5-10.1); CREATININE 4.1 mg/dL (0.6-1.3); POTASSIUM 5.6 mmol/L (3.5-5.1)
[2024-06-07] VITALS (8 sets, daily range): BP systolic 136–158; BP diastolic 59–85; TEMP 97.5–98.9; O2SAT 98–100
[2024-06-07] MEDS: DAKINS QUARTER STRENGTH (0.125%) 480 ML BOTTLE TOP SCH (12:21)
[2024-06-07] MEDS: MEROPENEM 500 MG in IV NS 0.9% 50 ML IV SCH (20:24)
[2024-06-08] VITALS (10 sets, daily range): BP systolic 113–151; BP diastolic 59–93; TEMP 97.5–99.1; O2SAT 96–100
[2024-06-08] MEDS: LORATADINE 10 MG TABLET PO ONE (01:30)
[2024-06-08] MEDS: INSULIN GLARGINE, 100 UNIT/ML CARTRIDGE SQ SCH (09:00)
[2024-06-09] VITALS (10 sets, daily range): BP systolic 116–152; BP diastolic 66–79; TEMP 97.3–98.8; O2SAT 97–100
[2024-06-09 07:48] LABS: HEMATOCRIT 26 % (33-45); HEMOGLOBIN 7.9 g/dL (11.5-14.8); MEAN CORPUSCULAR HEMOGLOBIN 29 PG (26.0-33.0); MEAN CORPUSCULAR HGB CONC 31 g/dl (31.0-36.0); MEAN CORPUSCULAR VOLUME 97 fL (82-100); RED BLOOD CELL COUNT(AUTO) 2.67 MIL/uL (4.0-5.2); RED CELL DISTRIBUTION WIDTH 19.5 % (11.5-15.0); WHITE BLOOD COUNT (AUTO) 11.7 K/uL (4.3-11.0)
[2024-06-09 07:49] LABS: BASOPHILS # (AUTO) 0.1 K/uL (0.0-0.2); BASOPHILS % (AUTO) 0.7 % (0.0-2.0); EOSINOPHILS % (AUTO) 8.4 % (0.0-6.0); LYMPHOCYTES # (AUTO) 0.8 K/uL (0.8-4.8); LYMPHOCYTES % (AUTO) 7.2 % (20.0-44.0); MONOCYTES # (AUTO) 1.6 K/uL (0.1-1.30); MONOCYTES % (AUTO) 13.6 % (2.0-12.0); NEUTROPHILS # (AUTO) 8.2 K/uL (1.8-8.9); NEUTROPHILS % (AUTO) 70.1 % (43.0-81.0); PLATELET COUNT (AUTO) 442 K/uL (150-450)
[2024-06-09 07:58] LABS: CALCIUM, SERUM 9.2 mg/dL (8.5-10.1); CREATININE 4.3 mg/dL (0.6-1.3)
[2024-06-09 09:58] LABS: POTASSIUM 6.6 mmol/L (3.5-5.1)
[2024-06-09] MEDS: SODIUM ZIRCONIUM CYCLOSILICATE 10 GM POWD.PACK PO ONE (11:11)
[2024-06-09 19:22] LABS: CALCIUM, SERUM 9.2 mg/dL (8.5-10.1); CREATININE 3.2 mg/dL (0.6-1.3); POTASSIUM 4.9 mmol/L (3.5-5.1)
[2024-06-10] VITALS: BP 151/79; TEMP 99; O2SAT 100
[2024-06-10] MEDS: MORPHINE SULFATE INJ 2 MG/ML DISP.SYRIN ONE (02:38)
[2024-06-10 04:00] VITALS: BP 153/82; TEMP 98.4; O2SAT 100
[2024-06-10] MEDS: MORPHINE SULFATE INJ 4 MG/ML DISP.SYRIN IV PRN (08:54)
[2024-06-10 09:20] VITALS: BP 144/67
[2024-06-10] MEDS: BUPIVACAINE HCL/PF 50 MG/10 ML VIAL IJ ONE (09:29)
[2024-06-10] MEDS ORDERED: SEVE800T7 PO (09:52)
[2024-06-10] MEDS ORDERED: SUMA25TA PO (09:52)
[2024-06-10] MEDS ORDERED: ERTA1VIA4 IJ (09:52)
[2024-06-10] MEDS ORDERED: Prosource PO (09:52)
[2024-06-10] MEDS ORDERED: NITR0.4T48 SL (09:52)
[2024-06-10] MEDS ORDERED: GABA300C PO (09:52)
[2024-06-10] MEDS ORDERED: Colchicine PO (09:52)
[2024-06-10] MEDS ORDERED: IPRA0.2S9 NEB (09:52)
[2024-06-10] MEDS ORDERED: ACET325T53 PO (09:52)
[2024-06-10] MEDS ORDERED: GLIM1TAB PO (09:52)
[2024-06-10] MEDS ORDERED: SODI473S8 TOP (09:52)
[2024-06-10] MEDS ORDERED: LIDO35.4 TP (09:52)
[2024-06-10] MEDS ORDERED: CLON0.3P TD (09:52)
[2024-06-10] MEDS ORDERED: FERR325T28 PO (09:52)
[2024-06-10] MEDS ORDERED: SERT25TA5 PO (09:52)
[2024-06-10] MEDS ORDERED: Blood Sugar Diagnostic IN (09:52)
[2024-06-10] MEDS ORDERED: LORA10TA7 PO (09:52)
[2024-06-10] MEDS ORDERED: HYDR-4077 PO (09:52)
[2024-06-10] MEDS ORDERED: NIFE-34 PO (09:52)
[2024-06-10] MEDS ORDERED: HYDR-3980 PO (09:52)
[2024-06-10] MEDS ORDERED: INSU100V28 SQ (09:52)
[2024-06-10] MEDS ORDERED: ALBU1.25 NEB (09:52)
[2024-06-10] MEDS ORDERED: LABE100T15 PO (09:52)
[2024-06-10] MEDS ORDERED: MONT10TA22 PO (09:52)
[2024-06-10] MEDS ORDERED: CLON0.1T PO (09:52)
[2024-06-10 13:11] VITALS: O2SAT 98
== END 2024-06-10 14:30 | disposition home or self-care (01) | DRG 264 ==
LOC: ER 00:56 → TELE-TD 07:34 → TELE1 06-05 10:11 → MEDSG1 06-10 11:01
PROVIDERS: ADMIT Internal Medicine; ATTEND Surgery Vascular Surgery
PROC: 5A1D70Z Performance of Urinary Filtration, Intermittent, Less than 6 Hours Per Day (ICD-10-PCS; principal; 2024-06-03)
PROC: 0JBN0ZZ Excision of Right Lower Leg Subcutaneous Tissue and Fascia, Open Approach (ICD-10-PCS; 2024-06-07)
PROC: 0JBP0ZZ Excision of Left Lower Leg Subcutaneous Tissue and Fascia, Open Approach (ICD-10-PCS; 2024-06-07)
DX: I13.2 Hypertensive heart and chronic kidney disease with heart failure and with stage 5 chronic kidney disease, or end stage renal disease (principal); I50.33 Acute on chronic diastolic (congestive) heart failure; J96.21 Acute and chronic respiratory failure with hypoxia; N18.6 End stage renal disease; L97.829 Non-pressure chronic ulcer of other part of left lower leg with unspecified severity; E44.0 Moderate protein-calorie malnutrition; E87.1 Hypo-osmolality and hyponatremia; L03.115 Cellulitis of right lower limb; L03.116 Cellulitis of left lower limb; Z68.42 Body mass index [BMI] 45.0-49.9, adult; I87.313 Chronic venous hypertension (idiopathic) with ulcer of bilateral lower extremity; L97.828 Non-pressure chronic ulcer of other part of left lower leg with other specified severity; L97.818 Non-pressure chronic ulcer of other part of right lower leg with other specified severity; E11.22 Type 2 diabetes mellitus with diabetic chronic kidney disease; I25.10 Atherosclerotic heart disease of native coronary artery without angina pectoris; I87.2 Venous insufficiency (chronic) (peripheral); E11.649 Type 2 diabetes mellitus with hypoglycemia without coma; E66.01 Morbid (severe) obesity due to excess calories; E78.5 Hyperlipidemia, unspecified; E87.5 Hyperkalemia; E88.09 Other disorders of plasma-protein metabolism, not elsewhere classified; E83.9 Disorder of mineral metabolism, unspecified; Z79.84 Long term (current) use of oral hypoglycemic drugs; Z82.49 Family history of ischemic heart disease and other diseases of the circulatory system; Z86.73 Personal history of transient ischemic attack (TIA), and cerebral infarction without residual deficits; Z87.891 Personal history of nicotine dependence; Z88.0 Allergy status to penicillin; Z95.1 Presence of aortocoronary bypass graft; Z99.2 Dependence on renal dialysis; Z86.718 Personal history of other venous thrombosis and embolism; Z20.822 Contact with and (suspected) exposure to COVID-19; D63.8 Anemia in other chronic diseases classified elsewhere; R53.1 Weakness; L89.892 Pressure ulcer of other site, stage 2; Z79.4 Long term (current) use of insulin; Z79.899 Other long term (current) drug therapy
CPT/HCPCS: 36415; 71045-TC; 76642-RT-TC; 80048-TC; 80076-TC; 82962-TC; 83735-TC; 83880; 84100-TC; 84484-TC; 85025-TC; 85610-TC; 90935-TC; 93307-TC; 94760-TC; 94762-TC; 94799-TC; 97110-TC; 97530-TC; A4223; A6253; A6403; G0378; J0360; J1644; J1815; J1940; J2185; J2270; J3490; J7050

== ENCOUNTER 2024-08-01 01:33 | Inpatient (IN) | payer MEDICARE, OTHER ==
[2024-08-01] VITALS (7 sets, daily range): BP systolic 152–170; BP diastolic 78–85; TEMP 97.2–98.8; O2SAT 98–100
[~2024-08-01] VITALS: Ht 152.4 cm; Wt 127.0 kg
[~2024-08-01 01:33] MED LIST changes: +ALBU1.25 NEB; +Blood Sugar Diagnostic IN; +Colchicine PO; +ERTA1VIA4 IJ; +FERR325T28 PO; +GLIM1TAB PO; +INSU100V28 SQ; +IPRA0.2S9 NEB; +LABE100T15 PO; +LIDO35.4 TP; +LORA10TA7 PO; -MERO1VIA23 IV; +Prosource PO; +SERT25TA5 PO; +SODI473S8 TOP; +SUMA25TA PO
[2024-08-01] MEDS: ALBUTEROL FS 2.5 MG/3 ML VIAL.NEB NEB ONE (01:48)
[2024-08-01] MEDS: FUROSEMIDE 40 MG/4 ML VIAL IV ONE (02:00)
[2024-08-01 02:20] LABS: CALCIUM, SERUM 9.5 mg/dL (8.5-10.1); CREATININE 4.1 mg/dL (0.6-1.3); POTASSIUM 4.1 mmol/L (3.5-5.1)
[2024-08-01 02:27] LABS: INR 1.02 (0.91-1.10); PARTIAL THROMBOPLASTIN TIME 21.7 SEC (24.3-34.3); PROTHROMBIN TIME 10.8 SECS (9.2-11.1)
[2024-08-01 02:30] LABS: BASOPHILS # (AUTO) 0.2 K/uL (0.0-0.2); BASOPHILS % (AUTO) 1.3 % (0.0-2.0); EOSINOPHILS # (AUTO) 0.7 K/uL (0.0-0.7); EOSINOPHILS % (AUTO) 4.9 % (0.0-6.0); HEMATOCRIT 31 % (33-45); HEMOGLOBIN 9.4 g/dL (11.5-14.8); LYMPHOCYTES # (AUTO) 0.7 K/uL (0.8-4.8); LYMPHOCYTES % (AUTO) 5.3 % (20.0-44.0); MEAN CORPUSCULAR HEMOGLOBIN 29 PG (26.0-33.0); MEAN CORPUSCULAR HGB CONC 31 g/dl (31.0-36.0); MEAN CORPUSCULAR VOLUME 94 fL (82-100); MONOCYTES # (AUTO) 1.2 K/uL (0.1-1.30); MONOCYTES % (AUTO) 8.6 % (2.0-12.0); NEUTROPHILS # (AUTO) 10.9 K/uL (1.8-8.9); NEUTROPHILS % (AUTO) 79.9 % (43.0-81.0); PLATELET COUNT (AUTO) 506 K/uL (150-450); RED BLOOD CELL COUNT(AUTO) 3.24 MIL/uL (4.0-5.2); RED CELL DISTRIBUTION WIDTH 19.2 % (11.5-15.0); WHITE BLOOD COUNT (AUTO) 13.6 K/uL (4.3-11.0)
[2024-08-01 02:33] LABS: ALBUMIN 2.9 g/dL (3.4-5.0); BILIRUBIN,DIRECT 0.1 mg/dL (0.0-0.2); BILIRUBIN,TOTAL 0.3 mg/dL (0.2-1.0); TOTAL PROTEIN, SERUM 7.6 g/dL (6.4-8.2)
[2024-08-01] MEDS: methylPREDNISolone SOD SUCC 125 MG/2ML VIAL IV ONE (03:07)
[2024-08-01] MEDS: KETOROLAC TROMETHAMINE INJ 30 MG/ML VIAL IV ONE (03:30)
[2024-08-01] MEDS ORDERED: KETOROLAC TROMETHAMINE INJ 30 MG/ML VIAL ONE (03:35)
[2024-08-01] MEDS: MORPHINE SULFATE INJ 2 MG/ML DISP.SYRIN IV ONE (04:25)
[2024-08-01] MEDS: ONDANSETRON HCL/PF 4 MG/2 ML VIAL IV ONE (04:25)
[2024-08-01] MEDS ORDERED: DEXTROSE 50%-WATER 50 ML DISP.SYRIN IV PRN (04:30)
[2024-08-01] MEDS: LORAZEPAM INJ 2 MG/ML VIAL IV ONE (04:30)
[2024-08-01] MEDS ORDERED: Z GUARD REMEDY 4 OZ OINT TP PRN (04:30)
[2024-08-01] MEDS ORDERED: MAG HYDROX/AL HYDROX/SIMETH 30 ML UDC PO PRN (04:30)
[2024-08-01] MEDS ORDERED: ONDANSETRON HCL/PF 4 MG/2 ML VIAL IVP PRN (04:30)
[2024-08-01] MEDS ORDERED: MAGNESIUM HYDROXIDE 30 ML UDC PO PRN (04:30)
[2024-08-01 06:07] LABS: PHOSPHORUS 4.4 mg/dL (2.5-4.9)
[2024-08-01] MEDS ORDERED: MORPHINE SULFATE INJ 2 MG/ML DISP.SYRIN ONE (07:44)
[2024-08-01] MEDS: MORPHINE SULFATE INJ 2 MG/ML DISP.SYRIN IV PRN (07:49)
[2024-08-01] MEDS: BLOOD SUGAR DIAGNOSTIC 1 EACH STRIP VI SCH (09:36)
[2024-08-01] MEDS: methylPREDNISolone SOD SUCC 40 MG/ML VIAL IV SCH (09:36)
[2024-08-01] MEDS ORDERED: ASPI-1420 PO (10:38)
[2024-08-01] MEDS ORDERED: HYDR-3972 PO (10:38)
[2024-08-01] MEDS: PANTOPRAZOLE 40 MG VIAL IV SCH (11:03)
[2024-08-01] MEDS: HEPARIN SODIUM, PORCINE 5000 UNITS/1 ML VIAL SQ SCH (11:03)
[2024-08-01] MEDS: ACETAMINOPHEN 325 MG TABLET PO PRN (11:04)
[2024-08-01] MEDS: INSULIN REGULAR, HUMAN 100 UNIT/ML 3 ML VIAL SQ PRN (13:01)
[2024-08-01] MEDS: IPRATROPIUM NEB FS 0.5 MG/2.5 ML AMPUL.NEB NEB SCH (19:41)
[2024-08-01] MEDS: ALBUTEROL FS 2.5 MG/0.5 ML VIAL.NEB NEB SCH (19:41)
[2024-08-01] MEDS: *INSULIN REGULAR(HUMULIN R)HUM 100 UNIT/ML VIAL SQ PRN (21:56)
[2024-08-02] VITALS (13 sets, daily range): BP systolic 153–190; BP diastolic 78–98; TEMP 97.5–98.6; O2SAT 96–100
[2024-08-02] MEDS ORDERED: Medication Not On Formulary EA (Ubrogepant (Ubrelvy) 100 MG) PO PRN (02:00)
[2024-08-02] MEDS: hydrALAZINE HCL IV 20 MG VIAL IV ONE (02:12)
[2024-08-02 06:52] LABS: CALCIUM, SERUM 9.6 mg/dL (8.5-10.1); POTASSIUM 4.6 mmol/L (3.5-5.1)
[2024-08-02 07:12] LABS: BASOPHILS % (AUTO) 0.3 % (0.0-2.0); HEMATOCRIT 30 % (33-45); HEMOGLOBIN 9.2 g/dL (11.5-14.8); LYMPHOCYTES # (AUTO) 0.4 K/uL (0.8-4.8); LYMPHOCYTES % (AUTO) 3.8 % (20.0-44.0); MEAN CORPUSCULAR HEMOGLOBIN 29 PG (26.0-33.0); MEAN CORPUSCULAR HGB CONC 31 g/dl (31.0-36.0); MEAN CORPUSCULAR VOLUME 94 fL (82-100); MONOCYTES # (AUTO) 0.8 K/uL (0.1-1.30); MONOCYTES % (AUTO) 6.7 % (2.0-12.0); NEUTROPHILS # (AUTO) 10.5 K/uL (1.8-8.9); NEUTROPHILS % (AUTO) 89.2 % (43.0-81.0); PLATELET COUNT (AUTO) 516 K/uL (150-450); RED BLOOD CELL COUNT(AUTO) 3.17 MIL/uL (4.0-5.2); RED CELL DISTRIBUTION WIDTH 19.1 % (11.5-15.0); WHITE BLOOD COUNT (AUTO) 11.8 K/uL (4.3-11.0)
[2024-08-02] MEDS: LABETALOL HCL (100MG) 100 MG TABLET PO SCH (08:38)
[2024-08-02] MEDS: NIFEDIPINE XL 60 MG TAB.ER.24 PO SCH (08:39)
[2024-08-02] MEDS: CLONIDINE HCL 0.1 MG TABLET PO SCH ×2 (08:39→13:00)
[2024-08-02] MEDS: SERTRALINE HCL 25 MG TABLET PO SCH (08:39)
[2024-08-02] MEDS: hydrALAZINE HCL 50 MG TABLET PO SCH (08:40)
[2024-08-02] MEDS: SEVELAMER CARBONATE 800 MG TABLET PO SCH (08:42)
[2024-08-02] MEDS: PANTOPRAZOLE 40 MG TABLET.DR PO SCH (08:42)
[2024-08-02] MEDS: ZINC SULFATE 220 MG CAPSULE PO SCH (08:42)
[2024-08-02] MEDS: VIT B CMPLX 3/FA/VIT C/BIOTIN 1 TAB TABLET PO SCH (08:43)
[2024-08-02] MEDS: COLCHICINE 0.6 MG TABLET PO SCH (08:43)
[2024-08-02] MEDS: FERROUS SULFATE (325 MG) 325 MG/TAB TABLET PO SCH (08:43)
[2024-08-02] MEDS: ASCORBIC ACID 500 MG TABLET PO SCH (08:43)
[2024-08-02] MEDS: ASPIRIN EC 81 MG TABLET.DR PO SCH (08:43)
[2024-08-02] MEDS ORDERED: Medication Not On Formulary EA (Icosapent Ethyl (Vascepa) 1 GM) PO SCH (09:00)
[2024-08-02] MEDS: methylPREDNISolone SOD SUCC 40 MG/ML VIAL IV SCH (12:16)
[2024-08-02] MEDS: SUMATRIPTAN SUCCINATE 100 MG TABLET PO SCH (12:16)
[2024-08-02] MEDS: DAKINS QUARTER STRENGTH (0.125%) 480 ML BOTTLE TOP SCH (20:30)
[2024-08-02] MEDS: LIDOCAINE 5% OINT 35.44 GM TUBE TP SCH (20:30)
[2024-08-02] MEDS: BUPIVACAINE HCL/PF 50 MG/10 ML VIAL IJ ONE (20:30)
[2024-08-02] MEDS: MONTELUKAST SODIUM (10MG) 10 MG TABLET PO SCH (21:52)
[2024-08-03] VITALS (8 sets, daily range): BP systolic 134–174; BP diastolic 77–90; TEMP 97.4–98.2; O2SAT 97–100
[2024-08-03] MEDS: SUMATRIPTAN SUCCINATE 25 MG TABLET PO SCH (08:32)
[2024-08-04] VITALS: BP 154/79; TEMP 97.8; O2SAT 100
[2024-08-04 04:00] VITALS: BP 152/86; TEMP 98.1; O2SAT 100
[2024-08-04 06:33] LABS: BASOPHILS # (AUTO) 0.1 K/uL (0.0-0.2); BASOPHILS % (AUTO) 0.5 % (0.0-2.0); EOSINOPHILS # (AUTO) 0.4 K/uL (0.0-0.7); EOSINOPHILS % (AUTO) 3.3 % (0.0-6.0); HEMATOCRIT 30 % (33-45); LYMPHOCYTES # (AUTO) 0.8 K/uL (0.8-4.8); LYMPHOCYTES % (AUTO) 6.4 % (20.0-44.0); MEAN CORPUSCULAR HEMOGLOBIN 29 PG (26.0-33.0); MEAN CORPUSCULAR HGB CONC 31 g/dl (31.0-36.0); MEAN CORPUSCULAR VOLUME 94 fL (82-100); MONOCYTES # (AUTO) 1.1 K/uL (0.1-1.30); MONOCYTES % (AUTO) 9.2 % (2.0-12.0); NEUTROPHILS # (AUTO) 9.7 K/uL (1.8-8.9); NEUTROPHILS % (AUTO) 80.6 % (43.0-81.0); PLATELET COUNT (AUTO) 453 K/uL (150-450); RED BLOOD CELL COUNT(AUTO) 3.14 MIL/uL (4.0-5.2); RED CELL DISTRIBUTION WIDTH 19.1 % (11.5-15.0)
[2024-08-04 07:24] LABS: CALCIUM, SERUM 8.9 mg/dL (8.5-10.1); CREATININE 5.1 mg/dL (0.6-1.3); MAGNESIUM 2.1 mg/dL (1.8-2.4); PHOSPHORUS 5.6 mg/dL (2.5-4.9); POTASSIUM 4.7 mmol/L (3.5-5.1)
[2024-08-04 07:25] VITALS: O2SAT 99
[2024-08-04 08:00] VITALS: BP 141/77; TEMP 97.7; O2SAT 97
[2024-08-04] MEDS ORDERED: METH4TAB3 PO (09:35)
[2024-08-04 16:00] VITALS: BP 169/79; TEMP 97.8; O2SAT 100
[2024-08-04] MEDS: EPOETIN ALFA (10,000 UNIT) 10,000 UNIT/ML VIAL SQ ONE (16:50)
[2024-08-04 20:00] VITALS: BP 135/68; TEMP 97.5; O2SAT 100
[2024-08-05 04:00] VITALS: BP 164/84; TEMP 97.5; O2SAT 100
[2024-08-05 09:51] VITALS: BP 157/78; TEMP 97.7; O2SAT 99
== END 2024-08-05 11:38 | disposition home health service (06) | DRG 264 ==
LOC: ER 01:40 → TELE1 09:09 → MEDSG1 08-04 08:10
PROVIDERS: ATTEND Student in an Organized Health Care Education/Training Program
PROC: 5A1D70Z Performance of Urinary Filtration, Intermittent, Less than 6 Hours Per Day (ICD-10-PCS; principal; 2024-08-02)
PROC: 0JBN0ZZ Excision of Right Lower Leg Subcutaneous Tissue and Fascia, Open Approach (ICD-10-PCS; 2024-08-03)
PROC: 0JBP0ZZ Excision of Left Lower Leg Subcutaneous Tissue and Fascia, Open Approach (ICD-10-PCS; 2024-08-03)
DX: I13.2 Hypertensive heart and chronic kidney disease with heart failure and with stage 5 chronic kidney disease, or end stage renal disease (principal); I50.33 Acute on chronic diastolic (congestive) heart failure; J96.21 Acute and chronic respiratory failure with hypoxia; N18.6 End stage renal disease; E87.1 Hypo-osmolality and hyponatremia; E44.0 Moderate protein-calorie malnutrition; Z68.43 Body mass index [BMI] 50.0-59.9, adult; I87.313 Chronic venous hypertension (idiopathic) with ulcer of bilateral lower extremity; L97.828 Non-pressure chronic ulcer of other part of left lower leg with other specified severity; L97.818 Non-pressure chronic ulcer of other part of right lower leg with other specified severity; E11.22 Type 2 diabetes mellitus with diabetic chronic kidney disease; E66.01 Morbid (severe) obesity due to excess calories; E78.5 Hyperlipidemia, unspecified; E88.09 Other disorders of plasma-protein metabolism, not elsewhere classified; I25.10 Atherosclerotic heart disease of native coronary artery without angina pectoris; I87.2 Venous insufficiency (chronic) (peripheral); E83.9 Disorder of mineral metabolism, unspecified; Z79.84 Long term (current) use of oral hypoglycemic drugs; Z86.718 Personal history of other venous thrombosis and embolism; Z88.0 Allergy status to penicillin; Z87.891 Personal history of nicotine dependence; Z86.73 Personal history of transient ischemic attack (TIA), and cerebral infarction without residual deficits; Z95.1 Presence of aortocoronary bypass graft; Z99.2 Dependence on renal dialysis; R53.1 Weakness; G47.33 Obstructive sleep apnea (adult) (pediatric); D63.8 Anemia in other chronic diseases classified elsewhere; Z79.4 Long term (current) use of insulin; J44.89 Other specified chronic obstructive pulmonary disease; N63.41 Unspecified lump in right breast, subareolar
CPT/HCPCS: 36415; 71045-TC; 80048-TC; 80076-TC; 82962-TC; 83605-TC; 83735-TC; 84100-TC; 85025-TC; 85730-TC; 87040-TC; 90935-TC; 94760-TC; 94799-TC; 97110-TC; 97530-TC; A6253; A6403; G0378; J0360; J0885; J1644; J1815; J1885; J2270; J2470; J2919; J3490

== ENCOUNTER 2024-10-03 15:26 | Inpatient (IN) | payer MEDICARE, OTHER ==
[~2024-10-03] VITALS: Ht 154.9 cm; Wt 131.1 kg
[2024-10-03] VITALS (8 sets, daily range): BP systolic 90–152; BP diastolic 48–104; TEMP 98.7; O2SAT 97–100
[~2024-10-03 15:26] MED LIST changes: +ASPI-1420 PO; -Colchicine PO; -ERTA1VIA4 IJ; -FERR325T28 PO; -GLIM1TAB PO; +HYDR-3972 PO; -HYDR-3980 PO; -INSU100V28 SQ; -LABE100T15 PO; -LIDO35.4 TP; -LORA10TA7 PO; +METH4TAB3 PO; -Prosource PO; -SERT25TA5 PO; -SODI473S8 TOP; -SUMA25TA PO
[2024-10-03] MEDS ORDERED: BLOO-1280 MC (16:01)
[2024-10-03] MEDS: AZTREONAM 2 G in IV NS 0.9% 100 ML IV ONE (16:01)
[2024-10-03 16:08] LABS: PLATELET COUNT (AUTO) 417 K/uL (150-450); RED BLOOD CELL COUNT(AUTO) 3.18 MIL/uL (4.0-5.2); RED CELL DISTRIBUTION WIDTH 20.6 % (11.5-15.0); WHITE BLOOD COUNT (AUTO) 17.2 K/uL (4.3-11.0)
[2024-10-03] MEDS ORDERED: ACETAMINOPHEN ES 500 MG TABLET ONE (16:11)
[2024-10-03 16:16] LABS: CALCIUM, SERUM 8.9 mg/dL (8.5-10.1); CREATININE 4.8 mg/dL (0.6-1.3); SODIUM SERUM 123 mmol/L (136-145); UREA NITROGEN, BLOOD 45 mg/dL (7-18)
[2024-10-03] MEDS: ACETAMINOPHEN ES 500 MG TABLET PO ONE (16:16)
[2024-10-03 16:20] LABS: ASPARTATE AMINOTRANSFERASE 38.0 U/L (15-37); TOTAL PROTEIN, SERUM 6.7 g/dL (6.4-8.2)
[2024-10-03 16:22] LABS: LACTIC ACID 0.8 mmol/L (0.4-2.0)
[2024-10-03 16:29] LABS: NT-PRO BNP > 25000 pg/mL (0-125)
[2024-10-03 16:30] LABS: INR 1.11 (0.91-1.10)
[2024-10-03] MEDS: VANCOMYCIN 1 GM in IV D5W 250 ML IV ONE (16:48)
[2024-10-03] MEDS ORDERED: NA PHOS,M-B/NA PHOS,DI-BA 1 EA ENEMA RC PRN (18:30)
[2024-10-03] MEDS ORDERED: MAG HYDROX/AL HYDROX/SIMETH 30 ML UDC PO PRN (18:30)
[2024-10-03] MEDS ORDERED: DEXTROSE 50%-WATER 50 ML DISP.SYRIN IV PRN (18:30)
[2024-10-03] MEDS ORDERED: MAGNESIUM HYDROXIDE 30 ML UDC PO PRN (18:30)
[2024-10-03] MEDS ORDERED: ACETAMINOPHEN 325 MG TABLET PO PRN (18:30)
[2024-10-03] MEDS ORDERED: LEVOFLOXACIN 500 MG /D5W 100ML 500 MG in PREMIX 1 EA IV SCH (18:30)
[2024-10-03] MEDS ORDERED: BISACODYL SUPP (10 MG) 10 MG/SUPP.RECT SUPP.RECT RC PRN (18:30)
[2024-10-03] MEDS ORDERED: Z GUARD REMEDY 4 OZ OINT TP PRN (18:30)
[2024-10-03] MEDS ORDERED: DOSING PER PHARMACY-VANCOMYCIN IV XX PRN (18:30)
[2024-10-03 20:10] LABS: ABG BASE EXCESS -2.6 mmol/L (-2.0-3.0); ABG OXYGEN SATURATION 98.3 % (94.0-98.0); ABG PCO2 43.1 mmHg (32.0-45.0); ABG PH 7.345 (7.350-7.450); ABG PO2 130.5 mmHg (83.0-108.0); ABG TOTAL HEMOGLOBIN 9.9 G/dL (12.0-16.0); FLOW, BLOOD GAS 40.00 L/min (0.00-30.00); FRACTIONATED INSPIRED OXYGEN 60.0 %; SITE, ABG LEFT BRACHIAL
[2024-10-03] MEDS: IV NS 0.9% 250 ML IV PRN (20:27)
[2024-10-03] MEDS: LEVOFLOXACIN 750 MG /D5W 150ML 750 MG in PREMIX 1 EA IV ONE (20:28)
[2024-10-03] MEDS: HYDROCODONE/APAP 5/325MG TABLET PO PRN (20:40)
[2024-10-03] MEDS ORDERED: MEROPENEM 500 MG in IV NS 0.9% 50 ML IV SCH (21:30)
[2024-10-03] MEDS ORDERED: VANCOMYCIN 500 MG VIAL ONE (22:02)
[2024-10-03] MEDS: MONTELUKAST SODIUM (10MG) 10 MG TABLET PO SCH (22:05)
[2024-10-03] MEDS: GABAPENTIN 300 MG CAPSULE PO SCH (22:05)
[2024-10-03] MEDS: BLOOD SUGAR DIAGNOSTIC 1 EACH STRIP VI SCH (22:17)
[2024-10-03] MEDS: *INSULIN REGULAR(HUMULIN R)HUM 100 UNIT/ML VIAL SQ PRN (22:17)
[2024-10-03] MEDS: MEROPENEM 500 MG in IV NS 0.9% 50 ML IV ONE (22:29)
[2024-10-03] MEDS: VANCOMYCIN POST DIALYSIS 500MG IV PRN (23:14)
[2024-10-03] MEDS: MEROPENEM 500MG/NS 50 ML PB IV ONE (23:19)
[2024-10-04] VITALS (30 sets, daily range): BP systolic 91–124; BP diastolic 31–79; TEMP 98–98.6; O2SAT 94–100
[2024-10-04 05:07] LABS: PLATELET COUNT (AUTO) 341 K/uL (150-450); RED BLOOD CELL COUNT(AUTO) 2.98 MIL/uL (4.0-5.2); RED CELL DISTRIBUTION WIDTH 20.5 % (11.5-15.0)
[2024-10-04 05:17] LABS: WHITE BLOOD COUNT (AUTO) 31.5 K/uL (4.3-11.0)
[2024-10-04 05:32] LABS: CALCIUM, SERUM 8.8 mg/dL (8.5-10.1); CREATININE 3.9 mg/dL (0.6-1.3); PHOSPHORUS 4.8 mg/dL (2.5-4.9); SODIUM SERUM 130.0 mmol/L (136-145); UREA NITROGEN, BLOOD 32.0 mg/dL (7-18)
[2024-10-04 05:49] LABS: BAND % (MANUAL) 3 % (0.0-5.0); LYMPHOCYTES % (MANUAL) 4 % (16-48); MONOCYTES % (MANUAL) 6 % (0-11.0); NEUTROPHILS % (MANUAL) 87 (42-76); PLATELET ESTIMATE ADEQUATE
[2024-10-04] MEDS: SERTRALINE HCL 25 MG TABLET PO SCH (08:14)
[2024-10-04] MEDS: ASPIRIN EC 81 MG TABLET.DR PO SCH (08:14)
[2024-10-04] MEDS: SEVELAMER CARBONATE 800 MG TABLET PO SCH (08:15)
[2024-10-04] MEDS: CLONIDINE HCL 0.1 MG TABLET PO SCH (08:27)
[2024-10-04] MEDS: MORPHINE SULFATE IR 15 MG TABLET PO PRN (09:25)
[2024-10-04] MEDS: ACETAMINOPHEN 325 MG TABLET PO PRN (10:53)
[2024-10-04] MEDS: BUPIVACAINE HCL/PF 50 MG/10 ML VIAL IJ ONE (12:00)
[2024-10-04] MEDS: DAKINS QUARTER STRENGTH (0.125%) 480 ML BOTTLE TOP SCH (13:33)
[2024-10-04] MEDS: LIDOCAINE 5% OINT 35.44 GM TUBE TP SCH (13:34)
[2024-10-04] MEDS: MEROPENEM 500 MG in IV NS 0.9% 50 ML IV SCH (21:45)
[2024-10-05] VITALS (18 sets, daily range): BP systolic 92–136; BP diastolic 40–73; TEMP 97.3–98.8; O2SAT 96–100
[2024-10-05 04:07] LABS: HEPATITIS B SURFACE AB (QUAL) Reactive (.)
[2024-10-05 04:53] LABS: PLATELET COUNT (AUTO) 388 K/uL (150-450); RED BLOOD CELL COUNT(AUTO) 3.23 MIL/uL (4.0-5.2); RED CELL DISTRIBUTION WIDTH 20.4 % (11.5-15.0); WHITE BLOOD COUNT (AUTO) 18.1 K/uL (4.3-11.0)
[2024-10-05 05:17] LABS: CALCIUM, SERUM 9.5 mg/dL (8.5-10.1); CREATININE 3.5 mg/dL (0.6-1.3); SODIUM SERUM 131.0 mmol/L (136-145); UREA NITROGEN, BLOOD 27.0 mg/dL (7-18)
[2024-10-05] MEDS: DOXYCYCLINE HYCLATE (100 MG) 100 MG TABLET PO SCH (08:30)
[2024-10-05] MEDS: INSULIN REGULAR, HUMAN 100 UNIT/ML 3 ML VIAL SQ PRN (13:08)
[2024-10-05] MEDS ORDERED: LEVOFLOXACIN 500 MG /D5W 100ML 500 MG in PREMIX 1 EA IV SCH (20:00)
[2024-10-06] VITALS: BP 143/52; TEMP 98.2; O2SAT 100
[2024-10-06 04:00] VITALS: BP 152/91; TEMP 98.4; O2SAT 100
[2024-10-06 07:44] LABS: ASPARTATE AMINOTRANSFERASE 25.0 U/L (15-37); CALCIUM, SERUM 8.9 mg/dL (8.5-10.1); CREATININE 2.9 mg/dL (0.6-1.3); SODIUM SERUM 134.0 mmol/L (136-145); TOTAL PROTEIN, SERUM 6.6 g/dL (6.4-8.2); UREA NITROGEN, BLOOD 24.0 mg/dL (7-18)
[2024-10-06 08:00] VITALS: BP 123/93; TEMP 97.5; O2SAT 100; O2SAT 99
[2024-10-06 08:00] LABS: PLATELET COUNT (AUTO) 361 K/uL (150-450); RED BLOOD CELL COUNT(AUTO) 3.15 MIL/uL (4.0-5.2); RED CELL DISTRIBUTION WIDTH 20.5 % (11.5-15.0); WHITE BLOOD COUNT (AUTO) 10.3 K/uL (4.3-11.0)
[2024-10-06 12:00] VITALS: BP 140/65; TEMP 97.7; O2SAT 100; O2SAT 97
[2024-10-06 16:00] VITALS: BP 155/77; TEMP 97.9; O2SAT 100
[2024-10-06 22:00] VITALS: BP 144/56; TEMP 97.9; O2SAT 100
[2024-10-07] VITALS: BP 128/76; TEMP 98; O2SAT 100
[2024-10-07 04:00] VITALS: BP 154/81; TEMP 97.7; O2SAT 100
[2024-10-07 08:00] VITALS: BP 147/69; TEMP 97.9; O2SAT 100
[2024-10-07 08:12] LABS: ASPARTATE AMINOTRANSFERASE 38.0 U/L (15-37); CALCIUM, SERUM 9.0 mg/dL (8.5-10.1); CREATININE 2.7 mg/dL (0.6-1.3); SODIUM SERUM 133.0 mmol/L (136-145); TOTAL PROTEIN, SERUM 6.9 g/dL (6.4-8.2); UREA NITROGEN, BLOOD 22.0 mg/dL (7-18)
[2024-10-07 16:00] VITALS: BP 145/74; TEMP 98.4; O2SAT 100
[2024-10-07 20:00] VITALS: BP 129/79; TEMP 97.2; O2SAT 100
[2024-10-07] MEDS ORDERED: CEFEPIME 1 GM VIAL ONE (21:52)
[2024-10-07] MEDS: CEFEPIME 1 GM in IV D5W 50 ML IV SCH (21:58)
[2024-10-08 04:00] VITALS: BP 150/71; TEMP 97.5; O2SAT 100
[2024-10-08 07:19] LABS: ASPARTATE AMINOTRANSFERASE 24.0 U/L (15-37); CALCIUM, SERUM 9.2 mg/dL (8.5-10.1); CREATININE 2.9 mg/dL (0.6-1.3); SODIUM SERUM 130.0 mmol/L (136-145); TOTAL PROTEIN, SERUM 7.0 g/dL (6.4-8.2); UREA NITROGEN, BLOOD 29.0 mg/dL (7-18)
[2024-10-08 09:31] VITALS: BP_SYST 137; BP_SYST 150; BP_DIAS 78; BP_DIAS 92; TEMP 98.2; TEMP 98.6; O2SAT 96
[2024-10-08 16:00] VITALS: BP 162/59; TEMP 98.2; O2SAT 100
[2024-10-08 20:00] VITALS: BP_SYST 145; BP_SYST 150; BP_DIAS 71; BP_DIAS 74; TEMP 98.4; O2SAT 98
[2024-10-08] MEDS ORDERED: CEFEPIME 1 GM VIAL ONE (21:53)
[2024-10-08] MEDS: CEFEPIME 1 GM in IV D5W 50 ML IV SCH (22:05)
[2024-10-09 04:00] VITALS: BP_SYST 137; BP_SYST 146; BP_DIAS 67; BP_DIAS 70; TEMP 97.9; O2SAT 100; O2SAT 95
[2024-10-09 07:08] LABS: CALCIUM, SERUM 9.1 mg/dL (8.5-10.1); CREATININE 2.6 mg/dL (0.6-1.3); SODIUM SERUM 132.0 mmol/L (136-145); UREA NITROGEN, BLOOD 27.0 mg/dL (7-18)
[2024-10-09 10:52] VITALS: BP 141/62; TEMP 97.7
[2024-10-09 16:00] VITALS: TEMP 97.8; O2SAT 95
[2024-10-09 20:00] VITALS: BP 153/76; TEMP 98; O2SAT 97
[2024-10-09] MEDS: ONDANSETRON HCL/PF 4 MG/2 ML VIAL IVP PRN (23:28)
[2024-10-10 04:00] VITALS: BP 157/76; TEMP 97.9; O2SAT 97
[2024-10-10 07:30] VITALS: BP_SYST 175; BP_SYST 77; BP_DIAS 59; BP_DIAS 80; TEMP 97.5; TEMP 97.7; O2SAT 100; O2SAT 99
[2024-10-10 08:00] VITALS: BP 175/80; TEMP 97.5; O2SAT 95
[2024-10-10 16:00] VITALS: BP 152/80; TEMP 98; O2SAT 95
[2024-10-10 20:00] VITALS: BP 133/75; TEMP 97.7; O2SAT 95
[2024-10-11 04:00] VITALS: BP 137/86; TEMP 97.7; O2SAT 98
[2024-10-11 08:00] VITALS: BP 146/67; TEMP 97.9; O2SAT 96
[2024-10-11] MEDS ORDERED: BUPIVACAINE HCL/PF 50 MG/10 ML VIAL IJ ONE (12:30)
[2024-10-11 16:00] VITALS: BP 141/64; TEMP 97.7; O2SAT 99
[2024-10-11 20:00] VITALS: BP 134/81; TEMP 98.4; O2SAT 99
[2024-10-12 04:00] VITALS: BP 121/76; TEMP 98.1; O2SAT 100
[2024-10-12 08:00] VITALS: BP 157/79; TEMP 97.3; O2SAT 100
[2024-10-12] MEDS ORDERED: BUPIVACAINE HCL/PF 50 MG/10 ML VIAL IJ ONE (08:00)
[2024-10-12] MEDS ORDERED: SODI473S8 TOP (11:46)
[2024-10-12] MEDS ORDERED: CEFE1FRO IV ×2 (11:46→11:47)
[2024-10-12] MEDS ORDERED: LIDO35.4 TP (11:46)
[2024-10-12] MEDS ORDERED: GENTAMYCIN (12:03)
[2024-10-12 16:00] VITALS: BP 152/65; TEMP 98.1; O2SAT 100
[2024-10-12 20:00] VITALS: BP 154/63; TEMP 99; O2SAT 100
[2024-10-13] VITALS: BP 123/77; TEMP 97.2; O2SAT 100
[2024-10-13 04:00] VITALS: BP 108/53; TEMP 99.1; O2SAT 100
[2024-10-13 08:26] VITALS: BP 165/79; TEMP 97.9; O2SAT 100
[2024-10-13] MEDS ORDERED: DOSING PER PHARMACY-GENTAMICIN IV XX PRN ×2 (09:30→10:30)
[2024-10-13] MEDS ORDERED: GENTAMICIN 120 MG in IV D5W 50 ML IV PRN (11:30)
[2024-10-13] MEDS: GENTAMICIN 160 MG in IV D5W 100 ML IV ONE (15:48)
[2024-10-13 16:00] VITALS: BP 142/61; TEMP 97.8; O2SAT 100
[2024-10-13 17:28] VITALS: BP 123/63
== END 2024-10-13 19:40 | disposition home health service (06) | DRG 981 ==
LOC: ER 15:30 → ICU 17:35 → TELE1 10-05 11:29 → MEDSG1 10-07 09:56
PROVIDERS: ADMIT Internal Medicine; ATTEND Nurse Practitioner Acute Care
PROC: 5A1D70Z Performance of Urinary Filtration, Intermittent, Less than 6 Hours Per Day (ICD-10-PCS; principal; 2024-10-03)
PROC: 0KBS0ZZ Excision of Right Lower Leg Muscle, Open Approach (ICD-10-PCS; 2024-10-05)
PROC: 0KBT0ZZ Excision of Left Lower Leg Muscle, Open Approach (ICD-10-PCS; 2024-10-05)
PROC: 0KBT0ZZ Excision of Left Lower Leg Muscle, Open Approach (ICD-10-PCS; 2024-10-12)
PROC: 0KBS0ZZ Excision of Right Lower Leg Muscle, Open Approach (ICD-10-PCS; 2024-10-12)
DX: J15.69 Pneumonia due to other Gram-negative bacteria (principal); I50.23 Acute on chronic systolic (congestive) heart failure; J96.01 Acute respiratory failure with hypoxia; N18.6 End stage renal disease; I13.2 Hypertensive heart and chronic kidney disease with heart failure and with stage 5 chronic kidney disease, or end stage renal disease; E44.0 Moderate protein-calorie malnutrition; I87.313 Chronic venous hypertension (idiopathic) with ulcer of bilateral lower extremity; L97.829 Non-pressure chronic ulcer of other part of left lower leg with unspecified severity; L97.819 Non-pressure chronic ulcer of other part of right lower leg with unspecified severity; J44.0 Chronic obstructive pulmonary disease with (acute) lower respiratory infection; Z16.23 Resistance to quinolones and fluoroquinolones; Z68.43 Body mass index [BMI] 50.0-59.9, adult; E87.1 Hypo-osmolality and hyponatremia; E11.22 Type 2 diabetes mellitus with diabetic chronic kidney disease; I87.2 Venous insufficiency (chronic) (peripheral); E11.40 Type 2 diabetes mellitus with diabetic neuropathy, unspecified; Z86.73 Personal history of transient ischemic attack (TIA), and cerebral infarction without residual deficits; G43.909 Migraine, unspecified, not intractable, without status migrainosus; I25.119 Atherosclerotic heart disease of native coronary artery with unspecified angina pectoris; Z99.2 Dependence on renal dialysis; Z95.1 Presence of aortocoronary bypass graft; Z88.0 Allergy status to penicillin; Z87.891 Personal history of nicotine dependence; Z82.49 Family history of ischemic heart disease and other diseases of the circulatory system; Z79.899 Other long term (current) drug therapy; M19.90 Unspecified osteoarthritis, unspecified site; Z86.718 Personal history of other venous thrombosis and embolism; Z98.890 Other specified postprocedural states; E88.09 Other disorders of plasma-protein metabolism, not elsewhere classified; E78.5 Hyperlipidemia, unspecified; E66.01 Morbid (severe) obesity due to excess calories; D64.9 Anemia, unspecified; G47.33 Obstructive sleep apnea (adult) (pediatric); Z53.20 Procedure and treatment not carried out because of patient's decision for unspecified reasons; Z79.4 Long term (current) use of insulin; Z79.84 Long term (current) use of oral hypoglycemic drugs; Z79.82 Long term (current) use of aspirin; Z79.85 Long-term (current) use of injectable non-insulin antidiabetic drugs; R91.8 Other nonspecific abnormal finding of lung field; M89.8X9 Other specified disorders of bone, unspecified site
CPT/HCPCS: 36415; 71045-TC; 80048-TC; 80053-TC; 80076-TC; 80202-TC; 82962-TC; 83605-TC; 83735-TC; 83880; 84100-TC; 84484-TC; 85025-TC; 85027-TC; 85378-TC; 85730-TC; 86706; 87040-TC; 87081-TC; 87340; 90935-TC; A4216; A4217; A4223; A6253; A6403; G0378; J0692; J1580; J1815; J1956; J2185; J2405; J3370; J3490; J7030; J7050; J7060

== ENCOUNTER 2024-10-21 08:40 | Outpatient (CLI) | payer MEDICARE, OTHER ==
[~2024-10-21 08:40] MED LIST changes: -ALBU1.25 NEB; +BLOO-1280 MC; -Blood Sugar Diagnostic IN; +GENTAMYCIN; -IPRA0.2S9 NEB; +LIDO35.4 TP; -METH4TAB3 PO; +SODI473S8 TOP
[2024-10-21] MEDS ORDERED: BUPIVACAINE IJ ONE (08:41)
[2024-10-21] MEDS ORDERED: LIDOCAINE 2% JEL 5 ML TUBE ONE (09:32)
== END 2024-10-21 23:59 | disposition home health service (06) ==
LOC: WOU 08:40
PROVIDERS: ATTEND Student in an Organized Health Care Education/Training Program
DX: I87.313 Chronic venous hypertension (idiopathic) with ulcer of bilateral lower extremity (principal); L97.825 Non-pressure chronic ulcer of other part of left lower leg with muscle involvement without evidence of necrosis; L97.815 Non-pressure chronic ulcer of other part of right lower leg with muscle involvement without evidence of necrosis; R60.0 Localized edema; I25.10 Atherosclerotic heart disease of native coronary artery without angina pectoris; Z95.1 Presence of aortocoronary bypass graft; Z83.3 Family history of diabetes mellitus; Z82.49 Family history of ischemic heart disease and other diseases of the circulatory system; E11.51 Type 2 diabetes mellitus with diabetic peripheral angiopathy without gangrene; I12.0 Hypertensive chronic kidney disease with stage 5 chronic kidney disease or end stage renal disease; E11.22 Type 2 diabetes mellitus with diabetic chronic kidney disease; N18.6 End stage renal disease; Z99.2 Dependence on renal dialysis; Z79.4 Long term (current) use of insulin; Z79.82 Long term (current) use of aspirin; Z79.899 Other long term (current) drug therapy; Z88.0 Allergy status to penicillin
CPT/HCPCS: 11043; 11046; A6253; J3490

== ENCOUNTER 2024-11-17 17:19 | Inpatient (IN) | payer MEDICARE, OTHER ==
[~2024-11-17] VITALS: Ht 162.6 cm; Wt 117.9 kg
[2024-11-17 18:00] LABS: PLATELET COUNT (AUTO) 624 K/uL (150-450); RED BLOOD CELL COUNT(AUTO) 3.27 MIL/uL (4.0-5.2); RED CELL DISTRIBUTION WIDTH 18.6 % (11.5-15.0); WHITE BLOOD COUNT (AUTO) 19.0 K/uL (4.3-11.0)
[2024-11-17] MEDS ORDERED: MORPHINE SULFATE INJ 2 MG/ML DISP.SYRIN ONE (18:00)
[2024-11-17] MEDS: MORPHINE SULFATE INJ 2 MG/ML DISP.SYRIN IV ONE (18:06)
[2024-11-17 18:17] LABS: CALCIUM, SERUM 9.4 mg/dL (8.5-10.1); CREATININE 4.7 mg/dL (0.6-1.3); SODIUM SERUM 131 mmol/L (136-145); UREA NITROGEN, BLOOD 58 mg/dL (7-18)
[2024-11-17 18:29] LABS: ASPARTATE AMINOTRANSFERASE 15 U/L (15-37); TOTAL PROTEIN, SERUM 6.4 g/dL (6.4-8.2)
[2024-11-17] MEDS ORDERED: MEROPENEM 1 G in IV NS 0.9% 100 ML IV ONE (18:30)
[2024-11-17] MEDS: MEROPENEM 1 G in IV NS 0.9% 100 ML IV ONE (18:35)
[2024-11-17 18:36] LABS: INR 1.05 (0.91-1.10)
[2024-11-17] MEDS ORDERED: BREO ELLIPTA IH (18:38)
[2024-11-17] MEDS ORDERED: DOCU250C14 PO (18:38)
[2024-11-17] MEDS ORDERED: MULT-594 PO (18:38)
[2024-11-17] MEDS ORDERED: BREX1TAB PO (18:38)
[2024-11-17] MEDS ORDERED: ALLO300T2 PO (18:38)
[2024-11-17] MEDS ORDERED: SENN-261 PO (18:38)
[2024-11-17] MEDS ORDERED: ALBU8.5H8 IH (18:38)
[2024-11-17] MEDS ORDERED: REPA1TAB7 PO (18:38)
[2024-11-17 18:56] LABS: NT-PRO BNP > 25000 pg/mL (0-125)
[2024-11-17] MEDS: VANCOMYCIN 1 GM in IV D5W 250 ML IV ONE (19:27)
[2024-11-17] MEDS ORDERED: SODIUM POLYSTYRENE SULFONATE 15 G/60 ML BOTTLE ONE (19:43)
[2024-11-17] MEDS: SODIUM POLYSTYRENE SULFONATE 15 G/60 ML BOTTLE PO ONE (19:56)
[2024-11-17] MEDS ORDERED: DOSING PER PHARMACY-VANCOMYCIN IV XX PRN (20:00)
[2024-11-17] MEDS ORDERED: Z GUARD REMEDY 4 OZ OINT TP PRN (20:00)
[2024-11-17 20:19] LABS: PHOSPHORUS 4.7 mg/dL (2.5-4.9)
[2024-11-17] MEDS: ALBUTEROL FS 2.5 MG/3 ML VIAL.NEB NEB ONE (20:22)
[2024-11-17 20:25] VITALS: O2SAT 99
[2024-11-17] MEDS ORDERED: ALBUTEROL FS 2.5 MG/3 ML VIAL.NEB ONE (20:27)
[2024-11-17] MEDS ORDERED: VANCOMYCIN POST DIALYSIS 500MG IV PRN (20:30)
[2024-11-17 20:35] VITALS: O2SAT 100
[2024-11-17] MEDS ORDERED: DEXTROSE 50%-WATER 50 ML DISP.SYRIN IV PRN (21:00)
[2024-11-17] MEDS ORDERED: MOMETASONE/FORMOTEROL 8.8 GM HFA.AER.AD INH PRN (21:00)
[2024-11-17] MEDS ORDERED: ALBUTEROL FS 2.5 MG/0.5 ML VIAL.NEB NEB PRN (21:00)
[2024-11-17 21:25] VITALS: BP 131/50; TEMP 97.3; O2SAT 99
[2024-11-17] MEDS: GABAPENTIN 300 MG CAPSULE PO SCH (22:36)
[2024-11-17] MEDS: MORPHINE SULFATE INJ 2 MG/ML DISP.SYRIN IV PRN (22:37)
[2024-11-17] MEDS: MONTELUKAST SODIUM (10MG) 10 MG TABLET PO SCH (22:37)
[2024-11-17] MEDS: ENOXAPARIN SODIUM 30 MG/0.3 ML DISP.SYRIN SQ SCH (22:40)
[2024-11-17] MEDS: BLOOD SUGAR DIAGNOSTIC 1 EACH STRIP IN SCH (22:41)
[2024-11-17] MEDS: INSULIN REGULAR, HUMAN 100 UNIT/ML 3 ML VIAL SQ PRN (22:46)
[2024-11-18 04:00] VITALS: BP 135/72; TEMP 97.5; O2SAT 97
[2024-11-18 07:00] VITALS: BP 137/81; TEMP 97.9; O2SAT 97
[2024-11-18 07:01] LABS: CALCIUM, SERUM 9.5 mg/dL (8.5-10.1); CREATININE 4.6 mg/dL (0.6-1.3); SODIUM SERUM 130.0 mmol/L (136-145); UREA NITROGEN, BLOOD 59.0 mg/dL (7-18)
[2024-11-18] MEDS: MULTIVITAMINS,THERAGRAN 1 UDTAB TABLET PO SCH (08:32)
[2024-11-18] MEDS: COLCHICINE 0.6 MG TABLET PO SCH (08:32)
[2024-11-18] MEDS: SENNOSIDES 8.6 MG TABLET PO SCH (08:32)
[2024-11-18] MEDS: ALLOPURINOL 100 MG TABLET PO SCH (08:32)
[2024-11-18] MEDS: ASPIRIN EC 81 MG TABLET.DR PO SCH (08:32)
[2024-11-18] MEDS: HYDROCODONE/APAP 5/325MG TABLET PO PRN (08:32)
[2024-11-18] MEDS: FERROUS SULFATE (325 MG) 325 MG/TAB TABLET PO SCH (08:32)
[2024-11-18] MEDS: PANTOPRAZOLE 40 MG TABLET.DR PO SCH (08:32)
[2024-11-18] MEDS: REPAGLINIDE 0.5 MG TABLET PO SCH (08:32)
[2024-11-18] MEDS: DOCUSATE SODIUM 250 MG CAPSULE PO SCH (08:33)
[2024-11-18] MEDS: CLONIDINE HCL 0.1 MG TABLET PO SCH (08:33)
[2024-11-18] MEDS: NIFEDIPINE XL 60 MG TAB.ER.24 PO SCH (08:34)
[2024-11-18] MEDS: LABETALOL HCL (100MG) 100 MG TABLET PO SCH (08:34)
[2024-11-18 08:36] LABS: PLATELET COUNT (AUTO) 659 K/uL (150-450); RED BLOOD CELL COUNT(AUTO) 3.16 MIL/uL (4.0-5.2); RED CELL DISTRIBUTION WIDTH 18.8 % (11.5-15.0); WHITE BLOOD COUNT (AUTO) 22.7 K/uL (4.3-11.0)
[2024-11-18] MEDS: BUPIVACAINE 0.25% 75 MG/30 ML VIAL IJ ONE (11:00)
[2024-11-18] MEDS: VANCOMYCIN 1 GM in IV D5W 250ml IV ONE (11:20)
[2024-11-18 16:00] VITALS: BP 140/73; TEMP 98.1; O2SAT 97
[2024-11-18] MEDS: MEROPENEM 1 G in IV NS 0.9% 100 ML IV SCH (18:31)
[2024-11-18 20:13] VITALS: BP 134/73; TEMP 97.9; O2SAT 97
[2024-11-18] MEDS: ACETAMINOPHEN 325 MG TABLET PO PRN (22:25)
[2024-11-19 06:28] VITALS: BP 122/59; TEMP 98.2; O2SAT 97
[2024-11-19 07:36] LABS: CALCIUM, SERUM 8.9 mg/dL (8.5-10.1); CREATININE 3.9 mg/dL (0.6-1.3); SODIUM SERUM 131.0 mmol/L (136-145); UREA NITROGEN, BLOOD 50.0 mg/dL (7-18)
[2024-11-19] MEDS: AMIODARONE 150 MG in IV D5W 100 ML IV ONE (08:37)
[2024-11-19] MEDS: APIXABAN 5 MG TABLET PO SCH (11:22)
[2024-11-19] MEDS: AMIODARONE 450 MG in IV D5W 241 ML IV PRN (11:26)
[2024-11-19 16:00] VITALS: BP 104/66; TEMP 97.8; O2SAT 98
[2024-11-19] MEDS: NYSTATIN/TRIAMCIN CREAM 15 GM TUBE TP SCH (17:28)
[2024-11-19 20:00] VITALS: BP 105/56; TEMP 98.8; O2SAT 98
[2024-11-20] VITALS: BP 112/74; TEMP 97; O2SAT 99
[2024-11-20 04:00] VITALS: BP 106/74; TEMP 96.8; O2SAT 98
[2024-11-20 08:00] VITALS: BP 130/76; TEMP 98; O2SAT 98
[2024-11-20 09:47] LABS: PLATELET COUNT (AUTO) 564 K/uL (150-450); RED BLOOD CELL COUNT(AUTO) 3.05 MIL/uL (4.0-5.2); RED CELL DISTRIBUTION WIDTH 19.2 % (11.5-15.0); WHITE BLOOD COUNT (AUTO) 19.3 K/uL (4.3-11.0)
[2024-11-20 09:57] LABS: CALCIUM, SERUM 9.4 mg/dL (8.5-10.1); CREATININE 4.6 mg/dL (0.6-1.3); SODIUM SERUM 128.0 mmol/L (136-145); UREA NITROGEN, BLOOD 55.0 mg/dL (7-18)
[2024-11-20] MEDS: VANCOMYCIN POST DIALYSIS 500MG IV ONE (11:04)
[2024-11-20 12:00] VITALS: BP 97/47; TEMP 97.9; O2SAT 98
[2024-11-20] MEDS: ALBUMIN 25% 25 GM in PREMIX 1 EA IV PRN (15:24)
[2024-11-20 16:00] VITALS: BP 90/69; TEMP 98.4; O2SAT 98
[2024-11-20 20:00] VITALS: BP 107/63; TEMP 99.1; O2SAT 96
[2024-11-21] VITALS: BP 101/61; TEMP 97.5; O2SAT 97
[2024-11-21] MEDS ORDERED: AMIODARONE 150 MG/3 ML VIAL IV ONE (00:48)
[2024-11-21 04:00] VITALS: BP 105/54; TEMP 97.2; O2SAT 98
[2024-11-21 08:14] VITALS: BP 103/65; TEMP 97.5; O2SAT 99
[2024-11-21 12:20] VITALS: BP 104/63; TEMP 97.5; O2SAT 99
[2024-11-21] MEDS: DIGOXIN INJ 0.5 MG/2 ML AMPUL IV SCH (12:27)
[2024-11-21 12:28] LABS: PLATELET COUNT (AUTO) 577 K/uL (150-450); RED BLOOD CELL COUNT(AUTO) 2.78 MIL/uL (4.0-5.2); RED CELL DISTRIBUTION WIDTH 19.6 % (11.5-15.0); WHITE BLOOD COUNT (AUTO) 15.3 K/uL (4.3-11.0)
[2024-11-21 12:37] LABS: ASPARTATE AMINOTRANSFERASE 54.0 U/L (15-37); CALCIUM, SERUM 9.3 mg/dL (8.5-10.1); CREATININE 4.1 mg/dL (0.6-1.3); SODIUM SERUM 131.0 mmol/L (136-145); TOTAL PROTEIN, SERUM 6.0 g/dL (6.4-8.2); UREA NITROGEN, BLOOD 50.0 mg/dL (7-18)
[2024-11-21 16:20] VITALS: BP 109/66; TEMP 97.6; O2SAT 95
[2024-11-21] MEDS: GABAPENTIN 300 MG CAPSULE PO SCH (16:35)
[2024-11-21 18:14] LABS: HIV-1/2 ANTIBODY NON REACTIVE (NONREACTIVE)
[2024-11-21 20:00] VITALS: BP 113/75; TEMP 98.2; O2SAT 98
[2024-11-22] VITALS: BP 122/72; TEMP 97.9; O2SAT 98
[2024-11-22 04:00] VITALS: BP 139/75; TEMP 97.9; O2SAT 99
[2024-11-22 07:03] LABS: PLATELET COUNT (AUTO) 614 K/uL (150-450); RED BLOOD CELL COUNT(AUTO) 3.04 MIL/uL (4.0-5.2); RED CELL DISTRIBUTION WIDTH 19.4 % (11.5-15.0); WHITE BLOOD COUNT (AUTO) 13.8 K/uL (4.3-11.0)
[2024-11-22 07:07] LABS: CALCIUM, SERUM 9.5 mg/dL (8.5-10.1); CREATININE 4.4 mg/dL (0.6-1.3); SODIUM SERUM 131.0 mmol/L (136-145); UREA NITROGEN, BLOOD 54.0 mg/dL (7-18)
[2024-11-22 08:00] VITALS: BP 129/75; TEMP 97.9; O2SAT 100
[2024-11-22] MEDS ORDERED: ALBUTEROL FS 2.5 MG/0.5 ML VIAL.NEB NEB PRN (09:30)
[2024-11-22] MEDS ORDERED: TRAMADOL HCL 50 MG TABLET PO PRN (10:00)
[2024-11-22] MEDS: DILTIAZEM HCL CD 240 MG PO SCH (10:30)
[2024-11-22 12:00] VITALS: BP 137/92; TEMP 98; O2SAT 97
[2024-11-22 16:00] VITALS: BP 125/69; TEMP 98; O2SAT 95
[2024-11-22 20:00] VITALS: BP 129/65; TEMP 99; O2SAT 98
[2024-11-23] VITALS: BP 143/76; TEMP 97.3; O2SAT 98
[2024-11-23 04:00] VITALS: BP 144/81; TEMP 97.7; O2SAT 100
[2024-11-23 08:00] VITALS: BP 144/82; TEMP 97.5; O2SAT 100
[2024-11-23 12:00] VITALS: BP 149/80; TEMP 97.5; O2SAT 96
[2024-11-23] MEDS: ONDANSETRON HCL/PF 4 MG/2 ML VIAL IVP PRN (14:34)
[2024-11-23 16:00] VITALS: BP 157/78; TEMP 97.9; O2SAT 98
[2024-11-23 20:00] VITALS: BP 135/77; TEMP 97.7; O2SAT 98
[2024-11-24] VITALS: BP 146/76; TEMP 98.1; O2SAT 98
[2024-11-24 04:00] VITALS: BP 149/78; TEMP 98.2; O2SAT 98
[2024-11-24 08:00] VITALS: BP 134/58; TEMP 97.4; O2SAT 98
[2024-11-24 08:24] LABS: PLATELET COUNT (AUTO) 582 K/uL (150-450); RED BLOOD CELL COUNT(AUTO) 3.21 MIL/uL (4.0-5.2); RED CELL DISTRIBUTION WIDTH 19.7 % (11.5-15.0); WHITE BLOOD COUNT (AUTO) 13.9 K/uL (4.3-11.0)
[2024-11-24] MEDS: CEFTAZIDIME 2 G in IV D5W 100 ML IV SCH (08:33)
[2024-11-24 08:48] LABS: ASPARTATE AMINOTRANSFERASE 29.0 U/L (15-37); CALCIUM, SERUM 9.3 mg/dL (8.5-10.1); CREATININE 4.2 mg/dL (0.6-1.3); PHOSPHORUS 4.9 mg/dL (2.5-4.9); SODIUM SERUM 131.0 mmol/L (136-145); TOTAL PROTEIN, SERUM 6.4 g/dL (6.4-8.2); UREA NITROGEN, BLOOD 54.0 mg/dL (7-18)
[2024-11-24 16:00] VITALS: BP 148/62; TEMP 97.9; O2SAT 98
[2024-11-24 20:00] VITALS: BP 154/87; TEMP 97.7; O2SAT 100
[2024-11-24] MEDS: SODIUM ZIRCONIUM CYCLOSILICATE 10 GM POWD.PACK PO SCH (21:29)
[2024-11-25] MEDS: BUPIVACAINE HCL/PF 50 MG/10 ML VIAL IJ ONE (04:52)
[2024-11-25 06:41] VITALS: BP 154/82; O2SAT 100
[2024-11-25 08:00] VITALS: BP 141/76; TEMP 97.9; O2SAT 99
[2024-11-25] MEDS ORDERED: GABA300C PO (08:39)
[2024-11-25 14:57] LABS: PLATELET COUNT (AUTO) 602 K/uL (150-450); RED BLOOD CELL COUNT(AUTO) 3.09 MIL/uL (4.0-5.2); RED CELL DISTRIBUTION WIDTH 19.6 % (11.5-15.0); WHITE BLOOD COUNT (AUTO) 13.6 K/uL (4.3-11.0)
[2024-11-25 15:13] LABS: ASPARTATE AMINOTRANSFERASE 31.0 U/L (15-37); CALCIUM, SERUM 9.8 mg/dL (8.5-10.1); CREATININE 4.5 mg/dL (0.6-1.3); PHOSPHORUS 5.0 mg/dL (2.5-4.9); SODIUM SERUM 130.0 mmol/L (136-145); TOTAL PROTEIN, SERUM 6.5 g/dL (6.4-8.2); UREA NITROGEN, BLOOD 63.0 mg/dL (7-18)
[2024-11-25 16:00] VITALS: BP 140/75; TEMP 98.6; O2SAT 98
[2024-11-25 20:00] VITALS: BP 146/72; TEMP 97.9; O2SAT 96
[2024-11-26 04:00] VITALS: BP 141/67; TEMP 97.9; O2SAT 96
[2024-11-26 07:02] LABS: PLATELET COUNT (AUTO) 586 K/uL (150-450); RED BLOOD CELL COUNT(AUTO) 2.98 MIL/uL (4.0-5.2); RED CELL DISTRIBUTION WIDTH 19.3 % (11.5-15.0); WHITE BLOOD COUNT (AUTO) 13.7 K/uL (4.3-11.0)
[2024-11-26 07:59] LABS: ASPARTATE AMINOTRANSFERASE 33.0 U/L (15-37); CALCIUM, SERUM 9.4 mg/dL (8.5-10.1); CREATININE 3.9 mg/dL (0.6-1.3); PHOSPHORUS 4.5 mg/dL (2.5-4.9); SODIUM SERUM 134.0 mmol/L (136-145); TOTAL PROTEIN, SERUM 6.2 g/dL (6.4-8.2); UREA NITROGEN, BLOOD 51.0 mg/dL (7-18)
[2024-11-26 08:00] VITALS: BP 146/72; TEMP 97.9; O2SAT 96
[2024-11-26] MEDS: CEFTAZIDIME 1 G in IV D5W 50 ML IV SCH (09:25)
[2024-11-26 16:00] VITALS: BP 137/70; TEMP 97.7; O2SAT 98
[2024-11-26 20:00] VITALS: BP 102/60; TEMP 97.3; O2SAT 98
[2024-11-27 04:00] VITALS: BP 144/80; TEMP 97.9; O2SAT 99
[2024-11-27 08:00] VITALS: BP 136/89; TEMP 97.9; O2SAT 96
[2024-11-27 08:42] VITALS: BP 136/89
== END 2024-11-27 11:15 | disposition home health service (06) | DRG 853 ==
LOC: ER 17:27 → TELE 19:18 → TELE1 11-19 07:16 → TELE-TD 11-19 07:34 → TELE1 11-21 14:36 → MEDSG1 11-24 09:46
PROVIDERS: ADMIT Registered Nurse Psychiatric/Mental Health; ATTEND Nurse Practitioner Family
PROC: 5A1D70Z Performance of Urinary Filtration, Intermittent, Less than 6 Hours Per Day (ICD-10-PCS; 2024-11-18)
PROC: 0KBT0ZZ Excision of Left Lower Leg Muscle, Open Approach (ICD-10-PCS; principal; 2024-11-19)
PROC: 0KBS0ZZ Excision of Right Lower Leg Muscle, Open Approach (ICD-10-PCS; 2024-11-19)
PROC: 0KBT0ZZ Excision of Left Lower Leg Muscle, Open Approach (ICD-10-PCS; 2024-11-25)
PROC: 0KBS0ZZ Excision of Right Lower Leg Muscle, Open Approach (ICD-10-PCS; 2024-11-25)
DX: A41.9 Sepsis, unspecified organism (principal); E43 Unspecified severe protein-calorie malnutrition; N18.6 End stage renal disease; E87.1 Hypo-osmolality and hyponatremia; L03.116 Cellulitis of left lower limb; L03.115 Cellulitis of right lower limb; I87.313 Chronic venous hypertension (idiopathic) with ulcer of bilateral lower extremity; L97.823 Non-pressure chronic ulcer of other part of left lower leg with necrosis of muscle; L97.813 Non-pressure chronic ulcer of other part of right lower leg with necrosis of muscle; I13.2 Hypertensive heart and chronic kidney disease with heart failure and with stage 5 chronic kidney disease, or end stage renal disease; Z68.41 Body mass index [BMI] 40.0-44.9, adult; Z16.13 Resistance to carbapenem; E11.22 Type 2 diabetes mellitus with diabetic chronic kidney disease; E87.5 Hyperkalemia; E66.01 Morbid (severe) obesity due to excess calories; E78.5 Hyperlipidemia, unspecified; E88.09 Other disorders of plasma-protein metabolism, not elsewhere classified; I48.91 Unspecified atrial fibrillation; Z88.0 Allergy status to penicillin; R53.1 Weakness; I25.10 Atherosclerotic heart disease of native coronary artery without angina pectoris; I50.9 Heart failure, unspecified; D63.1 Anemia in chronic kidney disease; Z79.4 Long term (current) use of insulin; Z86.73 Personal history of transient ischemic attack (TIA), and cerebral infarction without residual deficits; Z86.718 Personal history of other venous thrombosis and embolism; Z87.891 Personal history of nicotine dependence; Z99.2 Dependence on renal dialysis; Z95.1 Presence of aortocoronary bypass graft; Z79.899 Other long term (current) drug therapy; L89.620 Pressure ulcer of left heel, unstageable; I87.2 Venous insufficiency (chronic) (peripheral); B96.5 Pseudomonas (aeruginosa) (mallei) (pseudomallei) as the cause of diseases classified elsewhere
CPT/HCPCS: 36415; 71045-TC; 73590-TC; 76705-TC; 80048-TC; 80053-TC; 80076-TC; 80202-TC; 82962-TC; 83605-TC; 83735-TC; 83880; 84100-TC; 84484-TC; 85025-TC; 85730-TC; 86803; 87040-TC; 87070-TC; 87186-TC; 87806; 90935-TC; 93970-TC; A4216; A4223; A6253; A6403; G0378; J0282; J0713; J1160; J1650; J1815; J2185; J2270; J2405; J3373; J3490; J7030; J7050; J7060; P9047

== ENCOUNTER 2024-12-10 10:31 | Inpatient (IN) | payer MEDICARE, OTHER ==
[~2024-12-10] VITALS: Ht 162.6 cm; Wt 125.8 kg
[~2024-12-10 10:31] MED LIST changes: -ACET-868 PO; -ACET325T53 PO; +ALBU8.5H8 IH; +ALLO300T2 PO; -ASCO-352 PO; -BISA10SU11 RC; -BLOO-1280 MC; +BREO ELLIPTA IH; +BREX1TAB PO; +DOCU250C14 PO; -DULA1.5P SQ; -FURO80TA85 PO; -GENTAMYCIN; -GLIM1TAB18 PO; -ICOS1CAP PO; -INSU300I3 SQ; -LIDO35.4 TP; -MAGN400O6 PO; -METO5TAB7 PO; -MORP15TA PO; +MULT-594 PO; -NA P133E RC; +REPA1TAB7 PO; +SENN-261 PO; -SERT25TA PO; -SEVE800T7 PO; -SODI473S8 TOP; -UBRO100T PO; -VIT1TABL46 PO; -ZINC220C6 PO
[2024-12-10] MEDS ORDERED: IV NS 0.9% 250 ML IV ONE (10:41)
[2024-12-10] MEDS ORDERED: CT SWABBABLE VALVE TRANS SET 1 EA INFUS.SET MC ONE (10:41)
[2024-12-10] MEDS ORDERED: IOHEXOL-350 100 ML VIAL IV ONE (10:41)
[2024-12-10 10:51] LABS: PLATELET COUNT (AUTO) 454 K/uL (150-450); RED BLOOD CELL COUNT(AUTO) 3.02 MIL/uL (4.0-5.2); RED CELL DISTRIBUTION WIDTH 20.5 % (11.5-15.0); WHITE BLOOD COUNT (AUTO) 10.8 K/uL (4.3-11.0)
[2024-12-10 11:01] LABS: CALCIUM, SERUM 9.5 mg/dL (8.5-10.1); CREATININE 4.4 mg/dL (0.6-1.3); SODIUM SERUM 130 mmol/L (136-145); UREA NITROGEN, BLOOD 61 mg/dL (7-18)
[2024-12-10 11:04] LABS: INR 1.13 (0.91-1.10)
[2024-12-10 11:10] LABS: LACTIC ACID 0.9 mmol/L (0.4-2.0)
[2024-12-10 11:50] LABS: ALCOHOL, BLOOD < 3 mg/dL (0-10)
[2024-12-10 12:03] LABS: SERUM AMMONIA < 10 umol/L (11-32)
[2024-12-10] MEDS ORDERED: DEXTROSE 50%-WATER 50 ML DISP.SYRIN IV PRN ×2 (13:00→17:30)
[2024-12-10] MEDS ORDERED: INSULIN REGULAR, HUMAN 100 UNIT/ML 3 ML VIAL SQ PRN (13:00)
[2024-12-10] MEDS ORDERED: MAG HYDROX/AL HYDROX/SIMETH 30 ML UDC PO PRN (13:00)
[2024-12-10] MEDS: IV NS 0.9% 1,000 ML IV PRN (17:31)
[2024-12-10] MEDS ORDERED: BLOOD SUGAR DIAGNOSTIC 1 EACH STRIP IN SCH (18:00)
[2024-12-10] MEDS: BLOOD SUGAR DIAGNOSTIC 1 EACH STRIP VI SCH (18:17)
[2024-12-10] MEDS: INSULIN REGULAR, HUMAN 100 UNIT/ML 3 ML VIAL SQ PRN (18:17)
[2024-12-10 18:42] VITALS: BP 113/60; TEMP 97.5; O2SAT 97
[2024-12-10] MEDS: MORPHINE SULFATE INJ 2 MG/ML DISP.SYRIN IV PRN (19:06)
[2024-12-10 20:00] VITALS: BP 123/59; TEMP 97.5; O2SAT 99
[2024-12-10] MEDS: HEPARIN SODIUM, PORCINE 5000 UNITS/1 ML VIAL SQ SCH (21:21)
[2024-12-11] VITALS: BP 114/69; TEMP 97.7; O2SAT 98
[2024-12-11 04:00] VITALS: BP_SYST 129; BP_DIAS 47; BP_DIAS 77; TEMP 97.7; O2SAT 97
[2024-12-11] MEDS: ACETAMINOPHEN 325 MG TABLET PO PRN (06:31)
[2024-12-11 07:22] LABS: PLATELET COUNT (AUTO) 470 K/uL (150-450); RED BLOOD CELL COUNT(AUTO) 2.99 MIL/uL (4.0-5.2); RED CELL DISTRIBUTION WIDTH 21.1 % (11.5-15.0); WHITE BLOOD COUNT (AUTO) 9.9 K/uL (4.3-11.0)
[2024-12-11 08:00] VITALS: BP 133/63; TEMP 98.4; O2SAT 97
[2024-12-11 08:05] LABS: CALCIUM, SERUM 9.5 mg/dL (8.5-10.1); CREATININE 5.2 mg/dL (0.6-1.3); PHOSPHORUS 7.1 mg/dL (2.5-4.9); SODIUM SERUM 134.0 mmol/L (136-145); UREA NITROGEN, BLOOD 66.0 mg/dL (7-18)
[2024-12-11] MEDS ORDERED: ALBUTEROL FS 2.5 MG/3 ML VIAL.NEB NEB PRN ×2 (08:30→08:38)
[2024-12-11] MEDS ORDERED: NITROGLYCERIN 0.4 MG/TAB BOTTLE SL PRN (08:30)
[2024-12-11] MEDS ORDERED: MOMETASONE/FORMOTEROL 8.8 GM HFA.AER.AD IH PRN (09:00)
[2024-12-11] MEDS: HYDROCODONE/APAP 5/325MG TABLET PO PRN (09:14)
[2024-12-11] MEDS: DOCUSATE SODIUM 250 MG CAPSULE PO SCH (09:15)
[2024-12-11] MEDS: ALLOPURINOL 100 MG TABLET PO SCH (09:16)
[2024-12-11] MEDS: MULTIVIT W/MINERALS 1 TAB TABLET PO SCH (09:16)
[2024-12-11] MEDS: COLCHICINE 0.6 MG TABLET PO SCH (09:17)
[2024-12-11] MEDS: ASPIRIN EC 81 MG TABLET.DR PO SCH (09:17)
[2024-12-11] MEDS: SENNOSIDES 8.6 MG TABLET PO SCH (09:17)
[2024-12-11] MEDS: CLONIDINE HCL 0.1 MG TABLET PO SCH (09:17)
[2024-12-11] MEDS: FERROUS SULFATE (325 MG) 325 MG/TAB TABLET PO SCH (09:17)
[2024-12-11] MEDS: LABETALOL HCL (100MG) 100 MG TABLET PO SCH (09:18)
[2024-12-11] MEDS: NIFEDIPINE XL 60 MG TAB.ER.24 PO SCH (09:26)
[2024-12-11] MEDS ORDERED: ALBUTEROL HALF STRENGTH 1.25 MG/3 ML VIAL.NEB NEB PRN (11:00)
[2024-12-11] MEDS ORDERED: IPRATROPIUM NEB FS 0.5 MG/2.5 ML AMPUL.NEB NEB PRN (11:00)
[2024-12-11 11:30] VITALS: BP 114/60; TEMP 98.2; O2SAT 97
[2024-12-11 16:00] VITALS: BP 134/69; TEMP 98.1; O2SAT 99
[2024-12-11] MEDS: ONDANSETRON HCL/PF 4 MG/2 ML VIAL IVP PRN (19:49)
[2024-12-11 20:00] VITALS: BP 133/50; TEMP 97.5; O2SAT 99
[2024-12-11] MEDS: *INSULIN REGULAR(HUMULIN R)HUM 100 UNIT/ML VIAL SQ PRN (21:38)
[2024-12-11] MEDS: MONTELUKAST SODIUM (10MG) 10 MG TABLET PO SCH (21:48)
[2024-12-11] MEDS: GABAPENTIN 300 MG CAPSULE PO SCH (21:48)
[2024-12-12] VITALS: BP 130/80; TEMP 97; O2SAT 100
[2024-12-12 04:00] VITALS: BP 110/55; TEMP 97.5; O2SAT 100
[2024-12-12 07:30] VITALS: BP 108/63; TEMP 97.3; O2SAT 100
[2024-12-12 07:44] LABS: PLATELET COUNT (AUTO) 441 K/uL (150-450); RED BLOOD CELL COUNT(AUTO) 3.07 MIL/uL (4.0-5.2); RED CELL DISTRIBUTION WIDTH 20.9 % (11.5-15.0); WHITE BLOOD COUNT (AUTO) 10.2 K/uL (4.3-11.0)
[2024-12-12] MEDS: PANTOPRAZOLE 40 MG TABLET.DR PO SCH (07:47)
[2024-12-12 08:08] LABS: CREATININE 5.1 mg/dL (0.6-1.3); PHOSPHORUS 7.5 mg/dL (2.5-4.9); SODIUM SERUM 133.0 mmol/L (136-145); UREA NITROGEN, BLOOD 71.0 mg/dL (7-18)
[2024-12-12 08:37] LABS: CALCIUM, SERUM 9.4 mg/dL (8.5-10.1)
[2024-12-12] MEDS: REPAGLINIDE 0.5 MG TABLET PO SCH (09:32)
[2024-12-12 16:00] VITALS: BP 105/55; TEMP 97.3; O2SAT 100
[2024-12-12 20:00] VITALS: BP 103/46; TEMP 97.5; O2SAT 98
[2024-12-13] VITALS (7 sets, daily range): BP systolic 116–134; BP diastolic 46–64; TEMP 97.5–98.6; O2SAT 96–100
[2024-12-13 06:57] LABS: PLATELET COUNT (AUTO) 515 K/uL (150-450); RED BLOOD CELL COUNT(AUTO) 2.97 MIL/uL (4.0-5.2); RED CELL DISTRIBUTION WIDTH 19.9 % (11.5-15.0); WHITE BLOOD COUNT (AUTO) 12.2 K/uL (4.3-11.0)
[2024-12-13 07:07] LABS: CALCIUM, SERUM 9.1 mg/dL (8.5-10.1); CREATININE 4.7 mg/dL (0.6-1.3); PHOSPHORUS 6.3 mg/dL (2.5-4.9); SODIUM SERUM 136.0 mmol/L (136-145); UREA NITROGEN, BLOOD 59.0 mg/dL (7-18)
[2024-12-13] MEDS ORDERED: Z GUARD REMEDY 4 OZ OINT TP PRN (08:00)
[2024-12-13] MEDS: AMIODARONE HCL 200 MG TABLET PO SCH (09:22)
[2024-12-13] MEDS: Z GUARD REMEDY 4 OZ OINT TP SCH (10:23)
[2024-12-13] MEDS: THERAHONEY GEL 1.5 OZ TUBE TP SCH (10:24)
[2024-12-13] MEDS: CLOTRIMAZOLE 1% 15 GM TUBE TP SCH (10:25)
[2024-12-13] MEDS: BUPIVACAINE HCL/PF 50 MG/10 ML VIAL IJ ONE (10:30)
[2024-12-13 10:42] LABS: ABG BASE EXCESS -3.1 mmol/L (-2.0-3.0); ABG OXYGEN SATURATION 77.4 % (94.0-98.0); ABG PCO2 56.5 mmHg (32.0-45.0); ABG PH 7.253 (7.350-7.450); ABG PO2 47.7 mmHg (83.0-108.0); ABG TOTAL HEMOGLOBIN 10.0 G/dL (12.0-16.0); FLOW, BLOOD GAS 3.00 L/min (0.00-30.00); SITE, ABG VBG - N/A
[2024-12-13] MEDS: NYSTATIN TOP POWDER 15 GM BOTTLE TP SCH (12:41)
[2024-12-14] VITALS: BP 126/55; TEMP 97.7; O2SAT 100
[2024-12-14 04:00] VITALS: BP 131/57; TEMP 97.7; O2SAT 96
[2024-12-14 07:00] VITALS: BP 111/60; TEMP 97.7; O2SAT 100
[2024-12-14 07:12] LABS: PLATELET COUNT (AUTO) 485 K/uL (150-450); RED BLOOD CELL COUNT(AUTO) 3.01 MIL/uL (4.0-5.2); RED CELL DISTRIBUTION WIDTH 19.3 % (11.5-15.0); WHITE BLOOD COUNT (AUTO) 10.2 K/uL (4.3-11.0)
[2024-12-14 08:18] LABS: CALCIUM, SERUM 9.4 mg/dL (8.5-10.1); CREATININE 4.9 mg/dL (0.6-1.3); PHOSPHORUS 6.5 mg/dL (2.5-4.9); SODIUM SERUM 134.0 mmol/L (136-145); UREA NITROGEN, BLOOD 63.0 mg/dL (7-18)
[2024-12-14] MEDS: NEPRO VAN 237 ML CAN PO SCH (09:13)
[2024-12-14] MEDS: PROSOURCE / PROSTAT (PYXIS) 30 ML UDC PO SCH (09:17)
[2024-12-14] MEDS: CLOPIDOGREL BISULFATE 75 MG TABLET PO SCH (12:18)
[2024-12-14 16:00] VITALS: BP 128/64; TEMP 97.5; O2SAT 98
[2024-12-14 20:00] VITALS: BP_SYST 121; BP_SYST 137; BP_DIAS 61; BP_DIAS 66; TEMP 97; TEMP 97.9; O2SAT 100; O2SAT 94
[2024-12-15 08:00] VITALS: BP 140/55; TEMP 98.2; O2SAT 97
[2024-12-15 16:48] VITALS: BP 166/79; TEMP 98.1; O2SAT 98
[2024-12-15 20:00] VITALS: BP 133/59; TEMP 98.1; O2SAT 98
[2024-12-16 07:30] VITALS: BP 117/59; TEMP 98.1; O2SAT 100
[2024-12-16 08:00] LABS: PLATELET COUNT (AUTO) 412 K/uL (150-450); RED BLOOD CELL COUNT(AUTO) 2.82 MIL/uL (4.0-5.2); RED CELL DISTRIBUTION WIDTH 18.8 % (11.5-15.0); WHITE BLOOD COUNT (AUTO) 9.0 K/uL (4.3-11.0)
[2024-12-16 08:15] LABS: ASPARTATE AMINOTRANSFERASE 11 U/L (15-37); CALCIUM, SERUM 9.0 mg/dL (8.5-10.1); CREATININE 4.4 mg/dL (0.6-1.3); PHOSPHORUS 6.0 mg/dL (2.5-4.9); SODIUM SERUM 131 mmol/L (136-145); TOTAL PROTEIN, SERUM 5.9 g/dL (6.4-8.2); UREA NITROGEN, BLOOD 53 mg/dL (7-18)
[2024-12-16 20:00] VITALS: BP 132/72; TEMP 97.3; O2SAT 95
[2024-12-17 06:07] LABS: PLATELET COUNT (AUTO) 447 K/uL (150-450); RED BLOOD CELL COUNT(AUTO) 2.95 MIL/uL (4.0-5.2); RED CELL DISTRIBUTION WIDTH 18.9 % (11.5-15.0); WHITE BLOOD COUNT (AUTO) 11.5 K/uL (4.3-11.0)
[2024-12-17 06:18] LABS: ASPARTATE AMINOTRANSFERASE 13 U/L (15-37); CALCIUM, SERUM 8.9 mg/dL (8.5-10.1); CREATININE 4.1 mg/dL (0.6-1.3); PHOSPHORUS 5.1 mg/dL (2.5-4.9); SODIUM SERUM 133 mmol/L (136-145); TOTAL PROTEIN, SERUM 6.3 g/dL (6.4-8.2); UREA NITROGEN, BLOOD 45 mg/dL (7-18)
[2024-12-17 08:00] VITALS: BP 124/67; TEMP 98.1; O2SAT 99
[2024-12-17 16:00] VITALS: BP 115/55; TEMP 98.1; O2SAT 100
[2024-12-17 16:48] VITALS: BP 115/55
== END 2024-12-17 21:30 | disposition home health service (06) | DRG 264 ==
LOC: ER 10:34 → TELE 14:32 → MED 12-14 09:20
PROVIDERS: ADMIT Nurse Practitioner Acute Care
PROC: 5A1D70Z Performance of Urinary Filtration, Intermittent, Less than 6 Hours Per Day (ICD-10-PCS; 2024-12-12)
PROC: 0KBT0ZZ Excision of Left Lower Leg Muscle, Open Approach (ICD-10-PCS; principal; 2024-12-15)
PROC: 0KBS0ZZ Excision of Right Lower Leg Muscle, Open Approach (ICD-10-PCS; 2024-12-15)
DX: T82.858A Stenosis of other vascular prosthetic devices, implants and grafts, initial encounter (principal); E43 Unspecified severe protein-calorie malnutrition; N18.6 End stage renal disease; G93.41 Metabolic encephalopathy; E87.1 Hypo-osmolality and hyponatremia; Z68.42 Body mass index [BMI] 45.0-49.9, adult; I13.2 Hypertensive heart and chronic kidney disease with heart failure and with stage 5 chronic kidney disease, or end stage renal disease; I87.313 Chronic venous hypertension (idiopathic) with ulcer of bilateral lower extremity; L97.828 Non-pressure chronic ulcer of other part of left lower leg with other specified severity; L97.818 Non-pressure chronic ulcer of other part of right lower leg with other specified severity; I65.22 Occlusion and stenosis of left carotid artery; Y84.8 Other medical procedures as the cause of abnormal reaction of the patient, or of later complication, without mention of misadventure at the time of the procedure; Y92.009 Unspecified place in unspecified non-institutional (private) residence as the place of occurrence of the external cause; I48.91 Unspecified atrial fibrillation; R41.82 Altered mental status, unspecified; E11.22 Type 2 diabetes mellitus with diabetic chronic kidney disease; E03.9 Hypothyroidism, unspecified; E66.9 Obesity, unspecified; S81.802A Unspecified open wound, left lower leg, initial encounter; S81.801A Unspecified open wound, right lower leg, initial encounter; I50.9 Heart failure, unspecified; D64.9 Anemia, unspecified; E78.5 Hyperlipidemia, unspecified; E87.5 Hyperkalemia; Z87.891 Personal history of nicotine dependence; Z88.0 Allergy status to penicillin; Z95.1 Presence of aortocoronary bypass graft; Z99.2 Dependence on renal dialysis; E83.9 Disorder of mineral metabolism, unspecified; E88.09 Other disorders of plasma-protein metabolism, not elsewhere classified; I25.10 Atherosclerotic heart disease of native coronary artery without angina pectoris; I27.20 Pulmonary hypertension, unspecified; Z79.4 Long term (current) use of insulin; Z86.73 Personal history of transient ischemic attack (TIA), and cerebral infarction without residual deficits; E87.6 Hypokalemia; E66.01 Morbid (severe) obesity due to excess calories; E83.89 Other disorders of mineral metabolism; G47.33 Obstructive sleep apnea (adult) (pediatric); I34.0 Nonrheumatic mitral (valve) insufficiency; L98.8 Other specified disorders of the skin and subcutaneous tissue; L89.156 Pressure-induced deep tissue damage of sacral region; L89.326 Pressure-induced deep tissue damage of left buttock; L89.316 Pressure-induced deep tissue damage of right buttock; R93.1 Abnormal findings on diagnostic imaging of heart and coronary circulation; I87.2 Venous insufficiency (chronic) (peripheral); I65.1 Occlusion and stenosis of basilar artery; I66.02 Occlusion and stenosis of left middle cerebral artery
CPT/HCPCS: 36415; 70450-TC; 70496-TC; 70498-TC; 71045-TC; 73590-TC; 80048-TC; 80053-TC; 82140-TC; 82803-TC; 82962-TC; 83605-TC; 83735-TC; 84100-TC; 84443-TC; 84484-TC; 85025-TC; 85730-TC; 87040-TC; 87070-TC; 87186-TC; 87340; 90935-TC; 92526; 92611; 93307-TC; 93880-TC; 94799-TC; A4223; A6213; A6253; A6403; G0378; G0480; J1644; J1815; J2270; J2405; J3490; J7030; J7050; Q9967

== ENCOUNTER 2025-01-11 11:36 | Inpatient (IN) | payer MEDICARE, OTHER ==
[~2025-01-11] VITALS: Ht 160 cm; Wt 125.6 kg
[2025-01-11] MEDS ORDERED: ASPIRIN 325 MG TABLET ONE (12:08)
[2025-01-11 12:09] LABS: PLATELET COUNT (AUTO) 532 K/uL (150-450); RED BLOOD CELL COUNT(AUTO) 3.22 MIL/uL (4.0-5.2); RED CELL DISTRIBUTION WIDTH 18.6 % (11.5-15.0); WHITE BLOOD COUNT (AUTO) 12.2 K/uL (4.3-11.0)
[2025-01-11] MEDS ORDERED: MORPHINE SULFATE INJ 4 MG/ML DISP.SYRIN ONE (12:11)
[2025-01-11] MEDS: ASPIRIN 325 MG TABLET PO ONE (12:14)
[2025-01-11] MEDS: MORPHINE SULFATE INJ 2 MG/ML DISP.SYRIN IV ONE (12:14)
[2025-01-11 12:41] LABS: CALCIUM, SERUM 8.4 mg/dL (8.5-10.1); CREATININE 4.3 mg/dL (0.6-1.3); SODIUM SERUM 132 mmol/L (136-145); UREA NITROGEN, BLOOD 58 mg/dL (7-18)
[2025-01-11 12:58] LABS: ASPARTATE AMINOTRANSFERASE 11 U/L (15-37); TOTAL PROTEIN, SERUM 6.5 g/dL (6.4-8.2)
[2025-01-11 13:18] LABS: BASOPHILS % (MANUAL) 0 % (0.0-2.0); EOSINOPHILS % (MANUAL) 2 % (0-4); LYMPHOCYTES % (MANUAL) 5 % (16-48); MONOCYTES % (MANUAL) 7 % (0-11.0); NEUTROPHILS % (MANUAL) 86 (42-76); PLATELET ESTIMATE ADEQUATE
[2025-01-11 13:29] LABS: NT-PRO BNP > 25000 pg/mL (0-125)
[2025-01-11] MEDS ORDERED: ONDANSETRON HCL/PF 4 MG/2 ML VIAL IVP PRN (15:00)
[2025-01-11] MEDS ORDERED: NITROGLYCERIN 0.4 MG/TAB BOTTLE SL PRN ×2 (15:00→16:30)
[2025-01-11] MEDS ORDERED: Z GUARD REMEDY 4 OZ OINT TP PRN (15:00)
[2025-01-11] MEDS ORDERED: ZOLPIDEM TARTRATE 5 MG TABLET PO PRN (15:00)
[2025-01-11] MEDS ORDERED: ACETAMINOPHEN 325 MG TABLET PO PRN (15:00)
[2025-01-11 16:20] VITALS: BP 145/90; TEMP 97.9; O2SAT 99
[2025-01-11] MEDS ORDERED: HYDROCODONE/APAP 5/325MG TABLET PO PRN (16:30)
[2025-01-11] MEDS: MORPHINE SULFATE INJ 4 MG/ML DISP.SYRIN IV PRN (16:38)
[2025-01-11] MEDS: NIFEDIPINE XL 60 MG TAB.ER.24 PO SCH (19:02)
[2025-01-11] MEDS: CLONIDINE HCL 0.1 MG TABLET PO SCH (19:02)
[2025-01-11] MEDS: LABETALOL HCL (100MG) 100 MG TABLET PO SCH (19:02)
[2025-01-11] MEDS: COLCHICINE 0.6 MG TABLET PO SCH (19:03)
[2025-01-11] MEDS: HYDROCODONE/APAP 5/325MG TABLET PO PRN (19:03)
[2025-01-11 20:00] VITALS: BP 141/68; TEMP 97.9; O2SAT 98
[2025-01-11] MEDS: GABAPENTIN 300 MG CAPSULE PO SCH (21:14)
[2025-01-11] MEDS: MONTELUKAST SODIUM (10MG) 10 MG TABLET PO SCH (21:14)
[2025-01-12] VITALS: BP 114/62; TEMP 96.9; O2SAT 98
[2025-01-12 04:00] VITALS: BP 139/78; TEMP 96.9; O2SAT 97
[2025-01-12 08:00] VITALS: BP 128/79; TEMP 98.3; O2SAT 100
[2025-01-12] MEDS: DOCUSATE SODIUM 250 MG CAPSULE PO SCH (08:43)
[2025-01-12] MEDS: PANTOPRAZOLE 40 MG TABLET.DR PO SCH ×2 (08:43→12:53)
[2025-01-12] MEDS: ALLOPURINOL 100 MG TABLET PO SCH (08:43)
[2025-01-12] MEDS: SENNOSIDES 8.6 MG TABLET PO SCH (08:44)
[2025-01-12] MEDS: ASPIRIN EC 81 MG TABLET.DR PO SCH ×2 (08:45→09:00)
[2025-01-12] MEDS: MULTIVITAMINS,THERAGRAN 1 UDTAB TABLET PO SCH (08:45)
[2025-01-12] MEDS: CLOTRIMAZOLE 1% 15 GM TUBE TP SCH (08:47)
[2025-01-12] MEDS: DAKINS QUARTER STRENGTH (0.125%) 480 ML BOTTLE TOP SCH ×2 (08:47→20:57)
[2025-01-12] MEDS ORDERED: THERAHONEY GEL 1.5 OZ TUBE TP SCH ×2 (09:00)
[2025-01-12 12:00] VITALS: BP 103/59; TEMP 98.1; O2SAT 100
[2025-01-12] MEDS: NYSTATIN TOP POWDER 15 GM BOTTLE TP SCH (12:54)
[2025-01-12 16:00] VITALS: BP 122/67; TEMP 98.3; O2SAT 100
[2025-01-12 19:40] LABS: PLATELET COUNT (AUTO) 499 K/uL (150-450); RED BLOOD CELL COUNT(AUTO) 2.99 MIL/uL (4.0-5.2); RED CELL DISTRIBUTION WIDTH 18.1 % (11.5-15.0); WHITE BLOOD COUNT (AUTO) 10.7 K/uL (4.3-11.0)
[2025-01-12 20:00] VITALS: BP 138/64; TEMP 97.8; O2SAT 100
[2025-01-12 20:08] LABS: CALCIUM, SERUM 8.2 mg/dL (8.5-10.1); CREATININE 2.4 mg/dL (0.6-1.3); PHOSPHORUS 3.3 mg/dL (2.5-4.9); SODIUM SERUM 135.0 mmol/L (136-145); UREA NITROGEN, BLOOD 30.0 mg/dL (7-18)
[2025-01-13] VITALS: BP 142/69; TEMP 97.7; O2SAT 98
[2025-01-13 04:00] VITALS: BP 138/66; TEMP 97.7; O2SAT 97
[2025-01-13 08:00] VITALS: BP 145/66; TEMP 97.9; O2SAT 97
[2025-01-13 12:00] VITALS: BP 148/72; TEMP 98.2; O2SAT 97
[2025-01-13] MEDS: EPOETIN ALFA (10,000 UNIT) 10,000 UNIT/ML VIAL SQ SCH (12:43)
[2025-01-13 16:00] VITALS: BP 144/79; TEMP 98.4; O2SAT 97
[2025-01-13 16:04] VITALS: BP 147/78
[2025-01-15] MEDS ORDERED: CLONIDINE HCL 0.3 MG/24H PTWK 1 EA PATCH TD SCH (09:00)
== END 2025-01-13 22:38 | disposition home health service (06) | DRG 302 ==
LOC: ER 11:38 → TELE1 13:31
PROC: 5A1D70Z Performance of Urinary Filtration, Intermittent, Less than 6 Hours Per Day (ICD-10-PCS; principal; 2025-01-12)
DX: I25.10 Atherosclerotic heart disease of native coronary artery without angina pectoris (principal); E43 Unspecified severe protein-calorie malnutrition; N18.6 End stage renal disease; L97.819 Non-pressure chronic ulcer of other part of right lower leg with unspecified severity; L97.829 Non-pressure chronic ulcer of other part of left lower leg with unspecified severity; I13.2 Hypertensive heart and chronic kidney disease with heart failure and with stage 5 chronic kidney disease, or end stage renal disease; Z68.42 Body mass index [BMI] 45.0-49.9, adult; I87.313 Chronic venous hypertension (idiopathic) with ulcer of bilateral lower extremity; D68.59 Other primary thrombophilia; E87.1 Hypo-osmolality and hyponatremia; I87.2 Venous insufficiency (chronic) (peripheral); Z20.822 Contact with and (suspected) exposure to COVID-19; E11.42 Type 2 diabetes mellitus with diabetic polyneuropathy; E11.22 Type 2 diabetes mellitus with diabetic chronic kidney disease; E11.51 Type 2 diabetes mellitus with diabetic peripheral angiopathy without gangrene; I50.9 Heart failure, unspecified; J45.909 Unspecified asthma, uncomplicated; G43.909 Migraine, unspecified, not intractable, without status migrainosus; Z86.73 Personal history of transient ischemic attack (TIA), and cerebral infarction without residual deficits; Z87.891 Personal history of nicotine dependence; Z88.0 Allergy status to penicillin; Z99.2 Dependence on renal dialysis; Z86.718 Personal history of other venous thrombosis and embolism; Z98.890 Other specified postprocedural states; Z79.51 Long term (current) use of inhaled steroids; Z79.82 Long term (current) use of aspirin; Z79.4 Long term (current) use of insulin; Z79.899 Other long term (current) drug therapy; E03.9 Hypothyroidism, unspecified; E66.01 Morbid (severe) obesity due to excess calories; G47.33 Obstructive sleep apnea (adult) (pediatric); E88.09 Other disorders of plasma-protein metabolism, not elsewhere classified; I27.20 Pulmonary hypertension, unspecified; I34.0 Nonrheumatic mitral (valve) insufficiency; I48.91 Unspecified atrial fibrillation; E78.5 Hyperlipidemia, unspecified; D64.9 Anemia, unspecified; G89.4 Chronic pain syndrome; I89.0 Lymphedema, not elsewhere classified; L98.9 Disorder of the skin and subcutaneous tissue, unspecified; L89.156 Pressure-induced deep tissue damage of sacral region; Z82.49 Family history of ischemic heart disease and other diseases of the circulatory system; Z95.1 Presence of aortocoronary bypass graft; E87.70 Fluid overload, unspecified
CPT/HCPCS: 36415; 71045-TC; 80048-TC; 80076-TC; 82962-TC; 83735-TC; 83880; 84100-TC; 84484-TC; 85025-TC; 85027-TC; 90935-TC; 97110-TC; 97530-TC; A6213; A6253; A6403; G0378; J0885; J2270

== ENCOUNTER 2025-01-21 08:00 | Emergency (ER) | payer MEDICARE, OTHER ==
[~2025-01-21] VITALS: Ht 172.7 cm; Wt 119.3 kg
[2025-01-21] MEDS ORDERED: oxyCODONE/APAP (5/325 MG) 1 UDTAB TABLET ONE (08:27)
[2025-01-21] MEDS: oxyCODONE/APAP (5/325 MG) 1 UDTAB TABLET PO ONE (08:30)
[2025-01-21 11:20] VITALS: BP 119/59; TEMP 97.8; O2SAT 99
== END 2025-01-21 11:20 | disposition home or self-care (01) ==
LOC: ER 08:03
DX: G89.29 Other chronic pain (principal); M79.604 Pain in right leg; M79.605 Pain in left leg; G43.909 Migraine, unspecified, not intractable, without status migrainosus; E11.22 Type 2 diabetes mellitus with diabetic chronic kidney disease; I13.11 Hypertensive heart and chronic kidney disease without heart failure, with stage 5 chronic kidney disease, or end stage renal disease; N18.6 End stage renal disease; Z79.4 Long term (current) use of insulin; Z79.51 Long term (current) use of inhaled steroids; Z79.82 Long term (current) use of aspirin; Z79.899 Other long term (current) drug therapy; Z86.718 Personal history of other venous thrombosis and embolism; Z86.73 Personal history of transient ischemic attack (TIA), and cerebral infarction without residual deficits; Z88.0 Allergy status to penicillin; Z99.2 Dependence on renal dialysis

== ENCOUNTER 2025-01-21 17:59 | Inpatient (IN) | payer MEDICARE, OTHER ==
[~2025-01-21] VITALS: Ht 160 cm; Wt 115.2 kg
[2025-01-21 18:52] LABS: PLATELET COUNT (AUTO) 575 K/uL (150-450); RED BLOOD CELL COUNT(AUTO) 2.85 MIL/uL (4.0-5.2); RED CELL DISTRIBUTION WIDTH 17.6 % (11.5-15.0); WHITE BLOOD COUNT (AUTO) 13.0 K/uL (4.3-11.0)
[2025-01-21 18:58] LABS: CALCIUM, SERUM 9.3 mg/dL (8.5-10.1); CREATININE 5.5 mg/dL (0.6-1.3); SODIUM SERUM 125 mmol/L (136-145); UREA NITROGEN, BLOOD 79 mg/dL (7-18)
[2025-01-21 19:03] LABS: INR 1.07 (0.91-1.10)
[2025-01-21] MEDS ORDERED: HYDROCODONE/APAP 10/325MG TABLET ONE (19:07)
[2025-01-21 19:10] LABS: ASPARTATE AMINOTRANSFERASE 15 U/L (15-37); TOTAL PROTEIN, SERUM 6.8 g/dL (6.4-8.2)
[2025-01-21 19:11] LABS: NT-PRO BNP 93145 pg/mL (0-125)
[2025-01-21] MEDS: HYDROCODONE/APAP 10/325MG TABLET PO ONE (19:23)
[2025-01-21] MEDS ORDERED: SODIUM ZIRCONIUM CYCLOSILICATE 10 GM POWD.PACK ONE (19:33)
[2025-01-21] MEDS: SODIUM ZIRCONIUM CYCLOSILICATE 10 GM POWD.PACK PO ONE (19:36)
[2025-01-21] MEDS ORDERED: DEXTROSE 50%-WATER 50 ML DISP.SYRIN IV PRN (21:00)
[2025-01-21] MEDS ORDERED: ZOLPIDEM TARTRATE 5 MG TABLET PO PRN (21:00)
[2025-01-21] MEDS ORDERED: Z GUARD REMEDY 4 OZ OINT TP PRN (21:00)
[2025-01-21] MEDS ORDERED: MAG HYDROX/AL HYDROX/SIMETH 30 ML UDC PO PRN (21:00)
[2025-01-21] MEDS: CEFEPIME 1 GM in IV D5W 50 ML IV SCH (21:30)
[2025-01-21] MEDS: BLOOD SUGAR DIAGNOSTIC 1 EACH STRIP VI SCH (22:00)
[2025-01-21] MEDS: MONTELUKAST SODIUM (10MG) 10 MG TABLET PO SCH (23:15)
[2025-01-21] MEDS: GABAPENTIN 300 MG CAPSULE PO SCH (23:15)
[2025-01-21] MEDS: HYDROCODONE/APAP 10/325MG TABLET PO PRN (23:16)
[2025-01-21] MEDS ORDERED: CEFEPIME 1 GM VIAL ONE (23:47)
[2025-01-22] VITALS: BP 110/62; TEMP 97.8; O2SAT 93
[2025-01-22] MEDS: ACETAMINOPHEN 325 MG TABLET PO PRN (01:33)
[2025-01-22] MEDS ORDERED: DOSING PER PHARMACY-VANCOMYCIN IV XX PRN (02:00)
[2025-01-22] MEDS: VANCOMYCIN 1 GM in IV D5W 250ml IV SCH (02:00)
[2025-01-22 04:00] VITALS: BP 120/65; TEMP 98.3; O2SAT 93
[2025-01-22] MEDS ORDERED: VANCOMYCIN 1 GM /D5W 250 ML PB IV ONE (04:17)
[2025-01-22] MEDS: INSULIN REGULAR, HUMAN 100 UNIT/ML 3 ML VIAL SQ PRN (07:02)
[2025-01-22 08:00] VITALS: BP 132/62; TEMP 97.6; O2SAT 97
[2025-01-22] MEDS: CLONIDINE HCL 0.1 MG TABLET PO SCH (08:41)
[2025-01-22] MEDS: FERROUS SULFATE (325 MG) 325 MG/TAB TABLET PO SCH (08:41)
[2025-01-22] MEDS: REPAGLINIDE 0.5 MG TABLET PO SCH (08:41)
[2025-01-22] MEDS: ASPIRIN EC 81 MG TABLET.DR PO SCH (08:42)
[2025-01-22] MEDS: NIFEDIPINE XL 60 MG TAB.ER.24 PO SCH (08:42)
[2025-01-22] MEDS: PANTOPRAZOLE 40 MG TABLET.DR PO SCH (08:42)
[2025-01-22] MEDS: COLCHICINE 0.6 MG TABLET PO SCH (08:42)
[2025-01-22] MEDS: LABETALOL HCL (100MG) 100 MG TABLET PO SCH (08:42)
[2025-01-22] MEDS: DOCUSATE SODIUM 250 MG CAPSULE PO SCH (08:42)
[2025-01-22] MEDS: ALLOPURINOL 100 MG TABLET PO SCH (08:43)
[2025-01-22] MEDS: CLONIDINE HCL 0.3 MG/24H PTWK 1 EA PATCH TD SCH (08:46)
[2025-01-22] MEDS: SENNOSIDES 8.6 MG TABLET PO SCH (08:47)
[2025-01-22] MEDS: MULTIVITAMINS,THERAGRAN 1 UDTAB TABLET PO SCH (08:47)
[2025-01-22] MEDS: SUMATRIPTAN SUCCINATE 25 MG TABLET PO SCH (08:47)
[2025-01-22 12:00] VITALS: BP 141/74; TEMP 97.6; O2SAT 97
[2025-01-22 13:03] LABS: CALCIUM, SERUM 9.3 mg/dL (8.5-10.1); CREATININE 4.4 mg/dL (0.6-1.3); PHOSPHORUS 6.1 mg/dL (2.5-4.9); SODIUM SERUM 129.0 mmol/L (136-145); UREA NITROGEN, BLOOD 65.0 mg/dL (7-18)
[2025-01-22] MEDS: MORPHINE SULFATE INJ 2 MG/ML DISP.SYRIN IV PRN (13:33)
[2025-01-22 13:55] LABS: PLATELET COUNT (AUTO) 570 K/uL (150-450); RED BLOOD CELL COUNT(AUTO) 3.06 MIL/uL (4.0-5.2); RED CELL DISTRIBUTION WIDTH 18.1 % (11.5-15.0); WHITE BLOOD COUNT (AUTO) 12.2 K/uL (4.3-11.0)
[2025-01-22 16:00] VITALS: BP 127/73; TEMP 97.1; O2SAT 97
[2025-01-22] MEDS ORDERED: VANCOMYCIN POST DIALYSIS 500MG IV PRN (16:00)
[2025-01-22 20:00] VITALS: BP 128/66; TEMP 97; O2SAT 97
[2025-01-22] MEDS: *INSULIN REGULAR(HUMULIN R)HUM 100 UNIT/ML VIAL SQ PRN (22:06)
[2025-01-23 04:00] VITALS: BP 119/80; TEMP 96.8; O2SAT 97
[2025-01-23 06:53] LABS: PLATELET COUNT (AUTO) 592 K/uL (150-450); RED BLOOD CELL COUNT(AUTO) 2.89 MIL/uL (4.0-5.2); RED CELL DISTRIBUTION WIDTH 18.3 % (11.5-15.0); WHITE BLOOD COUNT (AUTO) 14.9 K/uL (4.3-11.0)
[2025-01-23 07:12] LABS: CALCIUM, SERUM 9.1 mg/dL (8.5-10.1); CREATININE 5.2 mg/dL (0.6-1.3); SODIUM SERUM 128.0 mmol/L (136-145); UREA NITROGEN, BLOOD 74.0 mg/dL (7-18)
[2025-01-23] MEDS: DAKINS QUARTER STRENGTH (0.125%) 480 ML BOTTLE TOP SCH (09:24)
[2025-01-23 12:29] VITALS: BP 129/97; TEMP 97.9
[2025-01-23] MEDS: VANCOMYCIN 1 GM in IV D5W 250 ML IV PRN (17:09)
[2025-01-23 20:00] VITALS: BP 94/74; TEMP 97.9; O2SAT 99
[2025-01-24 04:00] VITALS: BP 116/70; TEMP 98.1; O2SAT 95
[2025-01-24 08:00] VITALS: BP 112/77; TEMP 98.1; O2SAT 95
[2025-01-24 11:01] LABS: CALCIUM, SERUM 9.2 mg/dL (8.5-10.1); CREATININE 4.8 mg/dL (0.6-1.3); SODIUM SERUM 128.0 mmol/L (136-145); UREA NITROGEN, BLOOD 65.0 mg/dL (7-18)
[2025-01-24] MEDS ORDERED: FURO80TA3 PO (11:33)
[2025-01-24 12:00] VITALS: BP 99/64; TEMP 98.6; O2SAT 99
[2025-01-24] MEDS: MAGNESIUM HYDROXIDE 30 ML UDC PO PRN (17:26)
[2025-01-24 20:00] VITALS: BP 117/64; TEMP 97.5; O2SAT 99
[2025-01-24] MEDS: BUPIVACAINE HCL/PF 50 MG/10 ML VIAL IJ ONE (21:31)
[2025-01-25 04:00] VITALS: BP 100/51; TEMP 97.7; O2SAT 96
[2025-01-25 06:28] LABS: PLATELET COUNT (AUTO) 577 K/uL (150-450); RED BLOOD CELL COUNT(AUTO) 2.83 MIL/uL (4.0-5.2); RED CELL DISTRIBUTION WIDTH 18.6 % (11.5-15.0); WHITE BLOOD COUNT (AUTO) 13.0 K/uL (4.3-11.0)
[2025-01-25 06:39] LABS: CALCIUM, SERUM 8.8 mg/dL (8.5-10.1); CREATININE 4.8 mg/dL (0.6-1.3); SODIUM SERUM 129.0 mmol/L (136-145); UREA NITROGEN, BLOOD 68.0 mg/dL (7-18)
[2025-01-25 12:00] VITALS: BP 108/66; TEMP 97.6; O2SAT 100
[2025-01-25 16:00] VITALS: BP 108/66; TEMP 97.6; O2SAT 100
[2025-01-25] MEDS: VANCOMYCIN POST DIALYSIS 500MG IV PRN (18:07)
[2025-01-25 20:00] VITALS: BP 122/77; TEMP 97.5; O2SAT 100
[2025-01-25 22:40] VITALS: O2SAT 95
[2025-01-25] MEDS: ALBUTEROL FS 2.5 MG/3 ML VIAL.NEB NEB PRN (22:40)
[2025-01-25 22:55] VITALS: O2SAT 97
[2025-01-26 00:01] VITALS: BP 118/51; O2SAT 96
[2025-01-26 04:00] VITALS: BP 138/61; TEMP 98.2; O2SAT 96
[2025-01-26 06:26] LABS: PLATELET COUNT (AUTO) 538 K/uL (150-450); RED BLOOD CELL COUNT(AUTO) 2.85 MIL/uL (4.0-5.2); RED CELL DISTRIBUTION WIDTH 18.7 % (11.5-15.0); WHITE BLOOD COUNT (AUTO) 17.5 K/uL (4.3-11.0)
[2025-01-26 07:18] LABS: CALCIUM, SERUM 9.0 mg/dL (8.5-10.1); CREATININE 4.3 mg/dL (0.6-1.3); SODIUM SERUM 130.0 mmol/L (136-145); UREA NITROGEN, BLOOD 56.0 mg/dL (7-18)
[2025-01-26] MEDS: THERAHONEY GEL 1.5 OZ TUBE TP SCH (09:30)
[2025-01-26] MEDS: ERGOCALCIFEROL (VITAMIN D 2) 50,000 UNIT CAPSULE PO SCH (09:36)
[2025-01-26] MEDS: FUROSEMIDE 40 MG TABLET PO SCH (09:37)
[2025-01-26] MEDS: NYSTATIN TOP POWDER 15 GM BOTTLE TP SCH (13:14)
[2025-01-26 16:00] VITALS: BP 129/62; TEMP 97.6; O2SAT 96
[2025-01-26] MEDS: NEPRO VAN 237 ML CAN PO SCH (16:30)
[2025-01-26] MEDS: FLUTICASONE/VILANTEROL 1 EACH BLST.W.DEV IH PRN (20:58)
[2025-01-26 21:21] VITALS: O2SAT 95; O2SAT 96
[2025-01-26 21:31] VITALS: O2SAT 98
[2025-01-27] VITALS (15 sets, daily range): BP systolic 97–146; BP diastolic 47–126; TEMP 97–98.8; O2SAT 95–100
[2025-01-27] MEDS: HYDROCODONE/APAP 5/325MG TABLET PO PRN (00:09)
[2025-01-27 06:29] LABS: PLATELET COUNT (AUTO) 437 K/uL (150-450); RED BLOOD CELL COUNT(AUTO) 2.71 MIL/uL (4.0-5.2); RED CELL DISTRIBUTION WIDTH 18.8 % (11.5-15.0); WHITE BLOOD COUNT (AUTO) 16.0 K/uL (4.3-11.0)
[2025-01-27 06:46] LABS: CALCIUM, SERUM 9.0 mg/dL (8.5-10.1); CREATININE 3.4 mg/dL (0.6-1.3); SODIUM SERUM 130.0 mmol/L (136-145); UREA NITROGEN, BLOOD 45.0 mg/dL (7-18)
[2025-01-27 15:11] LABS: ABG BASE EXCESS -1.7 mmol/L (-2.0-3.0); ABG OXYGEN SATURATION 94.1 % (94.0-98.0); ABG PCO2 57.6 mmHg (32.0-45.0); ABG PH 7.267 (7.350-7.450); ABG PO2 76.5 mmHg (83.0-108.0); ABG TOTAL HEMOGLOBIN 9.6 G/dL (12.0-16.0); FLOW, BLOOD GAS 4.00 L/min (0.00-30.00); FRACTIONATED INSPIRED OXYGEN 36.0 %; SITE, ABG LEFT BRACHIAL
[2025-01-27 21:02] LABS: ABG BASE EXCESS -2.4 mmol/L (-2.0-3.0); ABG OXYGEN SATURATION 95.5 % (94.0-98.0); ABG PCO2 51.9 mmHg (32.0-45.0); ABG PH 7.290 (7.350-7.450); ABG PO2 86.7 mmHg (83.0-108.0); ABG TOTAL HEMOGLOBIN 9.5 G/dL (12.0-16.0); FLOW, BLOOD GAS 5.00 L/min (0.00-30.00); FRACTIONATED INSPIRED OXYGEN 40.0 %; SITE, ABG LEFT BRACHIAL
[2025-01-28] VITALS (25 sets, daily range): BP systolic 85–167; BP diastolic 42–99; TEMP 97.7–98.6; O2SAT 93–100
[2025-01-28 05:24] LABS: CALCIUM, SERUM 9.4 mg/dL (8.5-10.1); CREATININE 3.3 mg/dL (0.6-1.3); SODIUM SERUM 133.0 mmol/L (136-145); UREA NITROGEN, BLOOD 40.0 mg/dL (7-18)
[2025-01-28 11:04] LABS: PLATELET COUNT (AUTO) 442 K/uL (150-450); RED BLOOD CELL COUNT(AUTO) 2.84 MIL/uL (4.0-5.2); RED CELL DISTRIBUTION WIDTH 19.2 % (11.5-15.0); WHITE BLOOD COUNT (AUTO) 18.7 K/uL (4.3-11.0)
[2025-01-28] MEDS: EPOETIN ALFA (10,000 UNIT) 10,000 UNIT/ML VIAL SQ ONE (15:11)
[2025-01-28] MEDS: CEFTAZIDIME 1 G in IV D5W 50 ML IV SCH (21:13)
[2025-01-29] VITALS: BP 141/71; TEMP 98.3; O2SAT 100
[2025-01-29 04:00] VITALS: BP 139/68; TEMP 97.7; O2SAT 99
[2025-01-29 08:00] VITALS: BP 142/66; TEMP 98.2; O2SAT 100
[2025-01-29 08:36] LABS: CALCIUM, SERUM 9.1 mg/dL (8.5-10.1); CREATININE 2.9 mg/dL (0.6-1.3); SODIUM SERUM 135.0 mmol/L (136-145); UREA NITROGEN, BLOOD 37.0 mg/dL (7-18)
[2025-01-29 08:40] LABS: PLATELET COUNT (AUTO) 466 K/uL (150-450); RED BLOOD CELL COUNT(AUTO) 2.75 MIL/uL (4.0-5.2); RED CELL DISTRIBUTION WIDTH 18.6 % (11.5-15.0); WHITE BLOOD COUNT (AUTO) 18.0 K/uL (4.3-11.0)
[2025-01-29] MEDS ORDERED: DOSING PER PHARMACY-TOBRAMYCIN IV XX PRN (19:30)
[2025-01-29] MEDS ORDERED: TOBRAMYCIN 80 MG/2 ML VIAL ONE (20:21)
[2025-01-29] MEDS: D5W IV ONE (21:14)
[2025-01-29] MEDS: TOBRAMYCIN IV ONE (21:14)
[2025-01-29 21:15] VITALS: BP 113/51; TEMP 98.1; O2SAT 100
[2025-01-29 22:57] VITALS: BP 104/44; TEMP 97.9; O2SAT 99
[2025-01-30] MEDS ORDERED: TOBRAMYCIN 80 MG in IV D5W 50 ML IV PRN (08:00)
[2025-01-30 10:06] LABS: ABG BASE EXCESS -0.4 mmol/L (-2.0-3.0); ABG OXYGEN SATURATION 90.5 % (94.0-98.0); ABG PCO2 44.9 mmHg (32.0-45.0); ABG PH 7.365 (7.350-7.450); ABG PO2 60.2 mmHg (83.0-108.0); ABG TOTAL HEMOGLOBIN 8.5 G/dL (12.0-16.0); FLOW, BLOOD GAS 3.00 L/min (0.00-30.00); FRACTIONATED INSPIRED OXYGEN 33.0 %; SITE, ABG LEFT BRACHIAL
[2025-01-30] MEDS: ONDANSETRON HCL/PF 4 MG/2 ML VIAL IVP PRN (12:44)
[2025-01-30 16:00] VITALS: BP 109/55; TEMP 98.5; O2SAT 99
[2025-01-30 23:00] VITALS: BP 90/46; TEMP 97.7
[2025-01-31 04:17] VITALS: BP 111/67; TEMP 97.7; O2SAT 96
[2025-01-31 06:43] LABS: PLATELET COUNT (AUTO) 383 K/uL (150-450); RED BLOOD CELL COUNT(AUTO) 2.61 MIL/uL (4.0-5.2); RED CELL DISTRIBUTION WIDTH 18.6 % (11.5-15.0); WHITE BLOOD COUNT (AUTO) 16.3 K/uL (4.3-11.0)
[2025-01-31 07:00] VITALS: BP 117/67; TEMP 97.3; O2SAT 95
[2025-01-31 07:04] LABS: CALCIUM, SERUM 9.2 mg/dL (8.5-10.1); CREATININE 3.3 mg/dL (0.6-1.3); SODIUM SERUM 132.0 mmol/L (136-145); UREA NITROGEN, BLOOD 40.0 mg/dL (7-18)
[2025-01-31 15:00] VITALS: BP 114/64; TEMP 97.9; O2SAT 94
[2025-01-31] MEDS: ALBUMIN 25% 25 GM in PREMIX 1 EA IV PRN (15:27)
[2025-01-31] MEDS: TOBRAMYCIN 80 MG in IV D5W 50 ML IV PRN (18:07)
[2025-01-31 20:00] VITALS: BP 107/85; TEMP 98.1; O2SAT 94
[2025-02-01 04:00] VITALS: BP 126/100; TEMP 98.3; O2SAT 95
[2025-02-01 05:55] LABS: PLATELET COUNT (AUTO) 344 K/uL (150-450); RED BLOOD CELL COUNT(AUTO) 2.64 MIL/uL (4.0-5.2); RED CELL DISTRIBUTION WIDTH 17.9 % (11.5-15.0); WHITE BLOOD COUNT (AUTO) 14.8 K/uL (4.3-11.0)
[2025-02-01 06:09] LABS: CALCIUM, SERUM 9.4 mg/dL (8.5-10.1); CREATININE 2.8 mg/dL (0.6-1.3); SODIUM SERUM 133.0 mmol/L (136-145); UREA NITROGEN, BLOOD 34.0 mg/dL (7-18)
[2025-02-01 08:00] VITALS: BP_SYST 100; BP_SYST 138; BP_DIAS 55; BP_DIAS 56; TEMP 98.1; TEMP 98.2; O2SAT 100; O2SAT 96
[2025-02-01] MEDS ORDERED: BUPIVACAINE HCL/PF 50 MG/10 ML VIAL IJ ONE (12:00)
[2025-02-01] MEDS ORDERED: tobramycin IV (13:12)
[2025-02-01 16:00] VITALS: BP 127/60; TEMP 97.6; O2SAT 98
[2025-02-01 20:00] VITALS: BP 112/59; TEMP 97.7; O2SAT 95
[2025-02-02 04:00] VITALS: BP 112/72; TEMP 97.9; O2SAT 95
[2025-02-02 08:00] LABS: CALCIUM, SERUM 9.4 mg/dL (8.5-10.1); CREATININE 3.3 mg/dL (0.6-1.3); SODIUM SERUM 132.0 mmol/L (136-145); UREA NITROGEN, BLOOD 40.0 mg/dL (7-18)
[2025-02-02 12:02] VITALS: BP 116/57; TEMP 97.9; O2SAT 95
[2025-02-02 16:27] VITALS: BP 115/52
== END 2025-02-02 21:01 | disposition home health service (06) | DRG 264 ==
LOC: ER 18:02 → TELE-TD 20:44 → TELE1 20:56 → MEDSG1 01-22 12:07 → ICU 01-27 16:40 → TELE1 01-28 17:56 → MEDSG1 01-29 10:13
PROVIDERS: ADMIT Nurse Practitioner Acute Care; ATTEND Nurse Practitioner Family
PROC: 5A1D70Z Performance of Urinary Filtration, Intermittent, Less than 6 Hours Per Day (ICD-10-PCS; principal; 2025-01-22)
PROC: 0KBS0ZZ Excision of Right Lower Leg Muscle, Open Approach (ICD-10-PCS; 2025-01-25)
PROC: 0KBT0ZZ Excision of Left Lower Leg Muscle, Open Approach (ICD-10-PCS; 2025-01-25)
PROC: 5A09357 Assistance with Respiratory Ventilation, Less than 24 Consecutive Hours, Continuous Positive Airway Pressure (ICD-10-PCS; 2025-01-27)
PROC: 0KBT0ZZ Excision of Left Lower Leg Muscle, Open Approach (ICD-10-PCS; 2025-02-02)
PROC: 0KBS0ZZ Excision of Right Lower Leg Muscle, Open Approach (ICD-10-PCS; 2025-02-02)
DX: I13.2 Hypertensive heart and chronic kidney disease with heart failure and with stage 5 chronic kidney disease, or end stage renal disease (principal); E43 Unspecified severe protein-calorie malnutrition; I50.43 Acute on chronic combined systolic (congestive) and diastolic (congestive) heart failure; N18.6 End stage renal disease; J96.21 Acute and chronic respiratory failure with hypoxia; J96.22 Acute and chronic respiratory failure with hypercapnia; E87.20 Acidosis, unspecified; I27.20 Pulmonary hypertension, unspecified; L89.620 Pressure ulcer of left heel, unstageable; E86.1 Hypovolemia; E11.52 Type 2 diabetes mellitus with diabetic peripheral angiopathy with gangrene; Z99.2 Dependence on renal dialysis; S71.102A Unspecified open wound, left thigh, initial encounter; E66.2 Morbid (severe) obesity with alveolar hypoventilation; D63.1 Anemia in chronic kidney disease; I48.20 Chronic atrial fibrillation, unspecified; L97.823 Non-pressure chronic ulcer of other part of left lower leg with necrosis of muscle; L97.813 Non-pressure chronic ulcer of other part of right lower leg with necrosis of muscle; E87.1 Hypo-osmolality and hyponatremia; Z68.42 Body mass index [BMI] 45.0-49.9, adult; E11.22 Type 2 diabetes mellitus with diabetic chronic kidney disease; I87.2 Venous insufficiency (chronic) (peripheral); I89.0 Lymphedema, not elsewhere classified; Z86.73 Personal history of transient ischemic attack (TIA), and cerebral infarction without residual deficits; G43.909 Migraine, unspecified, not intractable, without status migrainosus; Z98.890 Other specified postprocedural states; I25.10 Atherosclerotic heart disease of native coronary artery without angina pectoris; D72.829 Elevated white blood cell count, unspecified; Z88.0 Allergy status to penicillin; Z79.51 Long term (current) use of inhaled steroids; Z99.81 Dependence on supplemental oxygen; Z95.1 Presence of aortocoronary bypass graft; Z87.891 Personal history of nicotine dependence; Z79.899 Other long term (current) drug therapy; Z79.4 Long term (current) use of insulin; G89.4 Chronic pain syndrome; Z82.49 Family history of ischemic heart disease and other diseases of the circulatory system; E78.00 Pure hypercholesterolemia, unspecified; E88.09 Other disorders of plasma-protein metabolism, not elsewhere classified; N25.0 Renal osteodystrophy; E87.5 Hyperkalemia; E11.65 Type 2 diabetes mellitus with hyperglycemia; X58.XXXA Exposure to other specified factors, initial encounter; Y92.9 Unspecified place or not applicable; S50.811A Abrasion of right forearm, initial encounter
CPT/HCPCS: 36415; 36600; 71045-TC; 80048-TC; 80076-TC; 80202-TC; 82803-TC; 82962-TC; 83735-TC; 83880; 84100-TC; 84484-TC; 85025-TC; 85730-TC; 87040-TC; 87070-TC; 87186-TC; 90935-TC; 94660; 94760-TC; 94799-TC; A4216; A4223; A6213; A6253; A6403; G0378; J0692; J0713; J0885; J1815; J2270; J2405; J3260; J3373; J3490; J7030; J7050; J7060; P9047

== ENCOUNTER 2025-03-02 10:09 | Inpatient (IN) | payer MEDICARE, OTHER ==
[~2025-03-02] VITALS: Ht 165.1 cm; Wt 85.3 kg
[~2025-03-02 10:09] MED LIST changes: +ALLO300T2 GT; -ALLO300T2 PO; +BREX1TAB GT; -BREX1TAB PO; +CLON0.1T GT; -CLON0.1T PO; +COLC0.6T67 GT; -COLC0.6T67 PO; +FURO80TA3 GT; +GABA300C GT; -GABA300C PO; +HYDR-3972 GT; -HYDR-3972 PO; +MONT10TA22 GT; -MONT10TA22 PO; +MULT-594 GT; -MULT-594 PO; +NIFE-34 GT; -NIFE-34 PO; +REPA1TAB7 GT; -REPA1TAB7 PO; +SENN-261 GT; -SENN-261 PO; +SUMA50TA GT; -SUMA50TA PO; +tobramycin IV
[2025-03-02 10:54] LABS: PLATELET COUNT (AUTO) 279 K/uL (150-450); RED BLOOD CELL COUNT(AUTO) 2.58 MIL/uL (4.0-5.2); RED CELL DISTRIBUTION WIDTH 21.2 % (11.5-15.0); WHITE BLOOD COUNT (AUTO) 14.6 K/uL (4.3-11.0)
[2025-03-02 11:00] LABS: CALCIUM, SERUM 9.3 mg/dL (8.5-10.1); CREATININE 2.9 mg/dL (0.6-1.3); SODIUM SERUM 129 mmol/L (136-145); UREA NITROGEN, BLOOD 68 mg/dL (7-18)
[2025-03-02 11:11] LABS: INR 1.1 (0.91-1.10)
[2025-03-02] MEDS ORDERED: BISA10SU11 RC (11:20)
[2025-03-02] MEDS ORDERED: ACET-73 GT (11:20)
[2025-03-02] MEDS ORDERED: LABE200T5 GT (11:20)
[2025-03-02] MEDS ORDERED: Z GUARD REMEDY 4 OZ OINT TP PRN (11:30)
[2025-03-02] MEDS ORDERED: MAG HYDROX/AL HYDROX/SIMETH 30 ML UDC PO PRN (11:30)
[2025-03-02] MEDS ORDERED: MAGNESIUM HYDROXIDE 30 ML UDC PO PRN (11:30)
[2025-03-02] MEDS ORDERED: ONDANSETRON HCL/PF 4 MG/2 ML VIAL IVP PRN (11:30)
[2025-03-02 12:30] VITALS: BP 121/61; TEMP 97.9; O2SAT 99
[2025-03-02] MEDS ORDERED: DEXTROSE 50%-WATER 50 ML DISP.SYRIN IV PRN (14:00)
[2025-03-02] MEDS ORDERED: LIDOCAINE 1% INJ 50 ML MDV IJ ONE (14:25)
[2025-03-02] MEDS ORDERED: HEPARIN SODIUM, PORCINE 1,000 UNIT/ML VIAL ONE (14:25)
[2025-03-02] MEDS ORDERED: BACITRACIN/POLYMYXIN B 15 GM TUBE TP ONE (15:05)
[2025-03-02 16:00] VITALS: BP 128/67; TEMP 98; O2SAT 98
[2025-03-02 17:00] VITALS: BP 128/67; TEMP 98; O2SAT 98
[2025-03-02] MEDS: ACETAMINOPHEN 325 MG TABLET PO PRN (18:44)
[2025-03-02] MEDS: BLOOD SUGAR DIAGNOSTIC 1 EACH STRIP IN SCH (18:58)
[2025-03-02 21:00] VITALS: BP 111/68; TEMP 97.7; O2SAT 99
[2025-03-02] MEDS: ANCEF 1 GM/50 ML D5W IV SCH (22:24)
[2025-03-03] VITALS: BP 105/82; TEMP 97.7; O2SAT 100
[2025-03-03 05:00] VITALS: BP 147/70; TEMP 97.1; O2SAT 99
[2025-03-03 07:57] LABS: PLATELET COUNT (AUTO) 231 K/uL (150-450); RED BLOOD CELL COUNT(AUTO) 2.85 MIL/uL (4.0-5.2); RED CELL DISTRIBUTION WIDTH 22.0 % (11.5-15.0); WHITE BLOOD COUNT (AUTO) 11.7 K/uL (4.3-11.0)
[2025-03-03 08:00] VITALS: BP 153/65; TEMP 98.1; O2SAT 97
[2025-03-03 08:05] LABS: CALCIUM, SERUM 9.3 mg/dL (8.5-10.1); CREATININE 2.4 mg/dL (0.6-1.3); PHOSPHORUS 1.5 mg/dL (2.5-4.9); SODIUM SERUM 136.0 mmol/L (136-145); UREA NITROGEN, BLOOD 44.0 mg/dL (7-18)
[2025-03-03] MEDS: DAKINS QUARTER STRENGTH (0.125%) 480 ML BOTTLE TOP SCH (09:20)
[2025-03-03 12:00] VITALS: BP 138/95; TEMP 97.2; O2SAT 96
[2025-03-03] MEDS ORDERED: IV LR 500 ML IV ONE (14:30)
[2025-03-03 16:00] VITALS: BP 141/75; TEMP 97.6; O2SAT 99
[2025-03-03] MEDS: NEPRO VAN 237 ML CAN PEG SCH (17:41)
[2025-03-03] MEDS: K PHOS NEUTRAL 250 MG TABLET PO ONE (17:41)
[2025-03-03 20:00] VITALS: BP 138/76; TEMP 97.5; O2SAT 99
[2025-03-03] MEDS: LIDOCAINE 5% OINT 35.44 GM TUBE TP SCH (22:12)
[2025-03-03] MEDS: INSULIN REGULAR, HUMAN 100 UNIT/ML 3 ML VIAL SQ PRN (23:58)
[2025-03-04 04:00] VITALS: BP 149/68; TEMP 97.9; O2SAT 98
[2025-03-04 08:00] VITALS: BP 155/94; TEMP 99; O2SAT 96
[2025-03-04] MEDS ORDERED: DAKINS QUARTER STRENGTH (0.125%) 480 ML BOTTLE TOP SCH (09:00)
[2025-03-04] MEDS: HYDROCODONE/APAP 10/325MG TABLET PO PRN (10:54)
[2025-03-04 16:00] VITALS: BP 119/63; TEMP 100.1; O2SAT 98
[2025-03-04] MEDS: LORAZEPAM 0.5 MG TABLET PO PRN (17:47)
[2025-03-05] VITALS: BP 129/74; TEMP 97.9; O2SAT 98
[2025-03-05 08:00] VITALS: BP 152/50; TEMP 98.3; O2SAT 100
[2025-03-05 16:00] VITALS: BP 140/51; TEMP 98; O2SAT 98
[2025-03-05 20:00] VITALS: BP 103/46; TEMP 97.7; O2SAT 100
[2025-03-06 04:00] VITALS: BP 125/68; TEMP 97.9; O2SAT 100
[2025-03-06 08:00] VITALS: BP 135/85; TEMP 97; O2SAT 97
[2025-03-06 08:00] LABS: PLATELET COUNT (AUTO) 323 K/uL (150-450); RED BLOOD CELL COUNT(AUTO) 2.67 MIL/uL (4.0-5.2); RED CELL DISTRIBUTION WIDTH 23.2 % (11.5-15.0); WHITE BLOOD COUNT (AUTO) 15.6 K/uL (4.3-11.0)
[2025-03-06 08:03] LABS: ASPARTATE AMINOTRANSFERASE 12 U/L (15-37); CALCIUM, SERUM 8.9 mg/dL (8.5-10.1); CREATININE 2.3 mg/dL (0.6-1.3); PHOSPHORUS 1.8 mg/dL (2.5-4.9); SODIUM SERUM 137 mmol/L (136-145); TOTAL PROTEIN, SERUM 6.5 g/dL (6.4-8.2); UREA NITROGEN, BLOOD 51 mg/dL (7-18)
[2025-03-06] MEDS ORDERED: DOSING PER PHARMACY-VANCOMYCIN IV XX PRN (14:00)
[2025-03-06 14:02] LABS: ABG BASE EXCESS 0.5 mmol/L (-2.0-3.0); ABG OXYGEN SATURATION 92.7 % (94.0-98.0); ABG PCO2 41.8 mmHg (32.0-45.0); ABG PH 7.401 (7.350-7.450); ABG PO2 69.3 mmHg (83.0-108.0); ABG TOTAL HEMOGLOBIN 9.0 G/dL (12.0-16.0); FLOW, BLOOD GAS 5.00 L/min (0.00-30.00); SITE, ABG RIGHT RADIAL
[2025-03-06 16:00] VITALS: BP 120/85; TEMP 97; O2SAT 98
[2025-03-06] MEDS ORDERED: IOHEXOL-300 100 ML VIAL IV ONE (17:38)
[2025-03-06] MEDS ORDERED: IV NS 0.9% 250 ML IV ONE (17:38)
[2025-03-06] MEDS ORDERED: CT SWABBABLE VALVE TRANS SET 1 EA INFUS.SET MC ONE (17:38)
[2025-03-06] MEDS: NEUTRA PHOS 1 POWD.PACKET GT ONE (19:06)
[2025-03-06 20:00] VITALS: BP 141/75; TEMP 98.4; O2SAT 100
[2025-03-07] VITALS: BP 142/92; TEMP 98.2; O2SAT 98
[2025-03-07] MEDS: VANCOMYCIN 1 GM in IV D5W 250ml IV ONE (00:08)
[2025-03-07] MEDS: LEVOFLOXACIN 750 MG /D5W 150ML 750 MG in PREMIX 1 EA IV SCH (01:10)
[2025-03-07 04:00] VITALS: BP 135/83; TEMP 99.7; O2SAT 96
[2025-03-07 06:52] LABS: PLATELET COUNT (AUTO) 305 K/uL (150-450); RED BLOOD CELL COUNT(AUTO) 2.64 MIL/uL (4.0-5.2); RED CELL DISTRIBUTION WIDTH 23.0 % (11.5-15.0); WHITE BLOOD COUNT (AUTO) 14.6 K/uL (4.3-11.0)
[2025-03-07 07:00] LABS: CALCIUM, SERUM 9.0 mg/dL (8.5-10.1); CREATININE 1.8 mg/dL (0.6-1.3); PHOSPHORUS 1.6 mg/dL (2.5-4.9); SODIUM SERUM 136.0 mmol/L (136-145); UREA NITROGEN, BLOOD 39.0 mg/dL (7-18)
[2025-03-07 08:00] VITALS: BP 156/71; TEMP 98.7; O2SAT 96
[2025-03-07 16:00] VITALS: BP 155/75; TEMP 98.1; O2SAT 96
[2025-03-07] MEDS: NEUTRA PHOS 1 POWD.PACKET NG ONE (17:25)
[2025-03-07 20:00] VITALS: BP 124/65; TEMP 98.1; O2SAT 92
[2025-03-08] VITALS: BP 127/72; TEMP 98.4; O2SAT 98
[2025-03-08 04:00] VITALS: BP 124/97; TEMP 98.4; O2SAT 95
[2025-03-08 08:00] VITALS: BP 115/84; TEMP 97.7; O2SAT 98
[2025-03-08 12:00] VITALS: BP 123/90; TEMP 97.5; O2SAT 99
[2025-03-08 16:00] VITALS: BP 100/45; TEMP 97.9; O2SAT 97
[2025-03-08 20:00] VITALS: BP 118/71; TEMP 97.7; O2SAT 99
[2025-03-09] VITALS: BP 121/90; TEMP 97.9; O2SAT 97
[2025-03-09] MEDS: LEVOFLOXACIN 750 MG /D5W 150ML 750 MG in PREMIX 1 EA IV SCH (00:15)
[2025-03-09 04:00] VITALS: BP 130/80; TEMP 98.1
[2025-03-09 08:00] VITALS: BP 111/75; TEMP 98.1
[2025-03-09 12:03] VITALS: BP 105/78; TEMP 97.9
[2025-03-09 16:24] VITALS: BP 212/90; TEMP 98.3
[2025-03-09 20:00] VITALS: BP 125/64; TEMP 97.9; O2SAT 96
[2025-03-09 21:14] LABS: PLATELET COUNT (AUTO) 311 K/uL (150-450); RED BLOOD CELL COUNT(AUTO) 2.48 MIL/uL (4.0-5.2); RED CELL DISTRIBUTION WIDTH 23.8 % (11.5-15.0); WHITE BLOOD COUNT (AUTO) 11.8 K/uL (4.3-11.0)
[2025-03-09 21:26] LABS: CALCIUM, SERUM 8.9 mg/dL (8.5-10.1); CREATININE 1.6 mg/dL (0.6-1.3); PHOSPHORUS 1.9 mg/dL (2.5-4.9); SODIUM SERUM 138.0 mmol/L (136-145); UREA NITROGEN, BLOOD 36.0 mg/dL (7-18)
[2025-03-10] VITALS: BP 134/72; TEMP 98.4; O2SAT 94
[2025-03-10 04:00] VITALS: BP 128/75; TEMP 98.4; O2SAT 94
[2025-03-10 07:13] LABS: PLATELET COUNT (AUTO) 347 K/uL (150-450); RED BLOOD CELL COUNT(AUTO) 2.60 MIL/uL (4.0-5.2); RED CELL DISTRIBUTION WIDTH 23.9 % (11.5-15.0); WHITE BLOOD COUNT (AUTO) 11.3 K/uL (4.3-11.0)
[2025-03-10 07:40] LABS: ASPARTATE AMINOTRANSFERASE 16 U/L (15-37); CALCIUM, SERUM 9.1 mg/dL (8.5-10.1); CREATININE 1.8 mg/dL (0.6-1.3); PHOSPHORUS 2.4 mg/dL (2.5-4.9); SODIUM SERUM 139 mmol/L (136-145); TOTAL PROTEIN, SERUM 6.8 g/dL (6.4-8.2); UREA NITROGEN, BLOOD 40 mg/dL (7-18)
[2025-03-10 08:00] VITALS: BP 124/92; TEMP 97.7; O2SAT 95
[2025-03-10] MEDS: VANCOMYCIN POST DIALYSIS 500MG IV PRN (12:06)
[2025-03-10 12:17] LABS: CALCIUM, SERUM 9.1 mg/dL (8.5-10.1); CREATININE 2.0 mg/dL (0.6-1.3); SODIUM SERUM 139.0 mmol/L (136-145); UREA NITROGEN, BLOOD 42.0 mg/dL (7-18)
[2025-03-10] MEDS: NEUTRA PHOS 1 POWD.PACKET NG ONE (17:30)
[2025-03-10] MEDS: hydrALAZINE HCL IV 20 MG VIAL IV PRN (17:35)
[2025-03-10 21:00] VITALS: BP 121/62; TEMP 98.3; O2SAT 94
[2025-03-11 05:00] VITALS: BP 127/58; TEMP 98.5; O2SAT 95
[2025-03-11 08:07] LABS: FOLIC ACID 9.0 ng/mL (>3.0)
[2025-03-11 12:45] LABS: CALCIUM, SERUM 8.6 mg/dL (8.5-10.1); CREATININE 1.7 mg/dL (0.6-1.3); SODIUM SERUM 141.0 mmol/L (136-145); UREA NITROGEN, BLOOD 33.0 mg/dL (7-18)
[2025-03-11 12:48] LABS: PLATELET COUNT (AUTO) 329 K/uL (150-450); RED BLOOD CELL COUNT(AUTO) 2.56 MIL/uL (4.0-5.2); RED CELL DISTRIBUTION WIDTH 23.4 % (11.5-15.0); WHITE BLOOD COUNT (AUTO) 12.1 K/uL (4.3-11.0)
[2025-03-11 13:00] VITALS: BP 108/59; TEMP 98.4; O2SAT 95
[2025-03-11 20:00] VITALS: BP 145/81; TEMP 98.9; O2SAT 97
[2025-03-12 04:00] VITALS: BP 148/90; TEMP 99; O2SAT 97
[2025-03-12 08:00] VITALS: BP 106/60; TEMP 99.9; O2SAT 95
[2025-03-12] MEDS: PROSOURCE / PROSTAT (PYXIS) 30 ML UDC GT SCH (12:29)
[2025-03-12 14:54] LABS: CALCIUM, SERUM 8.8 mg/dL (8.5-10.1); CREATININE 2.1 mg/dL (0.6-1.3); SODIUM SERUM 140.0 mmol/L (136-145); UREA NITROGEN, BLOOD 46.0 mg/dL (7-18)
[2025-03-12 16:00] VITALS: BP 130/66; TEMP 97.7; O2SAT 98
[2025-03-12 20:42] VITALS: BP 91/48; TEMP 99.1; O2SAT 96
[2025-03-12 22:29] VITALS: BP 122/66; O2SAT 96
[2025-03-13 05:06] VITALS: BP 150/88; TEMP 98.5; O2SAT 96
[2025-03-13 08:00] VITALS: BP 149/55; TEMP 97.3; O2SAT 97
[2025-03-13 12:01] LABS: CALCIUM, SERUM 8.6 mg/dL (8.5-10.1); CREATININE 2.3 mg/dL (0.6-1.3); SODIUM SERUM 139.0 mmol/L (136-145); UREA NITROGEN, BLOOD 60.0 mg/dL (7-18)
[2025-03-13 16:00] VITALS: BP 106/67; TEMP 99.5; O2SAT 95
[2025-03-13 20:00] VITALS: BP 112/56; TEMP 100.4; O2SAT 98
[2025-03-14 04:00] VITALS: BP 112/56; TEMP 99.1; O2SAT 98
[2025-03-14 08:00] VITALS: BP 122/56; TEMP 98.6; O2SAT 98
[2025-03-14 09:29] LABS: ABG BASE EXCESS 3.6 mmol/L (-2.0-3.0); ABG OXYGEN SATURATION 95.2 % (94.0-98.0); ABG PCO2 38.4 mmHg (32.0-45.0); ABG PH 7.473 (7.350-7.450); ABG PO2 77.2 mmHg (83.0-108.0); ABG TOTAL HEMOGLOBIN 7.8 G/dL (12.0-16.0); FLOW, BLOOD GAS 3.00 L/min (0.00-30.00); FRACTIONATED INSPIRED OXYGEN 32.0 %; SITE, ABG RIGHT RADIAL
[2025-03-14 12:07] LABS: VITAMIN B1 THIAMINE,WB 331.5 nmol/L (66.5-200.0)
[2025-03-14 13:38] LABS: PLATELET COUNT (AUTO) 306 K/uL (150-450); RED BLOOD CELL COUNT(AUTO) 2.33 MIL/uL (4.0-5.2); RED CELL DISTRIBUTION WIDTH 21.3 % (11.5-15.0); WHITE BLOOD COUNT (AUTO) 13.2 K/uL (4.3-11.0)
[2025-03-14 13:46] LABS: CALCIUM, SERUM 8.6 mg/dL (8.5-10.1); CREATININE 1.5 mg/dL (0.6-1.3); SODIUM SERUM 143.0 mmol/L (136-145); UREA NITROGEN, BLOOD 39.0 mg/dL (7-18)
[2025-03-14 16:00] VITALS: BP 114/86; TEMP 97.8; O2SAT 98
[2025-03-14 20:00] VITALS: BP 107/50; TEMP 98.4; O2SAT 95
[2025-03-15 04:00] VITALS: BP 94/74; TEMP 99; O2SAT 95
[2025-03-15 06:48] LABS: PLATELET COUNT (AUTO) 335 K/uL (150-450); RED BLOOD CELL COUNT(AUTO) 2.29 MIL/uL (4.0-5.2); RED CELL DISTRIBUTION WIDTH 21.3 % (11.5-15.0); WHITE BLOOD COUNT (AUTO) 12.0 K/uL (4.3-11.0)
[2025-03-15 07:25] LABS: CALCIUM, SERUM 8.8 mg/dL (8.5-10.1); CREATININE 2.2 mg/dL (0.6-1.3); SODIUM SERUM 142.0 mmol/L (136-145); UREA NITROGEN, BLOOD 54.0 mg/dL (7-18)
[2025-03-15 08:00] VITALS: BP 112/62; TEMP 99.2; O2SAT 94
[2025-03-15 20:00] VITALS: BP 155/93; TEMP 99.7; O2SAT 96
[2025-03-16 00:35] VITALS: TEMP 98.3
[2025-03-16 04:00] VITALS: BP 128/68; TEMP 98.1; O2SAT 97
[2025-03-16 10:28] VITALS: BP 141/56; TEMP 97.7; O2SAT 99
[2025-03-16] MEDS: EPOETIN ALFA-EPBX 4,000 UNIT/ML VIAL SQ ONE (13:19)
[2025-03-16 16:38] VITALS: BP 112/55; TEMP 98.4; O2SAT 97
[2025-03-16 20:00] VITALS: BP 107/76; TEMP 97.6; O2SAT 97
[2025-03-17 04:00] VITALS: BP 124/63; TEMP 97.9; O2SAT 93
[2025-03-17 08:00] VITALS: BP 98/60; TEMP 99.1; O2SAT 95
[2025-03-17 16:00] VITALS: BP 124/59; TEMP 98.9; O2SAT 92
[2025-03-17 16:03] LABS: PLATELET COUNT (AUTO) 382 K/uL (150-450); RED BLOOD CELL COUNT(AUTO) 2.35 MIL/uL (4.0-5.2); RED CELL DISTRIBUTION WIDTH 21.0 % (11.5-15.0); WHITE BLOOD COUNT (AUTO) 10.5 K/uL (4.3-11.0)
[2025-03-17 20:00] VITALS: BP 124/58; TEMP 98.6; O2SAT 92
[2025-03-18 04:00] VITALS: BP 137/68; TEMP 98.4; O2SAT 100
[2025-03-18 07:15] LABS: PLATELET COUNT (AUTO) 471 K/uL (150-450); RED BLOOD CELL COUNT(AUTO) 2.52 MIL/uL (4.0-5.2); RED CELL DISTRIBUTION WIDTH 20.8 % (11.5-15.0); WHITE BLOOD COUNT (AUTO) 11.1 K/uL (4.3-11.0)
[2025-03-18 08:15] VITALS: BP_SYST 86; BP_SYST 88; BP_DIAS 67; BP_DIAS 69; TEMP 99.1; O2SAT 95
[2025-03-18 08:52] LABS: ASPARTATE AMINOTRANSFERASE 23.0 U/L (15-37); CALCIUM, SERUM 9.6 mg/dL (8.5-10.1); CREATININE 2.3 mg/dL (0.6-1.3); PHOSPHORUS 2.8 mg/dL (2.5-4.9); SODIUM SERUM 138.0 mmol/L (136-145); TOTAL PROTEIN, SERUM 6.9 g/dL (6.4-8.2); UREA NITROGEN, BLOOD 65.0 mg/dL (7-18)
[2025-03-18 09:03] VITALS: BP 128/86; O2SAT 96
[2025-03-18 12:28] LABS: ABG BASE EXCESS 6.0 mmol/L (-2.0-3.0); ABG OXYGEN SATURATION 92.1 % (94.0-98.0); ABG PCO2 40.9 mmHg (32.0-45.0); ABG PH 7.483 (7.350-7.450); ABG PO2 64.2 mmHg (83.0-108.0); ABG TOTAL HEMOGLOBIN 8.3 G/dL (12.0-16.0); FLOW, BLOOD GAS 3.00 L/min (0.00-30.00); FRACTIONATED INSPIRED OXYGEN 32.0 %
[2025-03-18 16:00] VITALS: O2SAT 87
[2025-03-18 16:15] VITALS: BP 120/77; TEMP 97.6; O2SAT 99
[2025-03-18 20:00] VITALS: BP 106/68; TEMP 98.4; O2SAT 99
[2025-03-19 04:00] VITALS: BP 111/61; TEMP 98.2; O2SAT 94
[2025-03-19 07:58] VITALS: O2SAT 94
[2025-03-19 08:00] VITALS: BP 119/77; TEMP 98.3; O2SAT 94
[2025-03-19 10:42] LABS: PLATELET COUNT (AUTO) 472 K/uL (150-450); RED BLOOD CELL COUNT(AUTO) 2.43 MIL/uL (4.0-5.2); RED CELL DISTRIBUTION WIDTH 20.4 % (11.5-15.0); WHITE BLOOD COUNT (AUTO) 12.7 K/uL (4.3-11.0)
[2025-03-19 11:03] LABS: ASPARTATE AMINOTRANSFERASE 20 U/L (15-37); CALCIUM, SERUM 8.8 mg/dL (8.5-10.1); CREATININE 1.7 mg/dL (0.6-1.3); PHOSPHORUS 2.1 mg/dL (2.5-4.9); SODIUM SERUM 136 mmol/L (136-145); TOTAL PROTEIN, SERUM 6.4 g/dL (6.4-8.2); UREA NITROGEN, BLOOD 47 mg/dL (7-18)
[2025-03-19 16:00] VITALS: BP 137/88; TEMP 98.2; O2SAT 97
[2025-03-19] MEDS: NEUTRA PHOS 1 POWD.PACKET GT ONE (17:22)
[2025-03-19 20:00] VITALS: BP 116/51; TEMP 99; O2SAT 97
[2025-03-20 04:00] VITALS: BP 138/67; TEMP 99.9; O2SAT 98
[2025-03-20 08:00] VITALS: BP 120/70; TEMP 97; O2SAT 100
[2025-03-20 16:00] VITALS: BP 110/59; TEMP 98.8; O2SAT 99
[2025-03-20 20:00] VITALS: BP 108/68; TEMP 98.2; O2SAT 95
[2025-03-21 04:00] VITALS: BP 109/70; TEMP 98.8; O2SAT 96
[2025-03-21 08:00] VITALS: BP 139/71; TEMP 98.6; O2SAT 96
[2025-03-21 16:00] VITALS: BP 128/86; TEMP 97.8; O2SAT 95
[2025-03-21 20:00] VITALS: BP 129/59; TEMP 98.2; O2SAT 98
[2025-03-22 04:00] VITALS: BP 138/75; TEMP 98.7; O2SAT 97
[2025-03-22 08:59] LABS: CALCIUM, SERUM 8.9 mg/dL (8.5-10.1); CREATININE 2.1 mg/dL (0.6-1.3); UREA NITROGEN, BLOOD 68.0 mg/dL (7-18)
[2025-03-22 09:19] LABS: SODIUM SERUM 128.0 mmol/L (136-145)
[2025-03-22 09:23] LABS: ABG BASE EXCESS 0.2 mmol/L (-2.0-3.0); ABG OXYGEN SATURATION 93.6 % (94.0-98.0); ABG PCO2 39.9 mmHg (32.0-45.0); ABG PH 7.411 (7.350-7.450); ABG PO2 70.9 mmHg (83.0-108.0); ABG TOTAL HEMOGLOBIN 8.5 G/dL (12.0-16.0); FLOW, BLOOD GAS 2.00 L/min (0.00-30.00); FRACTIONATED INSPIRED OXYGEN 28.0 %; SITE, ABG RIGHT RADIAL
[2025-03-22 10:16] VITALS: BP 143/76; TEMP 97.7; O2SAT 98
[2025-03-22 17:24] VITALS: BP 114/68; TEMP 98.8; O2SAT 100
[2025-03-22 20:00] VITALS: BP 155/87; TEMP 99; O2SAT 100
[2025-03-22 20:45] VITALS: BP 134/74; O2SAT 99
[2025-03-23 04:00] VITALS: BP 129/79; TEMP 100.4; O2SAT 94
[2025-03-23 08:53] VITALS: BP 138/52; TEMP 98.3; O2SAT 97
[2025-03-23] MEDS ORDERED: LEVO500P10 IV (09:14)
[2025-03-23] MEDS ORDERED: EPOETIN ALFA (10,000 UNIT) 10,000 UNIT/ML VIAL SQ ONE (11:00)
[2025-03-23 16:22] LABS: PLATELET COUNT (AUTO) 575 K/uL (150-450); RED BLOOD CELL COUNT(AUTO) 2.33 MIL/uL (4.0-5.2); RED CELL DISTRIBUTION WIDTH 19.0 % (11.5-15.0); WHITE BLOOD COUNT (AUTO) 15.0 K/uL (4.3-11.0)
[2025-03-23 16:53] LABS: ASPARTATE AMINOTRANSFERASE 28.0 U/L (15-37); CALCIUM, SERUM 9.1 mg/dL (8.5-10.1); CREATININE 2.0 mg/dL (0.6-1.3); PHOSPHORUS 2.3 mg/dL (2.5-4.9); SODIUM SERUM 131.0 mmol/L (136-145); TOTAL PROTEIN, SERUM 6.8 g/dL (6.4-8.2); UREA NITROGEN, BLOOD 68.0 mg/dL (7-18)
[2025-03-24] MEDS ORDERED: FERR220E2 GT (16:07)
[2025-03-24] MEDS ORDERED: DOCU50LI GT (16:07)
[2025-03-24] MEDS ORDERED: HYDR100T27 GT (16:07)
[2025-03-24] MEDS ORDERED: OMEP20CA15 GT (16:07)
[2025-03-24] MEDS ORDERED: ESOM40SU2 GT (16:07)
[2025-03-24] MEDS ORDERED: ASPI-1169 GT (16:07)
== END 2025-03-23 18:18 | DRG 698 ==
LOC: ER 10:19 → TELE1 11:32 → MEDSG1 03-03 12:45 → TELE1 03-06 18:39 → MEDSG1 03-10 10:11
PROVIDERS: ADMIT Internal Medicine; ATTEND Internal Medicine
PROC: 5A1D70Z Performance of Urinary Filtration, Intermittent, Less than 6 Hours Per Day (ICD-10-PCS; 2025-03-02)
PROC: 0J2SXYZ Change Other Device in Head and Neck Subcutaneous Tissue and Fascia, External Approach (ICD-10-PCS; principal; 2025-03-02 18:05)
PROC: 05HF33Z Insertion of Infusion Device into Left Cephalic Vein, Percutaneous Approach (ICD-10-PCS; 2025-03-06)
DX: T82.49XA Other complication of vascular dialysis catheter, initial encounter (principal); E43 Unspecified severe protein-calorie malnutrition; N18.6 End stage renal disease; G93.41 Metabolic encephalopathy; J96.21 Acute and chronic respiratory failure with hypoxia; L89.150 Pressure ulcer of sacral region, unstageable; I13.2 Hypertensive heart and chronic kidney disease with heart failure and with stage 5 chronic kidney disease, or end stage renal disease; L89.890 Pressure ulcer of other site, unstageable; Z99.2 Dependence on renal dialysis; Z68.42 Body mass index [BMI] 45.0-49.9, adult; E11.22 Type 2 diabetes mellitus with diabetic chronic kidney disease; I27.20 Pulmonary hypertension, unspecified; D63.1 Anemia in chronic kidney disease; R18.8 Other ascites; R04.2 Hemoptysis; I50.42 Chronic combined systolic (congestive) and diastolic (congestive) heart failure; E87.1 Hypo-osmolality and hyponatremia; I48.20 Chronic atrial fibrillation, unspecified; L89.620 Pressure ulcer of left heel, unstageable; R13.10 Dysphagia, unspecified; E83.59 Other disorders of calcium metabolism; I87.2 Venous insufficiency (chronic) (peripheral); E11.51 Type 2 diabetes mellitus with diabetic peripheral angiopathy without gangrene; Z53.20 Procedure and treatment not carried out because of patient's decision for unspecified reasons; Y71.2 Prosthetic and other implants, materials and accessory cardiovascular devices associated with adverse incidents; Z86.73 Personal history of transient ischemic attack (TIA), and cerebral infarction without residual deficits; I25.10 Atherosclerotic heart disease of native coronary artery without angina pectoris; G43.909 Migraine, unspecified, not intractable, without status migrainosus; Z98.890 Other specified postprocedural states; M19.90 Unspecified osteoarthritis, unspecified site; Z95.1 Presence of aortocoronary bypass graft; Z86.718 Personal history of other venous thrombosis and embolism; Z88.0 Allergy status to penicillin; Z79.51 Long term (current) use of inhaled steroids; Z79.82 Long term (current) use of aspirin; Z79.899 Other long term (current) drug therapy; R54 Age-related physical debility; E66.9 Obesity, unspecified; I89.0 Lymphedema, not elsewhere classified; E78.5 Hyperlipidemia, unspecified; E86.1 Hypovolemia; G89.4 Chronic pain syndrome; Z82.49 Family history of ischemic heart disease and other diseases of the circulatory system; Z87.891 Personal history of nicotine dependence; E11.65 Type 2 diabetes mellitus with hyperglycemia; E88.09 Other disorders of plasma-protein metabolism, not elsewhere classified; G47.33 Obstructive sleep apnea (adult) (pediatric); Z78.1 Physical restraint status; Z79.4 Long term (current) use of insulin; M89.8X9 Other specified disorders of bone, unspecified site
CPT/HCPCS: 36415; 36600; 70450-TC; 71045-TC; 71260-TC; 80048-TC; 80053-TC; 80202-TC; 82607-TC; 82803-TC; 82962-TC; 83735-TC; 83921; 83970; 84100-TC; 84425; 84443-TC; 84484-TC; 85025-TC; 85027-TC; 85730-TC; 86850-TC; 87070-TC; 87081-TC; 87186-TC; 90935-TC; 92526; 92611; 93930-TC; 93971-TC; 94799-TC; A4216; A4223; A6213; A6253; A6254; A6403; C1750; C1894; G0378; J0360; J0690; J0885; J1644; J1815; J1956; J2704; J3373; J3490; J7030; J7050; J7060; J7120; Q9967